=== PATIENT | female | born 1940 | race Caucasian/White ===

== ENCOUNTER 2023-09-05 18:52 | Observation (INO) | payer OTHER, SELFPAY ==
[2023-09-05] VITALS (8 sets, daily range): BP systolic 109–179; BP diastolic 76–97; PULSE 88–89; BMI 20.1; BMI 20.4
[2023-09-05 13:47] LABS: % Basophils 0.2 % (0-2); % Eosinophils 0.2 % (0-6); % Immature Granulocytes 0.4 % (0-0.5); % Lymphocytes 23.7 % (20.5-51.1); % Monocytes 9.3 % (1.7-9.3); % Neutrophils 66.2 % (42.2-75.2); Absolute Lymphocytes 1.9 10^3/uL (1.2-3.4); Absolute Monocytes 0.8 10^3/uL (0.1-0.6); Absolute Neutrophils 5.4 10^3/uL (1.4-6.5); Hematocrit 28.4 % (37.0-47.0); Hemoglobin 8.8 g/dL (12.0-16.0); Mean Corpuscular Hgb 24.2 pg (27.0-31.0); Mean Platelet Volume 9.2 fL (7.4-10.4); Nucleated Red Blood Cells % 0 %; Platelet Count 321 10^3/uL (130-400); Red Blood Cell Count 3.64 10^6/uL (4.20-5.40); Red Cell Dist. Width 15.9 % (11.5-14.5); White Blood Cell Count 8.2 10^3/uL (4.8-10.8)
[2023-09-05 13:57] LABS: ALT (SGPT) 13 U/L (0-35); AST (SGOT) 17 U/L (14-36); Albumin 3.9 g/dl (3.5-5.0); Alkaline Phosphatase 75 U/L (38-126); Blood Urea Nitrogen 20 mg/dl (7-17); Calcium 9.1 mg/dl (8.4-10.2); Carbon Dioxide 25 mmol/L (22-30); Chloride 102 mmol/L (98-107); Estimated Creatinine Clearance 57 ml/min; Glucose 94 mg/dl (70-99); Potassium 3.9 mmol/L (3.5-5.1); Sodium 134 mmol/L (135-145); Total Bilirubin 0.4 mg/dl (0.2-1.3); Total Protein 7.1 g/dl (6.3-8.2); eGFR > 60.00
[2023-09-05 14:08] LABS: Troponin I < 0.012 ng/ml
--- NOTE | 2023-09-05 16:00 | ED.GENMED ---
History of Present Illness
General
Chief Complaint: Fainting/Passed Out
Source: patient
Exam Limitations: none
Time Seen by Provider: 09/05/23 15:10
History of Present Illness
History of Present Illness:
Is an 82-year-old female presents after she states that overnight she fell out of bed 3 times. She states she just found herself on the ground. She does complain of some low back pain she states that sometimes when she gets like this it is due to
being anemic. She admits that she has been just in general weak. She has been a little bit lightheaded and dizzy as well. The patient denies chest pain or shortness of breath. Denies melena or hematochezia. States she has had an endoscopy and
colonoscopy. She also has a history of ulcerative colitis. She states that she had her hemoglobin checked recently about 2 weeks ago and it was higher than today's 8.8
Past History
Past History
ED Past Medical History: CHF, HTN, Hypercholesterolemia, Psychiatric (Anxiety/depression) and Other (Colitis, Macular degeneration, )
ED Past Surgical History: Orthopedic (Lumbar fusion, )
Social History
Tobacco: Non-smoker
Alcohol: Daily (Martini 1 )
Personal: ( in detention, patient lives alone)
Living: alone
Employment: Retired
Family History
Family History: Other ( Noncontributory)
Phy Exam
Physical Exam
Physical Exam:
CONSTITUTIONAL Patient alert and oriented to person, place and time. Well-appearing. Vital signs reviewed.
HEAD atraumatic, normocephalic.
EYES eyelids normal to inspection,
NECK normal range of motion, Trachea midline, no jugular venous distention.
RESPIRATORY CHEST No respiratory distress noted, Chest expansion equal, Bilateral breath sounds clear.
CARDIOVASCULAR regular rate and rhythm, Heart sounds normal.
ABDOMEN abdomen nontender, Bowel sounds normal. No distention.
BACK normal inspection, no obvious deformities, no midline tenderness
UPPER EXTREMITY range of motion normal, Motor strength normal, no cyanosis, no edema.
LOWER EXTREMITY range of motion normal, Motor strength normal, no cyanosis, no edema. Full normal range of motion of bilateral hips. No deformities
NEURO Speech normal, No focal motor deficits, [place] coma scale 15, Memory normal, Cranial Nerves intact to screening exam.
SKIN skin warm, dry, and normal in color.
PSYCHIATRIC patient oriented to person place and time, Normal affect.
Course
Orders/Labs/Results
Orders:
Orders
09/05/23 13:18
Electrocardiogram (*1) Urgent
Reason for Study: Chest Pain
EKG- Treatment ONCE
09/05/23 13:33
Complete Blood Count/With Diff Urgent
Comprehensive Metabolic Panel Urgent
Troponin I Urgent
09/05/23 15:37
Orthostatic VS- Treatment ONCE
09/05/23 15:43
Urinalysis Reflex To Culture Urgent
Date Specimen was Collected: 09/05/23
Time Specimen was Collected: 15:41
Urine Microscopic Reflex Cult Urgent
Urine Culture Urgent
EARL Source: U
Specimen Description:
Date Specimen was Collected: 09/05/23
Time Specimen was Collected: 15:41
09/05/23 16:00
Lumbar Spine, 2 or 3 View [CR Lumbar Spine 2 Or 3 Views] Urgent
Comment:
Reason For Exam: fall
09/05/23 16:28
Femur, Right 2 View [CR Femur - Right Min 2 Vw] Urgent
Comment:
Reason For Exam: fall
09/05/23 17:24
CefTRIAXone [Rocephin] 2,000 mg IV NOW STA
Abnormal Lab Results
09/05/23 09/05/23
13:33 15:43
RBC 3.64 L 10^6/uL
(4.20-5.40)
Hgb 8.8 L g/dL
(12.0-16.0)
Hct 28.4 L %
(37.0-47.0)
MCV 78.0 L fL
(81.0-99.0)
MCH 24.2 L pg
(27.0-31.0)
MCHC 31.0 L g/dL
(33.0-37.0)
RDW 15.9 H %
(11.5-14.5)
Absolute Monos (auto) 0.8 H 10^3/uL
(0.1-0.6)
Sodium 134 L mmol/L
(135-145)
BUN 20 H mg/dl
(7-17)
Urine Ketones Trace A
(Negative)
Ur Occult Blood Reflex 2+ A
(Negative)
Leukocyte Esterase Rfl 2+ A
(Negative)
Urine RBC 7-10 A /HPF
(0-2)
Urine WBC (Reflex) 80-90 A /HPF
(0-5)
Urine Bacteria (Reflex) Many A
(Negative)
Urine Albumin (Reflex) 1+ A
(Neg - Trace)
09/05/23 13:33
09/05/23 13:33
Vital Signs
Initial and Last Documented VS:
Initial Vital Signs
Temp Pulse Resp BP Pulse Ox
98.1 F 91 16 131/87 96
09/05/23 13:13 09/05/23 13:13 09/05/23 13:13 09/05/23 13:13 09/05/23 13:13
Last Documented Vital Signs
Temp Pulse Resp BP Pulse Ox
98.1 F 91 16 174/87 97
09/05/23 13:13 09/05/23 13:13 09/05/23 13:13 09/05/23 16:00 09/05/23 16:00
MDM/Problems Addressed
MDM/Problems Addressed:
fall, possible syncope, anemia, UTI
*Pulse Oximetry
Patient hypoxic: no
*EKG
Interpreted by ED Provider?: Yes
Interpretation: normal
Rate: normal
Rhythm: sinus
[place]: normal axis
Interval: normal interval
QRS Pattern: normal QRS
Ischemia: no ischemia
*Graphic Production Artist Interpretation
Rate: normal
Interpretation: normal
Rhythm: sinus
*Critical Care Note
Total Time (30-74mins, 75-104mins- exclusive of procedures): Not Applicable
Data Reviewed
Review of Other/Old Records Reveals: Labs (Prior labs reviewed showing hemoglobin recently of 9.7 by fax from PCP) and Records
Source: patient
Further Testing Considered But Not Given:
Consider CT head but no evidence of head injury
Patient Management
Discussion with other providers: Hospitalist
Escalation/DeEscalation of care consider admission/obs:
Patient very weak. Question related to UTI versus anemia. She is mildly more anemic than her recent check of 9.7. Very very trace heme positive stool on exam. She needed people to help her from the bathroom. Treat for UTI and admit for trending
hemoglobin
ED Attending Note
-
Portions of this chart may have been created with voice recognition software.� Occasional wrong word or��sound alike� substitutions may have occurred due to the inherent limitations of voice recognition software.
Discharge Plan
Departure
Patient Disposition: Admit
Date of Disposition: 09/05/23
Time of Disposition: 17:43
Admit to: Med/Surg
Presentation/result/management discussed w/ accepting MD/DO: Hospitalist
Discharge Problem:
Weakness, Anemia, Acute GI bleeding
Prescriptions:
No Action
sennosides [senna] 8.6 mg Tablet
17.2 mg PO HS
acetaminophen [Tylenol] 325 mg Tablet
650 mg PO Q8HPRN PRN (Reason: mild pain/fever )
citalopram 20 mg Tablet
20 mg PO DAILY
cyclobenzaprine 5 mg Tablet
5 mg PO BID
furosemide 20 mg Tablet
20 mg PO DAILY PRN (Reason: weight gain, swelling or shortness of breath) Qty: 0 0RF
magnesium hydroxide [Milk of Magnesia] 400 mg/5 mL Suspension
30 ml PO DAILY PRN (Reason: constipation )
Rx Instructions:
if no BM x 3 days, on day 4 of no BM
acetaminophen [Pain Relief ES (acetaminophen)] 500 mg Tablet
1,000 mg PO TID Qty: 60 0RF
lisinopril 2.5 mg Tablet
2.5 mg PO DAILY Qty: 30 0RF
tramadol 50 mg Tablet
25 mg PO Q6HPRN PRN (Reason: mod pain) Qty: 15 0RF
alprazolam 1 mg Tablet
1 mg PO QID Qty: 16 0RF
cephalexin 500 mg capsule
500 mg PO TID Qty: 6 0RF
Rx Instructions:
start 03/16/22
Referrals:
Nick Mareclo PA-C [Family Provider] -
Interventions
Interventions:
*Risk Screen - Suicide Last Done: 09/05/23 13:13
*Neglect/Abuse Screening Last Done: 09/05/23 13:13
ED- Fall Risk Assessment Last Done: 09/05/23 13:13
Discharge Date and Time
Print Language: LUX[place]
[2023-09-05 16:08] LABS: Urine Albumin 1+ (Neg - Trace); Urine Bilirubin Negative (Negative); Urine Character Clear (Clear); Urine Color Yellow; Urine Glucose Negative (Negative); Urine Ketone Trace (Negative); Urine Leukocyte 2+ (Negative); Urine Nitrite Negative (Negative); Urine Occult Blood 2+ (Negative); Urine Specific Gravity 1.015 (<1.030); Urine Urobilinogen Negative (Neg - 1+)
[2023-09-05 16:18] LABS: Urine White Cell 80-90 /HPF (0-5)
[2023-09-05 16:19] LABS: Urine Bacteria Many (Negative)
[2023-09-05] MEDS: XANAX 1 MG PO ×2 (18:08→21:32)
[2023-09-05] MEDS: ROCEPHIN 2000 MG IV (18:20)
--- NOTE | 2023-09-05 18:32 | HPS.HSE ---
Family Physician
-
Family Physician: Nick Marcelo
Chief Complaint
-
Weakness and Falls
History of Present Illness
Patient is an 82-year-old female past medical history of generalized anxiety disorder, ulcerative colitis and chronic anemia who presents with weakness and falls. Patient where she was doing very well over the last few weeks up until a few days ago
when she developed increasing weakness. She reports generalized fatigue. Over the last 24 hours she has had multiple falls resulting in increased back pain which prompted her to come to the emergency department. She reports associated
lightheadedness. While in the emergency department she was noted to have trace heme positive stools in the emergency department. Patient denies any black or bloody stools. She states she did have a recent colonoscopy a few months ago with her
primary GI physician at which time he 'seared some lesions.'
Medical History
Past Medical History
Past Medical History: Reports Other
Additional Past Medical History:
Congestive Heart Failure
Essential Hypertension
Hyperlipidemia
Orthostatic Hypotension
Iron Deficiency Anemia
Ulcerative Colitis
Anxiety/Depression
Past Surgical History: Reports Other
Additional Past Surgical History:
Lumbar Fusion
Social History
Tobacco: Non-smoker
Alcohol: None
Personal: ( in July 2023)
Living: Alone
Family History
Family History: Not pertinent
Allergies / Home Medications
Allergies reflects when Allergies were last updated in [employer].
Home Medications with original date entered in [employer]
Allergy/Medication List:
Allergies
Allergy/AdvReac Type Severity Reaction Status Date / Time
latex Allergy Rash Verified 09/05/23 13:12
prednisone Allergy psychosis Verified 09/05/23 13:12
Home Medications
alprazolam 1 mg tablet 1 mg PO QID Mental Health/Anxiety #16 tabs 03/15/23
acetaminophen 500 mg tablet (Pain Relief Extra Strength (acetaminophen)) 1,000 mg PO QIDPRN PRN mild pain 09/05/23
diclofenac sodium 1 % topical gel 1 ea topical BIDPRN PRN topical pain 09/05/23
fluoxetine 20 mg capsule 20 mg PO DAILY 09/05/23
nitrofurantoin monohydrate/macrocrystals 100 mg capsule 100 mg PO DAILY 09/05/23
Review of Systems
-
A 12 point ROS was completed and negative except as noted: Yes
Constitutional: Denies Fever or Chills
Respiratory: Denies Cough or Trouble Breathing
Cardiac: Denies Chest Pain or Palpitations
Abdomen/GI: Denies Abdominal Pain, Nausea or Vomiting
: Reports Frequency (Patient reports chronic for the last several years); Denies Dysuria
Physical Exam
Vital Signs
Vital Signs
Temp Pulse Resp BP Pulse Ox
98.1 F 91 16 174/87 97
09/05/23 13:13 09/05/23 13:13 09/05/23 13:13 09/05/23 16:00 09/05/23 16:00
Physical Exam
General: Comfortable and Conversant
HEENT: Anicteric and Moist mucous membranes
Respiratory: Clear and Non Labored Respirations
Cardiac: S1/S2 and Regular Rhythm
GI: Soft and Non Tender
Rectal: Other (Trace heme positive stool per ED provider)
Musculoskeletal: No Cyanosis and No Edema
Skin: Warm and Dry
Neuro: Awake, Alert, Oriented and Nonfocal/grossly intact
Psych: Calm
Laboratory Results
-
09/05/23 13:33
09/05/23 13:33
Laboratory Results
Total Bilirubin 0.4 mg/dl (0.2-1.3) 09/05/23 13:33
AST 17 U/L (14-36) 09/05/23 13:33
ALT 13 U/L (0-35) 09/05/23 13:33
Alkaline Phosphatase 75 U/L (38-126) 09/05/23 13:33
Troponin I < 0.012 ng/ml 09/05/23 13:33
Data Reviewed
-
Lab Data: Labs Reviewed by me
Impression/Plan
-
Anemia with trace heme positive stool
-Patient reports blood work approximately 2 weeks ago showed hemoglobin closer to 10
-Check iron studies
-Check repeat hemoglobin in AM
-At this time patient does not appear to be actively bleeding
-Continue to heme-test stool
-If Hgb trends down consider GI consult
-Attempt to obtain records from her primary GI with recent colonoscopy report
Weakness and Frequent Falls
-Check orthostatic VS
-Consult PT/OT
Abnormal Urinalysis, doubt active infection as patient denies new urology symptoms
-Continue nitrofurantoin as prior to admission
-Await urine culture
Ulcerative Colitis
-Patient maintained on Humira as outpatient
Congestive Heart Failure
-Patient no longer on diuretics
-Monitor Is&OS and Daily Weights
Anxiety/Depression
-Continue alprazolam and fluoxetine as prior to admission
DVT Proph: SCDs
Code Status: Full Code
[2023-09-05 19:04] LABS: Iron 32 ug/dl (37-170)
[2023-09-05 19:13] LABS: Percent Saturation 8 % (20-50); Total Iron Binding Capacity 390 ug/dl (265-497)
[2023-09-05 19:39] LABS: Ferritin 3.9 ng/ml (11.1-264.0)
[2023-09-05 19:54] LABS: Vitamin B12 267 pg/ml (239-931)
--- NOTE | 2023-09-05 20:13 | PTCARENOTE ---
Pt arrived from ED via stretcher and was a stand and pivot to bed. Pt is AAOx3, VSS, and complains of pain only when ambulating and turning. Pt is resting comfortably w/ call phoenix within reach.
--- NOTE | 2023-09-05 21:16 | W.PN.UPDATE ---
Update Note
Progress Note Update
Patient seen/examined and discussed with RODDY Prince, and I agree with her note.
Gen-AAOx3, NAD
HEENT-NC/AT, anicteric, clear MM
Neck-supple
CV-reg, no M
Lungs-clear
Abd-soft, NT, ND
Ext-no edema
Neuro-grossly nonfocal
Generalized weakness - likely multifactorial etiology. Doubt purely from anemia. Suspect her depression/anxiety is also playing a role. Patient mentioned she lost her 1 month ago.
Consult PT/OT.
She apparently fell out of bed last night, reportedly 3 times. Unclear if LOC. Admit to Tele, check orthostatics.
Microcytic anemia, acute on chronic - trace heme positive stool in setting of ulcerative colitis history suggestive of possible GI blood loss.
Trend Hgb.
Chronic pyuria - with chronic bladder symptoms, unlikely UTI. Hx urinary incontinence. Recommend outpatient Urology follow up. Hold antibiotics, await urine culture.
Ulcerative colitis - on weekly Humara every Sunday, did not get her dose today.
Chronic CHF - unknown type. Stable.
Depression/Anxiety
Full code
[2023-09-05 22:04] LABS: Folate > 20.0 ng/ml (2.76-20)
[2023-09-06 03:45] VITALS: BP 157/93
[2023-09-06 05:27] VITALS: BMI 20.4
[2023-09-06] MEDS: TYLENOL 1000 MG PO (06:29)
[2023-09-06 07:35] LABS: Hematocrit 29.7 % (37.0-47.0); Hemoglobin 8.9 g/dL (12.0-16.0); Mean Corpuscular Hgb 23.9 pg (27.0-31.0); Mean Corpuscular Volume 79.8 fL (81.0-99.0); Mean Platelet Volume 9.1 fL (7.4-10.4); Platelet Count 302 10^3/uL (130-400); Red Blood Cell Count 3.72 10^6/uL (4.20-5.40); Red Cell Dist. Width 15.9 % (11.5-14.5); White Blood Cell Count 6.5 10^3/uL (4.8-10.8)
[2023-09-06 07:45] VITALS: BP 145/90; BP 152/90; PULSE 78; PULSE 80
[2023-09-06 08:04] LABS: Blood Urea Nitrogen 18 mg/dl (7-17); Calcium 9.2 mg/dl (8.4-10.2); Carbon Dioxide 25 mmol/L (22-30); Chloride 102 mmol/L (98-107); Estimated Creatinine Clearance 57 ml/min; Glucose 94 mg/dl (70-99); Potassium 4.2 mmol/L (3.5-5.1); Sodium 135 mmol/L (135-145); eGFR > 60.00
[2023-09-06] MEDS: XANAX 1 MG PO ×2 (08:53→13:08)
[2023-09-06] MEDS: MACROBID 100 MG PO (08:53)
[2023-09-06] MEDS: PROZAC 20 MG PO (08:53)
[2023-09-06 09:00] VITALS: BP 150/83; PULSE 92; O2SAT 98
[2023-09-06 09:35] VITALS: BP 150/83; PULSE 92; O2SAT 98
--- NOTE | 2023-09-06 11:21 | CM ---
Addendum entered by Rolanda Nicole 09/06/23 14:01:
Patient seen with daughter in law, patient resides in [place], not [place], referral sent to [facility].
Addendum entered by Rolanda Nicole 09/06/23 11:55:
Patient agreeable to [facility] or [facility]. Confirmed with [facility], do not travel to [place]. Will send referral to [facility].
Original Note:
Patient seen bedside, initial assessment completed. Patient resides in a two story home with a first floor set up, has a stair glide, walker, cane, and wheelchair at home from , reports was on Hospice and passed a month ago. CM
offered support to patient. Patient reports she has a daughter in law who lives in [place] who is her POA. Patient reports she has support from her neighbors. 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 Patient
reports she has been to [facility] twice in the past. Patient PCP Dr. Nick Hoskins, pharmacy [facility]. CM discussed PT recommendation of SNF, patient not agreeable to rehab, would like to return home with services. Patient reports she
still drives and typically does not use a device to ambulate, is unsure why she is falling out of her bed. [facility] form provided, refused to sign, placed in chart. CM will continue to follow for all discharge planning needs.
Plan; PT rec SNF, patient wants to return home with services, not agreeable to SNF at this time.
[2023-09-06 11:25] VITALS: BP 124/82
--- NOTE | 2023-09-06 11:34 | W.PN.HOSP.TC ---
Addendum entered and electronically signed by Andrew Liang DO 09/06/23 14:19:
Iron deficiency anemia noted on blood work.
I spoke with patient's CORINA Jones on the phone and recommended exos-wbu-rsawtex ferrous sulfate 325 mg every other day.
Addendum entered and electronically signed by Andrew Liang DO 09/06/23 11:39:
Vitamin B12 level 267, start oral repletion.
Original Note:
Today's Communication/Plan
-
Discharge
Assessment / Plan
Assessment / Plan
Gen-AAOx3, NAD
HEENT-NC, AT, anicteric, clear oral mm
Neck-supple
CV-reg, no M, +S1/S2
Lungs-clear B/L
Abd-soft, NT, ND
Ext-no edema
Musculoskeletal-no cyanosis, clubbing
Skin-warm and dry
Neuro-grossly non-focal
Psych-calm, cooperative
Generalized weakness - likely multifactorial etiology. Doubt purely from anemia. Suspect her depression/anxiety is also playing a role. Patient mentioned she lost her 1 month ago. Unclear contribution of benzodiazepines to her fall. She is
not orthostatic.
PT recommending SNF but patient not interested. She wants to do home PT and home care. Discussed with case management.
Microcytic anemia, acute on chronic - trace heme positive stool in setting of ulcerative colitis history suggestive of possible GI blood loss.
Hemoglobin trend appears stable. Doubt active bleeding. Recommend outpatient follow-up with her geological specialist.
Chronic pyuria - with chronic bladder symptoms, unlikely UTI. Hx urinary incontinence. Recommend outpatient Urology follow up. Hold antibiotics, await urine culture.
Ulcerative colitis - on weekly Humara every Sunday, did not get her dose today.
Chronic CHF - unknown type. Stable.
Depression/Anxiety -on chronic alprazolam. Obviously this is not safe at her age given her risk for falls. Discussed with patient's daughter on the phone, recommend outpatient follow-up with her prescriber to consider alternative means of
controlling her anxiety.
Full code
Dispo -medically stable for discharge with home care. Case management aware. Updated daughter Karen on the phone.
32 minutes spent in discharge process.
Anticipated Discharge: Today
Subjective/Interval History
-
Date of Service: September 06, 2023
Patient seen and examined. No new complaints.
Objective Data
-
Labs:
Laboratory Results
09/06/23
07:05
WBC 6.5
Hgb 8.9 L
Hct 29.7 L
Plt Count 302
Sodium 135
Potassium 4.2
Chloride 102
Carbon Dioxide 25
BUN 18 H
Creatinine 0.6
Glucose 94
Calcium 9.2
Vital Signs:
Vital Signs
Temp Pulse Resp BP Pulse Ox
98.5 F 78 18 145/90 96
09/06/23 07:45 09/06/23 07:45 09/06/23 07:45 09/06/23 07:45 09/06/23 07:45
I&O
09/05/23 09/06/23 09/07/23
06:59 06:59 06:59
Intake Total 480 / 480
Balance 480 / 480
Review of Systems
-
History Source: Patient
All other systems: Reviewed and negative
--- NOTE | 2023-09-06 11:39 | W.DS.TRANS ---
DC Summary - [employer]
-
Discharge Instructions:
Sleep Apnea Risk Low
Discharge Diagnosis/Procedures Fall, anemia
Diet Regular
Activity With assistance
Driving Restrictions As prior to admission
Bathing Restrictions None
Blood Work CBC in 1 week with your primary care doctor
Other Services VN,PT
Instructions:
Stand-Alone Forms:
Changes to Home Medications: No
Discharge Medications:
DC Medications w/original date entered in [employer]
alprazolam 1 mg tablet 1 mg PO QID Mental Health/Anxiety #16 tabs 03/15/23
acetaminophen 500 mg tablet (Pain Relief Extra Strength (acetaminophen)) 1,000 mg PO QIDPRN PRN mild pain 09/05/23
diclofenac sodium 1 % topical gel 1 ea topical BIDPRN PRN topical pain 09/05/23
fluoxetine 20 mg capsule 20 mg PO DAILY Depression 09/05/23
nitrofurantoin monohydrate/macrocrystals 100 mg capsule 100 mg PO DAILY Infection 09/05/23
cyanocobalamin (vitamin B-12) 1,000 mcg tablet 1,000 mcg PO DAILY #60 tabs 09/06/23
Home Medication Changes
Pending Results: No
[2023-09-06] MEDS: VITAMIN B-12 1000 MCG PO (13:08)
== END 2023-09-06 13:20 | disposition home health service (06) ==
LOC: 4 EAST ACU 18:52
PROVIDERS: Emergency Medicine; Physician Assistant Medical; ADMITTING PHYSICIAN Hospitalist; EMERGENCY PHYSICIAN Emergency Medicine; FAMILY PHYSICIAN Physician Assistant Medical
DX: R53.1 Weakness (principal); D50.0 Iron deficiency anemia secondary to blood loss (chronic); W06.XXXA Fall from bed, initial encounter; Y93.89 Activity, other specified; Y92.003 Bedroom of unspecified non-institutional (private) residence as the place of occurrence of the external cause; R55 Syncope and collapse; K51.90 Ulcerative colitis, unspecified, without complications; R29.6 Repeated falls; M47.816 Spondylosis without myelopathy or radiculopathy, lumbar region; R82.81 Pyuria; R42 Dizziness and giddiness; F41.9 Anxiety disorder, unspecified; F32.A Depression, unspecified; E78.00 Pure hypercholesterolemia, unspecified; E78.5 Hyperlipidemia, unspecified; R07.9 Chest pain, unspecified; Z60.2 Problems related to living alone; Z63.4 Disappearance and death of family member; Z88.8 Allergy status to other drugs, medicaments and biological substances; Z91.040 Latex allergy status; Z79.620 Long term (current) use of immunosuppressive biologic
CPT/HCPCS: 72100; 73552; 80048; 80053; 81003; 81015; 82607; 82728; 82746; 83540; 83550; 84484; 85025; 85027; 87086; 93005; 96374; 97163; 97166; 99285; G0378

== ENCOUNTER 2023-09-08 10:29 | Emergency (ER) | payer OTHER, SELFPAY ==
[2023-09-08 10:42] VITALS: BP 121/75
--- NOTE | 2023-09-08 11:33 | EDRN ---
Patient requesting 'pain pill' from everyone that enters the room including registration. After this RN spoke with the patient, asked what she would like for her pain, she stated 'xanax' and that she has been on it for 40 years.
i readjusted the patient in bed and assisted in looking for her cell phone. Attempted to call it but went right to . Patient is cursing a lot about not being able to find her phone. Patient has her personal phone book to use and I provided the
patient with the landline and clear instructions on use.
--- NOTE | 2023-09-08 12:02 | ED.GENMED ---
History of Present Illness
General
Chief Complaint: Back Pain
Source: patient
Exam Limitations: none
Time Seen by Provider: 09/08/23 10:57
Nursing documentation reviewed up to this point in time: agreed with
History of Present Illness
History of Present Illness:
82 y/o F with h/o htn, hld, frequent uti, frequent falls, GI bleeding/anemia chronically
here after being discharged yesterday from for anemia/falls
she declined rehab at that time but lives alone and fell again last night when she got home and says 'i went flying through the air' and landed somehow on her knees and back and may have struck her head
no blood thinners
denies LOC
was able to get herself off the ground
no confusion, vomiting, cp, sob
she is very anxious and requesting her normal xanax 1 mg qid that she has been on for years for her 'pain and craziness'
pt is agreeable to rehab.
Past History
Past History
ED Past Medical History: CHF, HTN, Hypercholesterolemia, Psychiatric (Anxiety/depression) and Other (Colitis, Macular degeneration, )
ED Past Surgical History: Orthopedic (Lumbar fusion, )
Social History
Tobacco: Non-smoker
Alcohol: Daily (Martini 1 )
Personal: ( in penitentiary, patient lives alone)
Living: alone
Employment: Retired
Family History
Family History: Other ( Noncontributory)
Phy Exam
Physical Exam
Physical Exam:
GENERAL: Alert , in no apparent distress
HEAD: POSTERIOR SCALP BRUISING
NECK: no midline tenderness, active ROM intact, no paraspinal muscle tenderness;
EYE: pupils equal and reactive, EOMs intact.
ENT: o/p clr, mmm. no hemotympanum
CARDIAC: Regular rate and rhythm, no edema
LUNGS: Clear breath sounds bilaterally, no acute respiratory distress, no wheezes/rales/rhonchi
ABDOMEN: Soft, without focal tenderness, no r/g, no cvat
NEUROLOGICAL: Alert and oriented, no focal neuro deficits, CN intact, 5/5 strength, sensation intact; ambulates with walker; needed help up but then able to maneuver when she got oging
SKIN: Warm and dry, bruis left upper shoulder nontender
MUSCULOSKELETAL: no obvious bruising to B/L LE
back mild pain with movement; notnender midline
ambulates with walker
PSYCH: Normal and appropriate interaction.
Course
Orders/Labs/Results
Orders:
Orders
09/08/23 11:57
CT Head W/o Iv Contrast Urgent
Comment:
Reason For Exam: falss, hit head
Cardiac Monitoring- Treatment ONCE
Knee, Left 1 or 2 Views [CR Knee - Left 1 Or 2 Views] Urgent
Comment:
Reason For Exam: b/l knee pain fall
Knee, Right 1 or 2 Views [CR Knee - Right 1 Or 2 Views] Urgent
Comment:
Reason For Exam: bl knee pain fall
Lumbar Spine Complete, 4 View [CR Lumbar Spine Comp Min 4 Vw*] Urgent
Comment:
Reason For Exam: low back pain fall
Pelvis, 1 or 2 Views CR [CR Pelvis - 1 Or 2 Views ] Urgent
Comment:
Reason For Exam: fall
09/08/23 12:03
Acetaminophen [Tylenol] 650 mg PO NOW STA
Alprazolam [Xanax] 1 mg PO NOW STA
09/08/23 12:18
Case Management Consult ONCE
Case Management Consult: Discharge Planning
09/08/23 12:30
PT Consult [Pt Eval And Treat] Urgent
Activity Level: Ambulate
09/08/23 12:59
Type+Screen Urgent
Complete Blood Count/With Diff Urgent
Comprehensive Metabolic Panel Urgent
09/08/23 14:53
COVID-19 Antigen Urgent
Source: Nasal Swab
09/08/23 17:09
Oxycodone/Acetaminophen [Percocet 5/325] 1 tablet PO NOW STA
09/08/23 17:52
Alprazolam [Xanax] 1 mg .ROUTE .STK-MED ONE
09/08/23 18:02
Alprazolam [Xanax] 1 mg PO Q6HPRN ONE
Abnormal Lab Results
09/08/23
12:59
RBC 4.08 L 10^6/uL
(4.20-5.40)
Hgb 9.8 L g/dL
(12.0-16.0)
Hct 31.8 L %
(37.0-47.0)
MCV 77.9 L fL
(81.0-99.0)
MCH 24.0 L pg
(27.0-31.0)
MCHC 30.8 L g/dL
(33.0-37.0)
RDW 16.4 H %
(11.5-14.5)
BUN 26 H mg/dl
(7-17)
09/08/23 12:59
09/08/23 12:59
Vital Signs
Initial and Last Documented VS:
Initial Vital Signs
Temp Pulse Resp BP Pulse Ox
98.8 F 99 16 121/75 98
09/08/23 10:42 09/08/23 10:42 09/08/23 10:42 09/08/23 10:42 09/08/23 10:42
Last Documented Vital Signs
Temp Pulse Resp BP Pulse Ox
98.8 F 95 17 127/86 100
09/08/23 10:42 09/08/23 16:00 09/08/23 16:00 09/08/23 13:30 09/08/23 14:33
MDM/Problems Addressed
Differential Diagnosis Includes:
frequent falls, deconditioning, anemia, lumbar compression
MDM/Problems Addressed:
82 y/o F recently hopsitalized for fatigue, weakness, decondtioning, anemia
not transfused
says she declined rehab and went home and fell again and now is requeting rehab
her exam i s nonfocal, no weakness
she has luke tendrness in her lower back
xarys indep reviewed and neg for fx; has djd
hg 9.8, which is better than previous
seen by case management and by PT
placed in rehab facility
*Critical Care Note
Total Time (30-74mins, 75-104mins- exclusive of procedures): Not Applicable
ED Attending Note
-
Portions of this chart may have been created with voice recognition software.� Occasional wrong word or��sound alike� substitutions may have occurred due to the inherent limitations of voice recognition software.
Discharge Plan
Departure
Patient Disposition: Acute Rehab Facility
Date of Disposition: 09/08/23
Time of Disposition: 16:04
Patient with high blood pressure during this ER visit?: No
Condition: Fair
Covid-19: Not Applicable
Discharge Problem:
Ambulatory dysfunction, Anemia
Instructions: Low Back Pain (DC), Preventing Falls ED
Prescriptions:
No Action
alprazolam 1 mg Tablet
1 mg PO QID Qty: 16 0RF
Patient Comments:
09/05/2023: last filled 08/15/23, 120 tabs for 30 days from [facility]
fluoxetine 20 mg capsule
20 mg PO DAILY
nitrofurantoin monohyd/m-cryst 100 mg capsule
100 mg PO DAILY
diclofenac sodium 1 % gel
1 ea TOPICAL BIDPRN PRN (Reason: topical pain)
Patient Comments:
09/05/2023: Applies all over for sores
acetaminophen [Pain Relief ES (acetaminophen)] 500 mg tablet
1,000 mg PO QIDPRN PRN (Reason: mild pain)
cyanocobalamin (vitamin B-12) 1,000 mcg Tablet
1,000 mcg PO DAILY Qty: 60 0RF
Referrals:
Nick Marcelo PA-C [Family Provider] -
Activity Restrictions/Additional Instructions:
YOU WERE MEDICALLY CLEARED FOR REHAB
Interventions
Interventions:
*Risk Screen - Suicide Last Done: 09/08/23 12:04
*General Assessment Last Done: 09/08/23 12:04
*Neglect/Abuse Screening Last Done: 09/08/23 12:04
ED- Fall Risk Assessment Last Done: 09/08/23 18:30
*ED COVID-19 Vaccine History Last Done: 09/08/23 12:04
*Nursing Disposition Last Done: 09/08/23 18:30
ED-Musculoskeletal Assessment Last Done: 09/08/23 12:04
Discharge Date and Time
Discharge Date/Time: 09/08/23 18:30
Print Language: HEBREW
[2023-09-08] MEDS: TYLENOL 650 MG PO (12:35)
[2023-09-08] MEDS: XANAX 1 MG PO ×2 (12:35→18:03)
[2023-09-08 12:58] VITALS: BP 134/87
--- NOTE | 2023-09-08 13:02 | CM ---
Addendum entered by Beatris Red RN 09/08/23 15:58:
[facility]
REPORT
[phone]

Addendum entered by Beatris Red RN 09/08/23 15:55:
IBC Authorization
[id number]
NRD 09/11
[facility]view to go to
[phone]
Addendum entered by Beatris Red RN 09/08/23 15:03:
[facility] has accepted patient. CM left message for personal counselor IBC UR RN. Pending return call for authorization
Addendum entered by Beatris Red RN 09/08/23 14:16:
CM sent referrals to:
[facility]
Addendum entered by Beatris Red RN 09/08/23 14:02:
[facility] no beds available.
[facility] is unavailable for placements over the weeks. Patient mentioned that was a ziyad for july years.
Patient wants a referral to [facility] and [facility] both have offered beds.
Addendum entered by Beatris Red RN 09/08/23 13:12:
CM spoke with [facility]. NO beds available today.
Original Note:
CM spoke with patient. She is agreeable to rehab. CM sent referrals to:
[facility] updated this CM that no bed are available.
CM will await feedback on referrals.
[2023-09-08 13:03] LABS: % Basophils 0.2 % (0-2); % Eosinophils 0.7 % (0-6); % Immature Granulocytes 0.2 % (0-0.5); % Lymphocytes 22.8 % (20.5-51.1); % Neutrophils 69.1 % (42.2-75.2); Absolute Eosinophils 0.1 10^3/uL (0-0.7); Absolute Lymphocytes 1.8 10^3/uL (1.2-3.4); Absolute Monocytes 0.6 10^3/uL (0.1-0.6); Absolute Neutrophils 5.6 10^3/uL (1.4-6.5); Hematocrit 31.8 % (37.0-47.0); Hemoglobin 9.8 g/dL (12.0-16.0); Mean Corp Hgb Conc. 30.8 g/dL (33.0-37.0); Mean Corpuscular Volume 77.9 fL (81.0-99.0); Mean Platelet Volume 8.8 fL (7.4-10.4); Nucleated Red Blood Cells % 0 %; Platelet Count 350 10^3/uL (130-400); Red Blood Cell Count 4.08 10^6/uL (4.20-5.40); Red Cell Dist. Width 16.4 % (11.5-14.5)
[2023-09-08 13:16] LABS: ALT (SGPT) 18 U/L (0-35); AST (SGOT) 22 U/L (14-36); Albumin 3.9 g/dl (3.5-5.0); Alkaline Phosphatase 73 U/L (38-126); Blood Urea Nitrogen 26 mg/dl (7-17); Calcium 9.4 mg/dl (8.4-10.2); Carbon Dioxide 25 mmol/L (22-30); Chloride 104 mmol/L (98-107); Glucose 86 mg/dl (70-99); Potassium 3.9 mmol/L (3.5-5.1); Sodium 136 mmol/L (135-145); Total Bilirubin 0.5 mg/dl (0.2-1.3); Total Protein 7.2 g/dl (6.3-8.2); eGFR > 60.00
[2023-09-08 13:30] VITALS: BP 127/86
[2023-09-08 13:45] VITALS: BP 127/86; BP 134/87; PULSE 101; O2SAT 96
--- NOTE | 2023-09-08 14:38 | EDRN ---
Pt returned from CT Scan. Pt connected to animal daycare provider. Pt states 'I am starving to and need to eat' RODDY Leal said pt could eat. Pt given turkey sandwhich lunch box, asked to order from cafeteria and explained can not order until/if
pt is admitted. Call phoenix placed within reach of pt and cup of water given to pt.
[2023-09-08 15:55] LABS: COVID-19 Antigen Negative (Negative)
[2023-09-08] MEDS: PERCOCET 5/325 1 TABLET PO (17:59)
== END 2023-09-08 18:30 ==
LOC: EMR 10:29
PROVIDERS: Physician Assistant; EMERGENCY PHYSICIAN Emergency Medicine; FAMILY PHYSICIAN Physician Assistant Medical
DX: R26.89 Other abnormalities of gait and mobility (principal); D64.9 Anemia, unspecified; M54.9 Dorsalgia, unspecified; W19.XXXA Unspecified fall, initial encounter; I10 Essential (primary) hypertension; E78.5 Hyperlipidemia, unspecified
CPT/HCPCS: 99285; 70450; 72110; 72170; 73560; 80053; 85025; 86850; 86900; 86901; 87811

== ENCOUNTER 2023-10-25 09:08 | Inpatient (IN) | payer OTHER, SELFPAY ==
[2023-10-23 12:22] VITALS: BP 143/97
[2023-10-23 13:00] VITALS: BP 150/98
--- NOTE | 2023-10-23 13:56 | ED.GENMED ---
History of Present Illness
General
Chief Complaint: Anxiety
Source: patient and other (Nurse practitioner from [facility])
Exam Limitations: none
Time Seen by Provider: 10/23/23 13:15
Nursing documentation reviewed up to this point in time: agreed with
History of Present Illness
History of Present Illness:
82-year-old female history of CHF, HTN, HLD, anxiety/depression is here because she ran out of her Xanax. She states she has been taking Xanax for the past 40 years. She states she takes Xanax 1 mg 4 times a day, she states this was weaned from 6
mg 4 times a day about a month ago. She states her psychiatrist filled her Xanax prescription but when she went to the pharmacy they told her they could not fill it as it was not time yet they cannot fill it until which is 2 days from now.
She is here stating she needs something is when she stops taking her Xanax she starts to fall, she gets confused, her back and legs hurt.
She denies chest pain or trouble breathing. There are no new stressful factors. She states she lives alone in a big house and has fallen twice in the past 2 days. She denies any significant injury from the falls.
Past History
Past History
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
ED Past Surgical History: Orthopedic (Lumbar fusion, )
Social History
Tobacco: Non-smoker
Alcohol: Daily (Martini 1 )
Drug: Other (Xanax addiction)
Personal: ( in retirement, patient lives alone)
Living: alone
Employment: Retired
Family History
Family History: Other ( Noncontributory)
Review of Systems
Review of Systems
Allergies reviewed?: Yes
All Other Systems: ROS reviewed and negative except as documented in HPI and ROS
Respiratory: Denies trouble breathing
Cardiac: Denies chest pain
ABD/GI: Denies abdominal pain, nausea, vomiting or diarrhea
: Denies dysuria, difficulty voiding or urgency
Musculoskeletal: Reports other (pain in legs and lower back (chronic))
Skin: Reports no symptoms
Neurological: Reports no symptoms
Phy Exam
Physical Exam
Physical Exam:
GENERAL: No acute distress. A&Ox3.
CONSTITUTIONAL: Afebrile.
EYES: PERRL, conjunctivae normal
Neck: Supple
ENMT: moist mucus membranes, Pharynx nl
RESPIRATORY: Regular respirations, nonlabored, lungs clear.
CARDIOVASCULAR: Regular rate and rhythm, no murmurs, no rubs.
GI: Soft, nontender, normal BS
MUSCULOSKELETAL: Moves with ease. Well perfused.
SKIN: Warm, dry, pink
PSYCH: Anxious mood and affect. Jittery. Picking at sheet, Well kept
NEUROLOGIC: Awake, alert and oriented. Forgetful and confused at times during conversation, speech clear, no focal neurological deficits
Course
Orders/Labs/Results
Orders:
Orders
10/23/23 14:01
0.9% Sodium Chloride 500 ml [Nss] 500 ml IV BOLUS
10/23/23 14:02
Urinalysis Reflex To Culture Urgent
10/23/23 14:17
Complete Blood Count/With Diff Urgent
Comprehensive Metabolic Panel Urgent
10/23/23 14:19
Lorazepam [Ativan] 1 mg IV NOW STA
10/23/23 15:29
Physical Therapy Consult [Pt Eval And Treat] Routine
Activity Level: Ambulate
10/23/23 16:05
Admit/Transfer Patient As Directed
Co-Sign Provider:
Level of Care: Observation services
Assign to:: Medical/Surgical
Physician / Group: shane
Diagnosis: ambulatory dysfunction
PRN Pain Medication Management As Directed
May give lesser potent ordered pain med per pt: Yes
preference::
Protocol:: Medication orders for pain may be administered in a
manner that supports deferring to patient preference
when the pt is:
- Requesting an ordered lesser potent pain medication.
Least to most potent pain medications are defined
as: acetaminophen < NSAID < tramadol < opioids
(morphine, oxycodone, hydromorphone).
- Requesting a lesser dose of the same medication IF
ORDERED.
- Requesting a less intrusive route of administration
if both routes are prescribed by the provider (PO <
IV).
10/23/23 16:06
Code Status As Directed
Resuscitation Status: Full Code
10/23/23 17:00
0.9% Sodium Chloride 500 ml [Nss] 500 ml IV 75 mls/hr
10/23/23 17:01
Acetaminophen [Tylenol] 650 mg PO Q6HPRN PRN
Bisacodyl [Dulcolax] 10 mg RECTAL [id number] PRN
Docusate W/Senna [Senokot-S] 1 tablet PO BIDPRN PRN
Polyethylene Glycol Powder [Miralax] 17 grams PO DAILYPRN PRN
10/23/23 17:01
Case Management Consult ONCE
Case Management Consult: Discharge Planning
PSYCHIATRY CONSULT Routine
Consulting Provider: Priscila Steen
Was physician already notified: Yes
Activity As Directed
Activity Level: As Tolerated
Vital Signs As Directed
Frequency: Per unit guidelines
DX Deep Vein Thrombosis Video Routine
10/23/23 18:00
Enoxaparin Sodium [Lovenox] 40 mg SC QPM
10/23/23 22:00
BMP [Basic Metabolic Panel] Routine
Alprazolam [Xanax] 1 mg PO TID
10/24/23 06:00
Basic Metabolic Panel IN AM
Complete Blood Count/No Diff IN AM
Occupational Therapy Consult [Ot Eval And Treat] IN AM
10/24/23 08:00
Cyanocobalamin [Vitamin B-12] 1,000 mcg PO DAILY
Fluoxetine HCl [Prozac] 20 mg PO DAILY
Nitrofurantoin Monohydrate [Macrobid] 100 mg PO DAILY
Abnormal Lab Results
10/23/23
14:17
WBC 12.6 H 10^3/uL
(4.8-10.8)
MCH 26.5 L pg
(27.0-31.0)
MCHC 32.3 L g/dL
(33.0-37.0)
RDW 22.2 H %
(11.5-14.5)
Abs Immat Gran (auto) 0.1 H 10^3/uL
(0-0.05)
Absolute Neuts (auto) 10.4 H 10^3/uL
(1.4-6.5)
Absolute Monos (auto) 0.7 H 10^3/uL
(0.1-0.6)
Immature Gran % 0.6 H %
(0-0.5)
Neutrophils % 82.8 H %
(42.2-75.2)
Lymphocytes % 10.6 L %
(20.5-51.1)
Sodium 131 L mmol/L
(135-145)
Glucose 109 H mg/dl
(70-99)
10/23/23 14:17
10/23/23 14:17
Vital Signs
Initial and Last Documented VS:
Initial Vital Signs
Temp Pulse Resp BP Pulse Ox
97.9 F 89 24 143/97 94
10/23/23 12:22 10/23/23 12:22 10/23/23 12:22 10/23/23 12:22 10/23/23 12:22
Last Documented Vital Signs
Temp Pulse Resp BP Pulse Ox
98.6 F 105 18 183/125 96
10/23/23 17:24 10/23/23 17:24 10/23/23 17:24 10/23/23 17:24 10/23/23 17:24
MDM/Problems Addressed
Differential Diagnosis Includes:
Benzodiazepine dependence/abuse, ambulatory dysfunction
MDM/Problems Addressed:
82-year-old female history of CHF, HTN, HLD, anxiety/depression is here because she ran out of her Xanax. She states she has been taking Xanax for the past 40 years. She states she takes Xanax 1 mg 4 times a day, she states this was weaned from 6
mg 4 times a day about a month ago. She states her psychiatrist filled her Xanax prescription but when she went to the pharmacy they told her they could not fill it as it was not time yet they cannot fill it until which is 2 days from now.
She is here stating she needs something is when she stops taking her Xanax she starts to fall, she gets confused, her back and legs hurt.
She denies chest pain or trouble breathing. There are no new stressful factors. She states she lives alone in a big house and has fallen twice in the past 2 days. She denies any significant injury from the falls.
Ativan 1 mg IV given
Deysi nurse practitioner from [facility] hand called
passed on Hospice in July, Deysi followed with him at the time.
She sees patient once a month at her home lately she has been going a little more often
Recently she had nursing and PT visiting
She has in the past gone from 6 mg to 4 mg 4 times a day, it was lowered to 4 mg 1 month ago. Deysi says it was recently lowered to 3 mg.
Recently she has been taking more Xanax than she is supposed to have frequently runs out, she has anxiety and has been having falls
She lives alone
10 times manager social services has been in contact with her and her family called [facility]PS today [facility]
Has been abusing Xanax, runs out, gets more anxious, falls, more confused.
Oct 10 #56 pills
PCP refusing to refill.
Had license taken away due to driving up onto lawn after drinking
Deysi Sent an email to [facility] who will follow hospitalization
[facility] would be an option.
CBC: WBC No clinically significant abnormality, mild elevation WBC most likely stress reaction
CMP unremarkable
Gonsalo from [facility] in to speak with patient.
Pt declining rehab
Pt is not safe to go home, is tremulous, very confused, at risk for falls. At risk for Benzo withdrawal
Hospitalist notified of admission
*Critical Care Note
Total Time (30-74mins, 75-104mins- exclusive of procedures): Not Applicable
ED Attending Note
-
Portions of this chart may have been created with voice recognition software.� Occasional wrong word or��sound alike� substitutions may have occurred due to the inherent limitations of voice recognition software.
Discharge Plan
Departure
Patient Disposition: Admit
Date of Disposition: 10/23/23
Time of Disposition: 15:18
Admit to: Med/Surg
Presentation/result/management discussed w/ accepting MD/DO: Hospitalist
Condition: Serious
Discharge Problem:
Benzodiazepine dependence, Ambulatory dysfunction, Fall
Interventions
Interventions:
*Risk Screen - Suicide Last Done: 10/23/23 12:22
*General Assessment Last Done: 10/23/23 12:22
*Neglect/Abuse Screening Last Done: 10/23/23 12:22
*Nursing Disposition Last Done: 10/23/23 17:03
ED-Psychological Assessment Last Done: 10/23/23 12:55
Discharge Date and Time
Discharge Date/Time: 10/23/23 17:08
[2023-10-23 14:00] VITALS: BP 155/97
[2023-10-23] MEDS: NSS 500 IV ×2 (14:16→17:41)
[2023-10-23] MEDS: ATIVAN 1 MG IV (14:24)
[2023-10-23 14:36] LABS: % Basophils 0.2 % (0-2); % Eosinophils 0.1 % (0-6); % Immature Granulocytes 0.6 % (0-0.5); % Lymphocytes 10.6 % (20.5-51.1); % Monocytes 5.7 % (1.7-9.3); % Neutrophils 82.8 % (42.2-75.2); Absolute Immature Granulocytes 0.1 10^3/uL (0-0.05); Absolute Lymphocytes 1.3 10^3/uL (1.2-3.4); Absolute Monocytes 0.7 10^3/uL (0.1-0.6); Absolute Neutrophils 10.4 10^3/uL (1.4-6.5); Hematocrit 37.5 % (37.0-47.0); Hemoglobin 12.1 g/dL (12.0-16.0); Mean Corp Hgb Conc. 32.3 g/dL (33.0-37.0); Mean Corpuscular Hgb 26.5 pg (27.0-31.0); Mean Corpuscular Volume 82.2 fL (81.0-99.0); Mean Platelet Volume 9.3 fL (7.4-10.4); Nucleated Red Blood Cells % 0 %; Platelet Count 327 10^3/uL (130-400); Red Blood Cell Count 4.56 10^6/uL (4.20-5.40); Red Cell Dist. Width 22.2 % (11.5-14.5); White Blood Cell Count 12.6 10^3/uL (4.8-10.8)
[2023-10-23 14:55] LABS: ALT (SGPT) 20 U/L (0-35); AST (SGOT) 27 U/L (14-36); Albumin 4.4 g/dl (3.5-5.0); Alkaline Phosphatase 100 U/L (38-126); Blood Urea Nitrogen 14 mg/dl (7-17); Calcium 9.8 mg/dl (8.4-10.2); Carbon Dioxide 23 mmol/L (22-30); Chloride 98 mmol/L (98-107); Estimated Creatinine Clearance 56 ml/min; Glucose 109 mg/dl (70-99); Sodium 131 mmol/L (135-145); Total Protein 7.6 g/dl (6.3-8.2); eGFR > 60.00
--- NOTE | 2023-10-23 15:29 | HPS.HSE ---
Family Physician
-
Family Physician: Nick Marcelo
Chief Complaint
-
shaking
History of Present Illness
82-year-old female history of CHF, HTN, HLD, anxiety/depression is here because she ran out of her Xanax. She states she has been taking Xanax for the past 40 years. She states she takes Xanax 1 mg 4 times a day. she thinks, she was taking more
than what was prescribed. As per ER physician , she was supposed to take 3 mg/day. she ran out of Xanax since Sunday. she last took Xanax on Sunday night. She states her psychiatrist filled her Xanax prescription but when she went to the pharmacy
they told her they could not fill it as it was not time yet they cannot fill it until which is 2 days from now. She is here stating she needs something is when she stops taking her Xanax she starts to fall, she gets confused, her back and
legs hurt.She denies chest pain or trouble breathing. she is sad, because her recently passed, she was taking care of him of past 16 years. the Xanax helps her mentally. denied DURHAM, dizzy or syncope. denied abdominal pain, n,v,d. denied
dysuria or hematuria.
admitting for further management.
Medical History
Past Medical History
Past Medical History: Reports Other
Additional Past Medical History:
Scoliosis
Hypertension
Urinary incontinence
Chronic congestive heart failure
Bilateral pleural effusion
Anxiety/depression
Arthritis
Macular degeneration
Ulcerative colitis
Anemia
Past Surgical History: Reports Other
Additional Past Surgical History:
History of back surgeries
Social History
Tobacco: Non-smoker
Alcohol: Occasional
Drug: None
Personal: Single
Living: Alone
Family History
Family History: Not pertinent
Allergies / Home Medications
Allergies reflects when Allergies were last updated in [employer].
Home Medications with original date entered in [employer]
Allergy/Medication List:
Allergies
Allergy/AdvReac Type Severity Reaction Status Date / Time
latex Allergy Rash Verified 10/23/23 12:22
prednisone Allergy psychosis Verified 10/23/23 12:22
Home Medications
diclofenac sodium 1 % topical gel 1 ea topical HS sores 09/05/23
fluoxetine 20 mg capsule 20 mg PO DAILY Depression 09/05/23
nitrofurantoin monohydrate/macrocrystals 100 mg capsule 100 mg PO DAILY Infection 09/05/23
cyanocobalamin (vitamin B-12) 1,000 mcg tablet 1,000 mcg PO DAILY #60 tabs 09/06/23
acetaminophen 325 mg tablet (Tylenol) 650 mg PO Q6HPRN PRN mild pain 10/23/23
alprazolam 1 mg tablet 1 mg PO .BID-QID, SEE BELOW Mental Health/Anxiety 10/23/23
sennosides 8.6 mg tablet (senna) 17.2 mg PO HSPRN PRN constipation 10/23/23
Review of Systems
-
Constitutional: Reports No Symptoms
EENT: Reports No Symptoms
Respiratory: Reports No Symptoms
Cardiac: Reports No Symptoms
Abdomen/GI: Reports No Symptoms
: Reports No Symptoms
Musculoskeletal: Reports No Symptoms
Skin: Reports No Symptoms
Neurological: Reports Weakness and Other (Tremors)
Endocrine: Reports No Symptoms
Hematologic/Lymphatic: Reports No Symptoms
Psych: Reports No Symptoms
Physical Exam
Vital Signs
Vital Signs
Temp Pulse Resp BP Pulse Ox
97.9 F 103 27 155/97 96
10/23/23 12:22 10/23/23 14:45 10/23/23 14:45 10/23/23 14:00 10/23/23 14:45
Physical Exam
General: Well Developed, Well Nourished and No Apparent Distress
HEENT: NormoCephalic, Moist mucous membranes and Atraumatic
Respiratory: Clear
Cardiac: S1/S2 and Regular Rhythm; No Murmur or Rub
GI: Soft, Non Tender, Non Distended and Normal Bowel Sounds; No Organomegaly
Rectal: Deferred by Provider
Musculoskeletal: No Clubbing, No Cyanosis and No Edema
Skin: No Rash
Neuro: Nonfocal/grossly intact, Tremors and Other
Laboratory Results
-
10/23/23 14:17
10/23/23 14:17
Laboratory Results
Total Bilirubin 1.0 mg/dl (0.2-1.3) 10/23/23 14:17
AST 27 U/L (14-36) 10/23/23 14:17
ALT 20 U/L (0-35) 10/23/23 14:17
Alkaline Phosphatase 100 U/L (38-126) 10/23/23 14:17
Data Reviewed
-
Lab Data: Labs Reviewed by me
Impression/Plan
-
# Ambulatory dysfunction/tremors likely due to benzodiazepine dependence/withdrawal
-PT/OT consulted
-B CARE consulted
-Will continue Xanax 1 mg 3 times a day
-Psychiatry consulted
-Case management consulted
# Leukocytosis likely stress reaction
-WBC 12.6
-Patient is afebrile
-Continue to monitor
# Hyponatremia likely from poor oral intake
-Sodium 131
-will hydrate patient with normal saline 500cc, repeat BMP at 2200
#Ulcerative colitis
#Chronic CHF - unknown type. Stable.
#Depression/Anxiety
-on chronic alprazolam.
-Fluoxetine continued
# Chronic pyuria
-Patient is on nitrofurantoin
#Full code
--- NOTE | 2023-10-23 15:55 | W.PN.UPDATE ---
Update Note
Progress Note Update
This note serves as an addendum to the H&P by MAGDALENA Becker on October 23, 2023.
History of Presenting Illness
82-year-old female with past medical history of CHF, HTN, HLD, anxiety/depression presented after running out of her Xanax. Patient had been taking Xanax for the past 40 years at a dose of 1 mg 4 times a day. As per ER physician, she was recently
weaned down and supposed to be taking 3 mg/day of Xanax. She ran out of Xanax for the past 1.5 days. She states her psychiatrist filled her Xanax prescription but when she went to the pharmacy they told her they could not fill it as it was not
time yet they cannot fill it until 2 days from now. She is here stating she needs something and that when she stops taking her Xanax she starts to fall, she gets confused, her back and legs hurt. She is sad, because her recently passed, she
was taking care of him of past 16 years.
Vital Signs
AFVSS
Physical Exam
General: Not in acute distress. Tremors present.
HEENT: Normocephalic
Respiratory: Clear to Auscultation Bilaterally
Cardiac: S1/S2 and Regular Rhythm
GI: Soft, Non Tender, Non Distended and Normal Bowel Sounds
Musculoskeletal: No Cyanosis and No Edema
Skin: Warm. Dry.
Neuro: Alert. Awake. PERRL. Cranial Nerves grossly intact bilaterally. Nonfocal/grossly intact except for some mild chronic RLE weakness (per patient, RLE weakness is chronic)
Assessment/Plan
# Ambulatory dysfunction/tremors likely due to benzodiazepine dependence/withdrawal
-PT/OT consulted
-B CARES consulted
-Continue Xanax 1 mg 3 times a day -- await psychiatry input
-Psychiatry consulted, appreciate recommendations
-Case management consulted
# Leukocytosis likely stress reaction
-WBC 12.6
-Patient is afebrile
-Continue to monitor for any signs or symptoms of infection
# Hyponatremia suspected from poor oral intake
-Sodium 131
-will hydrate patient with normal saline 500cc, repeat BMP at 2200
#Ulcerative colitis
#Chronic CHF - unknown type. Stable.
#Depression/Anxiety
-Also, patient recently lost her
-on chronic alprazolam.
-Fluoxetine continued
#Chronic pyuria
#History of Urinary Incontinence
-Patient is on nitrofurantoin
#Low Vitamin B12
-Continue Vitamin B12
#Full code
[2023-10-23 17:24] VITALS: BP 183/125
[2023-10-23 17:26] VITALS: BMI 19.0
[2023-10-23] MEDS: XANAX 1 MG PO ×2 (17:41→21:30)
[2023-10-23] MEDS: LOVENOX 40 MG SC (17:41)
[2023-10-23 18:21] VITALS: BMI 19.0
--- NOTE | 2023-10-23 19:24 | PTCARENOTE ---
Pt received from ED. AAOX3. Pt forgetful and confused at times. Tremors noted in bilateral upper extremities. Pt appears to be very anxious. BP also elevated at 183/125. Dr Singletary aware. 1 mg PO Xnanax ordered and given. Anahy from ED
replaced. Pt resting in bed, call phoenix within reach. Bed alarm on. Report given to maintenance technician 2nd shift RN.
[2023-10-23 21:06] LABS: Urine Albumin Trace (Neg - Trace); Urine Bilirubin Negative (Negative); Urine Character Slightly Cloudy (Clear); Urine Color Yellow; Urine Glucose Negative (Negative); Urine Ketone 2+ (Negative); Urine Leukocyte 1+ (Negative); Urine Nitrite Negative (Negative); Urine Occult Blood 3+ (Negative); Urine Specific Gravity 1.015 (<1.030); Urine Urobilinogen Negative (Neg - 1+)
[2023-10-23 21:18] LABS: Urine Squamous Cell >30 /LPF (Few)
[2023-10-23 21:21] LABS: Urine Red Blood Cell 26-30 /HPF (0-2)
[2023-10-23] MEDS: TYLENOL 650 MG PO (21:30)
[2023-10-23 22:22] LABS: Blood Urea Nitrogen 13 mg/dl (7-17); Carbon Dioxide 25 mmol/L (22-30); Chloride 99 mmol/L (98-107); Estimated Creatinine Clearance 54 ml/min; Glucose 120 mg/dl (70-99); Potassium 3.4 mmol/L (3.5-5.1); Sodium 129 mmol/L (135-145); eGFR > 60.00
[2023-10-23 22:39] VITALS: BP 160/103
[2023-10-23] MEDS: KCL 20 MEQ PO (23:30)
--- NOTE | 2023-10-23 23:30 | PTCARENOTE ---
BMP results reported to akr NICHOLS, order received
[2023-10-24] VITALS (7 sets, daily range): BP systolic 128–160; BP diastolic 84–93; PULSE 96; O2SAT 96; BMI 19.4
[2023-10-24] MEDS: ULTRAM 25 MG PO (02:22)
[2023-10-24 06:09] LABS: Osmolality Urine 431 mOsm/kg (300-900)
[2023-10-24 06:16] LABS: Urine Sodium 138 mmol/L (30-90)
[2023-10-24 07:24] LABS: Hematocrit 35.9 % (37.0-47.0); Hemoglobin 11.5 g/dL (12.0-16.0); Mean Corpuscular Hgb 26.1 pg (27.0-31.0); Mean Corpuscular Volume 81.6 fL (81.0-99.0); Mean Platelet Volume 10.1 fL (7.4-10.4); Platelet Count 326 10^3/uL (130-400); Red Cell Dist. Width 22.4 % (11.5-14.5); White Blood Cell Count 9.4 10^3/uL (4.8-10.8)
[2023-10-24 08:14] LABS: Blood Urea Nitrogen 10 mg/dl (7-17); Calcium 9.3 mg/dl (8.4-10.2); Carbon Dioxide 24 mmol/L (22-30); Chloride 101 mmol/L (98-107); Estimated Creatinine Clearance 55 ml/min; Glucose 93 mg/dl (70-99); Potassium 3.8 mmol/L (3.5-5.1); Sodium 132 mmol/L (135-145); eGFR > 60.00
[2023-10-24] MEDS: TYLENOL 650 MG PO ×2 (08:17→20:58)
[2023-10-24] MEDS: VITAMIN B-12 1000 MCG PO (08:18)
[2023-10-24] MEDS: XANAX 1 MG PO ×3 (08:18→21:00)
[2023-10-24] MEDS: MACROBID 100 MG PO (08:18)
[2023-10-24] MEDS: PROZAC 20 MG PO (08:19)
--- NOTE | 2023-10-24 08:37 | VNURNOTE ---
Chart reviewed. Patient is current with [facility]. She lives alone and has had multiple falls. Concerns that patient needs more help in the home ? more appropriate/safer to be in a facility ? - CM notified for d/c planning.
--- NOTE | 2023-10-24 10:10 | W.PN.HOSP.TC ---
Today's Communication/Plan
-
Continue Xanax for now
Appreciate psychiatry evaluation and recommendations
Follow-up on x-rays and CT Head given falls prior to arrival
Assessment / Plan
Assessment / Plan
Physical Exam
General: Not in acute distress. Tremors present.
HEENT: Normocephalic
Respiratory: Clear to Auscultation Bilaterally
Cardiac: S1/S2 and Regular Rhythm
GI: Soft, Non Tender, Non Distended and Normal Bowel Sounds
Musculoskeletal: No Cyanosis and No Edema
Skin: Warm. Dry.
Neuro: Alert. Awake. PERRL. Cranial Nerves grossly intact bilaterally. Nonfocal/grossly intact except for some mild chronic RLE weakness (per patient, RLE weakness is chronic)
Psych: Anxious
Assessment/Plan
# Ambulatory dysfunction/tremors likely due to benzodiazepine dependence/withdrawal
# Reports of falls prior to arrival, patient reported (on 10/24/23) possible head trauma
-PT/OT consulted
-B CARES consulted
-Resumed Xanax 1 mg 3 times a day
-Psychiatry consulted, appreciate recommendations
-Case management consulted
-Pelvis and ribs x-rays, as well as CT Head ordered
# Leukocytosis likely stress reaction
-WBC 12.6 on admission, now resolved
-Patient is afebrile
-Continue to monitor for any signs or symptoms of infection
# Hyponatremia suspected from poor oral intake
-Sodium 131 on admission, remains stable in the low 130s
-Received IV fluids
#Ulcerative colitis
#Chronic CHF - unknown type. Stable.
#Depression/Anxiety
-Also, patient recently lost her recently
-on chronic alprazolam.
-Fluoxetine continued
#Chronic pyuria
#History of Urinary Incontinence
-Patient is on nitrofurantoin
#Low Vitamin B12
-Continue Vitamin B12
#Full code
Anticipated Discharge: > 48 hours
Subjective/Interval History
-
Date of Service: October 24, 2023
Patient was seen and examined. She appeared to be anxious and worried, reported some tailbone and right rib area pain from falls prior to hospital arrival.
Objective Data
-
Labs:
Laboratory Results
10/23/23 10/24/23
21:53 05:24
WBC 9.4
Hgb 11.5 L
Hct 35.9 L
Plt Count 326
Sodium 129 L 132 L
Potassium 3.4 L 3.8
Chloride 99 101
Carbon Dioxide 25 24
BUN 13 10
Creatinine 0.6 0.6
Glucose 120 H 93
Calcium 9.0 9.3
Vital Signs:
Vital Signs
Temp Pulse Resp BP Pulse Ox
98.1 F 96 16 160/93 95
10/24/23 07:10 10/24/23 07:10 10/24/23 07:10 10/24/23 07:10 10/24/23 07:10
I&O
10/23/23 10/24/23 10/25/23
06:59 06:59 06:59
Intake Total 500 / 500
Balance 500 / 500
--- NOTE | 2023-10-24 10:24 | CM ---
Patient seen in chair, CM recognized patient from previous admissions. Patient lives alone in multiple story home with first floor set up, has a walker, cane, wheelchair, and stair glide. Patient reports her family is not supportive. Patient is
current with [facility] and is a [facility] patient. Patient has been to [facility] and [facility] in past. PCP Nick Hoskins, pharmacy [facility]. Patient confirm prescription coverage through insurance. Patient agreeable to SNF, requesting
referrals to [facility] and [facility]. GREENE reviewed, verbally agreed, placed in chart. CM will continue to follow for all discharge planning needs.
Plan; SNF pending accepting facility, [facility] patient, will need auth.
--- NOTE | 2023-10-24 12:01 | CON.MD ---
Consultation - Medical
-
patient seen chart reviewed discussed with nursing. the patient is an 82 year old woman who comes to having run out of her xanax prematurely. the patient reports she had been taking xanax for about forty years for anxiety as high as six mg day.
recently she had cut back to four but in the aftermath of her third 's about two months ago she admits she used too frequently and ran out two days early. she was aware that it could not be stopped suddenly so got herself to ED. she
WANTS to cut back. she is aware that it contributes to her falling. she also takes prozac 20 mg daily . both prozac and xanax are prescribed by dr ashraf (?sp) whose office is on the main line. she does not see herself as particularly depressed
at this point but rather discouraged by her increasing infirmity and sad at the of her . she says xanax is the only medication in her opinion that has truly helped her. sleep fair. appetite not great. energy level fair. she feels
memory is okay and if anything there may be mci. she did pretty well in this interview w me today despite the amnesic impact of xanax although i did not do formal cognitive screening. she is not having suicidal thoughts. there is nothing to suggest
psychosis. nursing reports patient is sufficiently cooperative and not interfering w her own care.
past psych hx see above
medical hx macular degeneration ulcerative colitis scoliosis stress and urgeny incontinence hx hx chronic chf hx pleural effusions there is hx visual gorman according to the record attributed to prednisone hld chronic pyuria low b12
(treated) sodium 132 but on the upswing wbc now nl.
substance abuse 'one ariannei' daily
fh non contributory
social hx resides on her own was in a nh. she helped care for him he was sick 16 years. she was m three times two of brain diseases one glioblastoma and the other of a chronic degenerative disease three kids she is not very close
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 while the marriage lasted for some years it was not a happy marriage. 'we went our separate ways.
mse alert ox3 pleasant if not a bit irritated at times. speech and thought process generally goal oriented no psychosis affect ok mood is irritable denies si aver intell insight judgement fair
dx unspecified anxiety likely mild cognitive impairment could be secondary to xanax usage
recommendations would taper xanx by about o.5 mg q week. could go slower too on the order of decrease every ten days. continue prozac. . i suspect she will need snf as she appears fragile and c/o gait disturbance. this too could be due in part to
xanax. snf would serve the purpose too of allowing the xanax to be tapered further and during that time the family could assess whether she can remain on her own in her appartment or whether a disposition should be sought for her either in a
facility or home with help. psych will sign off.
[2023-10-24] MEDS: LOVENOX 40 MG SC (16:21)
[2023-10-24] MEDS: SENOKOT-S 1 TABLET PO (20:58)
[2023-10-24] MEDS: ATIVAN 1 MG IV (23:01)
--- NOTE | 2023-10-24 23:19 | PTCARENOTE ---
Patient combative, cursing at staff, not following commands. Notified [facility] [employer], order received
[2023-10-25] VITALS (7 sets, daily range): BP systolic 88–148; BP diastolic 58–91
[2023-10-25] MEDS: TYLENOL 650 MG PO ×3 (08:45→21:56)
[2023-10-25] MEDS: VITAMIN B-12 1000 MCG PO (08:47)
[2023-10-25] MEDS: MACROBID 100 MG PO (08:47)
[2023-10-25] MEDS: PROZAC 20 MG PO (08:47)
[2023-10-25] MEDS: XANAX 1 MG PO ×3 (08:47→21:03)
--- NOTE | 2023-10-25 09:33 | CM ---
Addendum entered by Rolanda Nicole 10/25/23 15:21:
Per Laura at [facility], can accept patient tomorrow. CM spoke with patients daughter/POA, agreeable to [facility] tomorrow. Will update tomorrow with transportation time, patient will need ambulance transport.
Addendum entered by Rolanda Nicole 10/25/23 12:05:
No current beds at [facility], awaiting to hear from [facility] for SNF. Left voicemail for Karen ARRIAGA, to discuss other SNF referrals, will provide assisted living facilities if family interested in transition to personal care after rehab. Patient
agreeable to referral to [facility].
Plan; SNF with transition to personal care after rehab, awaiting accepting facility, will need insurance auth.
Original Note:
CM spoke with patients daughter in law and Karen ARRIAGA, discussed referrals sent to [facility] and [facility] for SNF. 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 CM
will email Karen applications for [facility] and [facility] ([email or web address]). Karen reports patient continues to take too many Xanax and each month they experience the same issues and feel at this time patient will benefit from some sort of
personal care. Karen reports she will email CM power of stroboroma operator paperwork. Karen reports she lives two hours away in [place], son lives in [place], and other daughter lives in [place]. Karen reports the closest granddaughter lives about 45 minutes away.
Karen reports she did call [facility] directly and as of now they have no current beds. CM will continue to follow for all discharge planning needs.
Plan; SNF with transition to LTC/personal care, once facility found.
[2023-10-25 10:12] LABS: Hemoglobin 10.5 g/dL (12.0-16.0); Mean Corp Hgb Conc. 31.8 g/dL (33.0-37.0); Mean Corpuscular Hgb 26.6 pg (27.0-31.0); Mean Corpuscular Volume 83.8 fL (81.0-99.0); Mean Platelet Volume 9.8 fL (7.4-10.4); Platelet Count 287 10^3/uL (130-400); Red Blood Cell Count 3.94 10^6/uL (4.20-5.40); Red Cell Dist. Width 22.4 % (11.5-14.5)
[2023-10-25 10:30] LABS: Blood Urea Nitrogen 20 mg/dl (7-17); Calcium 9.3 mg/dl (8.4-10.2); Carbon Dioxide 24 mmol/L (22-30); Chloride 102 mmol/L (98-107); Estimated Creatinine Clearance 47 ml/min; Glucose 138 mg/dl (70-99); Potassium 3.7 mmol/L (3.5-5.1); Sodium 133 mmol/L (135-145); eGFR > 60.00
--- NOTE | 2023-10-25 10:47 | W.PN.HOSP.TC ---
Addendum entered and electronically signed by Osman Singletary MD 10/25/23 14:00:
Case management awaiting SNF bed.
Original Note:
Today's Communication/Plan
-
Discharge today
Assessment / Plan
Assessment / Plan
Physical Exam
General: Not in acute distress.
HEENT: Normocephalic
Respiratory: Clear to Auscultation Bilaterally
Cardiac: S1/S2 and Regular Rhythm
GI: Soft, Non Tender, Non Distended and Normal Bowel Sounds
Musculoskeletal: No Cyanosis and No Edema
Skin: Warm. Dry.
Neuro: Alert. Awake. PERRL. Cranial Nerves grossly intact bilaterally. Nonfocal/grossly intact except for some mild chronic RLE weakness (per patient, RLE weakness is chronic)
Psych: Anxious
Assessment/Plan
# Ambulatory dysfunction/tremors likely due to benzodiazepine dependence/withdrawal
# Reports of falls prior to arrival, patient reported (on 10/24/23) possible head trauma
-PT/OT consulted
-B CARES consulted
-Resumed Xanax 1 mg 3 times a day --> plan is for Xanax to be tapered down by 0.5 mg every 7 to 10 days
-Psychiatry consulted, appreciate recommendations
-Case management consulted
-Pelvis and ribs x-rays, as well as CT Head ordered
# Leukocytosis likely stress reaction
-WBC 12.6 on admission, now resolved
-Patient is afebrile
-Continue to monitor for any signs or symptoms of infection
# Hyponatremia suspected from poor oral intake
-Sodium 131 on admission, remains stable in the low 130s
-Received IV fluids
#Ulcerative colitis
#Chronic CHF - unknown type. Stable.
#Depression/Anxiety
-Also, patient recently lost her recently
-on chronic alprazolam.
-Fluoxetine continued
#Chronic pyuria
#History of Urinary Incontinence
-Patient is on nitrofurantoin
#Low Vitamin B12
-Continue Vitamin B12
#Full code
More than 30 minutes spent in discharge including
Final examination of the patient
Summarizing hospital stay
Instructions for continuing care to all relevant caregivers
Preparation of discharge records, prescriptions, and referral forms
Total time spent (in minutes): 39
Anticipated Discharge: Today
Subjective/Interval History
-
Date of Service: October 25, 2023
Patient was seen and examined. She denied any new symptoms or complaints.
Objective Data
-
Labs:
Laboratory Results
10/25/23
09:23
WBC 8.0
Hgb 10.5 L
Hct 33.0 L
Plt Count 287
Sodium 133 L
Potassium 3.7
Chloride 102
Carbon Dioxide 24
BUN 20 H
Creatinine 0.7
Glucose 138 H
Calcium 9.3
Vital Signs:
Vital Signs
Temp Pulse Resp BP Pulse Ox
98.7 F 104 17 127/84 96
10/25/23 07:40 10/25/23 07:40 10/25/23 07:40 10/25/23 07:40 10/25/23 07:40
I&O
10/24/23 10/25/23 10/26/23
06:59 06:59 06:59
Intake Total 500 / 500
Balance 500 / 500
[2023-10-25] MEDS: MIRALAX 17 GRAMS PO (15:43)
[2023-10-25] MEDS: LOVENOX 40 MG SC (15:43)
[2023-10-25] MEDS: SENOKOT-S 1 TABLET PO ×2 (15:43→21:03)
[2023-10-26 03:07] VITALS: BP 148/79
[2023-10-26] MEDS: TYLENOL 650 MG PO (04:46)
[2023-10-26 06:00] VITALS: BMI 19.3
[2023-10-26 07:40] VITALS: BP 126/79
[2023-10-26] MEDS: MACROBID 100 MG PO (07:45)
[2023-10-26] MEDS: XANAX 1 MG PO ×2 (07:45→15:00)
[2023-10-26] MEDS: PROZAC 20 MG PO (07:45)
[2023-10-26] MEDS: VITAMIN B-12 1000 MCG PO (07:45)
--- NOTE | 2023-10-26 08:50 | PN.CDI ---
CDI
- -
CDI:
Physician Documentation Request
Admit Date: 10/25/23 09:08
Dear Doctor Hayder,
Patient admitted for ambulatory dysfunction.
Please review the following and provide your response in the progress notes.
Clinical Indicators:
Height: 5' 2'
Weight: 105 lbs
BMI: 19.3
If possible, please provide an associated diagnosis related to the abnormal BMI, such as:
Underweight
Cachectic
BMI is not significant
Other
BMI < or = to 19.9
Underweight
Weight Loss
Cachectic
Anorexia
Use of terms such as suspected, likely, concern for, or probable (associated with a specific diagnosis that is being evaluated, monitored, or treated as if it exists) are acceptable and can be coded in the inpatient setting, when documented at the
time of discharge.
Thank you,
Renata Luevano RN, BSN
CDI Specialist
Available via [place] text
Please use your independent medical judgment in providing your response.
[2023-10-26 09:50] VITALS: BP 108/71; PULSE 92
--- NOTE | 2023-10-26 10:30 | CM ---
Per Kaitlin, auth approved 5 days skilled level 1 (10/25-10/29) auth #[id number], ambulance auth #[id number]. Patient scheduled for 3:00 p.m. ambulance transport, Laura at [facility] aware. CM spoke with patients POA, discussed transportation time. IMM
reviewed with POA, Karen, over phone, verbally agreed, placed in chart. Advance Directive paperwork placed in patients chart. POA inquiring about patients medications, will relay questions to nurse. CM will continue to follow for all discharge
planning needs.
Plan; auth approved to [facility], 3:00 p.m. transport time.
[facility]:
Report: [phone]
[2023-10-26 11:09] VITALS: BP 134/77
--- NOTE | 2023-10-26 11:57 | W.PN.HOSP.TC ---
Today's Communication/Plan
-
Discharge today
Assessment / Plan
Assessment / Plan
Physical Exam
General: Not in acute distress.
HEENT: Normocephalic
Respiratory: Clear to Auscultation Bilaterally
Cardiac: S1/S2 and Regular Rhythm
GI: Soft, Non Tender, Non Distended and Normal Bowel Sounds
Musculoskeletal: No Cyanosis and No Edema
Skin: Warm. Dry.
Neuro: Alert. Awake. PERRL. Cranial Nerves grossly intact bilaterally. Nonfocal/grossly intact except for some mild chronic RLE weakness (per patient, RLE weakness is chronic)
Psych: Anxious
Assessment/Plan
# Ambulatory dysfunction/tremors likely due to benzodiazepine dependence/withdrawal
# Reports of falls prior to arrival, patient reported (on 10/24/23) possible head trauma
-PT/OT consulted
-B CARES consulted
-Resumed Xanax 1 mg 3 times a day --> plan is for Xanax to be tapered down by 0.5 mg every 7 to 10 days
-Psychiatry consulted, appreciate recommendations
-Case management consulted
-Pelvis and ribs x-rays, as well as CT Head ordered and results noted
# Leukocytosis likely stress reaction
-WBC 12.6 on admission, now resolved
-Patient is afebrile
-Continue to monitor for any signs or symptoms of infection
# Hyponatremia suspected from poor oral intake
-Sodium 131 on admission, remains stable in the low 130s
-Received IV fluids
#Ulcerative colitis
#Chronic CHF - unknown type. Stable.
#Depression/Anxiety
-Also, patient recently lost her recently
-on chronic alprazolam.
-Fluoxetine continued
#Chronic pyuria
#History of Urinary Incontinence
-Patient is on nitrofurantoin
#Low Vitamin B12
-Continue Vitamin B12
#Underweight
#Full code
More than 30 minutes spent in discharge including
Final examination of the patient
Summarizing hospital stay
Instructions for continuing care to all relevant caregivers
Preparation of discharge records, prescriptions, and referral forms
Total time spent (in minutes): 35
Anticipated Discharge: Today
Subjective/Interval History
-
Date of Service: October 26, 2023
Patient was seen and examined. She reported no new symptoms or complaints.
Objective Data
-
Vital Signs:
Vital Signs
Temp Pulse Resp BP Pulse Ox
97.9 F 86 17 134/77 92
10/26/23 11:09 10/26/23 11:09 10/26/23 11:09 10/26/23 11:09 10/26/23 11:09
I&O
10/25/23 10/26/23 10/27/23
06:59 06:59 06:59
Intake Total 300 / 300
Balance 300 / 300
--- NOTE | 2023-10-26 12:15 | W.DS.TRANS ---
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
-
Discharge Instructions:
Discharge Diagnosis/Procedures #Ambulatory dysfunction/tremors likely due to
benzodiazepine dependence/withdrawal
#Reports of falls prior to arrival, patient
reported (on 10/24/23) possible head trauma
#Leukocytosis likely stress reaction
#Hyponatremia
#Ulcerative colitis
#Chronic CHF
#Depression/Anxiety
#Chronic pyuria
#History of Urinary Incontinence
#Low Vitamin B12
#Underweight
Diet As tolerated,Low Fat,Low Cholesterol,Low Sodium,
Restrict fluids to 48 oz
Activity As tolerated
Driving Restrictions No driving
Blood Work Recheck CBC and BMP within 3 to 4 days
Other Services PT,OT
Specialty Instructions Weigh Daily
Instructions:
Stand-Alone Forms:
Changes to Home Medications: Yes
Discharge Medications:
DC Medications w/original date entered in [employer]
diclofenac sodium 1 % topical gel 1 ea topical HS sore muscles 09/05/23
fluoxetine 20 mg capsule 20 mg PO DAILY Depression 09/05/23
nitrofurantoin monohydrate/macrocrystals 100 mg capsule 100 mg PO DAILY Infection 09/05/23
acetaminophen 325 mg tablet (Tylenol) 650 mg PO Q6HPRN PRN mild pain 10/23/23
cyanocobalamin (vitamin B-12) 1,000 mcg tablet 1,000 mcg PO DAILY Supplement 10/23/23
sennosides 8.6 mg tablet (senna) 17.2 mg PO HSPRN PRN constipation 10/23/23
alprazolam 1 mg tablet 1 mg PO TID #30 tabs 10/26/23
bisacodyl 10 mg rectal suppository 10 mg AZ [id number] PRN constipation #12 ea 10/26/23
polyethylene glycol 3350 17 gram oral powder packet (HealthyLax) 17 g PO DAILYPRN PRN constipation #14 ea 10/26/23
Home Medication Changes
Alprazolam dose increased but needs to be tapered down by 0.5 mg every 7 to 10 days.
Bisacodyl and HealthyLax are both new medications.
Pending Results: No
Total time spent discharging patient (in min): 35
[2023-10-26 14:21] VITALS: BP 128/75
== END 2023-10-26 16:19 | DRG 897 ==
LOC: 4 WEST ACU 09:08
PROVIDERS: Registered Nurse; ADMITTING PHYSICIAN Hospitalist; EMERGENCY PHYSICIAN Emergency Medicine; FAMILY PHYSICIAN Physician Assistant Medical; OTHER PHYSICIAN Psychiatry & Neurology Psychiatry
DX: F13.239 Sedative, hypnotic or anxiolytic dependence with withdrawal, unspecified (principal); E87.1 Hypo-osmolality and hyponatremia; K51.90 Ulcerative colitis, unspecified, without complications; Z68.1 Body mass index [BMI] 19.9 or less, adult; I11.0 Hypertensive heart disease with heart failure; I50.9 Heart failure, unspecified; F32.A Depression, unspecified; R63.6 Underweight; E78.00 Pure hypercholesterolemia, unspecified; F41.9 Anxiety disorder, unspecified; R82.81 Pyuria; R32 Unspecified urinary incontinence; R29.6 Repeated falls; R25.1 Tremor, unspecified; Z79.899 Other long term (current) drug therapy
CPT/HCPCS: 70450; 71111; 72190; 80048; 80053; 81003; 81015; 83935; 84300; 85025; 85027; 87086; 96361; 96374; 97116; 97129; 97162; 97167; 97530; 97535; 99285

== ENCOUNTER → 2023-10-29 12:11 | Outpatient (REF) | payer OTHER, SELFPAY ==
[2023-10-29 12:22] LABS: % Basophils 0.5 % (0-2); % Eosinophils 1.5 % (0-6); % Immature Granulocytes 0.4 % (0-0.5); % Lymphocytes 35.1 % (20.5-51.1); % Monocytes 7.4 % (1.7-9.3); % Neutrophils 55.1 % (42.2-75.2); Absolute Eosinophils 0.1 10^3/uL (0-0.7); Absolute Lymphocytes 2.6 10^3/uL (1.2-3.4); Absolute Monocytes 0.6 10^3/uL (0.1-0.6); Absolute Neutrophils 4.1 10^3/uL (1.4-6.5); Hematocrit 32.6 % (37.0-47.0); Hemoglobin 10.1 g/dL (12.0-16.0); Mean Corpuscular Hgb 27.4 pg (27.0-31.0); Mean Corpuscular Volume 88.3 fL (81.0-99.0); Mean Platelet Volume 10.7 fL (7.4-10.4); Nucleated Red Blood Cells % 0 %; Platelet Count 326 10^3/uL (130-400); Red Blood Cell Count 3.69 10^6/uL (4.20-5.40); Red Cell Dist. Width 21.5 % (11.5-14.5); White Blood Cell Count 7.5 10^3/uL (4.8-10.8)
[2023-10-29 12:29] LABS: ALT (SGPT) 19 U/L (0-35); AST (SGOT) 20 U/L (14-36); Albumin 3.5 g/dl (3.5-5.0); Alkaline Phosphatase 96 U/L (38-126); Blood Urea Nitrogen 16 mg/dl (7-17); Calcium 9.1 mg/dl (8.4-10.2); Carbon Dioxide 27 mmol/L (22-30); Chloride 101 mmol/L (98-107); Glucose 91 mg/dl (70-99); Potassium 4.1 mmol/L (3.5-5.1); Sodium 134 mmol/L (135-145); Total Bilirubin 0.3 mg/dl (0.2-1.3); Total Protein 6.6 g/dl (6.3-8.2); eGFR > 60.00
== END ==
LOC: OLABP 12:11
PROVIDERS: ATTENDING PHYSICIAN Family Medicine
DX: I50.9 Heart failure, unspecified (principal); I10 Essential (primary) hypertension; E87.1 Hypo-osmolality and hyponatremia; D50.9 Iron deficiency anemia, unspecified; D51.9 Vitamin B12 deficiency anemia, unspecified
CPT/HCPCS: 80053; 85025

== ENCOUNTER 2024-06-01 18:23 | Inpatient (IN) | payer OTHER, SELFPAY ==
[2024-06-01] VITALS (12 sets, daily range): BP systolic 117–160; BP diastolic 66–102; BMI 21.0
--- NOTE | 2024-06-01 13:07 | ED.GENMED ---
History of Present Illness
<Livier Norman PA-C - Last Filed: 06/01/24 21:05>
General
Chief Complaint: Back Pain
Source: patient
Exam Limitations: none
Time Seen by Provider: 06/01/24 13:03
Nursing documentation reviewed up to this point in time: agreed with
History of Present Illness
History of Present Illness:
83-year-old female with a past medical history of CHF, hypertension, hyperlipidemia, hiatal hernia, presents emergency department today with concerns of severe back pain radiating to her abdomen. Patient reports that the back pain has been going on
for multiple months now but states that this morning, she found that the pain radiated into her abdomen and into her ribs and she could not walk due to the severity of the pain. She lives alone. She called EMS and they did give her Toradol en
route which did help her symptoms. She states that she currently does not have pain if she remains still but when she moves, the pain becomes severe. She denies any nausea or vomiting or any fevers or chills. She follows with Dr. Jesus and had an
MRI of her lumbar spine recently which revealed fractures in her back. She currently feels that her abdomen is sore but it is not as severe as it was before.
Past History
<Livier Norman PA-C - Last Filed: 06/01/24 21:05>
Past History
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
ED Past Surgical History: Orthopedic (Lumbar fusion, )
Social History
Tobacco: Non-smoker
Alcohol: Daily (Martini 1 )
Drug: Other (Xanax addiction)
Personal: ( in long term, patient lives alone)
Living: alone
Employment: Retired
Family History
Family History: Other ( Noncontributory)
Review of Systems
<FINN Wright Last Filed: 06/01/24 21:05>
Review of Systems
All Other Systems: ROS reviewed and negative except as documented in HPI and ROS
Phy Exam
<Livier Norman PA-C - Last Filed: 06/01/24 21:05>
Physical Exam
Physical Exam:
General: Patient is well appearing and in no acute distress; non-toxic
Skin: Warm and dry, no rashes or lesions
Head: Normocephalic, atraumatic
Eyes: Sclera non-icteric. EOMs intact.
Cardiac: Regular rate and rhythm, no murmurs
Pulm: Normal respiratory effort , no wheezes, rales, rhonchi
Abdomen: Mild right-sided abdominal tenderness to palpation
Musculoskeletal: Midline spinal tenderness noted in thoracic and lumbar spine.
Neuro: CN II-XII intact, no focal neurologic deficits.
Psychiatric: Appropriate mood and affect.
Course
<Livier Norman PA-C - Last Filed: 06/01/24 21:05>
Orders/Labs/Results
Orders:
Orders
06/01/24 13:33
CT Abd/pelvis W Iv Cont Urgent
Comment:
Reason For Exam: right sided abdominal pain
06/01/24 13:59
Complete Blood Count/With Diff Urgent
Comprehensive Metabolic Panel Urgent
Lipase Urgent
06/01/24 16:59
Urinalysis Reflex To Culture Urgent
Date Specimen was Collected: 06/01/24
Time Specimen was Collected: 16:58
Urine Microscopic Reflex Cult Urgent
Urine Culture Urgent
EAR[facility] Source: U
Specimen Description:
Date Specimen was Collected: 06/01/24
Time Specimen was Collected: 16:58
06/01/24 17:01
Morphine Sulfate 2 mg IV NOW STA
06/01/24 18:01
Admit/Transfer Patient As Directed
Co-Sign Provider:
Level of Care: Inpatient admission
Assign to:: Medical/Surgical
Physician / Group: Yovani Zapata
Diagnosis: Intractable back pain
Reason for Hospitalization: Initiation on analgesic regimen for intractable back pain, evaluation by IR
Expected length of stay greater than two midnights?: Yes
ELOS- Estimated Length of Stay in days: 3
I certify the patient meets the requirements for IP care: Yes
PRN Pain Medication Management As Directed
May give lesser potent ordered pain med per pt: Yes
preference::
Protocol:: Medication orders for pain may be administered in a
manner that supports deferring to patient preference
when the pt is:
- Requesting an ordered lesser potent pain medication.
Least to most potent pain medications are defined
as: acetaminophen < NSAID < tramadol < opioids
(morphine, oxycodone, hydromorphone).
- Requesting a lesser dose of the same medication IF
ORDERED.
- Requesting a less intrusive route of administration
if both routes are prescribed by the provider (PO <
IV).
06/01/24 18:05
Code Status As Directed
Resuscitation Status: Full Code
06/01/24 18:07
Ot Eval And Treat Routine
Pt Eval And Treat Routine
Activity Level: Out of Bed-Early Mobility
06/01/24 18:19
IRAD CONSULT Routine
Consulting Provider: Kris Sherman
Was physician already notified: Yes
Reason for Consult/Procedure: Consideration of XOCHITL v. kyphoplasty
Acknowledgement that appropriate orders are entered: Yes
06/01/24 19:23
Acetaminophen [Tylenol] 650 mg PO Q6HPRN PRN
Bisacodyl [Dulcolax] 10 mg RECTAL [id number] PRN
Bisacodyl [Dulcolax] 10 mg RECTAL [id number] PRN
Docusate W/Senna [Senokot-S] 1 tablet PO BIDPRN PRN
Morphine Sulfate 1 mg IV Q4HPRN PRN
Morphine Sulfate 2 mg IV Q4HPRN PRN
Ondansetron Injectable [Zofran] 4 mg IV Q6HPRN PRN
Polyethylene Glycol Powder [Miralax] 17 grams PO DAILYPRN PRN
Polyethylene Glycol Powder [Miralax] 17 grams PO DAILYPRN PRN
Sennosides [Senokot] 17.2 mg PO HSPRN PRN
06/01/24 19:23
Activity As Directed
Activity Level: Out of Bed-Early Mobility
Vital Signs As Directed
Frequency: Per unit guidelines
Weight As Directed
Frequency: Daily
DX Deep Vein Thrombosis Video Routine
06/01/24 22:00
Alprazolam [Xanax] 1 mg PO TID
Diclofenac 1% Topical Gel See Protocol TOPICAL HS
Apply 2 or 4 grams as per protocol to the following joints:: Other joint(s)
Other joint/location to apply to:: per patient
Grams to be applied to other indicated joint/location:: 2
Sennosides [Senna Syrup] 8.8 mg PO HS
06/02/24 Breakfast
Regular
At Your Request: Limited Participation
Does patient need a safe tray?: No
Basic Metabolic Panel IN AM
Complete Blood Count/With Diff IN AM
Magnesium IN AM
06/02/24 08:00
Cyanocobalamin [Vitamin B-12] 1,000 mcg PO DAILY
Fluoxetine HCl [Prozac] 20 mg PO DAILY
06/02/24 18:00
Enoxaparin Sodium [Lovenox] 40 mg SC QPM
Abnormal Lab Results
06/01/24 06/01/24
13:59 16:59
WBC 13.2 H 10^3/uL
(4.8-10.8)
RBC 4.19 L 10^6/uL
(4.20-5.40)
MCH 31.3 H pg
(27.0-31.0)
Abs Immat Gran (auto) 0.3 H 10^3/uL
(0-0.05)
Absolute Neuts (auto) 9.8 H 10^3/uL
(1.4-6.5)
Absolute Monos (auto) 1.2 H 10^3/uL
(0.1-0.6)
Immature Gran % 2.2 H %
(0-0.5)
Lymphocytes % 14.5 L %
(20.5-51.1)
Sodium 133 L mmol/L
(135-145)
BUN 22 H mg/dl
(7-17)
Albumin 3.4 L g/dl
(3.5-5.0)
Urine Ketones 2+ A
(Negative)
Ur Occult Blood Reflex 4+ A
(Negative)
Leukocyte Esterase Rfl 2+ A
(Negative)
Urine RBC 21-25 A /HPF
(0-2)
Urine WBC (Reflex) 11-15 A /HPF
(0-5)
Urine Bacteria (Reflex) Few A
(Negative)
Urine Albumin (Reflex) 2+ A
(Neg - Trace)
06/01/24 13:59
06/01/24 13:59
Vital Signs
Initial and Last Documented VS:
Initial Vital Signs
Pulse Resp BP
100 26 157/99
06/01/24 12:27 06/01/24 12:27 06/01/24 12:27
Last Documented Vital Signs
Temp Pulse Resp BP Pulse Ox
97.3 F 92 20 154/92 98
06/01/24 19:36 06/01/24 19:36 06/01/24 19:36 06/01/24 19:36 06/01/24 19:36
<Abner Almodovar, - Last Filed: 06/01/24 14:09>
Orders/Labs/Results
Orders:
Orders
06/01/24 13:33
CT Abd/pelvis W Iv Cont Urgent
Comment:
Reason For Exam: right sided abdominal pain
06/01/24 13:59
Complete Blood Count/With Diff Urgent
Comprehensive Metabolic Panel Urgent
Lipase Urgent
06/01/24 16:59
Urinalysis Reflex To Culture Urgent
Date Specimen was Collected: 06/01/24
Time Specimen was Collected: 16:58
Urine Microscopic Reflex Cult Urgent
Urine Culture Urgent
EAR[facility] Source: U
Specimen Description:
Date Specimen was Collected: 06/01/24
Time Specimen was Collected: 16:58
06/01/24 17:01
Morphine Sulfate 2 mg IV NOW STA
06/01/24 18:01
Admit/Transfer Patient As Directed
Co-Sign Provider:
Level of Care: Inpatient admission
Assign to:: Medical/Surgical
Physician / Group: Yovani Zapata
Diagnosis: Intractable back pain
Reason for Hospitalization: Initiation on analgesic regimen for intractable back pain, evaluation by IR
Expected length of stay greater than two midnights?: Yes
ELOS- Estimated Length of Stay in days: 3
I certify the patient meets the requirements for IP care: Yes
PRN Pain Medication Management As Directed
May give lesser potent ordered pain med per pt: Yes
preference::
Protocol:: Medication orders for pain may be administered in a
manner that supports deferring to patient preference
when the pt is:
- Requesting an ordered lesser potent pain medication.
Least to most potent pain medications are defined
as: acetaminophen < NSAID < tramadol < opioids
(morphine, oxycodone, hydromorphone).
- Requesting a lesser dose of the same medication IF
ORDERED.
- Requesting a less intrusive route of administration
if both routes are prescribed by the provider (PO <
IV).
06/01/24 18:05
Code Status As Directed
Resuscitation Status: Full Code
06/01/24 18:07
Ot Eval And Treat Routine
Pt Eval And Treat Routine
Activity Level: Out of Bed-Early Mobility
06/01/24 18:19
IRAD CONSULT Routine
Consulting Provider: Kris Sherman
Was physician already notified: Yes
Reason for Consult/Procedure: Consideration of XOCHITL v. kyphoplasty
Acknowledgement that appropriate orders are entered: Yes
06/01/24 19:23
Acetaminophen [Tylenol] 650 mg PO Q6HPRN PRN
Bisacodyl [Dulcolax] 10 mg RECTAL [id number] PRN
Bisacodyl [Dulcolax] 10 mg RECTAL [id number] PRN
Docusate W/Senna [Senokot-S] 1 tablet PO BIDPRN PRN
Morphine Sulfate 1 mg IV Q4HPRN PRN
Morphine Sulfate 2 mg IV Q4HPRN PRN
Ondansetron Injectable [Zofran] 4 mg IV Q6HPRN PRN
Polyethylene Glycol Powder [Miralax] 17 grams PO DAILYPRN PRN
Polyethylene Glycol Powder [Miralax] 17 grams PO DAILYPRN PRN
Sennosides [Senokot] 17.2 mg PO HSPRN PRN
06/01/24 19:23
Activity As Directed
Activity Level: Out of Bed-Early Mobility
Vital Signs As Directed
Frequency: Per unit guidelines
Weight As Directed
Frequency: Daily
DX Deep Vein Thrombosis Video Routine
06/01/24 22:00
Alprazolam [Xanax] 1 mg PO TID
Diclofenac 1% Topical Gel See Protocol TOPICAL HS
Apply 2 or 4 grams as per protocol to the following joints:: Other joint(s)
Other joint/location to apply to:: per patient
Grams to be applied to other indicated joint/location:: 2
Sennosides [Senna Syrup] 8.8 mg PO HS
06/02/24 Breakfast
Regular
At Your Request: Limited Participation
Does patient need a safe tray?: No
Basic Metabolic Panel IN AM
Complete Blood Count/With Diff IN AM
Magnesium IN AM
06/02/24 08:00
Cyanocobalamin [Vitamin B-12] 1,000 mcg PO DAILY
Fluoxetine HCl [Prozac] 20 mg PO DAILY
06/02/24 18:00
Enoxaparin Sodium [Lovenox] 40 mg SC QPM
Abnormal Lab Results
06/01/24 06/01/24
13:59 16:59
WBC 13.2 H 10^3/uL
(4.8-10.8)
RBC 4.19 L 10^6/uL
(4.20-5.40)
MCH 31.3 H pg
(27.0-31.0)
Abs Immat Gran (auto) 0.3 H 10^3/uL
(0-0.05)
Absolute Neuts (auto) 9.8 H 10^3/uL
(1.4-6.5)
Absolute Monos (auto) 1.2 H 10^3/uL
(0.1-0.6)
Immature Gran % 2.2 H %
(0-0.5)
Lymphocytes % 14.5 L %
(20.5-51.1)
Sodium 133 L mmol/L
(135-145)
BUN 22 H mg/dl
(7-17)
Albumin 3.4 L g/dl
(3.5-5.0)
Urine Ketones 2+ A
(Negative)
Ur Occult Blood Reflex 4+ A
(Negative)
Leukocyte Esterase Rfl 2+ A
(Negative)
Urine RBC 21-25 A /HPF
(0-2)
Urine WBC (Reflex) 11-15 A /HPF
(0-5)
Urine Bacteria (Reflex) Few A
(Negative)
Urine Albumin (Reflex) 2+ A
(Neg - Trace)
06/01/24 13:59
06/01/24 13:59
Vital Signs
Initial and Last Documented VS:
Initial Vital Signs
Pulse Resp BP
100 26 157/99
06/01/24 12:27 06/01/24 12:27 06/01/24 12:27
Last Documented Vital Signs
Temp Pulse Resp BP Pulse Ox
97.3 F 92 20 154/92 98
06/01/24 19:36 06/01/24 19:36 06/01/24 19:36 06/01/24 19:36 06/01/24 19:36
<Cordell Fraga MD - Last Filed: 06/01/24 17:49>
Orders/Labs/Results
Orders:
Orders
06/01/24 13:33
CT Abd/pelvis W Iv Cont Urgent
Comment:
Reason For Exam: right sided abdominal pain
06/01/24 13:59
Complete Blood Count/With Diff Urgent
Comprehensive Metabolic Panel Urgent
Lipase Urgent
06/01/24 16:59
Urinalysis Reflex To Culture Urgent
Date Specimen was Collected: 06/01/24
Time Specimen was Collected: 16:58
Urine Microscopic Reflex Cult Urgent
Urine Culture Urgent
EAR[facility] Source: U
Specimen Description:
Date Specimen was Collected: 06/01/24
Time Specimen was Collected: 16:58
06/01/24 17:01
Morphine Sulfate 2 mg IV NOW STA
06/01/24 18:01
Admit/Transfer Patient As Directed
Co-Sign Provider:
Level of Care: Inpatient admission
Assign to:: Medical/Surgical
Physician / Group: Yovani Zapata
Diagnosis: Intractable back pain
Reason for Hospitalization: Initiation on analgesic regimen for intractable back pain, evaluation by IR
Expected length of stay greater than two midnights?: Yes
ELOS- Estimated Length of Stay in days: 3
I certify the patient meets the requirements for IP care: Yes
PRN Pain Medication Management As Directed
May give lesser potent ordered pain med per pt: Yes
preference::
Protocol:: Medication orders for pain may be administered in a
manner that supports deferring to patient preference
when the pt is:
- Requesting an ordered lesser potent pain medication.
Least to most potent pain medications are defined
as: acetaminophen < NSAID < tramadol < opioids
(morphine, oxycodone, hydromorphone).
- Requesting a lesser dose of the same medication IF
ORDERED.
- Requesting a less intrusive route of administration
if both routes are prescribed by the provider (PO <
IV).
06/01/24 18:05
Code Status As Directed
Resuscitation Status: Full Code
06/01/24 18:07
Ot Eval And Treat Routine
Pt Eval And Treat Routine
Activity Level: Out of Bed-Early Mobility
06/01/24 18:19
IRAD CONSULT Routine
Consulting Provider: Kris Sherman
Was physician already notified: Yes
Reason for Consult/Procedure: Consideration of XOCHITL v. kyphoplasty
Acknowledgement that appropriate orders are entered: Yes
06/01/24 19:23
Acetaminophen [Tylenol] 650 mg PO Q6HPRN PRN
Bisacodyl [Dulcolax] 10 mg RECTAL [id number] PRN
Bisacodyl [Dulcolax] 10 mg RECTAL [id number] PRN
Docusate W/Senna [Senokot-S] 1 tablet PO BIDPRN PRN
Morphine Sulfate 1 mg IV Q4HPRN PRN
Morphine Sulfate 2 mg IV Q4HPRN PRN
Ondansetron Injectable [Zofran] 4 mg IV Q6HPRN PRN
Polyethylene Glycol Powder [Miralax] 17 grams PO DAILYPRN PRN
Polyethylene Glycol Powder [Miralax] 17 grams PO DAILYPRN PRN
Sennosides [Senokot] 17.2 mg PO HSPRN PRN
06/01/24 19:23
Activity As Directed
Activity Level: Out of Bed-Early Mobility
Vital Signs As Directed
Frequency: Per unit guidelines
Weight As Directed
Frequency: Daily
DX Deep Vein Thrombosis Video Routine
06/01/24 22:00
Alprazolam [Xanax] 1 mg PO TID
Diclofenac 1% Topical Gel See Protocol TOPICAL HS
Apply 2 or 4 grams as per protocol to the following joints:: Other joint(s)
Other joint/location to apply to:: per patient
Grams to be applied to other indicated joint/location:: 2
Sennosides [Senna Syrup] 8.8 mg PO HS
06/02/24 Breakfast
Regular
At Your Request: Limited Participation
Does patient need a safe tray?: No
Basic Metabolic Panel IN AM
Complete Blood Count/With Diff IN AM
Magnesium IN AM
06/02/24 08:00
Cyanocobalamin [Vitamin B-12] 1,000 mcg PO DAILY
Fluoxetine HCl [Prozac] 20 mg PO DAILY
06/02/24 18:00
Enoxaparin Sodium [Lovenox] 40 mg SC QPM
Abnormal Lab Results
06/01/24 06/01/24
13:59 16:59
WBC 13.2 H 10^3/uL
(4.8-10.8)
RBC 4.19 L 10^6/uL
(4.20-5.40)
MCH 31.3 H pg
(27.0-31.0)
Abs Immat Gran (auto) 0.3 H 10^3/uL
(0-0.05)
Absolute Neuts (auto) 9.8 H 10^3/uL
(1.4-6.5)
Absolute Monos (auto) 1.2 H 10^3/uL
(0.1-0.6)
Immature Gran % 2.2 H %
(0-0.5)
Lymphocytes % 14.5 L %
(20.5-51.1)
Sodium 133 L mmol/L
(135-145)
BUN 22 H mg/dl
(7-17)
Albumin 3.4 L g/dl
(3.5-5.0)
Urine Ketones 2+ A
(Negative)
Ur Occult Blood Reflex 4+ A
(Negative)
Leukocyte Esterase Rfl 2+ A
(Negative)
Urine RBC 21-25 A /HPF
(0-2)
Urine WBC (Reflex) 11-15 A /HPF
(0-5)
Urine Bacteria (Reflex) Few A
(Negative)
Urine Albumin (Reflex) 2+ A
(Neg - Trace)
06/01/24 13:59
06/01/24 13:59
Vital Signs
Initial and Last Documented VS:
Initial Vital Signs
Pulse Resp BP
100 26 157/99
06/01/24 12:27 06/01/24 12:27 06/01/24 12:27
Last Documented Vital Signs
Temp Pulse Resp BP Pulse Ox
97.3 F 92 20 154/92 98
06/01/24 19:36 06/01/24 19:36 06/01/24 19:36 06/01/24 19:36 06/01/24 19:36
<Livier Norman PA-C - Last Filed: 06/01/24 21:05>
MDM/Problems Addressed
Differential Diagnosis Includes:
ddx include known compression fractures, diverticulitis, appendicitis, acute cystitis
MDM/Problems Addressed:
83-year-old female presents emergency department today with history of chronic back pain but notes an acute worsening this morning along with belly pain. CT scan of the abdomen negative for acute intra-abdominal pathology. Suspect this pain
related to compression fractures, belly pain may be referred. Patient feels unsafe to go home and states that she was unable to ambulate this morning due to severe pain. She lives alone. Will admit for further management of pain and discharge
appropriate rehab facility.
<Livier Norman PA-C - Last Filed: 06/01/24 21:05>
*Pulse Oximetry
Patient hypoxic: no
*Critical Care Note
Total Time (30-74mins, 75-104mins- exclusive of procedures): Not Applicable
Data Reviewed
Review of Other/Old Records Reveals: Records
<Cordell Fraga MD - Last Filed: 06/01/24 17:49>
Update Note
Update Note:
Patient with ongoing back pain. Recent worsening compression fracture. Not complaining of pain wrapping around both sides. No fever. No numbness tingling or weakness. Symptoms are moderate in nature.
On exam patient is nontoxic in no distress. Warm and dry. Perfusing well. Minimal epigastric tenderness. No rebound or guarding no mass or hernia. Neurologic exam is nonfocal.
Labs show a leukocytosis. UTI likely contaminated. Patient is uncomfortable going home with her discomfort. Etiology somewhat uncertain. Could be referred from her back could be an nonspecific abdominal issue. Warrants further inpatient
management.
ED Attending Note
<Livier Norman PA-C - Last Filed: 06/01/24 21:05>
-
Portions of this chart may have been created with voice recognition software.� Occasional wrong word or��sound alike� substitutions may have occurred due to the inherent limitations of voice recognition software.
<Abner Almodovar DO - Last Filed: 06/01/24 14:09>
ED Attending Note
Patient seen and examined by attending physician: Yes
I performed the substantive portion of visit, reviewed & personally made and approve the management plan that is documented in note by myself or DEMETRI.: Yes
ED Attending Note:
I evaluated the patient at bedside. The patient has a relatively recent diagnosis of lumbar spine fracture and has known thoracic spine fracture successfully treated with an epidural in the past. She states that Dr. Jesus wanted to do an epidural
but insurance would not cover it as it was too recent to the last 1. Today, she had rather significant abdominal pain that may or may not be related to the lumbar spine fracture. Will obtain CT imaging for further evaluation. She was given
Toradol prior to arrival.
Discharge Plan
Departure
Patient Disposition: Admit
Date of Disposition: 06/01/24
Time of Disposition: 17:47
Admit to: Med/Surg
Presentation/result/management discussed w/ accepting MD/DO: Hospitalist
Patient with high blood pressure during this ER visit?: Yes
Condition: Fair
Discharge Problem:
Vertebral compression fracture, Ambulatory dysfunction
Interventions
Interventions:
*Risk Screen - Suicide Last Done: 06/01/24 12:28
*General Assessment Last Done: 06/01/24 12:28
*Neglect/Abuse Screening Last Done: 06/01/24 12:28
*ED- Fall Risk Assessment Last Done: 06/01/24 12:28
*ED COVID-19 Vaccine History Last Done: 06/01/24 12:28
*Nursing Disposition Last Done: 06/01/24 19:13
ED-Musculoskeletal Assessment Last Done: 06/01/24 12:37
Discharge Date and Time
Discharge Date/Time: 06/01/24 19:24
[2024-06-01 14:12] LABS: % Basophils 0.5 % (0-2); % Eosinophils 0.1 % (0-6); % Immature Granulocytes 2.2 % (0-0.5); % Lymphocytes 14.5 % (20.5-51.1); % Monocytes 9.1 % (1.7-9.3); % Neutrophils 73.6 % (42.2-75.2); Absolute Basophils 0.1 10^3/uL (0-0.2); Absolute Immature Granulocytes 0.3 10^3/uL (0-0.05); Absolute Lymphocytes 1.9 10^3/uL (1.2-3.4); Absolute Monocytes 1.2 10^3/uL (0.1-0.6); Absolute Neutrophils 9.8 10^3/uL (1.4-6.5); Hematocrit 39.3 % (37.0-47.0); Hemoglobin 13.1 g/dL (12.0-16.0); Mean Corp Hgb Conc. 33.3 g/dL (33.0-37.0); Mean Corpuscular Hgb 31.3 pg (27.0-31.0); Mean Corpuscular Volume 93.8 fL (81.0-99.0); Mean Platelet Volume 9.1 fL (7.4-10.4); Nucleated Red Blood Cells % 0 %; Platelet Count 259 10^3/uL (130-400); Red Blood Cell Count 4.19 10^6/uL (4.20-5.40); Red Cell Dist. Width 14.4 % (11.5-14.5); White Blood Cell Count 13.2 10^3/uL (4.8-10.8)
[2024-06-01 14:47] LABS: ALT (SGPT) 19 U/L (0-35); AST (SGOT) 19 U/L (14-36); Albumin 3.4 g/dl (3.5-5.0); Alkaline Phosphatase 110 U/L (38-126); Blood Urea Nitrogen 22 mg/dl (7-17); Calcium 9.5 mg/dl (8.4-10.2); Carbon Dioxide 24 mmol/L (22-30); Chloride 104 mmol/L (98-107); Estimated Creatinine Clearance 56 ml/min; Glucose 95 mg/dl (70-99); Lipase 65 U/L (23-300); Potassium 3.7 mmol/L (3.5-5.1); Sodium 133 mmol/L (135-145); Total Bilirubin 0.7 mg/dl (0.2-1.3); Total Protein 6.3 g/dl (6.3-8.2); eGFR > 60.00
[2024-06-01] MEDS: MORPHINE SULFATE 2 MG IV ×2 (17:05→21:33)
[2024-06-01 17:12] LABS: Urine Albumin 2+ (Neg - Trace); Urine Bilirubin Negative (Negative); Urine Character Clear (Clear); Urine Color Yellow; Urine Glucose Negative (Negative); Urine Ketone 2+ (Negative); Urine Leukocyte 2+ (Negative); Urine Nitrite Negative (Negative); Urine Occult Blood 4+ (Negative); Urine Specific Gravity 1.015 (<1.030); Urine Urobilinogen Negative (Neg - 1+)
[2024-06-01 17:23] LABS: Urine Squamous Cell 16-20 /LPF (Few)
[2024-06-01 17:24] LABS: Urine Bacteria Few (Negative); Urine Red Blood Cell 21-25 /HPF (0-2)
--- NOTE | 2024-06-01 17:57 | HPS.HSE ---
Addendum entered and electronically signed by Sancho Polo MD 06/02/24 14:54:
Intractable back pain likely secondary to vertebral compression fracture versus muscle spasm subsequently developing amatory dysfunction
Continue analgesic
Start cyclobenzaprine
Unable to initiate Valium and has already on Xanax
Heating pad
Consult neurosurgery
Consult IR for potential epidural
PT/OT
Chronic heart failure, compensated
Currently not on GDMT/loop diuretic
Outpatient cardiology follow-up
Leukocytosis, resolved,
Afebrile hemodynamically low clinical suspicion for infection
If becomes febrile check blood cultures consider antibiotics at that time
Anxiety
Continue anxiolytic
Hypertension
Continue antihypertensives
Original Note:
Family Physician
-
Family Physician: Ailin Perez
Chief Complaint
-
Back pain
History of Present Illness
83-year-old female with CHF, HTN, HLD, GERD/hiatal hernia, chronic benzodiazepine use, SANDIE, orthostasis, vertebral compression fracture that is presenting to the ED with a complaint of severe back pain radiating into the abdomen. Pain has been
ongoing for months but began radiating to the abdomen and into the ribs as of this morning, was unable to walk because of the severity of the pain. Patient lives alone so she called EMS. Gave her a dose of Toradol en route which did help with her
symptoms. Pain worse with movement, manageable at rest. Denies any fevers or chills, urinary incontinence, gastrointestinal symptoms. Recently had an MRI as an outpatient with Dr. Jesus that showed fractures. AFVSS through ED course. Labs with
WBC 13.2, sodium 133, albumin 3.4 but otherwise unremarkable. UA with 4+ blood, 11-15 WBC per hpf, positive leukocyte esterase with few bacteria. CT A/P with IV contrast showed nonspecific mild wall thickening of the sigmoid colon, mild urinary
bladder wall thickening, and thoracolumbar fractures of T10, L1, L3, L5 vertebral bodies. Was given 2 mg IV morphine sulfate in the ED
Medical History
Past Medical History
Past Medical History: Reports CHF, GERD, HTN and Hypercholesterolemia
Past Surgical History: Reports Other
Additional Past Surgical History:
Epidural steroid injections
Social History
Tobacco: Non-smoker
Alcohol: None
Drug: None
Family History
Family History: Not pertinent
Allergies / Home Medications
Allergies reflects when Allergies were last updated in [facility].
Home Medications with original date entered in [facility]
Allergy/Medication List:
Allergies
Allergy/AdvReac Type Severity Reaction Status Date / Time
latex Allergy Rash Verified 06/01/24 12:36
prednisone Allergy psychosis Verified 06/01/24 12:36
Home Medications
diclofenac sodium 1 % topical gel 1 ea topical HS sore muscles 09/05/23
fluoxetine 20 mg capsule 20 mg PO DAILY Depression 09/05/23
nitrofurantoin monohydrate/macrocrystals 100 mg capsule 100 mg PO DAILY Infection 09/05/23
acetaminophen 325 mg tablet (Tylenol) 650 mg PO Q6HPRN PRN mild pain 10/23/23
cyanocobalamin (vitamin B-12) 1,000 mcg tablet 1,000 mcg PO DAILY Supplement 10/23/23
sennosides 8.6 mg tablet (senna) 17.2 mg PO HSPRN PRN constipation 10/23/23
alprazolam 1 mg tablet 1 mg PO TID #30 tabs 10/26/23
bisacodyl 10 mg rectal suppository 10 mg ME [id number] PRN constipation #12 ea 10/26/23
polyethylene glycol 3350 17 gram oral powder packet (HealthyLax) 17 g PO DAILYPRN PRN constipation #14 ea 10/26/23
Review of Systems
-
A 12 point ROS was completed and negative except as noted: Yes
Constitutional: Reports No Symptoms
EENT: Reports No Symptoms
Respiratory: Reports No Symptoms
Cardiac: Reports No Symptoms
Abdomen/GI: Reports No Symptoms
: Reports No Symptoms
Musculoskeletal: Reports See HPI
Skin: Reports No Symptoms
Neurological: Reports See HPI
Endocrine: Reports No Symptoms
Hematologic/Lymphatic: Reports No Symptoms
Psych: Reports No Symptoms
Physical Exam
Vital Signs
Vital Signs
Temp Pulse Resp BP Pulse Ox
97.8 F 100 21 150/100 96
06/01/24 12:28 06/01/24 16:00 06/01/24 16:00 06/01/24 16:00 06/01/24 12:28
Physical Exam
General: Well Developed, Well Nourished and Pain
HEENT: NormoCephalic, Anicteric, Moist mucous membranes, Atraumatic and PERRLA
Respiratory: Clear and Non Labored Respirations
Cardiac: S1/S2 and Regular Rhythm
GI: Soft, Non Tender, Non Distended and Normal Bowel Sounds
Musculoskeletal: No Clubbing, No Cyanosis and No Edema; No Normal Gait & Station
Skin: Warm and Dry; No Rash
Neuro: AO x 3 and Nonfocal/grossly intact
Laboratory Results
-
06/01/24 13:59
06/01/24 13:59
Laboratory Results
Total Bilirubin 0.7 mg/dl (0.2-1.3) 06/01/24 13:59
AST 19 U/L (14-36) 06/01/24 13:59
ALT 19 U/L (0-35) 06/01/24 13:59
Alkaline Phosphatase 110 U/L (38-126) 06/01/24 13:59
Lipase 65 U/L (23-300) 06/01/24 13:59
Data Reviewed
-
CT Scan: Report Reviewed by me, Discussed with Physician (IR) and Discussed with Patient
Lab Data: Labs Reviewed by me and Discussed with Patient
Impression/Plan
-
#Intractable lower back pain
#Vertebral compression fractures (T10, L1, L3, L5)
#Ambulatory dysfunction
-Worsening back pain from vertebral compression fractures, no other acute etiology seen on CT
-Follows outpatient with Dr. Yeung, recently had MRI that showed fracture; previously with XOCHITL
-Pain has been present for months and worsening, had significant acute worsening this morning
-No signs of cauda equina or conus medullaris; no focal neurological deficit
-Will continue IV morphine at 2 mg as needed for severe pain, 1 mg for moderate, Tylenol for mild
-Consult interventional radiology for consideration of kyphoplasty v. XOCHITL
-PT/OT consult, case management for placement
-Bowel regimen
#Leukocytosis
-Unclear cause, possibly related to vertebral fractures
-CT did show mild wall thickening of the bladder and colon
-No obvious signs of infection, denies fevers or other infectious symptoms
-Will continue to monitor CBC and temperature curve off of antibiotic
-Consider antibiotics if developing gastrointestinal or urinary symptoms
#Chronic CHF
-Noted per history, outpatient medications without GDMT or loop diuretic
-Appears euvolemic at this time, not requiring O2
-Monitor clinically
-Daily weights
#HTN
-Unclear if this is active diagnosis, not currently on any meds
-No known history of hypertensive systemic disease
-Blood pressure mildly elevated in the ED secondary to pain
-Continue to monitor
#HLD
-No known ASCVD history
-Not currently on statin
#GERD/hiatal hernia
-No known history of erosive disease or Palencia's esophagus
-Outpatient medications do not include PPI or antihistamine
-Monitor clinic
#Anxiety
#Chronic benzodiazepine
-Home medications include fluoxetine and alprazolam
-Takes 0.25 mg alprazolam in AM, 0.5 mg at noon, 1.5 mg HS
-Will continue with home medication regimen
#Orthostasis
-This per documentation, not currently on midodrine or fludrocortisone
-PT consulted, monitor for orthostatic symptoms
#SANDIE
-Noted per history, hemoglobin normal here
-Not currently on any iron supplementation
DVT prophylaxis: Lovenox
Diet: Regular
CODE STATUS: Full code
Disposition: Admit to [facility]
I will be admitting this patient to [facility]. She is at high risk for ongoing morbidity due to severe acute on chronic lower back pain. She will require intensive monitoring of her neurologic status and readjustment of her analgesic regimen. I
have discussed this case with the interventional radiologist and ED attending.
[2024-06-01] MEDS: DICLOFENAC 1% TOPICAL GEL 4 GRAM TOPICAL (21:35)
[2024-06-01] MEDS: XANAX 1.5 MG PO (22:52)
--- NOTE | 2024-06-01 23:17 | PTCARENOTE ---
Receive pt from ER. Pt alert oriented X3, reports severe back pain (9-10/10 with movement). Pt assist X2 w/RW to bed. Pt oriented to the room, call phoenix within reach. VSS (T=97.3, HR=92, RR=20, CB=986/92, SpO2=98% on RA). Morphine 2mg given for
pain. Pain worsened after pt went to the bathroom, Tylenol given for pain and Xanax given as scheduled. Will continue to monitor the pt.
[2024-06-01] MEDS: TYLENOL 650 MG PO (23:19)
[2024-06-02] VITALS (7 sets, daily range): BP systolic 97–152; BP diastolic 61–91; PULSE 106; O2SAT 95; BMI 20.1
[2024-06-02] MEDS: MORPHINE SULFATE 2 MG IV (06:07)
[2024-06-02 06:34] LABS: % Basophils 0.3 % (0-2); % Eosinophils 0.3 % (0-6); % Immature Granulocytes 2.7 % (0-0.5); % Monocytes 11.3 % (1.7-9.3); % Neutrophils 59.4 % (42.2-75.2); Absolute Immature Granulocytes 0.2 10^3/uL (0-0.05); Absolute Lymphocytes 2.3 10^3/uL (1.2-3.4); Absolute Neutrophils 5.3 10^3/uL (1.4-6.5); Hematocrit 39.9 % (37.0-47.0); Hemoglobin 13.1 g/dL (12.0-16.0); Mean Corp Hgb Conc. 32.8 g/dL (33.0-37.0); Mean Corpuscular Hgb 30.6 pg (27.0-31.0); Mean Corpuscular Volume 93.2 fL (81.0-99.0); Mean Platelet Volume 9.7 fL (7.4-10.4); Nucleated Red Blood Cells % 0 %; Platelet Count 244 10^3/uL (130-400); Red Blood Cell Count 4.28 10^6/uL (4.20-5.40); Red Cell Dist. Width 14.6 % (11.5-14.5); White Blood Cell Count 8.9 10^3/uL (4.8-10.8)
[2024-06-02 07:17] LABS: Blood Urea Nitrogen 16 mg/dl (7-17); Calcium 9.2 mg/dl (8.4-10.2); Carbon Dioxide 20 mmol/L (22-30); Chloride 105 mmol/L (98-107); Estimated Creatinine Clearance 56 ml/min; Glucose 97 mg/dl (70-99); Magnesium 1.9 mg/dl (1.6-2.3); Potassium 4.2 mmol/L (3.5-5.1); Sodium 132 mmol/L (135-145); eGFR > 60.00
[2024-06-02] MEDS: DESENEX/MITRAZOL/ZEASORB 1 APPLIC TOPICAL ×2 (08:16→20:39)
[2024-06-02] MEDS: PROZAC 20 MG PO (08:16)
[2024-06-02] MEDS: VITAMIN B-12 1000 MCG PO (08:17)
[2024-06-02] MEDS: XANAX 0.25 MG PO (08:17)
[2024-06-02] MEDS: TYLENOL 650 MG PO (08:27)
[2024-06-02 09:17] LABS: INR 0.92; PT 12.7 Sec (11.4-14.6)
[2024-06-02] MEDS: ROXICODONE 10 MG PO (10:42)
--- NOTE | 2024-06-02 11:43 | CM ---
Patient seen bedside.
IA completed.
Patient lives alone in a 2 story home, with 1st floor set up.
Has a cat.
Does have a stair glide, but dos not go upstairs.
Patient has 3 RW, raised toilet seat and stair glide.
Patient droves.
patient independent prior to admission.
Nurse from insurance comes out 1x per month.
Patient had VN in the past.
Patient has been to [facility] and [facility] in the past.
PT recommending skilled rehab, patient thinks she can go home with VN.
Referral to [facility].
PCP: Frank Mitchell
Pharmacy: [facility]
Plan: Home with VN, friend will transport.
--- NOTE | 2024-06-02 11:54 | W.PN.HOSP.TC ---
Today's Communication/Plan
-
Pain management
IR and neurosurgery consult
Assessment / Plan
Assessment / Plan
83-year-old female with past medical history of ulcerative colitis, urge incontinence, hypertension, hyperlipidemia, GERD/hiatal hernia, chronic benzodiazepine use, iron deficiency anemia, orthostasis, vertebral compression fracture presented to the
ED with complaints of severe back pain radiating into the abdomen. Patient stated pain has been ongoing for months, however now she is unable to walk because of the severity of the pain. Denies any bowel or urinary incontinence, numbness,
tingling, weakness, just severe pain. On admission WBC 13.2, sodium 133, albumin 3.4 but otherwise unremarkable. UA with 4+ blood, 11-15 WBCs, positive leukocyte esterase with few bacteria. CT A/P with contrast revealed mild wall thickening of the
sigmoid colon, mild urinary bladder wall thickening, thoraco lumbar fractures of T10, L1, L3, L5 vertebral bodies. Pain is so severe that patient is unable to ambulate. Patient lives alone.
#Vertebral compression fractures T10, L1, L3, L5
#Ambulatory dysfunction due to pain
-No signs of cauda equina or conus medullaris
-1mg Morphine for breakthrough pain, 10 oxy for severe, 5 for moderate, tylenol for mild
-Heating pads
-Cyclobenzaprine
-Unable to start steroid taper due to allergy
-IR consulted to eval for kyphoplasty vs XOCHITL
-Pt stated last XOCHITL about 2-3 weeks ago and was told she wouldn't able to get another one until July 02 due to insurance purposes
-Neurosurgery appreciated
#Leukocytosis
-Resolved
#HTN
-Not currently on any meds
-Currently stable
-Monitor
#CHF
-Hx noted in chart but not on any meds
-Explicitly denies hx of CHF
-Pt stated she has frequent episodes of SOB and was evaluated by cards and pulm and did not find cause
-States her SOB is due to her large hiatal hernia deceasing her lung field space
#HLD
-Not currently on statin
-No known history of CAD
#GERD/Hiatal hernia
-Outpatient meds don't include a PPI
-monitor
#Anxiety/chronic benzo use
-Home medications include fluoxetine and alprazolam
-Takes 0.25 mg alprazolam in AM, 0.5 mg at noon, 1.5 mg HS
-Will continue with home medication regimen
#Orthostasis
-This per documentation, not currently on midodrine or fludrocortisone
-PT consulted, monitor for orthostatic symptoms
#SANDIE
-Noted per history, hemoglobin normal here
-Not currently on any iron supplementation
#Hx ulcerative colitis
-Explains the CT bowel findings
-Not in current exacerbation
-Monitor
#Urge incontinence
-Explains CT bladder findings
-Stated she was on gemtesa in OP but does not help her
DVT lovenox
Full code
Anticipated Discharge: 24 - 48 hours
Subjective/Interval History
-
Date of Service: June 02, 2024
Objective Data
-
Labs:
Laboratory Results
06/02/24 06/02/24
05:53 08:44
WBC 8.9
Hgb 13.1
Hct 39.9
Plt Count 244
PT 12.7
INR 0.92
Sodium 132 L
Potassium 4.2
Chloride 105
Carbon Dioxide 20 L
BUN 16
Creatinine 0.5 L
Glucose 97
Calcium 9.2
Vital Signs:
Vital Signs
Temp Pulse Resp BP Pulse Ox
98.4 F 85 20 143/86 94
06/02/24 07:46 06/02/24 07:46 06/02/24 07:46 06/02/24 07:46 03/24/25 07:46
I&O
06/01/24 06/02/24 06/03/24
06:59 06:59 06:59
Intake Total 240 / 240
Balance 240 / 240
Review of Systems
-
History Source: Patient
Constitutional: Reports No Symptoms
EENT: Reports No Symptoms Reported
Respiratory: Reports No Symptoms
Cardiac: Reports No Symptoms
Abdomen/GI: Reports No Symptoms
Genitourinary: Reports No Symptoms
Musculoskeletal: Reports Other (Severe back pain worse with movement )
Neuro: Reports No Symptoms
Physical Exam
-
General: Well Developed
HEENT: Normocephalic
Respiratory: Clear to Auscultation
Cardiac: Regular Rhythm and S1/S2
GI: Soft, Nontender, Nondistended and Normal Bowel Sounds
Musculoskeletal: No Edema
Skin: Warm and Dry
Neuro: AO x 3 and No Motor Deficits; Negative Slurred Speech or Facial Droop
Psych: Calm
[2024-06-02] MEDS: XANAX 0.5 MG PO (13:42)
--- NOTE | 2024-06-02 13:49 | CON.NS ---
Consultation
-
Date/Time Consultation Performed: 06/02/2024; 13:50
Performing Provider: Jarrell
Chief Complaint
History of Present Illness
This is a neurosurgical consultation an 83-year-old female who presented yesterday with severe back pain, radiating to the abdomen. She has active medical issues including congestive heart failure, hypertension, chronic benzodiazepine use. It is
noted that the pain is been going on for several months, but began radiating to the abdomen and into the ribs yesterday morning, causing inability to ambulate. She lives alone. She had recently an MRI as an outpatient that demonstrated vertebral
fractures. She was also found to have a positive urinalysis. She was admitted for pain control. CT of the chest/abdomen/pelvis demonstrated multiple compression fractures including T10, L1, L3, L5. Neurosurgery consulted for further evaluation.
No reported bowel or bladder changes.
Attempted to see patient. Informed by RN, that she is off the floor, and interventional radiology.
Review of Systems
-
10 point review of systems including constitutional, ENT, cardiovascular, respiratory, GI, , hematologic, endocrine logic, musculoskeletal, neurologic was performed, and was negative except for as stated in HPI.
Medication and Allergies
Home Medications
Home Medications
�Medication �Instructions �Recorded
nitrofurantoin 100 mg PO DAILY Infection 09/05/23
monohydrate/macrocrystals 100 mg
capsule
cyanocobalamin (vitamin B-12) 1,000 mcg PO DAILY Supplement 10/23/23
1,000 mcg tablet
acetaminophen 650 mg 1,300 mg PO Q8HPRN PRN mild pain 06/01/24
tablet,extended release
alprazolam 0.5 mg tablet See Rx Instructions .Route .COMPLEX 06/01/24
ascorbic acid (vitamin C) 500 mg 500 mg PO DAILY 06/01/24
tablet (Vitamin C)
ferrous sulfate 325 mg (65 mg 325 mg PO DAILY 06/01/24
iron) tablet
fluoxetine 10 mg capsule 30 mg PO DAILY 06/01/24
polyvinyl alcohol 1.4 % eye drops 1 drp ophthalmic (eye) DAILYPRN 06/01/24
(Artificial Tears (polyvinyl PRN dry eyes
alcohol))
sennosides 8.6 mg-docusate sodium 1 tab-cap PO DAILYPRN PRN 06/01/24
50 mg tablet (Senna Plus) constipation
tramadol 37.5 mg-acetaminophen 325 1 tab PO BIDPRN PRN moderate pain 06/01/24
mg tablet
vibegron 75 mg tablet (Gemtesa) 75 mg PO DAILY 06/01/24
vitamins A,C,B-lodl-kgqcdd 2,148 2 tab PO BID 06/01/24
mcg-113 mg-45 mg-17.4 mg tablet
(PreserVision AREDS)
Allergies
Allergies
Allergy/AdvReac Type Severity Reaction Status Date / Time
latex Allergy Rash Verified 06/01/24 12:36
prednisone Allergy psychosis Verified 06/01/24 12:36
Physical Exam
-
Exam:
Unable to examine patient, as she is off the floor for interventional radiology.
CT of the abdomen/pelvis performed on 06/01/2024 was reviewed. Images were personally viewed and interpreted by me. There is evidence of scoliosis noted. There is evidence of multiple compression deformities including L5, L3, L1, and T10. There
is approximately 50 to 75% height loss at T10, without any overt evidence of retropulsion. At L1, there appears to be approximately 50% height loss noted without any retropulsion. At L3, there is 50% height loss without retropulsion., At L5,
there is approximately 25% height loss. Spinal canal appears to be patent on the CT.
Problems
-
Problem Status Onset Code
Ambulatory dysfunction R26.2
Vertebral compression fracture M48.50XA
Assessment / Plan
-
This is an 83-year-old female that presents with back pain, and abdominal pain. Imaging demonstrates multiple compression fractures. I am unable to visualize the most recent MRI to determine if compression deformities are acute, subacute, or
chronic.
Unable to see patient, as she is off the floor for? Interventional radiology?, Per RN.
Recommend pain control.
Will attempt to reexamine tomorrow.
--- NOTE | 2024-06-02 15:52 | PTCARENOTE ---
received from [facility]- assisted to bed, bandaid dry and intact to lower back. vitals noted. call phoenix in reach. plan of care on going.
--- NOTE | 2024-06-02 16:08 | VNURNOTE ---
Home health liaison met with patient to discuss [facility] services, visit scheduling/frequency, homebound status and pet policy. Patient understands home visits will be 1-2 times a week to assess and teach medical management. Patient aware a visiting
nurse will contact her for start of care within 1-2 days after discharge from . [facility] Referral completed in care port.
[2024-06-02] MEDS: LOVENOX 40 MG SC (17:54)
[2024-06-02] MEDS: ROXICODONE 5 MG PO (18:02)
[2024-06-02] MEDS: DICLOFENAC 1% TOPICAL GEL 100 GRAM TOPICAL (20:38)
[2024-06-02] MEDS: SENOKOT-S 1 TABLET PO (20:38)
[2024-06-02] MEDS: FLEXERIL 10 MG PO (20:38)
[2024-06-02] MEDS: XANAX 1.5 MG PO (21:31)
[2024-06-03 05:52] VITALS: BMI 20.2
[2024-06-03] MEDS: ROXICODONE 5 MG PO (06:09)
[2024-06-03 06:49] LABS: Hematocrit 36.3 % (37.0-47.0); Hemoglobin 12.1 g/dL (12.0-16.0); Mean Corp Hgb Conc. 33.3 g/dL (33.0-37.0); Mean Corpuscular Hgb 31.3 pg (27.0-31.0); Mean Platelet Volume 10.1 fL (7.4-10.4); Platelet Count 241 10^3/uL (130-400); Red Blood Cell Count 3.86 10^6/uL (4.20-5.40); Red Cell Dist. Width 14.7 % (11.5-14.5); White Blood Cell Count 10.6 10^3/uL (4.8-10.8)
[2024-06-03 07:11] LABS: ALT (SGPT) 15 U/L (0-35); AST (SGOT) 16 U/L (14-36); Albumin 3.1 g/dl (3.5-5.0); Alkaline Phosphatase 84 U/L (38-126); Blood Urea Nitrogen 17 mg/dl (7-17); Calcium 9.3 mg/dl (8.4-10.2); Carbon Dioxide 24 mmol/L (22-30); Chloride 107 mmol/L (98-107); Estimated Creatinine Clearance 56 ml/min; Glucose 136 mg/dl (70-99); Potassium 4.4 mmol/L (3.5-5.1); Sodium 137 mmol/L (135-145); Total Bilirubin 0.7 mg/dl (0.2-1.3); Total Protein 6.1 g/dl (6.3-8.2); eGFR > 60.00
[2024-06-03 07:32] VITALS: BP 119/78
[2024-06-03] MEDS: VITAMIN B-12 1000 MCG PO (07:58)
[2024-06-03] MEDS: PROZAC 20 MG PO (07:58)
[2024-06-03] MEDS: XANAX 0.25 MG PO (07:58)
[2024-06-03] MEDS: DESENEX/MITRAZOL/ZEASORB 1 APPLIC TOPICAL ×2 (08:01→20:55)
--- NOTE | 2024-06-03 08:43 | W.PN.HOSP.TC ---
Today's Communication/Plan
-
Neurosurgery appreciated
Pain management
PT/OT
Assessment / Plan
Assessment / Plan
83-year-old female with past medical history of ulcerative colitis, urge incontinence, hypertension, hyperlipidemia, GERD/hiatal hernia, chronic benzodiazepine use, iron deficiency anemia, orthostasis, vertebral compression fracture presented to the
ED with complaints of severe back pain radiating into the abdomen. Patient stated pain has been ongoing for months, however now she is unable to walk because of the severity of the pain. Denies any bowel or urinary incontinence, numbness,
tingling, weakness, just severe pain. On admission WBC 13.2, sodium 133, albumin 3.4 but otherwise unremarkable. UA with 4+ blood, 11-15 WBCs, positive leukocyte esterase with few bacteria. CT A/P with contrast revealed mild wall thickening of the
sigmoid colon, mild urinary bladder wall thickening, thoraco lumbar fractures of T10, L1, L3, L5 vertebral bodies. Pain is so severe that patient is unable to ambulate. Patient lives alone.
#Vertebral compression fractures T10, L1, L3, L5
#Ambulatory dysfunction due to pain
-No signs of cauda equina or conus medullaris
-1mg Morphine for breakthrough pain, 10 oxy for severe, 5 for moderate, tylenol for mild
-Heating pads
-Cyclobenzaprine
-Unable to start steroid taper due to allergy
-IR performed XOCHITL 06/02 - pain still severe, but better than previous. Told her next step is kyphoplasty if pain continues
-Neurosurgery attempted to see pt, but down in IR. Their expertise still appreciated
# Constipation
-Likely secondary to oxy
-Start scheduled miralax
#Leukocytosis
-Resolved
#HTN
-Not currently on any meds
-Currently stable
-Monitor
#CHF
-Hx noted in chart but not on any meds
-Explicitly denies hx of CHF
-Pt stated she has frequent episodes of SOB and was evaluated by cards and pulm and did not find cause
-States her SOB is due to her large hiatal hernia deceasing her lung field space
#HLD
-Not currently on statin
-No known history of CAD
#GERD/Hiatal hernia
-Outpatient meds don't include a PPI
-monitor
#Anxiety/chronic benzo use
-Home medications include fluoxetine and alprazolam
-Takes 0.25 mg alprazolam in AM, 0.5 mg at noon, 1.5 mg HS
-Will continue with home medication regimen
#Orthostasis
-This per documentation, not currently on midodrine or fludrocortisone
-PT consulted, monitor for orthostatic symptoms
#SANDIE
-Noted per history, hemoglobin normal here
-Not currently on any iron supplementation
#Hx ulcerative colitis
-Explains the CT bowel findings
-Not in current exacerbation
-Monitor
#Urge incontinence
-Explains CT bladder findings
-Stated she was on gemtesa in OP but does not help her
DVT lovenox
Full code
Anticipated Discharge: Within 24 hours
Subjective/Interval History
-
Date of Service: June 03, 2024
Still in sig pain, but better than yesterday.
Objective Data
-
Labs:
Laboratory Results
06/03/24
05:37
WBC 10.6
Hgb 12.1
Hct 36.3 L
Plt Count 241
Sodium 137
Potassium 4.4
Chloride 107
Carbon Dioxide 24
BUN 17
Creatinine 0.5 L
Glucose 136 H
Calcium 9.3
Total Bilirubin 0.7
AST 16
ALT 15
Alkaline Phosphatase 84
Vital Signs:
Vital Signs
Temp Pulse Resp BP Pulse Ox
98.4 F 83 18 119/78 94
06/03/24 07:32 03/25/25 07:32 06/03/24 07:32 06/03/24 07:32 06/03/24 07:32
I&O
06/02/24 06/03/24 06/04/24
06:59 06:59 06:59
Intake Total 240 / 240 1080 / 1080
Balance 240 / 240 1080 / 1080
Review of Systems
-
History Source: Patient
Constitutional: Reports No Symptoms
Respiratory: Reports No Symptoms
Cardiac: Reports No Symptoms
Abdomen/GI: Reports No Symptoms
Genitourinary: Reports Incontinence
Musculoskeletal: Reports Other (Lower back pain worse with movement )
Neuro: Reports No Symptoms
Physical Exam
-
General: No Apparent Distress
HEENT: Normocephalic
Respiratory: Clear to Auscultation
Cardiac: Regular Rhythm and S1/S2
GI: Soft, Nontender, Nondistended and Normal Bowel Sounds
Musculoskeletal: No Edema
Skin: Warm and Dry
Neuro: AO x 3 and No Motor Deficits; Negative Slurred Speech or Facial Droop
Psych: Calm
[2024-06-03] MEDS: MIRALAX 17 GRAMS PO (09:32)
[2024-06-03] MEDS: ROXICODONE 10 MG PO ×2 (10:54→21:05)
[2024-06-03] MEDS: SENOKOT-S 1 TABLET PO ×2 (10:55→21:11)
[2024-06-03] MEDS: XANAX 0.5 MG PO (12:54)
--- NOTE | 2024-06-03 12:59 | PN.NS ---
Documented by User: Cathy Price PA-C 06/04/24 11:29
Subjective
-
Patient seen and examined. She has chronic back pain but specifically reports new mid back pain over the past several weeks. She denies any new numbness/tingling. She had an XOCHITL yesterday. She has not noted any improvement in symptoms at this time.
The pain is worse with movements. She denies any trauma that she can recall.
Physical Exam
-
Exam:
Patient awake, alert and oriented xs 3
CN 2-12 grossly intact
speech: clear/fluent
motor: 5/5; able to stand up out of chair without difficulty,
pain with palpation around the L1 area
non labored breathing
sensation intact to crude touch
MRI from OSH loaded inot the system and personally interpreted by myself and attending.
Acute L1 fractures noted. NO significant central canal stenosis,
Problems
-
Problem Status Onset Code
Ambulatory dysfunction R26.2
Vertebral compression fracture M48.50XA
Assessment / Plan
-
This is an 83-year-old female that presents with back pain, and abdominal pain. Imaging demonstrates multiple compression fractures with MRI demonstrating acute L1 fracture.
--Imaging reviewed with the patient. Recommend LSO when upright and out of bed.
--PT/OT as tolerated
--if pain persists, recommend consult to IR for kyphoplasty
--follow up with our office in 10-12 weeks.
--patient disucssed with Dr. Vieyra.
Today's Communication
-
discussed plan with patient and RN

Documented by User: Faina Vieyra MD 06/04/24 11:58
Problems
-
Problem Status Onset Code
Ambulatory dysfunction R26.2
Vertebral compression fracture M48.50XA
Assessment / Plan
-
This is an 83-year-old female that presents with back pain, and abdominal pain. Imaging demonstrates multiple compression fractures with MRI demonstrating acute L1 fracture.
--Imaging reviewed with the patient. Recommend LSO when upright and out of bed.
--PT/OT as tolerated
--if pain persists, recommend consult to IR for kyphoplasty
--follow up with our office in 10-12 weeks.
--patient discussed with Dr. Vieyra.
ATTENDING ATTESTATION:
MRI reviewed which demonstrates acute L1 fx. Can trial conservative treatment with bracing, PT, pain control. IF unable to tolerated, reconsult IR for kyphoplasty.
--- NOTE | 2024-06-03 14:24 | PN.CDI ---
CDI
- -
CDI:
Physician Documentation Request
Admit Date: 06/01/24 18:23
Dear Doctor Rashida,
Patient is admitted with Vertebral compression fractures T10, L1, L3, L5
06/01 CT abdomen /pelvis shows 'The osseous structures are diffusely demineralized. Multiple compression fractures of the thoracolumbar spine, severe at T10, moderate at L1, moderate at L3, and mild to moderate at L5'
Please provide further specificity regarding the diagnosis of fracture:
Etiology
Traumatic
Pathologic due to osteoporosis
Pathologic due to other disease (please specify)
Due to a combination of trauma and a pathological process
but the trauma alone would not likely have been sufficient
to cause the fracture
Use of terms such as suspected, likely, concern for, or probable (associated with a specific diagnosis that is being evaluated, monitored, or treated as if it exists) are acceptable and can be coded in the inpatient setting, when documented at the
time of discharge.
Thank you,
Radha Tyler RN, BSN
CDI Specialist
tiger text
Please use your independent medical judgment in providing your response.
[2024-06-03 15:39] VITALS: BP 108/73
--- NOTE | 2024-06-03 16:03 | CM ---
PT OT indicate SNF.
Pt declined SNF .
[facility] for [place]
Offered college and career counselor list .PT declined list she said she is already setting up college and career counselor to assist her at home.
She said a friend [place] drive her home [place]
IMM reviewed with pt signed on chart.
PLAN Home with [facility] Pt setting up care givers
[2024-06-03 16:34] VITALS: BP 138/88; PULSE 99; O2SAT 93
[2024-06-03] MEDS: LOVENOX 40 MG SC (16:43)
[2024-06-03] MEDS: DICLOFENAC 1% TOPICAL GEL 100 GRAM TOPICAL (20:55)
[2024-06-03] MEDS: XANAX 1.5 MG PO (21:09)
[2024-06-03] MEDS: FLEXERIL 10 MG PO (21:10)
[2024-06-03 23:26] VITALS: BP 120/81
[2024-06-04 07:10] VITALS: BP 110/78
[2024-06-04 07:22] LABS: Hematocrit 34.7 % (37.0-47.0); Hemoglobin 11.5 g/dL (12.0-16.0); Mean Corp Hgb Conc. 33.1 g/dL (33.0-37.0); Mean Corpuscular Hgb 31.1 pg (27.0-31.0); Mean Corpuscular Volume 93.8 fL (81.0-99.0); Mean Platelet Volume 9.4 fL (7.4-10.4); Platelet Count 220 10^3/uL (130-400); Red Cell Dist. Width 14.6 % (11.5-14.5); White Blood Cell Count 10.4 10^3/uL (4.8-10.8)
[2024-06-04 07:58] LABS: Blood Urea Nitrogen 24 mg/dl (7-17); Calcium 9.2 mg/dl (8.4-10.2); Carbon Dioxide 24 mmol/L (22-30); Chloride 107 mmol/L (98-107); Estimated Creatinine Clearance 55 ml/min; Glucose 114 mg/dl (70-99); Potassium 4.3 mmol/L (3.5-5.1); Sodium 137 mmol/L (135-145); eGFR > 60.00
--- NOTE | 2024-06-04 08:26 | W.PN.HOSP.TC ---
Addendum entered and electronically signed by Sancho Polo MD 06/05/24 15:26:
dc home
lso rbace
oxy
s/p ely
outpt nsgy follow up
More than 30 minutes spent in discharge including
Final examination of the patient
Summarizing hospital stay
Instructions for continuing care to all relevant caregivers
Preparation of discharge records, prescriptions, and referral forms
Total time spent (in minutes): 33mins
Original Note:
Today's Communication/Plan
-
Cont. pain management
LSO
Discharge with pain medications
Assessment / Plan
Assessment / Plan
83-year-old female with past medical history of ulcerative colitis, urge incontinence, hypertension, hyperlipidemia, GERD/hiatal hernia, chronic benzodiazepine use, iron deficiency anemia, orthostasis, vertebral compression fracture presented to the
ED with complaints of severe back pain radiating into the abdomen. Patient stated pain has been ongoing for months, however now she is unable to walk because of the severity of the pain. Denies any bowel or urinary incontinence, numbness,
tingling, weakness, just severe pain. On admission WBC 13.2, sodium 133, albumin 3.4 but otherwise unremarkable. UA with 4+ blood, 11-15 WBCs, positive leukocyte esterase with few bacteria. CT A/P with contrast revealed mild wall thickening of the
sigmoid colon, mild urinary bladder wall thickening, thoraco lumbar fractures of T10, L1, L3, L5 vertebral bodies. Pain is so severe that patient is unable to ambulate. Patient lives alone.
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
#Ambulatory dysfunction due to pain
-No signs of cauda equina or conus medullaris
-1mg Morphine for breakthrough pain, 10 oxy for severe, 5 for moderate, Tylenol for mild
-Heating pads
-Cyclobenzaprine
-Unable to start steroid taper due to allergy
-IR performed ELY 06/02 - pain still severe, but better than previous. Told her next step is kyphoplasty if pain continues
-LSO per neurosurgery
-Discharge home as pt is adamant and refusing SNF although we highly encouraged it and discussed the potential risks of not going to SNF
#Cough
-denied any sore throat, headache, body aches, runny nose, afebrile
-repeat Covid, flu (-)
-monitor for other symptoms
# Constipation
-Likely secondary to oxy
-Start scheduled miralax
#Leukocytosis
-Resolved
#HTN
-Not currently on any meds
-Currently stable
-Monitor
#CHF
-Hx noted in chart but not on any meds
-Explicitly denies hx of CHF
-Pt stated she has frequent episodes of SOB and was evaluated by cards and pulm and did not find cause
-States her SOB is due to her large hiatal hernia deceasing her lung field space
#HLD
-Not currently on statin
-No known history of CAD
#GERD/Hiatal hernia
-Outpatient meds don't include a PPI
-monitor
#Anxiety/chronic benzo use
-Home medications include fluoxetine and alprazolam
-Takes 0.25 mg alprazolam in AM, 0.5 mg at noon, 1.5 mg HS
-Will continue with home medication regimen
#Orthostasis
-This per documentation, not currently on midodrine or fludrocortisone
-PT consulted, monitor for orthostatic symptoms
#SANDIE
-Noted per history, hemoglobin normal here
-Not currently on any iron supplementation
#Hx ulcerative colitis
-Explains the CT bowel findings
-Not in current exacerbation
-Monitor
#Urge incontinence
-Explains CT bladder findings
-Stated she was on gemtesa in OP but does not help her
DVT lovenox
Full code
Anticipated Discharge: Within 24 hours
Subjective/Interval History
-
Date of Service: June 04, 2024
Objective Data
-
Labs:
Laboratory Results
06/04/24
07:13
WBC 10.4
Hgb 11.5 L
Hct 34.7 L
Plt Count 220
Sodium 137
Potassium 4.3
Chloride 107
Carbon Dioxide 24
BUN 24 H
Creatinine 0.6
Glucose 114 H
Calcium 9.2
Vital Signs:
Vital Signs
Temp Pulse Resp BP Pulse Ox
98.7 F 93 20 120/81 92
06/03/24 23:26 06/03/24 23:26 06/03/24 23:26 06/03/24 23:26 06/03/24 23:26
I&O
06/03/24 06/04/24 06/05/24
06:59 06:59 06:59
Intake Total 1080 / 1080 480 / 480
Balance 1080 / 1080 480 / 480
Review of Systems
-
History Source: Patient
Constitutional: Reports No Symptoms
EENT: Reports No Symptoms Reported
Respiratory: Reports Cough
Cardiac: Reports No Symptoms
Abdomen/GI: Reports No Symptoms
Genitourinary: Reports No Symptoms
Musculoskeletal: Reports Other (Lower back pain)
Neuro: Reports No Symptoms
Physical Exam
-
General: No Apparent Distress
HEENT: Normocephalic
Respiratory: Clear to Auscultation
Cardiac: Regular Rhythm and S1/S2
GI: Soft, Nontender, Nondistended and Normal Bowel Sounds
Skin: Warm and Dry
Neuro: AO x 3
Psych: Calm
[2024-06-04] MEDS: PROZAC 20 MG PO (08:43)
[2024-06-04] MEDS: SENOKOT-S 1 TABLET PO (08:44)
[2024-06-04] MEDS: VITAMIN B-12 1000 MCG PO (08:44)
[2024-06-04] MEDS: MIRALAX PO (08:49)
[2024-06-04] MEDS: XANAX 0.25 MG PO (08:50)
[2024-06-04] MEDS: DESENEX/MITRAZOL/ZEASORB 1 APPLIC TOPICAL (08:51)
[2024-06-04 09:22] LABS: COVID-19 Antigen Negative (Negative)
[2024-06-04] MEDS: XANAX 0.5 MG PO (11:46)
[2024-06-04] MEDS: ROXICODONE 5 MG PO (11:46)
[2024-06-04 13:39] VITALS: BP 146/93
--- NOTE | 2024-06-04 14:01 | W.PN.UPDATE ---
Update Note
Progress Note Update
Vertebral compression fractures
-Thoracic to lumbar region
-Likely/suspected pathologic in setting of osteoporosis as it is evidence of demineralization
-LSO brace per neurosurgery
-S/p epidural with IR
-DC home as refused SNF
-Analgesics with oxycodone x 3 days
-Outpatient neurosurgery follow-up in 10-12 weeks
-If pain persistent will need to follow-up- with IR from PCP office for kyphoplasty evaluation
-She was able to ambulate with a walker in the hallways quickly and steadily with assistance
More than 30 minutes spent in discharge including
Final examination of the patient
Summarizing hospital stay
Instructions for continuing care to all relevant caregivers
Preparation of discharge records, prescriptions, and referral forms
Total time spent (in minutes): 33min
[2024-06-04 14:36] VITALS: BP 146/93
--- NOTE | 2024-06-04 17:14 | CM ---
entered order for discharge.
PT OT indicate SNF.
Pt declined SNF.
VN set up for pt at [place].
Offered vision care associate list .PT declined list she said she is already setting up vision care associate to assist her at home.
She said a friend Em will drive her home at [place].
[facility] Pt setting up care givers
--- NOTE | 2024-06-04 18:57 | W.DCSUMMARY ---
Documented by User: uLpe Field MD, Resident 06/04/24 19:05
Discharge Summary
Discharge Data
Date of Admission: 06/01/24
Date of Discharge: 06/04/24
-
Pending Results: No
Hospital Course
Primary diagnosis:
Vertebral compression fractures
Ambulatory dysfunction
Leukocytosis
Secondary diagnosis:
HTN
HLD
GERD
Anxiety
SANDIE
Ulcerative colitis
Urge incontinence
Hospital course:
83-year-old female presented to [facility] with severe lower back pain that radiated into the abdomen. She was previously diagnosed with vertebral fractures on outpatient MRI. Repeat CT and inpatient revealed vertebral compression
fractures of T10, L1, L3, L5. CT did not reveal any other acute causes for patient's abdominal pain. She was also noted to have a slight leukocytosis, however no obvious source so monitor WBC and temperature during stay. She was started on pain
medication and admitted to the hospital. Over the course of the next few days, physical therapy worked with her. Interventional radiology performed and epidural steroid injection on 06/02. Neurosurgery evaluated her and recommended an LSO.
Leukocytosis resolved.
Today, patient is stable for discharge. PT/OT recommended SNF, however patient was adamant to go home with home PT. Patient discharged home upon her adamant request.
Imaging:
06/04/24
IMPRESSION:
Mild wall thickening of the sigmoid colon, nonspecific and could be secondary to bowel collapse versus a mild colitis.
Mild urinary bladder wall thickening. Recommend correlation with a urinalysis.
Multiple thoracolumbar compression fractures involving the T10, L1, L3, and L5 vertebral bodies, which are age indeterminate but new compared to previous examinations.
Discharge Plan
-
Patient Disposition: Home with Home Care
Discharge Diagnosis/Procedures: Vertebral compression fractures, Ambulatory dysfunction
Condition: Fair
Diet: As tolerated
Activity: As tolerated
Driving Restrictions: As prior to admission
Bathing Restrictions: None
Other Services: VN and PT
Referrals:
Ailin Perez PA-C [Family Provider] - in less than 1 week
Faina Vieyra MD [Active] - (Follow up in 10-12 weeks regarding L1 fracture. )
Prescriptions:
New
oxycodone 5 mg tablet
5 mg PO Q8H PRN (Reason: Pain) 3 Days Qty: 20 0RF
cyclobenzaprine 10 mg Tablet
10 mg PO HS 30 Days Qty: 30 0RF
Continued
cyanocobalamin (vitamin B-12) 1,000 mcg tablet
1,000 mcg PO DAILY
tramadol-acetaminophen 37.5-325 mg Tablet
1 tab PO BIDPRN PRN (Reason: moderate pain)
polyvinyl alcohol [Artificial Tears (polyvin alc)] 1.4 % Drops
1 drp OPHTHALMIC (EYE) DAILYPRN PRN (Reason: dry eyes)
sennosides-docusate sodium [Senna Plus] 8.6-50 mg Tablet
1 tab-cap PO DAILYPRN PRN (Reason: constipation)
acetaminophen 650 mg Tablet Extended Release
1,300 mg PO Q8HPRN PRN (Reason: mild pain )
Patient Comments:
patient says she took 6 before coming to the er today
alprazolam 0.5 mg Tablet
See Rx Instructions .ROUTE .COMPLEX
Rx Instructions:
patient takes 0.25mg in the morning, 0.5mg at noon, and 1.5mg at bedtime
ascorbic acid (vitamin C) [Vitamin C] 500 mg Tablet
500 mg PO DAILY
ferrous sulfate 325 mg (65 mg iron) Tablet
325 mg PO DAILY
fluoxetine 10 mg Capsule
30 mg PO DAILY
Patient Comments:
patient has most recently filled 20g caps that are written for 1 20mg cap daily, but she says that she is still taking 30mg every day. at her most recent dr visit, the notes say only 'Prozac', with no dose or instructions.
PreserVision AREDS 2,148 mcg-113 mg-45 mg-17.4mg Tablet
2 tab PO BID
Gemtesa 75 mg Tablet
75 mg PO DAILY
Discontinued
nitrofurantoin monohyd/m-cryst 100 mg capsule
100 mg PO DAILY
Discharge Orders:
Discharge Patient (As Directed); Ordered 06/04/24
Ordered By: Lupe Field
Discharge Date and Time
Discharge Date/Time: 06/04/24 16:33
Print Language: KOREAN

Documented by User: Sancho Polo MD 06/05/24 15:25
Discharge Summary
Discharge Data
Date of Admission: 06/01/24
Date of Discharge: 06/05/24
Discharge Plan
-
Patient Disposition: Home with Home Care
Discharge Diagnosis/Procedures: Vertebral compression fractures, Ambulatory dysfunction
Condition: Fair
Diet: As tolerated
Activity: As tolerated
Driving Restrictions: As prior to admission
Bathing Restrictions: None
Other Services: VN and PT
Referrals:
Ailin Perez PA-C [Family Provider] - in less than 1 week
Faina Vieyra MD [Active] - (Follow up in 10-12 weeks regarding L1 fracture. )
Prescriptions:
New
oxycodone 5 mg tablet
5 mg PO Q8H PRN (Reason: Pain) 3 Days Qty: 20 0RF
cyclobenzaprine 10 mg Tablet
10 mg PO HS 30 Days Qty: 30 0RF
Continued
cyanocobalamin (vitamin B-12) 1,000 mcg tablet
1,000 mcg PO DAILY
tramadol-acetaminophen 37.5-325 mg Tablet
1 tab PO BIDPRN PRN (Reason: moderate pain)
polyvinyl alcohol [Artificial Tears (polyvin alc)] 1.4 % Drops
1 drp OPHTHALMIC (EYE) DAILYPRN PRN (Reason: dry eyes)
sennosides-docusate sodium [Senna Plus] 8.6-50 mg Tablet
1 tab-cap PO DAILYPRN PRN (Reason: constipation)
acetaminophen 650 mg Tablet Extended Release
1,300 mg PO Q8HPRN PRN (Reason: mild pain )
Patient Comments:
patient says she took 6 before coming to the er today
alprazolam 0.5 mg Tablet
See Rx Instructions .ROUTE .COMPLEX
Rx Instructions:
patient takes 0.25mg in the morning, 0.5mg at noon, and 1.5mg at bedtime
ascorbic acid (vitamin C) [Vitamin C] 500 mg Tablet
500 mg PO DAILY
ferrous sulfate 325 mg (65 mg iron) Tablet
325 mg PO DAILY
fluoxetine 10 mg Capsule
30 mg PO DAILY
Patient Comments:
patient has most recently filled 20g caps that are written for 1 20mg cap daily, but she says that she is still taking 30mg every day. at her most recent dr visit, the notes say only 'Prozac', with no dose or instructions.
PreserVision AREDS 2,148 mcg-113 mg-45 mg-17.4mg Tablet
2 tab PO BID
Gemtesa 75 mg Tablet
75 mg PO DAILY
Discontinued
nitrofurantoin monohyd/m-cryst 100 mg capsule
100 mg PO DAILY
Discharge Orders:
Discharge Patient (As Directed); Ordered 06/04/24
Ordered By: Lupe Field
Discharge Date and Time
Discharge Date/Time: 06/04/24 16:33
Print Language: KOREAN
== END 2024-06-04 16:33 | disposition home health service (06) | DRG 543 ==
LOC: 4 EAST ACU 18:23
PROVIDERS: Physician Assistant; Radiology Vascular & Interventional Radiology; ADMITTING PHYSICIAN Internal Medicine; ATTENDING PHYSICIAN Hospitalist; EMERGENCY PHYSICIAN Emergency Medicine; FAMILY PHYSICIAN Physician Assistant; OTHER PHYSICIAN Neurological Surgery
DX: M48.55XA Collapsed vertebra, not elsewhere classified, thoracolumbar region, initial encounter for fracture (principal); K51.90 Ulcerative colitis, unspecified, without complications; K59.00 Constipation, unspecified; I11.0 Hypertensive heart disease with heart failure; I50.9 Heart failure, unspecified; E78.00 Pure hypercholesterolemia, unspecified; K21.9 Gastro-esophageal reflux disease without esophagitis; K44.9 Diaphragmatic hernia without obstruction or gangrene; F41.9 Anxiety disorder, unspecified; F32.A Depression, unspecified; N39.41 Urge incontinence; Z11.52 Encounter for screening for COVID-19; H35.30 Unspecified macular degeneration; Z79.899 Other long term (current) drug therapy; Z88.8 Allergy status to other drugs, medicaments and biological substances
CPT/HCPCS: 62323; 74177; 80048; 80053; 81003; 81015; 83690; 83735; 85025; 85027; 85610; 87086; 87502; 87811; 96374; 97162; 97167; 97530; 97535; 99284; Q9967

== ENCOUNTER 2024-06-23 15:21 | Inpatient (IN) | payer OTHER, SELFPAY ==
[2024-06-17] VITALS (9 sets, daily range): BP systolic 122–163; BP diastolic 82–115
[2024-06-17 13:27] LABS: % Basophils 0.5 % (0-2); % Eosinophils 0.6 % (0-6); % Immature Granulocytes 2.1 % (0-0.5); % Lymphocytes 26.6 % (20.5-51.1); % Monocytes 8.9 % (1.7-9.3); % Neutrophils 61.3 % (42.2-75.2); Absolute Basophils 0.1 10^3/uL (0-0.2); Absolute Eosinophils 0.1 10^3/uL (0-0.7); Absolute Immature Granulocytes 0.2 10^3/uL (0-0.05); Absolute Lymphocytes 2.9 10^3/uL (1.2-3.4); Absolute Neutrophils 6.7 10^3/uL (1.4-6.5); Hematocrit 43.8 % (37.0-47.0); Hemoglobin 14.3 g/dL (12.0-16.0); Mean Corp Hgb Conc. 32.6 g/dL (33.0-37.0); Mean Corpuscular Hgb 31.5 pg (27.0-31.0); Mean Corpuscular Volume 96.5 fL (81.0-99.0); Mean Platelet Volume 8.8 fL (7.4-10.4); Nucleated Red Blood Cells % 0 %; Platelet Count 378 10^3/uL (130-400); Red Blood Cell Count 4.54 10^6/uL (4.20-5.40); White Blood Cell Count 10.8 10^3/uL (4.8-10.8)
[2024-06-17 13:43] LABS: ALT (SGPT) 26 U/L (0-35); AST (SGOT) 22 U/L (14-36); Albumin 3.7 g/dl (3.5-5.0); Alkaline Phosphatase 139 U/L (38-126); Blood Urea Nitrogen 20 mg/dl (7-17); Calcium 9.9 mg/dl (8.4-10.2); Carbon Dioxide 30 mmol/L (22-30); Chloride 102 mmol/L (98-107); Glucose 107 mg/dl (70-99); Lipase 42 U/L (23-300); Potassium 4.2 mmol/L (3.5-5.1); Sodium 137 mmol/L (135-145); Total Bilirubin 0.6 mg/dl (0.2-1.3); Total Protein 7.1 g/dl (6.3-8.2); eGFR > 60.00
--- NOTE | 2024-06-17 14:13 | ED.GENMED ---
History of Present Illness
General
Chief Complaint: Abdominal Pain
Source: patient and records
Exam Limitations: none
Time Seen by Provider: 06/17/24 13:57
History of Present Illness
History of Present Illness:
83yoF with a history of hypertension, hyperlipidemia, ulcerative colitis, anemia, and vertebral compression fractures presenting via EMS for evaluation of back pain. Patient was hospitalized from 06/01/2024 to 06/04/2024 for intractable back pain.
Imaging revealed multiple compression fractures of T10, L1, L3, and L5. Patient was seen by neurosurgery who recommended LSO brace and IR performed a steroid injection. Patient was recommended to go to rehab which she refused. Patient is here
with worsening low back pain and lower abdominal pain. These symptoms were also present on her last admission but symptoms seem to be worse. Pain is worse with movement and is worse on the right side. She was seen by her visiting nurse today who
was concerned for a possible kidney infection and referred her to the ED for evaluation. Patient has chronic urinary incontinence but denies any dysuria. No fevers. She is not wearing her LSO brace on arrival. Urine culture from 06/01/24 grew out
mixed monet.
Past History
Past History
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
ED Past Surgical History: Orthopedic (Lumbar fusion, )
Social History
Tobacco: Non-smoker
Alcohol: Daily (Martini 1 )
Drug: Other (Xanax addiction)
Personal: ( in retirement, patient lives alone)
Living: alone
Employment: Retired
Family History
Family History: Other ( Noncontributory)
Phy Exam
General Physical Exam
General Presentation: well appearing
General Skin: warm and dry
General Habitus: elderly
General Mental: alert
ENT Exam
ENT Exam: normocephalic
Pulmonary Exam
Pulmonary Exam: no respiratory distress
Gastrointestinal Exam
Gastrointestinal Exam: soft, non distended, no cva tenderness and other (Mild tenderness in lower abdomen. Abdomen soft. No rebound or guarding. No CVA tenderness. )
Neurological Exam
Neurological Exam: alert
[place] Coma Scale
Eye Opening: Spontaneous
Verbal Response: Oriented
Motor Response: Obeys Commands
GCS Total Score: 15
Musculoskeletal Exam
Musculoskeletal Exam: other (+Tenderness in R lower lumbar region. No skin changes.)
Skin Exam
Skin Exam: normal color and warm/dry
Psychiatric Exam
Psychiatric Exam: anxious
Course
Orders/Labs/Results
Orders:
Orders
06/17/24 13:19
CBC/With Diff [Complete Blood Count/With Diff] Urgent
CMP [Comprehensive Metabolic Panel] Urgent
Lipase Urgent
06/17/24 14:11
Straight cath- Treatment ONCE
06/17/24 14:12
CT Abd/pelvis W Iv Cont Urgent
Comment:
Reason For Exam: R lower back pain, lower abd pain
06/17/24 14:13
HYDROmorphone [Dilaudid] 0.5 mg IV NOW STA
06/17/24 14:16
Acetaminophen [Tylenol] 1,000 mg PO NOW STA
06/17/24 14:17
Lidocaine [Lidocaine 4% Patch] 1 patch TOPICAL ONCE ONE
Apply Lidocaine patch(s) to:: low back
06/17/24 14:35
Urinalysis Reflex To Culture Urgent
Date Specimen was Collected: 06/17/24
Time Specimen was Collected: 14:34
Urine Microscopic Reflex Cult Urgent
Urine Culture Urgent
EARL Source: U
Specimen Description:
Obtained by: Random
Date Specimen was Collected: 06/17/24
Time Specimen was Collected: 14:34
06/17/24 17:27
CefTRIAXone [Rocephin] 1,000 mg IV NOW STA
06/17/24 17:51
Admit/Transfer Patient As Directed
Co-Sign Provider:
Level of Care: Observation services
Assign to:: Medical/Surgical
Physician / Group: caterina
Diagnosis: compression fracture
PRN Pain Medication Management As Directed
May give lesser potent ordered pain med per pt: Yes
preference::
Protocol:: Medication orders for pain may be administered in a
manner that supports deferring to patient preference
when the pt is:
- Requesting an ordered lesser potent pain medication.
Least to most potent pain medications are defined
as: acetaminophen < NSAID < tramadol < opioids
(morphine, oxycodone, hydromorphone).
- Requesting a lesser dose of the same medication IF
ORDERED.
- Requesting a less intrusive route of administration
if both routes are prescribed by the provider (PO <
IV).
06/17/24 17:52
Code Status As Directed
Resuscitation Status: Do not resuscitate
Reached after discussion with pt or family/Healthcare POA: Yes
DNR Bracelet Application ONCE
06/17/24 18:51
HYDROmorphone [Dilaudid] 0.5 mg IV Q4HPRN PRN
06/17/24 20:55
Acetaminophen [Tylenol] 650 mg PO Q4HPRN PRN
Heparin 5,000 units SC Q12
06/17/24 20:55
Activity As Directed
Activity Level: As Tolerated
Vital Signs As Directed
Frequency: Per unit guidelines
DX Deep Vein Thrombosis Video Routine
06/18/24 06:00
Complete Blood Count/With Diff IN AM
Comprehensive Metabolic Panel IN AM
06/18/24 08:00
Lidocaine [Lidocaine 4% Patch] 1 patch TOPICAL DAILY
Apply Lidocaine patch(s) to:: back t11
Abnormal Lab Results
06/17/24 06/17/24
13:19 14:35
MCH 31.5 H pg
(27.0-31.0)
MCHC 32.6 L g/dL
(33.0-37.0)
RDW 15.0 H %
(11.5-14.5)
Abs Immat Gran (auto) 0.2 H 10^3/uL
(0-0.05)
Absolute Neuts (auto) 6.7 H 10^3/uL
(1.4-6.5)
Absolute Monos (auto) 1.0 H 10^3/uL
(0.1-0.6)
Immature Gran % 2.1 H %
(0-0.5)
BUN 20 H mg/dl
(7-17)
Glucose 107 H mg/dl
(70-99)
Alkaline Phosphatase 139 H U/L
(38-126)
Urine Ketones 1+ A
(Negative)
Ur Occult Blood Reflex 1+ A
(Negative)
Leukocyte Esterase Rfl 1+ A
(Negative)
Urine RBC 3-6 A /HPF
(0-2)
Urine WBC (Reflex) 11-15 A /HPF
(0-5)
Urine Bacteria (Reflex) Many A
(Negative)
Urine Albumin (Reflex) 1+ A
(Neg - Trace)
06/17/24 13:19
06/17/24 13:19
Vital Signs
Initial and Last Documented VS:
Initial Vital Signs
Temp Pulse Resp BP Pulse Ox
97.8 F 117 18 163/115 94
06/17/24 13:09 06/17/24 13:09 06/17/24 13:09 06/17/24 13:09 06/17/24 13:09
Last Documented Vital Signs
Temp Pulse Resp BP Pulse Ox
97.7 F 97 20 141/98 97
06/17/24 21:05 06/17/24 21:05 06/17/24 21:05 06/17/24 21:05 06/17/24 21:05
MDM/Problems Addressed
Differential Diagnosis Includes:
83yoF here with low back and abd pain. Admitted here last month for the same and was diagnosed with multiple vertebral compression fx. Refused rehab but now agreeable. Sent in by visiting nurse for concern for pyelonephritis. No reported fever or
urinary symptoms. HR 117. Temperature normal. There is no CVA tenderness on exam. Differential diagnosis includes but is not limited to: Vertebral fractures, pyelonephritis, constipation
Initial ED plan: Basic labs obtained in triage. White count within normal limits and renal function stable. Will check UA and CT abdomen. IV Dilaudid, Tylenol, and lidocaine patch for pain. Will consult case management for rehab placement.
*Critical Care Note
Total Time (30-74mins, 75-104mins- exclusive of procedures): Not Applicable
Update Note
Update Note:
UA with 11-15 WBCs and many bacteria. No overt infection but will cover with IV Rocephin pending urine culture results. CT shows interval development of moderate compression deformity of T11. Case management left for the day and unable to secure
placement. Will admit for further management.
ED Attending Note
-
Portions of this chart may have been created with voice recognition software.� Occasional wrong word or��sound alike� substitutions may have occurred due to the inherent limitations of voice recognition software.
Discharge Plan
Departure
Patient Disposition: Admit
Date of Disposition: 06/17/24
Time of Disposition: 17:27
Presentation/result/management discussed w/ accepting MD/DO: Hospitalist
Discharge Problem:
Vertebral compression fracture, Ambulatory dysfunction
Interventions
Interventions:
*Risk Screen - Suicide Last Done: 06/17/24 15:15
*General Assessment Last Done: 06/17/24 21:08
*Neglect/Abuse Screening Last Done: 06/17/24 15:15
*ED- Fall Risk Assessment Last Done: 06/17/24 21:08
*ED COVID-19 Vaccine History Last Done: 06/17/24 15:15
*Nursing Disposition Last Done: 06/17/24 21:09
UP-Fcgbsn-Dcshczfwyz Assessment Last Done: 06/17/24 14:11
ED-Musculoskeletal Assessment Last Done: 06/17/24 14:11
Discharge Date and Time
Discharge Date/Time: 06/17/24 21:09
[2024-06-17 14:43] LABS: Urine Albumin 1+ (Neg - Trace); Urine Bilirubin Negative (Negative); Urine Character Clear (Clear); Urine Color Yellow; Urine Glucose Negative (Negative); Urine Ketone 1+ (Negative); Urine Leukocyte 1+ (Negative); Urine Nitrite Negative (Negative); Urine Occult Blood 1+ (Negative); Urine Specific Gravity 1.015 (<1.030); Urine Urobilinogen Negative (Neg - 1+)
[2024-06-17 14:53] LABS: Urine Amorphous Seen; Urine Bacteria Many (Negative)
[2024-06-17] MEDS: TYLENOL 1000 MG PO (14:59)
[2024-06-17] MEDS: LIDOCAINE 4% PATCH 1 PATCH TOPICAL (14:59)
[2024-06-17] MEDS: DILAUDID 0.5 MG IV ×2 (15:00→19:12)
--- NOTE | 2024-06-17 16:23 | CM ---
Addendum entered by Maribeth Ramirez 06/17/24 16:46:
CM called Rehab office and requested that PT/OT assess patient in the AM [facility]
Plan: Discharge to SNF; pending bed availability and Auth approval
Original Note:
Per Visiting Nurse @ 1300, patient was coming to the ED via ambulance for back pain; Pain 10/10 despite pain medication.
Patient was at 05/31 to 06/04 for same symptoms; however, pain has gotten worse since coming home; has hx of UTI, C/o urgency, frequency, incontinence, difficult imitating stream; Has abdominal distension. Last normal BM 2 days ago. Had loose bm
last night. Afebrile. CT showed mild thickening of bladder at . Urine cx was contaminated at .
Unsafe to come home and was referred to SNF but refused. Patient is now agreeable to SNF at time of discharge
[2024-06-17] MEDS: ROCEPHIN 1000 MG IV (17:38)
--- NOTE | 2024-06-17 17:55 | HPS.HSE ---
Family Physician
-
Family Physician: Ailin Perez
Chief Complaint
-
back pain
History of Present Illness
83-year-old female past medical history of vertebral compression fractures, amatory dysfunction, CHF, hypertension, hyperlipidemia, GERD, hiatal hernia, anxiety, orthostatic hypotension, iron deficiency anemia, presenting with back pain. She was
hospitalized from 06/01 to 06/04 for intractable back pain. She had multiple compression fractures of T10, L1, L3, L5. She was seen by neurosurgery recommended LSO brace and IR performed a steroid injection. Patient was recommended to go to rehab
which she refused. She is here with worsening lower back pain radiating to the abdomen in the right upper quadrant. She had the symptoms previously but they are worse now. Pain is worse with movement and worse on the right side. She was seen by
visiting nurse today who was concern for kidney infection and sent her to the emergency room. She has chronic urinary incontinence but denies any dysuria or fever.
She denies any falls recently.
She drinks alcohol occasionally. No longer smokes.
Medical History
Past Medical History
Past Medical History: Reports Other (vertebral compression fractures, amatory dysfunction, CHF, hypertension, hyperlipidemia, GERD, hiatal hernia, anxiety, orthostatic hypotension, iron deficiency anemia)
Past Surgical History: Reports Other (Orthopedic (Lumbar fusion, ))
Social History
Tobacco: Former Smoker
Alcohol: Occasional
Drug: None
Family History
Family History: Not pertinent
Allergies / Home Medications
Allergies reflects when Allergies were last updated in [employer].
Home Medications with original date entered in [employer]
Allergy/Medication List:
Allergies
Allergy/AdvReac Type Severity Reaction Status Date / Time
latex Allergy Rash Verified 06/17/24 13:12
prednisone Allergy psychosis Verified 06/17/24 13:12
Home Medications
cyanocobalamin (vitamin B-12) 1,000 mcg tablet 1,000 mcg PO DAILY Supplement 10/23/23
acetaminophen 650 mg tablet,extended release 1,300 mg PO Q8HPRN PRN mild pain 06/01/24
alprazolam 0.5 mg tablet See Rx Instructions .Route .COMPLEX 06/01/24
ascorbic acid (vitamin C) 500 mg tablet (Vitamin C) 500 mg PO DAILY 06/01/24
ferrous sulfate 325 mg (65 mg iron) tablet 325 mg PO DAILY 06/01/24
fluoxetine 10 mg capsule 30 mg PO DAILY 06/01/24
polyvinyl alcohol 1.4 % eye drops (Artificial Tears (polyvinyl alcohol)) 1 drp ophthalmic (eye) DAILYPRN PRN dry eyes 06/01/24
sennosides 8.6 mg-docusate sodium 50 mg tablet (Senna Plus) 1 tab-cap PO DAILYPRN PRN constipation 06/01/24
tramadol 37.5 mg-acetaminophen 325 mg tablet 1 tab PO BIDPRN PRN moderate pain 06/01/24
vibegron 75 mg tablet (Gemtesa) 75 mg PO DAILY 06/01/24
vitamins A,C,G-eyuy-vsakxe 2,148 mcg-113 mg-45 mg-17.4 mg tablet (PreserVision AREDS) 2 tab PO BID 06/01/24
cyclobenzaprine 10 mg tablet 10 mg PO HS 30 days #30 tabs 06/04/24
oxycodone 5 mg tablet 5 mg PO Q8H PRN Pain 3 days #20 tabs 06/04/24
Review of Systems
-
History Source: Patient
A 12 point ROS was completed and negative except as noted: Yes
Constitutional: Reports No Symptoms
EENT: Reports No Symptoms
Respiratory: Reports No Symptoms
Cardiac: Reports No Symptoms
Abdomen/GI: Reports No Symptoms
: Reports No Symptoms
Musculoskeletal: Reports See HPI
Skin: Reports No Symptoms
Neurological: Reports No Symptoms
Endocrine: Reports No Symptoms
Hematologic/Lymphatic: Reports No Symptoms
Psych: Reports No Symptoms
Physical Exam
Vital Signs
Vital Signs
Temp Pulse Resp BP Pulse Ox
97.8 F 94 19 156/91 94
06/17/24 13:09 06/17/24 15:15 06/17/24 15:15 06/17/24 15:00 06/17/24 13:09
Physical Exam
General: Well Developed, Well Nourished and No Apparent Distress
HEENT: NormoCephalic, Moist mucous membranes and Atraumatic
Respiratory: Clear
Cardiac: S1/S2 and Regular Rhythm; No Murmur or Rub
GI: Soft, Non Tender, Non Distended and Normal Bowel Sounds; No Organomegaly
Rectal: Deferred by Provider
Musculoskeletal: No Clubbing, No Cyanosis and No Edema
Skin: No Rash
Neuro: Nonfocal/grossly intact
Laboratory Results
-
06/17/24 13:19
06/17/24 13:19
Laboratory Results
Total Bilirubin 0.6 mg/dl (0.2-1.3) 06/17/24 13:19
AST 22 U/L (14-36) 06/17/24 13:19
ALT 26 U/L (0-35) 06/17/24 13:19
Alkaline Phosphatase 139 U/L (38-126) H 06/17/24 13:19
Lipase 42 U/L (23-300) 06/17/24 13:19
Data Reviewed
-
Lab Data: Labs Reviewed by me
Old Records: Reviewed
Impression/Plan
-
IMPRESSION:
PLAN:
# New T11 compression deformity without fall
# Prior T10, L1, L3, L5 compression fractures
- Tylenol, Dilaudid for pain transition to oxycodone
-Lidocaine patch
- Case management for rehab, refused last time
- Continue cyclobenzaprine
- Continue back brace recommended by neurosurgery last time
# Asymptomatic pyuria
-Urinalysis and symptoms not suggestive of UTI
- Ceftriaxone given, discontinue further
Chronic urinary incontinence
- Continue Gemtesa
Ambulatory dysfunction
Chronic HFpEF
Essential hypertension
Hyperlipidemia
GERD/hiatal hernia
Anxiety
-Continue alprazolam
- Continue fluoxetine
Orthostatic hypotension
Iron deficiency anemia
- Continue ferrous sulfate
DNR/DNI
DVT prophylaxis�heparin
Regular diet
--- NOTE | 2024-06-17 18:44 | PHANOTE ---
06/17/24:Patient states she picked up Methenamine 1gm from the pharmacy but has not been taking it.
--- NOTE | 2024-06-17 19:25 | W.PN.UPDATE ---
Update Note
Progress Note Update
Patient had a choking episode after eating food. Back blows were performed and she spit up the food. She still feels like food is stuck. Kimberley nati did not help. IV glucagon ordered. Keep NPO. Speech and swallow.
[2024-06-17] MEDS: GlucaGen 1 MG IV (19:28)
[2024-06-17] MEDS: HEPARIN 5000 UNITS SC (22:07)
[2024-06-17] MEDS: XANAX 1.5 MG PO (22:07)
[2024-06-18] MEDS: DILAUDID 0.5 MG IV (03:59)
[2024-06-18 06:29] LABS: % Basophils 0.6 % (0-2); % Eosinophils 0.6 % (0-6); % Immature Granulocytes 1.9 % (0-0.5); % Lymphocytes 20.1 % (20.5-51.1); % Monocytes 8.6 % (1.7-9.3); % Neutrophils 68.2 % (42.2-75.2); Absolute Basophils 0.1 10^3/uL (0-0.2); Absolute Eosinophils 0.1 10^3/uL (0-0.7); Absolute Immature Granulocytes 0.2 10^3/uL (0-0.05); Absolute Lymphocytes 2.2 10^3/uL (1.2-3.4); Absolute Monocytes 0.9 10^3/uL (0.1-0.6); Absolute Neutrophils 7.4 10^3/uL (1.4-6.5); Hematocrit 40.4 % (37.0-47.0); Hemoglobin 13.2 g/dL (12.0-16.0); Mean Corp Hgb Conc. 32.7 g/dL (33.0-37.0); Mean Corpuscular Hgb 31.1 pg (27.0-31.0); Mean Corpuscular Volume 95.3 fL (81.0-99.0); Mean Platelet Volume 9.2 fL (7.4-10.4); Nucleated Red Blood Cells % 0 %; Platelet Count 379 10^3/uL (130-400); Red Blood Cell Count 4.24 10^6/uL (4.20-5.40); Red Cell Dist. Width 14.9 % (11.5-14.5); White Blood Cell Count 10.9 10^3/uL (4.8-10.8)
[2024-06-18 06:56] LABS: ALT (SGPT) 26 U/L (0-35); AST (SGOT) 24 U/L (14-36); Albumin 3.8 g/dl (3.5-5.0); Alkaline Phosphatase 125 U/L (38-126); Blood Urea Nitrogen 23 mg/dl (7-17); Calcium 9.7 mg/dl (8.4-10.2); Carbon Dioxide 25 mmol/L (22-30); Chloride 103 mmol/L (98-107); Estimated Creatinine Clearance 56 ml/min; Glucose 87 mg/dl (70-99); Potassium 4.5 mmol/L (3.5-5.1); Sodium 139 mmol/L (135-145); Total Bilirubin 0.7 mg/dl (0.2-1.3); eGFR > 60.00
[2024-06-18 07:10] VITALS: BP 122/82
[2024-06-18] MEDS: VITAMIN B-12 1000 MCG PO (07:44)
[2024-06-18] MEDS: FEOSOL 325 MG PO (07:44)
[2024-06-18] MEDS: VITAMIN C 500 MG PO (07:44)
[2024-06-18] MEDS: FLEXERIL 5 MG PO (07:44)
[2024-06-18] MEDS: HEPARIN 5000 UNITS SC (07:44)
[2024-06-18] MEDS: XANAX 0.25 MG PO (07:44)
[2024-06-18] MEDS: LIDOCAINE 4% PATCH 1 PATCH TOPICAL (07:44)
[2024-06-18] MEDS: PROZAC 20 MG PO (07:44)
[2024-06-18] MEDS: OCUVITE SOFTGEL 1 CAP PO (07:44)
[2024-06-18] MEDS: PROZAC 10 MG PO (07:44)
[2024-06-18] MEDS: MIACALCIN/FORTICAL NASAL SPRAY 1 SPRAY NASAL (07:45)
--- NOTE | 2024-06-18 09:00 | VNURNOTE ---
Chart reviewed.� Patient is current with [facility] nursing.� Will continue to follow hospital course and DC plans.
--- NOTE | 2024-06-18 09:02 | W.PN.HOSP.TC ---
Today's Communication/Plan
-
see bold
Assessment / Plan
Assessment / Plan
83-year-old female past medical history of vertebral compression fractures, amatory dysfunction, CHF, hypertension, hyperlipidemia, GERD, hiatal hernia, anxiety, orthostatic hypotension, iron deficiency anemia, presenting with back pain. She was
hospitalized from 06/01 to 06/04 for intractable back pain. She had multiple compression fractures of T10, L1, L3, L5. She was seen by neurosurgery recommended LSO brace and IR performed a steroid injection. Patient was recommended to go to rehab
which she refused. She is here with worsening lower back pain radiating to the abdomen in the right upper quadrant. She had the symptoms previously but they are worse now.
A/P:
# New T11 compression deformity without fall
# Prior T10, L1, L3, L5 compression fractures
Treat with lidocaine patch, Tylenol 1 g 3 times daily, oxycodone 5 mg for moderate pain, 10 mg for severe pain, IV Dilaudid for breakthrough pain
PT/OT, laxatives
Continue back brace, Flexeril
Outpatient follow-up with neurosurgery for kyphoplasty
#Choking episode in 06/17
Due to eating too fast with drinking little fluids
Cleared by SPL for regular diet with thin liquids
Counseled patient to eat slowly, chew her food, drink liquids during her meals
# Asymptomatic pyuria
-Urinalysis and symptoms not suggestive of UTI
- Ceftriaxone given, discontinue further
Chronic urinary incontinence
- Continue Gemtesa
Ambulatory dysfunction
Chronic HFpEF
Essential hypertension
Hyperlipidemia
GERD/hiatal hernia
Anxiety
-Continue alprazolam
- Continue fluoxetine
Orthostatic hypotension
Iron deficiency anemia
- Continue ferrous sulfate
DVT prophylaxis�SQ lovenox
DNR
Total time spent to see the patient on the floor, examine the patient, review data and lab results, discuss treatment plan with patient, nursing staff around 50 minutes.
Physical Exam
General: No acute distress
HEENT: Normocephalic, Atraumatic, EOMI, MMM
Respiratory: Clear to Auscultation bilaterally
Cardiac: Normal S1/S2, Regular Rate and Rhythm
GI: Soft, Nontender, Nondistended, Normal Bowel Sounds
Extremities: No Clubbing, Cyanosis, or Edema
Neuro: Nonfocal/Grossly Intact
Psych: Calm, Cooperative
Anticipated Discharge: 24 - 48 hours
Subjective/Interval History
-
Date of Service: June 18, 2024
Reports severe R sided back pain radiating/wrapping around to abdomen. +Constipation. No fever, no vomiting.
Objective Data
-
Labs:
Laboratory Results
06/18/24
06:00
WBC 10.9 H
Hgb 13.2
Hct 40.4
Plt Count 379
Sodium 139
Potassium 4.5
Chloride 103
Carbon Dioxide 25
BUN 23 H
Creatinine 0.6
Glucose 87
Calcium 9.7
Total Bilirubin 0.7
AST 24
ALT 26
Alkaline Phosphatase 125
Vital Signs:
Vital Signs
Temp Pulse Resp BP Pulse Ox
98.1 F 100 16 122/82 98
06/18/24 07:10 06/18/24 07:10 06/18/24 07:10 06/18/24 07:10 06/18/24 08:00
[2024-06-18 10:07] VITALS: BP 121/88; PULSE 113; O2SAT 93
--- NOTE | 2024-06-18 10:20 | PTOTSP ---
Addendum entered and electronically signed by Amberly Salazar MS, ST, CCC, B[employer] OPERATOR 06/18/24 10:43:
Additional recommendations:
Slow rate of intake; chew food thoroughly.
Avoid overly dry dense solids or take in small bites.
Original Note:
Speech Therapy Swallowing Assessment
Oral pharyngeal swallow looks good with no signs of aspiration or pharyngeal stasis. Issues appear all esophageal. Reports sensation of sternal retention that is ongoing since we last saw in Jan 2023; This is complicated by rapid ingestion and
limiting liquids during meals.
Recommend
1. Regular solids and thin liquids.
2. Alternate sips of liquid after every 2-3 bites of food.
3. Upright with meals and remain upright for at least 30 minutes after meals.
4. Reflux precautions.
No further skilled ST indicated at this time.
[2024-06-18] MEDS: MIRALAX 17 GRAMS PO (10:27)
[2024-06-18] MEDS: TYLENOL 1000 MG PO ×3 (10:27→21:19)
[2024-06-18] MEDS: ROXICODONE 10 MG PO ×3 (10:33→22:18)
[2024-06-18] MEDS: XANAX 0.5 MG PO (12:27)
[2024-06-18 15:10] VITALS: BP 107/69
--- NOTE | 2024-06-18 16:32 | CM ---
Spoke with pt in room Reviewed Pt OT evals with pt .
She did agree with SNF at [facility] .
Pt requested [facility].
Placed in care port
Will need auth ..
PLAN [facility] obtained auth for snf
[2024-06-18] MEDS: SENOKOT-S 2 TABLET PO (21:19)
[2024-06-18] MEDS: XANAX 1.5 MG PO (21:19)
[2024-06-18 23:17] VITALS: BP 104/71
[2024-06-19 07:05] VITALS: BP 135/93
[2024-06-19] MEDS: MIACALCIN/FORTICAL NASAL SPRAY 1 SPRAY NASAL (08:17)
[2024-06-19] MEDS: ROXICODONE 10 MG PO (08:18)
[2024-06-19] MEDS: OCUVITE SOFTGEL 1 CAP PO (08:18)
[2024-06-19] MEDS: XANAX 0.25 MG PO (08:18)
[2024-06-19] MEDS: FLEXERIL 5 MG PO (08:19)
[2024-06-19] MEDS: TYLENOL 1000 MG PO ×3 (08:19→21:04)
[2024-06-19] MEDS: FEOSOL 325 MG PO (08:20)
[2024-06-19] MEDS: PROZAC 10 MG PO (08:20)
[2024-06-19] MEDS: PROZAC 20 MG PO (08:20)
[2024-06-19] MEDS: VITAMIN B-12 1000 MCG PO (08:20)
[2024-06-19] MEDS: VITAMIN C 500 MG PO (08:20)
[2024-06-19] MEDS: MIRALAX 17 GRAMS PO ×2 (08:21→21:04)
[2024-06-19] MEDS: LIDOCAINE 4% PATCH 1 PATCH TOPICAL (08:21)
[2024-06-19] MEDS: FLUSH (NSS) 1 FLUSH IV (08:22)
--- NOTE | 2024-06-19 09:48 | W.PN.HOSP.TC ---
Today's Communication/Plan
-
see bold
Assessment / Plan
Assessment / Plan
83-year-old female past medical history of vertebral compression fractures, amatory dysfunction, CHF, hypertension, hyperlipidemia, GERD, hiatal hernia, anxiety, orthostatic hypotension, iron deficiency anemia, presenting with back pain. She was
hospitalized from 06/01 to 06/04 for intractable back pain. She had multiple compression fractures of T10, L1, L3, L5. She was seen by neurosurgery recommended LSO brace and IR performed a steroid injection. Patient was recommended to go to rehab
which she refused. She is here with worsening lower back pain radiating to the abdomen in the right upper quadrant. She had the symptoms previously but they are worse now.
A/P:
#New T11 compression deformity without fall
#Prior T10, L1, L3, L5 compression fractures
Treat with lidocaine patch, Tylenol 1 g 3 times daily, change oxycodone to Dilaudid 2 mg p.o. for moderate pain, 4 mg for severe pain, IV Dilaudid for breakthrough pain
PT/OT rec SNF, CM on board
Continue back brace, Flexeril
Outpatient follow-up with neurosurgery for kyphoplasty
#Constipation
Increase laxatives
#Choking episode in 06/17
Due to eating too fast with drinking little fluids
Cleared by SPL for regular diet with thin liquids
Counseled patient to eat slowly, chew her food, drink liquids during her meals
# Asymptomatic pyuria
-Urinalysis and symptoms not suggestive of UTI
-Ceftriaxone given, discontinue further
-Urine Cx neg
Chronic urinary incontinence
-Continue Gemtesa
Ambulatory dysfunction
Chronic HFpEF
Essential hypertension
Hyperlipidemia
GERD/hiatal hernia
Anxiety
-Continue alprazolam
- Continue fluoxetine
Orthostatic hypotension
Iron deficiency anemia
- Continue ferrous sulfate
DVT prophylaxis�SQ lovenox
DNR
Total time spent to see the patient on the floor, examine the patient, review data and lab results, discuss treatment plan with patient, nursing staff around 40 minutes.
Physical Exam
General: No acute distress
HEENT: Normocephalic, Atraumatic, EOMI, MMM
Respiratory: Clear to Auscultation bilaterally
Cardiac: Normal S1/S2, Regular Rate and Rhythm
GI: Soft, Nontender, Nondistended, Normal Bowel Sounds
Extremities: No Clubbing, Cyanosis, or Edema
Neuro: Nonfocal/Grossly Intact
Psych: Calm, Cooperative
Anticipated Discharge: Within 24 hours
Subjective/Interval History
-
Date of Service: June 19, 2024
Reports back pain still 12/19, even w/ oxycodone 10 mg. No BM. No CP/SOB, no fever, no vomiting.
Objective Data
-
Vital Signs:
Vital Signs
Temp Pulse Resp BP Pulse Ox
97.7 F 86 18 135/93 93
06/19/24 07:05 06/19/24 07:05 06/19/24 07:05 06/19/24 07:05 06/19/24 07:05
I&O
06/18/24 06/19/24 06/20/24
06:59 06:59 06:59
Intake Total 420 / 420
Output Total 450 / 450
Balance -30 / -30
[2024-06-19] MEDS: SENOKOT-S 2 TABLET PO ×2 (12:52→21:04)
[2024-06-19] MEDS: XANAX 0.5 MG PO (12:52)
[2024-06-19] MEDS: DILAUDID 2 MG PO ×3 (12:54→22:30)
[2024-06-19 15:10] VITALS: BP 122/83
[2024-06-19] MEDS: XANAX 1.5 MG PO (21:04)
[2024-06-19 23:12] VITALS: BP 117/84
[2024-06-20] MEDS: DILAUDID 2 MG PO (06:39)
[2024-06-20] MEDS: MIRALAX 17 GRAMS PO ×2 (07:51→21:07)
[2024-06-20] MEDS: OCUVITE SOFTGEL 1 CAP PO (07:55)
[2024-06-20] MEDS: TYLENOL 1000 MG PO ×3 (07:55→21:08)
[2024-06-20] MEDS: PROZAC 20 MG PO (07:55)
[2024-06-20] MEDS: LIDOCAINE 4% PATCH 1 PATCH TOPICAL (07:55)
[2024-06-20] MEDS: FLEXERIL 5 MG PO (07:55)
[2024-06-20] MEDS: FEOSOL 325 MG PO (07:56)
[2024-06-20] MEDS: VITAMIN C 500 MG PO (07:56)
[2024-06-20] MEDS: VITAMIN B-12 1000 MCG PO (07:56)
[2024-06-20] MEDS: XANAX 0.25 MG PO (07:56)
[2024-06-20] MEDS: PROZAC 10 MG PO (07:56)
[2024-06-20] MEDS: SENOKOT-S 2 TABLET PO ×2 (07:56→21:08)
[2024-06-20 08:15] VITALS: BP 143/92
--- NOTE | 2024-06-20 08:39 | W.PN.HOSP.TC ---
Today's Communication/Plan
-
Dulcolax suppository
Assessment / Plan
Assessment / Plan
83-year-old female past medical history of vertebral compression fractures, amatory dysfunction, CHF, hypertension, hyperlipidemia, GERD, hiatal hernia, anxiety, orthostatic hypotension, iron deficiency anemia, presenting with back pain. She was
hospitalized from 06/01 to 06/04 for intractable back pain. She had multiple compression fractures of T10, L1, L3, L5. She was seen by neurosurgery recommended LSO brace and IR performed a steroid injection. Patient was recommended to go to rehab
which she refused. She is here with worsening lower back pain radiating to the abdomen in the right upper quadrant. She had the symptoms previously but they are worse now.
A/P:
#New T11 compression deformity without fall
#Prior T10, L1, L3, L5 compression fractures
Treat with lidocaine patch, Tylenol 1 g 3 times daily, changed oxycodone to Dilaudid 2 mg p.o. for moderate pain, 4 mg for severe pain, IV Dilaudid for breakthrough pain
PT/OT rec SNF, CM on board
Continue back brace, Flexeril
Outpatient follow-up with neurosurgery for kyphoplasty
#Constipation
Increased laxatives
Dulcolax supp today
#Choking episode in 06/17
Due to eating too fast with drinking little fluids
Cleared by SPL for regular diet with thin liquids
Counseled patient to eat slowly, chew her food, drink liquids during her meals
# Asymptomatic pyuria
-Urinalysis and symptoms not suggestive of UTI
-Ceftriaxone given, discontinue further
-Urine Cx neg
Chronic urinary incontinence
-Continue Gemtesa
Ambulatory dysfunction
Chronic HFpEF
Essential hypertension
Hyperlipidemia
GERD/hiatal hernia
Anxiety
-Continue alprazolam
- Continue fluoxetine
Orthostatic hypotension
Iron deficiency anemia
- Continue ferrous sulfate
DVT prophylaxis�SQ lovenox
DNR
Total time spent to see the patient on the floor, examine the patient, review data and lab results, discuss treatment plan with patient, nursing staff around 41 minutes.
Physical Exam
General: No acute distress
HEENT: Normocephalic, Atraumatic, EOMI, MMM
Respiratory: Clear to Auscultation bilaterally
Cardiac: Normal S1/S2, Regular Rate and Rhythm
GI: Soft, Nontender, Nondistended, Normal Bowel Sounds
Extremities: No Clubbing, Cyanosis, or Edema
Neuro: Nonfocal/Grossly Intact
Psych: Calm, Cooperative
Anticipated Discharge: Within 24 hours
Subjective/Interval History
-
Date of Service: June 20, 2024
C/o of severe back pain. No BM. No CP/SOB/pal. No fever, no vomiting.
Objective Data
-
Vital Signs:
Vital Signs
Temp Pulse Resp BP Pulse Ox
97.8 F 103 18 143/92 95
06/20/24 08:15 06/20/24 08:15 06/20/24 08:15 06/20/24 08:15 06/20/24 08:15
I&O
06/19/24 06/20/24 06/21/24
06:59 06:59 06:59
Intake Total 420 / 420
Output Total 450 / 450
Balance -30 / -30
[2024-06-20] MEDS: MIACALCIN/FORTICAL NASAL SPRAY 1 SPRAY NASAL (09:04)
[2024-06-20] MEDS: DULCOLAX 10 MG RECTAL (11:20)
[2024-06-20] MEDS: DILAUDID 4 MG PO ×3 (11:20→21:08)
[2024-06-20] MEDS: XANAX 0.5 MG PO (13:01)
[2024-06-20 15:43] VITALS: BP 136/79
[2024-06-20] MEDS: XANAX 1.5 MG PO (21:07)
[2024-06-20 23:20] VITALS: BP 121/79
[2024-06-21 07:30] VITALS: BP 146/99
[2024-06-21] MEDS: PROZAC 10 MG PO (08:16)
[2024-06-21] MEDS: SENOKOT-S PO ×2 (08:16→08:36)
[2024-06-21] MEDS: MIRALAX PO ×2 (08:16→08:36)
[2024-06-21] MEDS: XANAX 0.25 MG PO (08:16)
[2024-06-21] MEDS: VITAMIN B-12 1000 MCG PO (08:17)
[2024-06-21] MEDS: PROZAC 20 MG PO (08:17)
[2024-06-21] MEDS: OCUVITE SOFTGEL 1 CAP PO (08:17)
[2024-06-21] MEDS: TYLENOL 1000 MG PO ×3 (08:17→20:05)
[2024-06-21] MEDS: FLEXERIL 5 MG PO (08:17)
[2024-06-21] MEDS: VITAMIN C 500 MG PO (08:17)
[2024-06-21] MEDS: LIDOCAINE 4% PATCH 1 PATCH TOPICAL (08:18)
[2024-06-21] MEDS: MIACALCIN/FORTICAL NASAL SPRAY 1 SPRAY NASAL (08:19)
[2024-06-21] MEDS: FEOSOL 325 MG PO (08:31)
[2024-06-21] MEDS: DILAUDID 4 MG PO ×2 (08:34→17:45)
--- NOTE | 2024-06-21 08:37 | W.PN.HOSP.TC ---
Today's Communication/Plan
-
see bold
Assessment / Plan
Assessment / Plan
83-year-old female past medical history of vertebral compression fractures, amatory dysfunction, CHF, hypertension, hyperlipidemia, GERD, hiatal hernia, anxiety, orthostatic hypotension, iron deficiency anemia, presenting with back pain. She was
hospitalized from 06/01 to 06/04 for intractable back pain. She had multiple compression fractures of T10, L1, L3, L5. She was seen by neurosurgery recommended LSO brace and IR performed a steroid injection. Patient was recommended to go to rehab
which she refused. She is here with worsening lower back pain radiating to the abdomen in the right upper quadrant. She had the symptoms previously but they are worse now.
A/P:
#New T11 compression deformity without fall
#Prior T10, L1, L3, L5 compression fractures
Continue lidocaine patch, Tylenol 1 g 3 times daily, changed oxycodone to Dilaudid 2 mg p.o. for moderate pain, 4 mg for severe pain, IV Dilaudid for breakthrough pain
Continue Flexeril, patient states her back brace is at home and she does not have anyone available to help bring it to the hospital
She has an outpatient appointment with orthopedic surgery for kyphoplasty later this month
PT/OT rec SNF, CM on board
#Constipation
She had 2 bowel movements on 06/20
Continue laxatives
#Choking episode in 06/17
Due to eating too fast with drinking little fluids
Cleared by [facility] for regular diet with thin liquids
Counseled patient to eat slowly, chew her food, drink liquids during her meals
# Asymptomatic pyuria
-Urinalysis and symptoms not suggestive of UTI
-Ceftriaxone given, discontinue further
-Urine Cx neg
Chronic urinary incontinence
-Continue Gemtesa
Ambulatory dysfunction
Chronic HFpEF
Essential hypertension
Hyperlipidemia
GERD/hiatal hernia
Anxiety
-Continue alprazolam
- Continue fluoxetine
Orthostatic hypotension
Iron deficiency anemia
- Continue ferrous sulfate
DVT prophylaxis�SQ lovenox
DNR
Total time spent to see the patient on the floor, examine the patient, review data and lab results, discuss treatment plan with patient, nursing staff around 38 minutes.
Physical Exam
General: No acute distress
HEENT: Normocephalic, Atraumatic, EOMI, MMM
Respiratory: Clear to Auscultation bilaterally
Cardiac: Normal S1/S2, Regular Rate and Rhythm
GI: Soft, Nontender, Nondistended, Normal Bowel Sounds
Extremities: No Clubbing, Cyanosis, or Edema
Neuro: Nonfocal/Grossly Intact
Psych: Calm, Cooperative
Anticipated Discharge: 24 - 48 hours
Subjective/Interval History
-
Date of Service: June 21, 2024
Patient continues to complain of severe back pain. She had 2 bowel movements yesterday. Denies chest pain, denies shortness of breath. No fever, no vomiting.
Objective Data
-
Vital Signs:
Vital Signs
Temp Pulse Resp BP Pulse Ox
97.6 F 94 18 146/99 94
06/21/24 07:30 06/21/24 07:30 06/21/24 07:30 06/21/24 07:30 06/20/24 23:20
I&O
06/20/24 06/21/24 06/22/24
06:59 06:59 06:59
Intake Total 840 / 840
Balance 840 / 840
[2024-06-21] MEDS: XANAX 0.5 MG PO (12:13)
[2024-06-21 15:23] VITALS: BP 123/84
[2024-06-21] MEDS: MIRALAX 17 GRAMS PO (20:06)
[2024-06-21] MEDS: SENOKOT-S 2 TABLET PO (20:06)
[2024-06-21] MEDS: DILAUDID 2 MG PO (20:11)
[2024-06-21] MEDS: XANAX 1.5 MG PO (20:11)
[2024-06-21 23:29] VITALS: BP 121/87
[2024-06-22] MEDS: DILAUDID 4 MG PO ×3 (04:20→17:47)
[2024-06-22] MEDS: SENOKOT-S 2 TABLET PO ×2 (07:40→20:41)
[2024-06-22] MEDS: VITAMIN B-12 1000 MCG PO (07:41)
[2024-06-22] MEDS: PROZAC 10 MG PO (07:41)
[2024-06-22] MEDS: PROZAC 20 MG PO (07:41)
[2024-06-22] MEDS: MIRALAX 17 GRAMS PO ×2 (07:41→20:41)
[2024-06-22] MEDS: VITAMIN C 500 MG PO (07:41)
[2024-06-22] MEDS: LIDOCAINE 4% PATCH 1 PATCH TOPICAL (07:41)
[2024-06-22] MEDS: FEOSOL 325 MG PO (07:41)
[2024-06-22] MEDS: TYLENOL 1000 MG PO ×3 (07:41→20:42)
[2024-06-22] MEDS: FLEXERIL 5 MG PO (07:42)
[2024-06-22] MEDS: OCUVITE SOFTGEL 1 CAP PO (07:42)
[2024-06-22] MEDS: XANAX 0.25 MG PO (07:42)
[2024-06-22] MEDS: MIACALCIN/FORTICAL NASAL SPRAY 1 SPRAY NASAL (07:42)
[2024-06-22 07:55] VITALS: BP 143/103
--- NOTE | 2024-06-22 07:56 | W.PN.HOSP.TC ---
Today's Communication/Plan
-
see bold
Assessment / Plan
Assessment / Plan
83-year-old female past medical history of vertebral compression fractures, amatory dysfunction, CHF, hypertension, hyperlipidemia, GERD, hiatal hernia, anxiety, orthostatic hypotension, iron deficiency anemia, presenting with back pain. She was
hospitalized from 06/01 to 06/04 for intractable back pain. She had multiple compression fractures of T10, L1, L3, L5. She was seen by neurosurgery recommended LSO brace and IR performed a steroid injection. Patient was recommended to go to rehab
which she refused. She is here with worsening lower back pain radiating to the abdomen in the right upper quadrant. She had the symptoms previously but they are worse now.
A/P:
#New T11 compression deformity without fall
#Prior T10, L1, L3, L5 compression fractures
Continue lidocaine patch, Tylenol 1 g 3 times daily, changed oxycodone to Dilaudid 2 mg p.o. for moderate pain, 4 mg for severe pain, IV Dilaudid for breakthrough pain
Due to continued pain, start ibuprofen 800 mg 3 times daily with Protonix 40 mg daily for anti-inflammatory effects
Would avoid prednisone due to psychosis
Continue Flexeril, patient states her back brace is at home and she does not have anyone available to help bring it to the hospital
She has an outpatient appointment with orthopedic surgery for kyphoplasty later this month
PT/OT rec SNF, CM on board
#Constipation
She had 2 bowel movements on 06/20
Continue laxatives
#Choking episode in 06/17
Due to eating too fast with drinking little fluids
Cleared by [facility] for regular diet with thin liquids
Counseled patient to eat slowly, chew her food, drink liquids during her meals
# Asymptomatic pyuria
-Urinalysis and symptoms not suggestive of UTI
-Ceftriaxone given, discontinue further
-Urine Cx neg
Chronic urinary incontinence
-Continue Gemtesa
Ambulatory dysfunction
Chronic HFpEF
Essential hypertension
Hyperlipidemia
GERD/hiatal hernia
Anxiety
-Continue alprazolam
- Continue fluoxetine
Orthostatic hypotension
Iron deficiency anemia
- Continue ferrous sulfate
DVT prophylaxis�SQ lovenox
DNR
Total time spent to see the patient on the floor, examine the patient, review data and lab results, discuss treatment plan with patient, nursing staff around 39 minutes.
Physical Exam
General: No acute distress
HEENT: Normocephalic, Atraumatic, EOMI, MMM
Respiratory: Clear to Auscultation bilaterally
Cardiac: Normal S1/S2, Regular Rate and Rhythm
GI: Soft, Nontender, Nondistended, Normal Bowel Sounds
Extremities: No Clubbing, Cyanosis, or Edema
Neuro: Nonfocal/Grossly Intact
Psych: Calm, Cooperative
Anticipated Discharge: 24 - 48 hours
Subjective/Interval History
-
Date of Service: June 22, 2024
Patient continues to complain of severe back pain, unchanged from admission. She also reports constipation. No fever, no vomiting.
Objective Data
-
Vital Signs:
Vital Signs
Temp Pulse Resp BP Pulse Ox
98.0 F 90 18 121/87 93
06/21/24 23:29 06/21/24 23:29 06/21/24 23:29 06/21/24 23:29 06/21/24 23:29
I&O
06/21/24 06/22/24 06/23/24
06:59 06:59 06:59
Intake Total 840 / 840 720 / 720
Balance 840 / 840 720 / 720
[2024-06-22] MEDS: MOTRIN 800 MG PO ×3 (08:28→20:42)
[2024-06-22] MEDS: PROTONIX 40 MG PO (08:35)
[2024-06-22] MEDS: XANAX 0.5 MG PO (11:35)
[2024-06-22 15:55] VITALS: BP 125/80
--- NOTE | 2024-06-22 16:36 | CM ---
She did agree with SNF at [facility] .
Pt requested [facility].
Pt will need OT eval in am .
Check where rehab bed available Sunday .
Will need auth ..
PLAN [facility] SN[facility] obtained auth for snf
[2024-06-22] MEDS: XANAX 1.5 MG PO (20:42)
[2024-06-22 23:35] VITALS: BP 113/73
[2024-06-23] MEDS: DILAUDID 2 MG PO (04:22)
[2024-06-23 06:00] VITALS: BMI 20.1
[2024-06-23 07:28] LABS: ALT (SGPT) 64 U/L (0-35); AST (SGOT) 34 U/L (14-36); Albumin 3.6 g/dl (3.5-5.0); Alkaline Phosphatase 143 U/L (38-126); Blood Urea Nitrogen 31 mg/dl (7-17); Calcium 9.4 mg/dl (8.4-10.2); Carbon Dioxide 26 mmol/L (22-30); Chloride 106 mmol/L (98-107); Direct Bilirubin 0.3 mg/dl (0.0-0.4); Estimated Creatinine Clearance 37 ml/min; Glucose 98 mg/dl (70-99); Potassium 4.1 mmol/L (3.5-5.1); Sodium 139 mmol/L (135-145); Total Bilirubin 0.7 mg/dl (0.2-1.3); Total Protein 6.6 g/dl (6.3-8.2); eGFR > 60.00
[2024-06-23 07:30] VITALS: BP 155/101
[2024-06-23] MEDS: LIDOCAINE 4% PATCH 1 PATCH TOPICAL (08:17)
[2024-06-23] MEDS: SENOKOT-S 2 TABLET PO ×2 (08:18→21:38)
[2024-06-23] MEDS: VITAMIN B-12 1000 MCG PO (08:18)
[2024-06-23] MEDS: OCUVITE SOFTGEL 1 CAP PO (08:18)
[2024-06-23] MEDS: MOTRIN 800 MG PO ×3 (08:18→21:39)
[2024-06-23] MEDS: VITAMIN C 500 MG PO (08:18)
[2024-06-23] MEDS: XANAX 0.25 MG PO (08:18)
[2024-06-23] MEDS: PROTONIX 40 MG PO (08:18)
[2024-06-23] MEDS: MIRALAX 17 GRAMS PO ×2 (08:18→21:40)
[2024-06-23] MEDS: MIACALCIN/FORTICAL NASAL SPRAY 1 SPRAY NASAL (08:19)
[2024-06-23] MEDS: FEOSOL 325 MG PO (08:19)
[2024-06-23] MEDS: PROZAC 10 MG PO (08:19)
[2024-06-23] MEDS: TYLENOL 1000 MG PO ×3 (08:19→21:38)
[2024-06-23] MEDS: PROZAC 20 MG PO (08:19)
[2024-06-23] MEDS: FLEXERIL 5 MG PO (08:20)
[2024-06-23 08:45] LABS: % Basophils 0.4 % (0-2); % Eosinophils 0.9 % (0-6); % Immature Granulocytes 1.2 % (0-0.5); % Lymphocytes 18.6 % (20.5-51.1); % Monocytes 8.3 % (1.7-9.3); % Neutrophils 70.6 % (42.2-75.2); Absolute Eosinophils 0.1 10^3/uL (0-0.7); Absolute Immature Granulocytes 0.1 10^3/uL (0-0.05); Absolute Monocytes 0.9 10^3/uL (0.1-0.6); Absolute Neutrophils 7.4 10^3/uL (1.4-6.5); Hematocrit 41.4 % (37.0-47.0); Hemoglobin 13.3 g/dL (12.0-16.0); Mean Corp Hgb Conc. 32.1 g/dL (33.0-37.0); Mean Corpuscular Hgb 31.1 pg (27.0-31.0); Mean Platelet Volume 9.1 fL (7.4-10.4); Nucleated Red Blood Cells % 0 %; Platelet Count 295 10^3/uL (130-400); Red Blood Cell Count 4.27 10^6/uL (4.20-5.40); White Blood Cell Count 10.5 10^3/uL (4.8-10.8)
[2024-06-23 09:30] VITALS: BP 150/82
[2024-06-23 09:41] VITALS: BP 150/111; PULSE 95; O2SAT 96
[2024-06-23] MEDS: XANAX 0.5 MG PO (12:09)
--- NOTE | 2024-06-23 12:14 | CM ---
Addendum entered by Kath Pineda RN 06/23/24 16:09:
Pt needing further testing .Not a discharge today.
Original Note:
Spoke with Laura from [facility] bed . Laura said check day of dc for bed.
PT OT indicated SNF .
Will need [employer] auth .
Pt continues with increased pain.
MRI scheduled for today.
PLAN To [facility] after auth
--- NOTE | 2024-06-23 12:53 | W.PN.HOSP.TC ---
Today's Communication/Plan
-
MRI
Assessment / Plan
Assessment / Plan
83yo F with PMHx of lumbar spine Sx, Hx of vertebral compression Fx, chronic ambulatory dysfunction, HLD, GERD, SANDIE came with worsening of lower back pain associated with pain radiating towards abdomen. She was managed for the same in May 2024
when was seen by NeuroSx and recommended for LSO brace on ambulation and had steroid injection. Now pain getting worse with new urinary incontinence and constipation as well as LUE numbness
A/P:
#Acute T11 compresssion Fx, most likely 2/2 osteoporosis
#Old T10, L1, L3, L5 compression Fx
#Acute on chronic ambulatory deficiency
MRI spine
pain mgmt
with new urinary symptoms and LUE numbness - MRI cervical/thoracic/lumbar
PT/OT
Outpatient eval for Bisphosphonates therapy by PCP
Keep Apt for outpatient kyphoplasty (already scheduled)
#constipation
resolving
#Asymptomatic bacteriuria
Ucx neg
no leukocytosis or fevers
#elevated Alk.phos
#Elevated ALT
RUQ US with abd pain
follow LFT
check hepatitis panel
#Anxiety d/o
#SANDIE
#Chronic HFpEF
#Essential HTN
#HLD
#Overactive bladder
cont home meds
DVT ppx lovenox
DNR/DNI
I have spent at least 38min reviewing chart, test results and providing direct patient care
Anticipated Discharge: 24 - 48 hours
Subjective/Interval History
-
Date of Service: June 23, 2024
Objective Data
-
Labs:
Laboratory Results
06/23/24 06/23/24
06:55 07:27
WBC 10.5
Hgb 13.3
Hct 41.4
Plt Count 295 D
Sodium 139
Potassium 4.1
Chloride 106
Carbon Dioxide 26
BUN 31 H
Creatinine 0.9
Glucose 98
Calcium 9.4
Total Bilirubin 0.7
AST 34
ALT 64 H
Alkaline Phosphatase 143 H
Vital Signs:
Vital Signs
Temp Pulse Resp BP Pulse Ox
97.4 F 92 20 155/101 98
06/23/24 07:30 06/23/24 07:30 06/23/24 07:30 06/23/24 07:30 06/23/24 07:30
I&O
06/22/24 06/23/24 06/24/24
06:59 06:59 06:59
Intake Total 720 / 720 1080 / 1080
Balance 720 / 720 1080 / 1080
Review of Systems
-
History Source: Patient
All other systems: Reviewed and negative
Musculoskeletal: Reports Other (severe back pain)
Physical Exam
-
General: No Apparent Distress
Respiratory: Clear to Auscultation
GI: Soft, Nontender and Nondistended
Musculoskeletal: No Clubbing, No Cyanosis and No Edema
Neuro: Awake, Alert, Oriented, AO x 3 and Other (LUE numbness)
Psych: Calm
[2024-06-23 15:24] VITALS: BP 123/87
[2024-06-23] MEDS: DILAUDID 4 MG PO ×2 (16:31→21:39)
[2024-06-23] MEDS: LOVENOX 40 MG SC (17:48)
[2024-06-23 19:18] LABS: Hepatitis B Surface Antigen Negative (Negative)
[2024-06-23 19:34] LABS: Hepatitis B Core Ab, Total Negative (Negative); Hepatitis B Surface Antibody Negative; Hepatitis C Antibody Negative (Negative)
[2024-06-23] MEDS: XANAX 1.5 MG PO (21:39)
[2024-06-23 23:10] VITALS: BP 134/92
[2024-06-24] MEDS: DILAUDID 4 MG PO ×2 (05:44→15:14)
[2024-06-24 06:00] VITALS: BMI 19.9
[2024-06-24 07:25] VITALS: BP 120/83
[2024-06-24 08:06] LABS: % Basophils 0.7 % (0-2); % Immature Granulocytes 2.4 % (0-0.5); % Lymphocytes 27.4 % (20.5-51.1); % Monocytes 8.4 % (1.7-9.3); % Neutrophils 60.1 % (42.2-75.2); Absolute Basophils 0.1 10^3/uL (0-0.2); Absolute Eosinophils 0.1 10^3/uL (0-0.7); Absolute Immature Granulocytes 0.2 10^3/uL (0-0.05); Absolute Lymphocytes 2.1 10^3/uL (1.2-3.4); Absolute Monocytes 0.6 10^3/uL (0.1-0.6); Absolute Neutrophils 4.6 10^3/uL (1.4-6.5); Hemoglobin 13.3 g/dL (12.0-16.0); Mean Corp Hgb Conc. 32.4 g/dL (33.0-37.0); Mean Corpuscular Hgb 31.2 pg (27.0-31.0); Mean Corpuscular Volume 96.2 fL (81.0-99.0); Mean Platelet Volume 9.7 fL (7.4-10.4); Nucleated Red Blood Cells % 0 %; Platelet Count 293 10^3/uL (130-400); Red Blood Cell Count 4.26 10^6/uL (4.20-5.40); Red Cell Dist. Width 14.9 % (11.5-14.5); White Blood Cell Count 7.6 10^3/uL (4.8-10.8)
[2024-06-24 08:58] LABS: ALT (SGPT) 58 U/L (0-35); AST (SGOT) 32 U/L (14-36); Albumin 3.7 g/dl (3.5-5.0); Alkaline Phosphatase 138 U/L (38-126); Blood Urea Nitrogen 37 mg/dl (7-17); Calcium 9.3 mg/dl (8.4-10.2); Carbon Dioxide 20 mmol/L (22-30); Chloride 109 mmol/L (98-107); Estimated Creatinine Clearance 33 ml/min; Glucose 104 mg/dl (70-99); Potassium 4.3 mmol/L (3.5-5.1); Sodium 140 mmol/L (135-145); Total Bilirubin 0.6 mg/dl (0.2-1.3); Total Protein 6.6 g/dl (6.3-8.2)
[2024-06-24] MEDS: LIDOCAINE 4% PATCH 1 PATCH TOPICAL (09:15)
[2024-06-24] MEDS: OCUVITE SOFTGEL 1 CAP PO (09:16)
[2024-06-24] MEDS: VITAMIN C 500 MG PO (09:16)
[2024-06-24] MEDS: PROTONIX 40 MG PO (09:16)
[2024-06-24] MEDS: SENOKOT-S 2 TABLET PO ×2 (09:17→21:02)
[2024-06-24] MEDS: TYLENOL 1000 MG PO ×3 (09:17→21:01)
[2024-06-24] MEDS: MOTRIN 800 MG PO ×3 (09:17→21:02)
[2024-06-24] MEDS: MIRALAX 17 GRAMS PO ×2 (09:17→21:02)
[2024-06-24] MEDS: PROZAC 10 MG PO (09:17)
[2024-06-24] MEDS: VITAMIN B-12 1000 MCG PO (09:17)
[2024-06-24] MEDS: FLEXERIL 5 MG PO (09:18)
[2024-06-24] MEDS: FEOSOL 325 MG PO (09:18)
[2024-06-24] MEDS: PROZAC 20 MG PO (09:19)
[2024-06-24] MEDS: MIACALCIN/FORTICAL NASAL SPRAY 1 SPRAY NASAL (09:19)
[2024-06-24] MEDS: XANAX 0.25 MG PO (09:19)
--- NOTE | 2024-06-24 11:16 | W.PN.HOSP.TC ---
Today's Communication/Plan
-
MRI back
Assessment / Plan
Assessment / Plan
83yo F with PMHx of lumbar spine Sx, Hx of vertebral compression Fx, chronic ambulatory dysfunction, HLD, GERD, SANDIE came with worsening of lower back pain associated with pain radiating towards abdomen. She was managed for the same in May 2024
when was seen by NeuroSx and recommended for LSO brace on ambulation and had steroid injection. Now pain getting worse with new urinary incontinence and constipation as well as LUE numbness
A/P:
#Acute T11 compression Fx, most likely 2/2 osteoporosis
#Old T10, L1, L3, L5 compression Fx
#Acute on chronic ambulatory deficiency
MRI spine
pain mgmt
with new urinary symptoms and LUE numbness - MRI cervical/thoracic/lumbar
PT/OT: previously recommended rehab, but declined. now agreeable
Outpatient eval for Bisphosphonates therapy by PCP
Keep Apt for outpatient kyphoplasty (already scheduled)
#constipation
resolving
#Asymptomatic bacteriuria
Ucx neg
no leukocytosis or fevers
#elevated Alk.phos
#Elevated ALT
RUQ US with abd pain
follow LFT
hepatitis panel neg
#Anxiety d/o
#SANDIE
#Chronic HFpEF
#Essential HTN
#HLD
#Overactive bladder
cont home meds
DVT ppx lovenox
DNR/DNI
I have spent at least 38min reviewing chart, test results and providing direct patient care
Anticipated Discharge: Within 24 hours
Subjective/Interval History
-
Date of Service: June 24, 2024
Objective Data
-
Labs:
Laboratory Results
06/24/24
06:57
WBC 7.6
Hgb 13.3
Hct 41.0
Plt Count 293
Sodium 140
Potassium 4.3
Chloride 109 H
Carbon Dioxide 20 L
BUN 37 H
Creatinine 1.0
Glucose 104 H
Calcium 9.3
Total Bilirubin 0.6
AST 32
ALT 58 H
Alkaline Phosphatase 138 H
Vital Signs:
Vital Signs
Temp Pulse Resp BP Pulse Ox
97.4 F 93 18 120/83 94
06/24/24 07:25 06/24/24 07:25 06/24/24 07:25 06/24/24 07:25 06/24/24 07:25
I&O
06/23/24 06/24/24 06/25/24
06:59 06:59 06:59
Intake Total 1080 / 1080 720 / 720
Balance 1080 / 1080 720 / 720
Review of Systems
-
History Source: Patient
All other systems: Reviewed and negative
Physical Exam
-
General: No Apparent Distress
HEENT: Normocephalic
Cardiac: Regular Rhythm
GI: Soft, Nontender and Nondistended
Musculoskeletal: No Clubbing, No Cyanosis and No Edema
Neuro: Awake, Alert, Oriented and AO x 3
Psych: Calm
[2024-06-24] MEDS: XANAX 0.5 MG PO (13:14)
[2024-06-24 15:18] VITALS: BP 118/65
[2024-06-24] MEDS: LOVENOX 40 MG SC (17:38)
[2024-06-24] MEDS: XANAX 1.5 MG PO (21:02)
[2024-06-24 23:34] VITALS: BP 120/78
[2024-06-25] MEDS: DILAUDID 4 MG PO (03:39)
[2024-06-25 06:00] VITALS: BMI 19.6
[2024-06-25 07:47] LABS: ALT (SGPT) 68 U/L (0-35); AST (SGOT) 38 U/L (14-36); Albumin 3.9 g/dl (3.5-5.0); Alkaline Phosphatase 142 U/L (38-126); Direct Bilirubin 0.3 mg/dl (0.0-0.4); Total Bilirubin 0.6 mg/dl (0.2-1.3); Total Protein 6.9 g/dl (6.3-8.2)
[2024-06-25 08:18] VITALS: BP 149/82
[2024-06-25] MEDS: OCUVITE SOFTGEL 1 CAP PO (09:05)
[2024-06-25] MEDS: LIDOCAINE 4% PATCH 1 PATCH TOPICAL (09:05)
[2024-06-25] MEDS: MIRALAX 17 GRAMS PO ×2 (09:05→21:36)
[2024-06-25] MEDS: MOTRIN 800 MG PO ×3 (09:05→21:37)
[2024-06-25] MEDS: VITAMIN C 500 MG PO (09:06)
[2024-06-25] MEDS: PROTONIX 40 MG PO (09:06)
[2024-06-25] MEDS: VITAMIN B-12 1000 MCG PO (09:06)
[2024-06-25] MEDS: PROZAC 20 MG PO (09:06)
[2024-06-25] MEDS: SENOKOT-S 2 TABLET PO ×2 (09:06→21:36)
[2024-06-25] MEDS: PROZAC 10 MG PO (09:06)
[2024-06-25] MEDS: DETROL LA 4 MG PO (09:06)
[2024-06-25] MEDS: FEOSOL 325 MG PO (09:07)
[2024-06-25] MEDS: XANAX 0.25 MG PO (09:07)
[2024-06-25] MEDS: TYLENOL 1000 MG PO ×3 (09:07→21:36)
[2024-06-25] MEDS: FLEXERIL 5 MG PO (09:07)
--- NOTE | 2024-06-25 11:27 | W.PN.HOSP.TC ---
Today's Communication/Plan
-
pending neuroSx eval
Assessment / Plan
Assessment / Plan
83yo F with PMHx of lumbar spine Sx, Hx of vertebral compression Fx, chronic ambulatory dysfunction, HLD, GERD, SANDIE came with worsening of lower back pain associated with pain radiating towards abdomen. She was managed for the same in May 2024
when was seen by NeuroSx and recommended for LSO brace on ambulation and had steroid injection.
A/P:
#Acute T11 compression Fx, most likely 2/2 osteoporosis
#Old T10, L1, L3, L5 compression Fx
#Acute on chronic ambulatory deficiency
#Transient LUE numbness
MRI cervical spine: Multilevel discogenic, facet, and uncinate degenerative changes. Variable central canal and foraminal stenosis. Mild cord compression. No intrinsic cervical cord signal alteration.
MRI lumbar spine: T11: New/Acute compression fracture with mild to moderate diminished stature. Mild retropulsion. Moderate to advanced central canal stenosis, and suggested mild cord compression.
NeuroSx consult
pain mgmt
PT/OT: previously recommended rehab, but declined. now agreeable
Outpatient eval for Bisphosphonates therapy by PCP
#constipation
resolved
#Asymptomatic bacteriuria
Ucx neg
no leukocytosis or fevers
#elevated Alk.phos
#Elevated ALT
RUQ US: No evidence of cholelithiasis, gallbladder wall thickening or intrahepatic biliary tract dilatation. Negative sonographic Ortiz's sign. Common bile duct top normal in caliber.
follow LFT -improving
hepatitis panel neg
#Anxiety d/o
#SANDIE
#Chronic HFpEF
#Essential HTN
#HLD
#Overactive bladder
cont home meds
DVT ppx lovenox
DNR/DNI
I have spent at least 38min reviewing chart, test results and providing direct patient care
Anticipated Discharge: Within 24 hours
Subjective/Interval History
-
Date of Service: June 25, 2024
Objective Data
-
Labs:
Laboratory Results
06/25/24
05:39
Total Bilirubin 0.6
AST 38 H
ALT 68 H
Alkaline Phosphatase 142 H
Vital Signs:
Vital Signs
Temp Pulse Resp BP Pulse Ox
97.7 F 95 18 149/82 94
06/25/24 08:18 06/25/24 08:18 06/25/24 08:18 06/25/24 08:18 06/25/24 09:10
I&O
06/24/24 06/25/24 06/26/24
06:59 06:59 06:59
Intake Total 720 / 720 480 / 480
Balance 720 / 720 480 / 480
Review of Systems
-
History Source: Patient
All other systems: Reviewed and negative
Musculoskeletal: Reports Other (backpain)
Physical Exam
-
General: No Apparent Distress
HEENT: Normocephalic
Cardiac: Regular Rhythm
GI: Soft, Nontender and Nondistended
Musculoskeletal: No Clubbing, No Cyanosis and No Edema
Neuro: Awake, Alert, Oriented, AO x 3 and No Sensory Deficits
Psych: Calm
[2024-06-25] MEDS: XANAX 0.5 MG PO (12:16)
--- NOTE | 2024-06-25 12:50 | W.PN.GENERIC ---
Assessment / Plan
-
A/P:
This is a pleasant 83-year-old female with symptomatic T11 and L1 compression fractures. The symptoms are interfering with her activities of daily living. We discussed treatment options including conservative management with brace and pain
medication, XOCHITL injection and vertebral augmentation. She has no comorbidities that would interfere with planned treatment. I believe she should be a good candidate for vertebral augmentation.
I discussed the technique of vertebral body augmentation including the logistics, risks and benefits, success and failure rates as well as alternatives. Risks include but are not limited to: incomplete treatment, need for surgery, infection, abscess
formation, spinal cord injury and paralysis.� We discussed the probability of outcomes and the length of convalescence post procedure.� The procedure will be performed with anesthesia support.
Plan to perform procedure this Sunday06/27/24
Keep pt NPO after midnight
I spent over one hour in counseling and coordination of care with the patient, reviewing previous medical records, laboratory studies and all relevant imaging, including history taking, physical exam and documentation as well as discussing the
procedure and expected outcome with the patient.
Physician Progress Note
Subjective
Interventional Radiology Consult
Dx: Intractable Back Pain T11a and L2 compression fractures
Requesting: Pelon Noble
This is an 83-year-old female with past medical history of multilevel compression fractures, CHF, hypertension, hyperlipidemia, GERD, hiatal hernia, anxiety, orthostatic hypotension and iron deficiency anemia. She was hospitalized from 06/01 to 06/04
for intractable back pain. She had an XOCHITL done during that admission. At the time, she was seen by neurosurgery who recommended LSO brace which she has been wearing without relief. She was admitted with intractable lower back pain radiating to
the abdomen in the right upper quadrant. She denies recent trauma. The pain is exacerbated by movement and worse on the right side. She denies paresthesias or weakness. She has no bowel or bladder incontinence.
Medical History
Past Medical History
Mulitple level vertebral compression fractures, ambulatory dysfunction, CHF, hypertension, hyperlipidemia, GERD, hiatal hernia, anxiety, orthostatic hypotension, iron deficiency anemia
Past Surgical History:
Lumbar fusion
Social History
Tobacco: Former Smoker
Alcohol: Occasional
Living: Lives alone
Allergies
Allergy/AdvReac Type Severity Reaction Status Date / Time
latex Allergy Rash Verified 06/17/24 13:12
prednisone Allergy psychosis Verified 06/17/24 13:12
Home Medications
The patient's current medications were documented and reviewed at the time of this consult
cyanocobalamin (vitamin B-12) 1,000 mcg tablet 1,000 mcg PO DAILY Supplement 10/23/23, acetaminophen 650 mg tablet,extended release 1,300 mg PO Q8HPRN PRN mild pain 06/01/24, alprazolam 0.5 mg tablet See Rx Instructions .Route .COMPLEX 06/01/24
ascorbic acid (vitamin C) 500 mg tablet (Vitamin C) 500 mg PO DAILY 06/01/24 ferrous sulfate 325 mg (65 mg iron) tablet 325 mg PO DAILY 06/01/24 fluoxetine 10 mg capsule 30 mg PO DAILY 06/01/24 polyvinyl alcohol 1.4 % eye drops (Artificial Tears
(polyvinyl alcohol)) 1 drp ophthalmic (eye) DAILYPRN PRN dry eyes 06/01/24 sennosides 8.6 mg-docusate sodium 50 mg tablet (Senna Plus) 1 tab-cap PO DAILYPRN PRN constipation 06/01/24 tramadol 37.5 mg-acetaminophen 325 mg tablet 1 tab PO BIDPRN PRN
moderate pain 06/01/24 vibegron 75 mg tablet (Gemtesa) 75 mg PO DAILY 06/01/24 vitamins A,C,P-nipf-pruwwa 2,148 mcg-113 mg-45 mg-17.4 mg tablet (PreserVision AREDS) 2 tab PO BID 06/01/24 cyclobenzaprine 10 mg tablet 10 mg PO HS 30 days #30 tabs
06/04/24 oxycodone 5 mg tablet 5 mg PO Q8H PRN Pain 3 days #20 tabs 06/04/24
Objective
Vital Signs
Temp Pulse Resp BP Pulse Ox
97.7 F 95 18 149/82 94
06/25/24 08:18 06/25/24 08:18 06/25/24 08:18 06/25/24 08:18 06/25/24 09:10
Lab Results
06/24/24 06:57
06/24/24 06:57
Physical Exam:
This is a WNWD 83 yo female in NAD lying in bed. Color is good. Skin is warm and dry. Nek is supple. Heart is regular. Lungs are CTA. Abdomen is soft and nontender with bowel sounds. She has tenderness to her lower thoracic spine and upper
lumbar spine. No lower extremity edema. Strength 5/5. Sensation maintained. Negative SLR
MRI Lumbar Spine: Subacute L1 compression fracture and new/acute T11 compression fracture. I personally reviewed and interpreted these images
--- NOTE | 2024-06-25 14:11 | CON.NS ---
Documented by User: Cathy Price PA-C 06/25/24 14:22
Chief Complaint
-
back pain
History of Present Illness
This is an 83 y/o F with current medical issues including congestive heart failure, hypertension, chronic benzodiazepine use who presented to the ED for evaluation of worsening back pain. She was previously seen by our team approximately a month
ago for compression fracture of L1. We recommended an LSO and if no improvement in pain, for her to undergo kyphoplasty. She was discharged and returned on 06/17. MRI lumbar spine spine demonstrates L1 and new T11 compression fracture. Neurosurgery
was consulted. for evaluation.
Patient seen and examined. She states the pain is similar as a month ago but it is more severe. She was not wearing the LSO as it was uncomfortable. She denies any pain down her legs, denies any new numbness/tingling/bowel/bladder issues. She is
currently in an abdominal binder and states that brace if more tolerable and helps with the pain. IR has been consulted and they are planning a vertebroplasty on Sunday.
Review of Systems
-
10 point review of systems including constitutional, ENT, cardiovascular, respiratory, GI, , hematologic, endocrine logic, musculoskeletal, neurologic was performed, and was negative except for as stated in HPI.
Medication and Allergies
Home Medications
Home Medications
�Medication �Instructions �Recorded
cyanocobalamin (vitamin B-12) 1,000 mcg PO DAILY Supplement 10/23/23
1,000 mcg tablet
ascorbic acid (vitamin C) 500 mg 500 mg PO DAILY Supplement 06/01/24
tablet (Vitamin C)
ferrous sulfate 325 mg (65 mg 325 mg PO DAILY Supplement 06/01/24
iron) tablet
fluoxetine 10 mg capsule 10 mg PO DAILY Mental 06/01/24
Health/Anxiety
sennosides 8.6 mg-docusate sodium 2 tab-cap PO HS Constipation 06/01/24
50 mg tablet (Senna Plus)
vibegron 75 mg tablet (Gemtesa) 75 mg PO DAILY OAB 06/01/24
vitamins A,C,B-iwbb-jprdto 2,148 1 tab PO DAILY Supplement 06/01/24
mcg-113 mg-45 mg-17.4 mg tablet
(PreserVision AREDS)
alprazolam 0.5 mg tablet 0.25 mg PO DAILY Mental 06/17/24
Health/Anxiety
alprazolam 0.5 mg tablet 0.5 mg PO NOON Mental 06/17/24
Health/Anxiety
alprazolam 0.5 mg tablet 1.5 mg PO HS Mental Health/Anxiety 06/17/24
calcitonin (salmon) 200 1 spray intranasal DAILY RENAL 06/17/24
unit/actuation nasal spray
cyclobenzaprine 5 mg tablet 5 mg PO DAILY Muscle Spasms 06/17/24
fluoxetine 20 mg capsule 20 mg PO DAILY Mental 06/17/24
Health/Anxiety
oxycodone 5 mg tablet 5 mg PO TIDPRN PRN severe pain 06/17/24
Allergies
Allergies
Allergy/AdvReac Type Severity Reaction Status Date / Time
latex Allergy Rash Verified 06/17/24 13:12
prednisone Allergy psychosis Verified 06/17/24 13:12
Physical Exam
-
Exam:
Patient awake, alert and oriented xs 3
CN 2-12 grossly intact
speech: clear/fluent
motor: 5/5; able to stand up out of chair without difficulty,
pain with palpation around the L1 area
non labored breathing
sensation intact to crude touch
MRI lumbar spine personally interpreted by myself and attending.
Exams: MR Lumbar Without Contrast
CPT: [id number]
PROCEDURE: MR Lumbar Without Contrast
CLINICAL INDICATION: lower back pain now with dysuria
TECHNIQUE: Multiplanar multisequence 1.5 MRI examination of the lumbar spine.
COMPARISON: 05/26/2024.
Correlation: CT 06/17/2014.
FINDINGS:
Advanced scoliosis. No spondylolisthesis.
Limited views of lower thoracic spine. Chronic severe compression deformity of T10. No retropulsed fracture fragments, though there appears to be hypertrophied posterior elements, contributing to central canal stenosis and suggested mild to moderate
compression of the posterior margin of the lower thoracic cord.
Acute compression fracture of T11, with mild to moderate diminished stature. This appears new compared to prior examination. Mild retropulsion of the posterior margin of the T11 vertebral body, contributing to moderate to advanced central canal
stenosis, and suggested mild cord compression when combined with facet and ligamentum flavum hypertrophy.
Subacute compression fracture of L1, which was also present previously. Moderate diminished stature, with slight progression compared to prior examination.
Chronic moderate compression fracture of L3.
Stable minor subacute fracture involving the superior plate of L5, also seen previously.
Before, disc desiccation at all levels. Most pronounced along the concave margin of the scoliosis.
T12-L1: No focal protrusion. Annular bulge. Facet and ligamentum flavum hypertrophy. Stable mild central canal narrowing. Moderate bilateral foraminal stenosis.
L1-2: Stable annular bulge. Stable facet and ligamentum flavum hypertrophy. Stable mild central canal narrowing. Stable moderate to advanced right and mild to moderate left foraminal stenosis.
L2-3: Stable annular bulge. Stable facet and ligamentum flavum hypertrophy. Mild to moderate central canal stenosis, unchanged. Stable moderate bilateral foraminal stenosis.
L3-4: Stable annular bulge. Prominent facet and ligamentum flavum hypertrophy. Similar to prior examination. Moderate central canal stenosis. Mild to moderate foraminal stenosis, right greater than left, unchanged.
L4-5: Moderate central canal stenosis secondary to annular bulge as well as facet and ligamentum flavum hypertrophy, similar to prior examination. Mild to moderate foraminal narrowing, unchanged.
L5-S1: No significant central canal stenosis. Previous right hemilaminectomy. Mild facet and ligamentum flavum thickening. Mild endplate osteophyte formation. Mild left foraminal stenosis. Right neural foramen is patent.
Incidental findings include tiny right renal cyst.
IMPRESSION:
T10: Chronic severe compression deformity. Hypertrophy of the posterior elements contributing to central canal stenosis and compression of the posterior margin of the lower thoracic cord.
T11: New/Acute compression fracture with mild to moderate diminished stature. Mild retropulsion. Moderate to advanced central canal stenosis, and suggested mild cord compression.
Subacute compression fracture of L1 is again demonstrated; moderate diminished stature is progressed slightly. Relatively stable subacute compression fracture involving the superior endplate margin of L5.
Otherwise, relatively stable multilevel degenerative changes. Please refer to above discussion for specific and additional details at individual levels.
Problems
-
Problem Status Onset Code
Ambulatory dysfunction R26.2
Vertebral compression fracture M48.50XA
Assessment / Plan
-
This is an 83 y/o F with new T11 and subacute/stable L1 compression fractures
--Imaging reviewed. No acute neurosurgical intervention indicated at that time.
--Continue with abdominal binder. Patient states she cannot tolerate the LSO.
-- Patient for vertebroplasty on Sunday.
--pain control per primary team
--neurosurgery to sign off
--patient discussed with and imaging reviewed by Dr. Vieyra.

Documented by User: Faina Vieyra MD 06/25/24 14:46
Problems
-
Problem Status Onset Code
Ambulatory dysfunction R26.2
Vertebral compression fracture M48.50XA
Assessment / Plan
-
This is an 83 y/o F with new T11 and subacute/stable L1 compression fractures
--Imaging reviewed. No acute neurosurgical intervention indicated at that time.
--Continue with abdominal binder. Patient states she cannot tolerate the LSO.
-- Patient for vertebroplasty on Sunday.
--pain control per primary team
--neurosurgery to sign off
--patient discussed with and imaging reviewed by Dr. Vieyra.
ATTENDING ATTESTATION:
Imaging reviewed. Recommend bracing, PT and pain control.
If pain refractory, suggest IR consult for kyphoplasty for T11, L1 fractures.
--- NOTE | 2024-06-25 15:00 | CM ---
Spoke with Laura from [facility] bed . Laura said check day of dc for bed.
Updated PT OT indicated SNF .
Will need [employer] auth .
Agreeable to [facility] rehab.
Pt will need vertebroplasty prior to discharge.
PLAN To [facility] after auth
[2024-06-25 15:36] VITALS: BP 141/77
[2024-06-25] MEDS: LOVENOX 40 MG SC (17:08)
[2024-06-25] MEDS: XANAX 1.5 MG PO (21:37)
[2024-06-25] MEDS: ROXICODONE 10 MG PO (22:54)
[2024-06-25 23:21] VITALS: BP 139/91
[2024-06-26 05:46] VITALS: BMI 19.6
[2024-06-26 07:30] VITALS: BP 126/92
[2024-06-26 07:30] LABS: ALT (SGPT) 86 U/L (0-35); AST (SGOT) 45 U/L (14-36); Albumin 3.5 g/dl (3.5-5.0); Alkaline Phosphatase 142 U/L (38-126); Direct Bilirubin 0.2 mg/dl (0.0-0.4); Total Bilirubin 0.6 mg/dl (0.2-1.3); Total Protein 6.6 g/dl (6.3-8.2)
[2024-06-26] MEDS: LIDOCAINE 4% PATCH 1 PATCH TOPICAL (08:44)
[2024-06-26] MEDS: MIRALAX 17 GRAMS PO ×2 (08:44→21:07)
[2024-06-26] MEDS: FLEXERIL 5 MG PO (08:45)
[2024-06-26] MEDS: VITAMIN B-12 1000 MCG PO (08:46)
[2024-06-26] MEDS: PROZAC 10 MG PO (08:46)
[2024-06-26] MEDS: OCUVITE SOFTGEL 1 CAP PO (08:46)
[2024-06-26] MEDS: SENOKOT-S 2 TABLET PO ×2 (08:46→21:07)
[2024-06-26] MEDS: PROTONIX 40 MG PO (08:46)
[2024-06-26] MEDS: PROZAC 20 MG PO (08:46)
[2024-06-26] MEDS: FEOSOL 325 MG PO (08:46)
[2024-06-26] MEDS: XANAX 0.25 MG PO (08:46)
[2024-06-26] MEDS: VITAMIN C 500 MG PO (08:46)
--- NOTE | 2024-06-26 12:05 | W.PN.HOSP.TC ---
Today's Communication/Plan
-
for vertebroplasty in AM
Assessment / Plan
Assessment / Plan
83yo F with PMHx of lumbar spine Sx, Hx of vertebral compression Fx, chronic ambulatory dysfunction, HLD, GERD, SANDIE came with worsening of lower back pain associated with pain radiating towards abdomen. She was managed for the same in May 2024
when was seen by NeuroSx and recommended for LSO brace on ambulation and had steroid injection.
A/P:
#Acute T11 compression Fx, most likely 2/2 osteoporosis
#Old T10, L1, L3, L5 compression Fx
#Acute on chronic ambulatory deficiency
#Transient LUE numbness
MRI cervical spine: Multilevel discogenic, facet, and uncinate degenerative changes. Variable central canal and foraminal stenosis. Mild cord compression. No intrinsic cervical cord signal alteration.
MRI lumbar spine: T11: New/Acute compression fracture with mild to moderate diminished stature. Mild retropulsion. Moderate to advanced central canal stenosis, and suggested mild cord compression.
NeuroSx consult: patient declined LSO, attempt abdominal binder
[facility] for vertebroplast of T11, L1 on 06/27/24
pain mgmt
PT/OT: previously recommended rehab, but declined. now agreeable
Outpatient eval for Bisphosphonates therapy by PCP
#constipation
resolved
#Asymptomatic bacteriuria
Ucx neg
no leukocytosis or fevers
#elevated Alk.phos
#Elevated ALT
Hold NSAIDs, acetaminophen
RUQ US: No evidence of cholelithiasis, gallbladder wall thickening or intrahepatic biliary tract dilatation. Negative sonographic Ortiz's sign. Common bile duct top normal in caliber.
follow LFT
hepatitis panel neg
#Anxiety d/o
#SANDIE
#Chronic HFpEF
#Essential HTN
#HLD
#Overactive bladder
cont home meds
DVT ppx lovenox
DNR/DNI
I have spent at least 38min reviewing chart, test results and providing direct patient care
Anticipated Discharge: 24 - 48 hours
Subjective/Interval History
-
Date of Service: June 26, 2024
Objective Data
-
Labs:
Laboratory Results
06/26/24
06:42
Total Bilirubin 0.6
AST 45 H
ALT 86 H
Alkaline Phosphatase 142 H
Vital Signs:
Vital Signs
Temp Pulse Resp BP Pulse Ox
97.4 F 97 18 126/92 100
06/26/24 07:30 06/26/24 07:30 06/26/24 07:30 06/26/24 07:30 06/26/24 08:50
I&O
06/25/24 06/26/24 06/27/24
06:59 06:59 06:59
Intake Total 480 / 480 480 / 480
Balance 480 / 480 480 / 480
Review of Systems
-
History Source: Patient
All other systems: Reviewed and negative
Physical Exam
-
General: Comfortable
Respiratory: Clear to Auscultation
Neuro: Awake, Alert, Oriented and AO x 3
Psych: Calm
[2024-06-26] MEDS: ROXICODONE 10 MG PO ×2 (12:21→21:08)
[2024-06-26] MEDS: XANAX 0.5 MG PO (13:35)
[2024-06-26 15:05] VITALS: BP 130/93
--- NOTE | 2024-06-26 16:26 | CM ---
Spoke with Laura from [facility] bed . Laura said check day of dc for bed.
Will need [employer] auth .
Agreeable to [facility] rehab.
Pt will need vertebroplasty prior to discharge.
PLAN To [facility] after auth
[2024-06-26] MEDS: LOVENOX 40 MG SC (17:38)
[2024-06-26] MEDS: XANAX 1.5 MG PO (21:07)
[2024-06-26 23:18] VITALS: BP 106/73
[2024-06-27] VITALS (20 sets, daily range): BP systolic 95–144; BP diastolic 65–100; BMI 19.2
[2024-06-27 06:42] LABS: INR 0.91; PT 12.8 Sec (11.4-14.6)
[2024-06-27 06:43] LABS: APTT 30.5 Sec (23.4-35.0)
[2024-06-27 06:48] LABS: ALT (SGPT) 82 U/L (0-35); AST (SGOT) 37 U/L (14-36); Alkaline Phosphatase 131 U/L (38-126); Blood Urea Nitrogen 43 mg/dl (7-17); Calcium 10.1 mg/dl (8.4-10.2); Carbon Dioxide 23 mmol/L (22-30); Chloride 109 mmol/L (98-107); Direct Bilirubin 0.2 mg/dl (0.0-0.4); Estimated Creatinine Clearance 40 ml/min; Glucose 104 mg/dl (70-99); Potassium 4.1 mmol/L (3.5-5.1); Sodium 142 mmol/L (135-145); Total Bilirubin 0.7 mg/dl (0.2-1.3); Total Protein 7.1 g/dl (6.3-8.2); eGFR > 60.00
[2024-06-27 07:57] LABS: Hematocrit 42.4 % (37.0-47.0); Hemoglobin 13.5 g/dL (12.0-16.0); Mean Corp Hgb Conc. 31.8 g/dL (33.0-37.0); Mean Corpuscular Volume 97.2 fL (81.0-99.0); Platelet Count 290 10^3/uL (130-400); Red Blood Cell Count 4.36 10^6/uL (4.20-5.40); Red Cell Dist. Width 14.8 % (11.5-14.5); White Blood Cell Count 8.8 10^3/uL (4.8-10.8)
[2024-06-27] MEDS: FLEXERIL 5 MG PO (08:28)
[2024-06-27] MEDS: PROZAC 10 MG PO (08:28)
[2024-06-27] MEDS: MIRALAX 17 GRAMS PO ×2 (08:28→21:01)
[2024-06-27] MEDS: LIDOCAINE 4% PATCH 1 PATCH TOPICAL (08:28)
[2024-06-27] MEDS: OCUVITE SOFTGEL 1 CAP PO (08:29)
[2024-06-27] MEDS: SENOKOT-S 2 TABLET PO ×2 (08:29→21:01)
[2024-06-27] MEDS: PROZAC 20 MG PO (08:29)
[2024-06-27] MEDS: VITAMIN C 500 MG PO (08:30)
[2024-06-27] MEDS: VITAMIN B-12 1000 MCG PO (08:30)
[2024-06-27] MEDS: FEOSOL 325 MG PO (08:30)
[2024-06-27] MEDS: PROTONIX 40 MG PO (08:30)
[2024-06-27] MEDS: XANAX 0.25 MG PO (08:30)
[2024-06-27] MEDS: XANAX PO (12:14)
[2024-06-27] MEDS: ANCEF 10 IV (12:51)
--- NOTE | 2024-06-27 13:44 | W.PN.HOSP.TC ---
Today's Communication/Plan
-
vertebroplasty today
Assessment / Plan
Assessment / Plan
83yo F with PMHx of lumbar spine Sx, Hx of vertebral compression Fx, chronic ambulatory dysfunction, HLD, GERD, SANDIE came with worsening of lower back pain associated with pain radiating towards abdomen. She was managed for the same in May 2024
when was seen by NeuroSx and recommended for LSO brace on ambulation and had steroid injection.
A/P:
#Acute T11 compression Fx, most likely 2/2 osteoporosis
#Old T10, L1, L3, L5 compression Fx
#Acute on chronic ambulatory deficiency
#Transient LUE numbness
MRI cervical spine: Multilevel discogenic, facet, and uncinate degenerative changes. Variable central canal and foraminal stenosis. Mild cord compression. No intrinsic cervical cord signal alteration.
MRI lumbar spine: T11: New/Acute compression fracture with mild to moderate diminished stature. Mild retropulsion. Moderate to advanced central canal stenosis, and suggested mild cord compression.
NeuroSx consult: patient declined LSO, attempt abdominal binder
IRAD for vertebroplast of T11, L1 on 06/27/24
pain mgmt
PT/OT: previously recommended rehab, but declined. now agreeable
Outpatient eval for Bisphosphonates therapy by PCP
#constipation
resolved
#Asymptomatic bacteriuria
Ucx neg
no leukocytosis or fevers
#elevated Alk.phos
#Elevated ALT
resolving
Hold NSAIDs, acetaminophen
RUQ US: No evidence of cholelithiasis, gallbladder wall thickening or intrahepatic biliary tract dilatation. Negative sonographic Ortiz's sign. Common bile duct top normal in caliber.
follow LFT
hepatitis panel neg
#Anxiety d/o
#SANDIE
#Chronic HFpEF
#Essential HTN
#HLD
#Overactive bladder
cont home meds
DVT ppx lovenox
DNR/DNI
I have spent at least 38min reviewing chart, test results and providing direct patient care
Anticipated Discharge: Within 24 hours
Subjective/Interval History
-
Date of Service: June 27, 2024
Objective Data
-
Labs:
Laboratory Results
06/27/24
06:03
WBC 8.8
Hgb 13.5
Hct 42.4
Plt Count 290
PT 12.8
INR 0.91
APTT 30.5
Sodium 142
Potassium 4.1
Chloride 109 H
Carbon Dioxide 23
BUN 43 H
Creatinine 0.8
Glucose 104 H
Calcium 10.1
Total Bilirubin 0.7
AST 37 H
ALT 82 H
Alkaline Phosphatase 131 H
Vital Signs:
Vital Signs
Temp Pulse Resp BP Pulse Ox
97.4 F 106 14 144/93 95
06/27/24 12:35 06/27/24 13:01 06/27/24 13:01 06/27/24 13:01 06/27/24 13:01
I&O
06/26/24 06/27/24 06/28/24
06:59 06:59 06:59
Intake Total 480 / 480 840 / 840
Output Total 75 / 75
Balance 480 / 480 765 / 765
Review of Systems
-
History Source: Patient
All other systems: Reviewed and negative
Musculoskeletal: Reports Other (lower back pain)
--- NOTE | 2024-06-27 16:06 | W.PN.UPDATE ---
Update Note
Progress Note Update
Procedure: T11 and L1 vertebroplasty
- technically difficult procedure owing to advanced osteopenia/osteoporosis and scoliosis/kyphosis
- could not clearly see pedicles - required cone beam CT to advance needles
- technically good result at T11 with good spread of cement. suboptimal cement injection at L1, possibly related to sclerotic nature of pt's fracture.
- pt tolerate well. bedrest for 1 hr.
--- NOTE | 2024-06-27 16:17 | CM ---
As per Laura from [facility] no bed s available this weekend
Laura said check day of dc for bed.
Will need [employer] auth .
Agreeable to [facility] rehab.
Pt had vertebroplasty today.
Continue PT OT evals
PLAN To [facility] after auth
[2024-06-27] MEDS: ROXICODONE 10 MG PO (17:35)
[2024-06-27] MEDS: LOVENOX 40 MG SC (17:36)
[2024-06-27] MEDS: XANAX 1.5 MG PO (21:01)
[2024-06-28] MEDS: ROXICODONE 10 MG PO ×4 (02:04→20:06)
[2024-06-28 03:31] VITALS: BP 118/68
[2024-06-28 05:50] VITALS: BMI 19.5
[2024-06-28 06:08] LABS: ALT (SGPT) 56 U/L (0-35); AST (SGOT) 30 U/L (14-36); Albumin 3.5 g/dl (3.5-5.0); Alkaline Phosphatase 144 U/L (38-126); Direct Bilirubin 0.2 mg/dl (0.0-0.4); Total Bilirubin 0.8 mg/dl (0.2-1.3); Total Protein 6.5 g/dl (6.3-8.2)
[2024-06-28 07:10] VITALS: BP 110/75
[2024-06-28] MEDS: LIDOCAINE 4% PATCH 1 PATCH TOPICAL (09:39)
[2024-06-28] MEDS: MIRALAX 17 GRAMS PO ×2 (09:39→20:06)
[2024-06-28] MEDS: FLEXERIL 5 MG PO (09:40)
[2024-06-28] MEDS: FEOSOL 325 MG PO (09:40)
[2024-06-28] MEDS: OCUVITE SOFTGEL 1 CAP PO (09:40)
[2024-06-28] MEDS: XANAX 0.25 MG PO (09:40)
[2024-06-28] MEDS: VITAMIN B-12 1000 MCG PO (09:40)
[2024-06-28] MEDS: PROZAC 20 MG PO (09:40)
[2024-06-28] MEDS: PROTONIX 40 MG PO (09:40)
[2024-06-28] MEDS: SENOKOT-S 2 TABLET PO ×2 (09:40→20:06)
[2024-06-28] MEDS: PROZAC 10 MG PO (09:40)
[2024-06-28] MEDS: VITAMIN C 500 MG PO (09:41)
--- NOTE | 2024-06-28 10:50 | W.PN.HOSP.TC ---
Today's Communication/Plan
-
DC to rehab
Assessment / Plan
Assessment / Plan
83yo F with PMHx of lumbar spine Sx, Hx of vertebral compression Fx, chronic ambulatory dysfunction, HLD, GERD, SANDIE came with worsening of lower back pain associated with pain radiating towards abdomen. She was managed for the same in May 2024
when was seen by NeuroSx and recommended for LSO brace on ambulation and had steroid injection. IRAD did vertebroplasty of T11, L1 on 06/27/24 and patient medically appropriate for d/c to rehab.
A/P:
#Acute T11 compression Fx, most likely 2/2 osteoporosis
#Old T10, L1, L3, L5 compression Fx
#Acute on chronic ambulatory deficiency
#Transient LUE numbness
MRI cervical spine: Multilevel discogenic, facet, and uncinate degenerative changes. Variable central canal and foraminal stenosis. Mild cord compression. No intrinsic cervical cord signal alteration.
MRI lumbar spine: T11: New/Acute compression fracture with mild to moderate diminished stature. Mild retropulsion. Moderate to advanced central canal stenosis, and suggested mild cord compression.
NeuroSx consult: patient declined LSO, attempt abdominal binder
IRAD s/p vertebroplasty of T11, L1 on 06/27/24
pain mgmt
PT/OT: previously recommended rehab, but declined. now agreeable
Outpatient eval for Bisphosphonates therapy by PCP
#constipation
resolved
#Asymptomatic bacteriuria
Ucx neg
no leukocytosis or fevers
#elevated Alk.phos
#Elevated ALT
resolving
Hold NSAIDs, acetaminophen
RUQ US: No evidence of cholelithiasis, gallbladder wall thickening or intrahepatic biliary tract dilatation. Negative sonographic Ortiz's sign. Common bile duct top normal in caliber.
follow LFT
hepatitis panel neg
#Anxiety d/o
#SANDIE
#Chronic HFpEF
#Essential HTN
#HLD
#Overactive bladder
cont home meds
DVT ppx lovenox
DNR/DNI
I have spent at least 38min reviewing chart, test results and providing direct patient care
Anticipated Discharge: Within 24 hours
Subjective/Interval History
-
Date of Service: June 28, 2024
Objective Data
-
Labs:
Laboratory Results
06/28/24
04:27
Total Bilirubin 0.8
AST 30
ALT 56 H
Alkaline Phosphatase 144 H
Vital Signs:
Vital Signs
Temp Pulse Resp BP Pulse Ox
97.8 F 103 18 110/75 93
06/28/24 07:10 06/28/24 07:10 06/28/24 07:10 06/28/24 07:10 06/28/24 07:10
I&O
06/27/24 06/28/24 06/29/24
06:59 06:59 06:59
Intake Total 840 / 840
Output Total 75 / 75
Balance 765 / 765
Review of Systems
-
History Source: Patient
All other systems: Reviewed and negative
Musculoskeletal: Reports Other (backpain)
Physical Exam
-
General: No Apparent Distress
HEENT: Normocephalic
Neuro: Awake, Alert, Oriented and AO x 3
Psych: Calm
--- NOTE | 2024-06-28 10:58 | W.DCSUMMARY ---
Discharge Summary
Discharge Data
Date of Admission: 06/23/24
Date of Discharge: 06/28/24
-
Pending Results: No
Hospital Course
83yo F with PMHx of lumbar spine Sx, Hx of vertebral compression Fx, chronic ambulatory dysfunction, HLD, GERD, SANDIE came with worsening of lower back pain associated with pain radiating towards abdomen. She was managed for the same in May 2024
when was seen by NeuroSx and recommended for LSO brace on ambulation and had steroid injection. IRAD did vertebroplasty of T11, L1 on 06/27/24 and patient medically appropriate for d/c to rehab.
I have spent at least 38min reviewing chart, test results and providing direct patient care
Patient was managed for:
#Acute T11 compression Fx, most likely 2/2 osteoporosis
#Old T10, L1, L3, L5 compression Fx
#Acute on chronic ambulatory deficiency
#Transient LUE numbness
#constipation
#Asymptomatic bacteriuria
#elevated Alk.phos
#Elevated ALT
#Anxiety d/o
#SANDIE
#Chronic HFpEF
#Essential HTN
#HLD
#Overactive bladder
Discharge Plan
-
Patient Disposition: Shelter/SNF
Discharge Diagnosis/Procedures: vertebral compression fracture
Diet: Low Cholesterol
Activity: As tolerated
Additional Activity: LSO, abdominal binder
Driving Restrictions: As prior to admission
Other Services: PT
Referrals:
Ailin Perez PA-C [Family Provider] - in one to two weeks (Eval for osteoporosis treatment)
Prescriptions:
New
pantoprazole 40 mg Tablet,Delayed Release (Dr/Ec)
40 mg PO DAILY Qty: 30 0RF
Continued
cyanocobalamin (vitamin B-12) 1,000 mcg tablet
1,000 mcg PO DAILY
sennosides-docusate sodium [Senna Plus] 8.6-50 mg Tablet
2 tab-cap PO HS
ascorbic acid (vitamin C) [Vitamin C] 500 mg Tablet
500 mg PO DAILY
ferrous sulfate 325 mg (65 mg iron) Tablet
325 mg PO DAILY
fluoxetine 10 mg Capsule
10 mg PO DAILY
Patient Comments:
06/17/24:take with 20mg for total of 30mg
PreserVision AREDS 2,148 mcg-113 mg-45 mg-17.4mg Tablet
1 tab PO DAILY
Gemtesa 75 mg Tablet
75 mg PO DAILY
fluoxetine 20 mg Capsule
20 mg PO DAILY
Patient Comments:
06/17/24: take with 10mg cap for total of 30mg
cyclobenzaprine 5 mg Tablet
5 mg PO DAILY
alprazolam 0.5 mg Tablet
0.25 mg PO DAILY Qty: 3 0RF
alprazolam 0.5 mg Tablet
1.5 mg PO HS Qty: 3 0RF
alprazolam 0.5 mg Tablet
0.5 mg PO NOON Qty: 3 0RF
Changed
oxycodone 5 mg tablet
5 mg PO TIDPRN PRN (Reason: severe pain) Qty: 6 0RF
Discontinued
calcitonin (salmon) 200 unit/actuation Elizabeth,Non-Aerosol
1 spray intranasal DAILY
Discharge Orders:
Discharge Patient (As Directed); Ordered 06/28/24
Ordered By: Pelon Noble
Discharge Date and Time
Print Language: CAPE VERDEAN
[2024-06-28 11:10] VITALS: BP 135/80
[2024-06-28] MEDS: XANAX 0.5 MG PO (11:26)
--- NOTE | 2024-06-28 11:50 | W.PN.UPDATE ---
Update Note
Progress Note Update
- Post T11 and L1 vertebroplasty yesterday. Unfortunately patient not feeling much better compared to preprocedure. Also now complaining of neck pain. Procedure was technically challenging secondary to osteoporosis and distorted anatomy and took
longer than normal. I suspect laying prone for prolonged time accounts for neck pain. Technically good result at T11. L1 suboptimally treated, which may account for persistent pain. Also suspect there is some discomfort related to nature of
procedure itself. Would continue with conservative measures, oob as tolerated. Could potentially retreat L1 via the other pedicle if need be, but not a current consideration. Will continue to follow.
--- NOTE | 2024-06-28 12:01 | CM ---
CM following re: discharge planning.
Reviewed pt's chart, met with pt.
According to MD pt is medically stable to be discharged today. Pt stated she just spoke to the Dr and was told she will stay here for another day. Pt stated she does not feel well to leave the hospital.
Pt stated she will go to [facility]. A referral to [facility]. Per [facility] talent director they will not have a bed available till Sunday.
D/C plan: [facility] on Sunday06/30/24.
CM will follow to assist pt with discharge to [facility] when bed is available.
[2024-06-28 15:00] VITALS: BP 104/70
[2024-06-28 15:05] VITALS: BP 104/70
[2024-06-28] MEDS: LOVENOX 40 MG SC (17:34)
[2024-06-28] MEDS: XANAX 1.5 MG PO (21:02)
[2024-06-28 23:21] VITALS: BP 113/74
[2024-06-29 05:09] VITALS: BMI 19.5
[2024-06-29] MEDS: ROXICODONE 10 MG PO ×2 (06:36→18:17)
[2024-06-29 07:25] VITALS: BP 138/99
[2024-06-29] MEDS: FEOSOL 325 MG PO (09:03)
[2024-06-29] MEDS: MIRALAX 17 GRAMS PO ×2 (09:03→19:54)
[2024-06-29] MEDS: OCUVITE SOFTGEL 1 CAP PO (09:04)
[2024-06-29] MEDS: VITAMIN C 500 MG PO (09:04)
[2024-06-29] MEDS: PROZAC 10 MG PO (09:04)
[2024-06-29] MEDS: PROZAC 20 MG PO (09:04)
[2024-06-29] MEDS: FLEXERIL 5 MG PO (09:04)
[2024-06-29] MEDS: XANAX 0.25 MG PO (09:04)
[2024-06-29] MEDS: SENOKOT-S 2 TABLET PO ×2 (09:04→19:54)
[2024-06-29] MEDS: LIDOCAINE 4% PATCH 1 PATCH TOPICAL (09:04)
[2024-06-29] MEDS: PROTONIX 40 MG PO (09:04)
[2024-06-29] MEDS: VITAMIN B-12 1000 MCG PO (09:04)
--- NOTE | 2024-06-29 12:13 | W.PN.HOSP.TC ---
Today's Communication/Plan
-
CM - bed available on Mon
Assessment / Plan
Assessment / Plan
83yo F with PMHx of lumbar spine Sx, Hx of vertebral compression Fx, chronic ambulatory dysfunction, HLD, GERD, SANDIE came with worsening of lower back pain associated with pain radiating towards abdomen. She was managed for the same in May 2024
when was seen by NeuroSx and recommended for LSO brace on ambulation and had steroid injection. IRAD did vertebroplasty of T11, L1 on 06/27/24 and patient medically appropriate for d/c to rehab. patient unfortunately not complaint with LSO brace or
abdominal binder
A/P:
#Acute T11 compression Fx, most likely 2/2 osteoporosis
#Old T10, L1, L3, L5 compression Fx
#Acute on chronic ambulatory deficiency
#Transient LUE numbness
MRI cervical spine: Multilevel discogenic, facet, and uncinate degenerative changes. Variable central canal and foraminal stenosis. Mild cord compression. No intrinsic cervical cord signal alteration.
MRI lumbar spine: T11: New/Acute compression fracture with mild to moderate diminished stature. Mild retropulsion. Moderate to advanced central canal stenosis, and suggested mild cord compression.
NeuroSx consult: patient declined LSO, attempt abdominal binder
IRAD s/p vertebroplasty of T11, L1 on 06/27/24
pain mgmt
PT/OT: previously recommended rehab, but declined. now agreeable
Outpatient eval for Bisphosphonates therapy by PCP
patient unfortunately not complaint with LSO brace or abdominal binder - emphasized importance of back support on ambulation, patient verbalized understanding of the instructions
#constipation
resolved
#Asymptomatic bacteriuria
Ucx neg
no leukocytosis or fevers
#elevated Alk.phos
#Elevated ALT
resolving
Hold NSAIDs, acetaminophen
RUQ US: No evidence of cholelithiasis, gallbladder wall thickening or intrahepatic biliary tract dilatation. Negative sonographic Ortiz's sign. Common bile duct top normal in caliber.
follow LFT
hepatitis panel neg
#Anxiety d/o
#SANDIE
#Chronic HFpEF
#Essential HTN
#HLD
#Overactive bladder
cont home meds
DVT ppx lovenox
DNR/DNI
I have spent at least 38min reviewing chart, test results and providing direct patient care
Anticipated Discharge: Within 24 hours
Subjective/Interval History
-
Date of Service: June 29, 2024
Objective Data
-
Vital Signs:
Vital Signs
Temp Pulse Resp BP Pulse Ox
97.3 F 97 18 138/99 94
06/29/24 07:25 06/29/24 07:25 06/29/24 07:25 06/29/24 07:25 06/29/24 09:50
I&O
06/28/24 06/29/24 06/30/24
06:59 06:59 06:59
Intake Total 480 / 480
Balance 480 / 480
Review of Systems
-
History Source: Patient
All other systems: Reviewed and negative
Physical Exam
-
General: Comfortable
Neuro: Awake, Alert, Oriented and AO x 3
Psych: Calm
[2024-06-29] MEDS: XANAX 0.5 MG PO (12:38)
[2024-06-29 15:35] VITALS: BP 141/78
[2024-06-29] MEDS: LOVENOX 40 MG SC (17:32)
[2024-06-29] MEDS: XANAX 1.5 MG PO (21:40)
[2024-06-29 23:20] VITALS: BP 112/78
[2024-06-30] MEDS: ROXICODONE 10 MG PO ×3 (02:38→16:31)
[2024-06-30 05:02] VITALS: BMI 19.6
[2024-06-30 07:25] VITALS: BP 139/95
[2024-06-30] MEDS: FEOSOL 325 MG PO (08:55)
[2024-06-30] MEDS: FLEXERIL 5 MG PO (08:55)
[2024-06-30] MEDS: MIRALAX 17 GRAMS PO (08:56)
[2024-06-30] MEDS: LIDOCAINE 4% PATCH 1 PATCH TOPICAL (08:56)
[2024-06-30] MEDS: OCUVITE SOFTGEL 1 CAP PO (08:56)
[2024-06-30] MEDS: SENOKOT-S 2 TABLET PO (08:57)
[2024-06-30] MEDS: PROTONIX 40 MG PO (08:57)
[2024-06-30] MEDS: XANAX 0.25 MG PO (08:57)
[2024-06-30] MEDS: PROZAC 20 MG PO (08:57)
[2024-06-30] MEDS: PROZAC 10 MG PO (08:57)
[2024-06-30] MEDS: VITAMIN C 500 MG PO (08:57)
[2024-06-30] MEDS: VITAMIN B-12 1000 MCG PO (08:57)
[2024-06-30 11:13] VITALS: BP 123/82
[2024-06-30] MEDS: TYLENOL 1000 MG PO (11:20)
[2024-06-30 12:13] LABS: ALT (SGPT) 33 U/L (0-35); AST (SGOT) 18 U/L (14-36); Albumin 3.5 g/dl (3.5-5.0); Alkaline Phosphatase 109 U/L (38-126); Blood Urea Nitrogen 18 mg/dl (7-17); Calcium 9.6 mg/dl (8.4-10.2); Carbon Dioxide 27 mmol/L (22-30); Chloride 104 mmol/L (98-107); Direct Bilirubin 0.2 mg/dl (0.0-0.4); Estimated Creatinine Clearance 55 ml/min; Glucose 124 mg/dl (70-99); Potassium 3.7 mmol/L (3.5-5.1); Sodium 139 mmol/L (135-145); Total Bilirubin 0.6 mg/dl (0.2-1.3); Total Protein 6.5 g/dl (6.3-8.2); eGFR > 60.00
[2024-06-30] MEDS: XANAX 0.5 MG PO (13:09)
--- NOTE | 2024-06-30 14:26 | CM ---
entered order for discharge
Laura from [facility] bed available .
PT Ot completed
Mel Rivera [facility] rep obtained auth From 06/30/24 to 07/04/24 for 5 skilled days. auth number [id number].
Patient, MD and Laura at [facility]
Acute care ambulance auth [id number] .As per Mel Rivera pt has a $250 .00 copay . Pt notified of copay . Pt said she is a member of [facility] . Spoke with [facility] they said they only do emergency calls no picket labor union from
hospital.
Pt notified she agrees with dc via ambulance.
[facility]
report [phone]
fax [phone]
PLAN To [facility]
--- NOTE | 2024-06-30 15:08 | W.PN.HOSP.TC ---
Today's Communication/Plan
-
Discharge
Assessment / Plan
Assessment / Plan
83-year-old admitted with worse back pain and pain radiating towards abdomen patient was seen in May 2024 by neurosurgery and recommended LSO brace and had a steroid injection. Patient not compliant with LSO brace or abdominal binder
CVS: S1-S2 normal
Chest: CTA B/L
Abdomen: Soft, NT / Bowel sounds present
Extremities: No edema
[employer]: Non focal exam
# Acute T11 compression fracture secondary to osteoporosis
Old T10, L3, L5 compression fracture
Status post T11 and L1 vertebroplasty on 06/27/2024. Patient not feeling much better. Procedure was technically challenging secondary to osteoporosis and distorted anatomy but good result at T11 and L1 suboptimal treatment.
Transient left upper extremity numbness
MRI S-[id number] discogenic facet and uncinate DJD variable central canal and foraminal stenosis. Mild cord compression
MRI L-spine-T11 new to acute compression fracture with mild to moderate diminished stature. Mild retropulsion. Moderate to advanced central canal stenosis and suggested mild cord compression.
Neurosurgery evaluated- APpreciate
Pain control
Outpatient bisphosphonate treatment
# Slightly elevated ALT-ultrasound no evidence of cholelithiasis gallbladder wall thickening or intrahepatic biliary dilatation. Negative sonographic Ortiz sign. CBD duct normal in caliber
Hepatitis panel negative
LFT normalized
Added Tylenol.
# Anxiety-as needed alprazolam, fluoxetine
# Chronic HFpEF-not on JERROD or goal-directed therapy as outpatient for unclear reasons. Possibly secondary to orthostatic hypotension
# History of orthostatic hypotension
# Iron deficiency anemia-continue p.o. iron
# Constipation-resolved
# Asymptomatic bacteriuria
# GERD-continue PPI
# History of ulcerative colitis , was on Humira. NOw stopped.
# Ambulatory dysfunction
# Overactive bladder with chronic incontinence on Gemtesa
# DVT prophylaxis-Lovenox
# DNR
D/W rn
d/w Case management.
Anticipated Discharge: Today
Subjective/Interval History
-
Date of Service: June 30, 2024
Objective Data
-
Labs:
Laboratory Results
06/30/24
11:19
Sodium 139
Potassium 3.7
Chloride 104
Carbon Dioxide 27
BUN 18 H
Creatinine 0.5 L
Glucose 124 H
Calcium 9.6
Total Bilirubin 0.6
AST 18
ALT 33
Alkaline Phosphatase 109
Vital Signs:
Vital Signs
Temp Pulse Resp BP Pulse Ox
97.7 F 100 18 123/82 96
06/30/24 11:13 06/30/24 11:13 06/30/24 11:13 06/30/24 11:13 06/30/24 11:13
I&O
06/29/24 06/30/24 07/01/24
06:59 06:59 06:59
Intake Total 480 / 480 960 / 960
Balance 480 / 480 960 / 960
--- NOTE | 2024-06-30 15:11 | W.DS.TRANS ---
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
-
Discharge Instructions:
Sleep Apnea Risk Low
Discharge Diagnosis/Procedures T11 vertebral compression fracture
Status post vertebroplasty T11 and L1 on
2024
Old T10, L3, L5 compression fractures
Constipation
Anxiety
Anemia
Chronic HFpEF
Hypertension
Overactive bladder
Diet Low Cholesterol
Activity As tolerated
Additional Activity LSO, abdominal binder
Driving Restrictions No driving
Blood Work CBC, CMP 3-4 days
Other Services PT,OT
Instructions:
Stand-Alone Forms:
Changes to Home Medications: Yes
Discharge Medications:
DC Medications w/original date entered in [facility]
cyanocobalamin (vitamin B-12) 1,000 mcg tablet 1,000 mcg PO DAILY Supplement 10/23/23
ascorbic acid (vitamin C) 500 mg tablet (Vitamin C) 500 mg PO DAILY Supplement 06/01/24
ferrous sulfate 325 mg (65 mg iron) tablet 325 mg PO DAILY Supplement 06/01/24
fluoxetine 10 mg capsule 10 mg PO DAILY Mental Health/Anxiety 06/01/24
sennosides 8.6 mg-docusate sodium 50 mg tablet (Senna Plus) 2 tab-cap PO HS Constipation 06/01/24
vibegron 75 mg tablet (Gemtesa) 75 mg PO DAILY OAB 06/01/24
vitamins A,C,Z-umdv-wmxudq 2,148 mcg-113 mg-45 mg-17.4 mg tablet (PreserVision AREDS) 1 tab PO DAILY Supplement 06/01/24
cyclobenzaprine 5 mg tablet 5 mg PO DAILY Muscle Spasms 06/17/24
fluoxetine 20 mg capsule 20 mg PO DAILY Mental Health/Anxiety 06/17/24
alprazolam 0.5 mg tablet 0.25 mg (1/2 x 0.5 mg) PO DAILY Mental Health/Anxiety #3 tabs 06/28/24
alprazolam 0.5 mg tablet 0.5 mg PO NOON Mental Health/Anxiety #3 tabs 06/28/24
alprazolam 0.5 mg tablet 1.5 mg (3 x 0.5 mg) PO HS Mental Health/Anxiety #3 tabs 06/28/24
oxycodone 5 mg tablet 5 mg PO TIDPRN PRN severe pain #6 tabs 06/28/24
pantoprazole 40 mg tablet,delayed release 40 mg PO DAILY #30 tabs 06/28/24
acetaminophen 500 mg tablet (Tylenol Extra Strength) 1,000 mg (2 x 500 mg) PO Q8H Pain #30 tabs 06/30/24
Home Medication Changes
new
oxycodone 5 mg tablet 5 mg PO TIDPRN PRN severe pain #6 tabs 06/28/24
pantoprazole 40 mg tablet,delayed release 40 mg PO DAILY #30 tabs 06/28/24
acetaminophen 500 mg tablet (Tylenol Extra Strength) 1,000 mg (2 x 500 mg) PO Q8H Pain #30 tabs 06/30/24
Pending Results: No
[2024-06-30 15:39] VITALS: BP 127/90
--- NOTE | 2024-06-30 17:35 | W.DS.TRANS ---
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
-
Discharge Instructions:
Sleep Apnea Risk Low
Discharge Diagnosis/Procedures T11 vertebral compression fracture
Status post vertebroplasty T11 and L1 on
2024
Old T10, L3, L5 compression fractures
Constipation
Anxiety
Anemia
Chronic HFpEF
Hypertension
Overactive bladder
Diet Low Cholesterol
Activity As tolerated
Additional Activity LSO, abdominal binder
Driving Restrictions No driving
Blood Work CBC, CMP 3-4 days
Other Services PT,OT
Instructions:
Stand-Alone Forms:
Changes to Home Medications: Yes
Discharge Medications:
DC Medications w/original date entered in [employer]
cyanocobalamin (vitamin B-12) 1,000 mcg tablet 1,000 mcg PO DAILY Supplement 10/23/23
ascorbic acid (vitamin C) 500 mg tablet (Vitamin C) 500 mg PO DAILY Supplement 06/01/24
ferrous sulfate 325 mg (65 mg iron) tablet 325 mg PO DAILY Supplement 06/01/24
fluoxetine 10 mg capsule 10 mg PO DAILY Mental Health/Anxiety 06/01/24
sennosides 8.6 mg-docusate sodium 50 mg tablet (Senna Plus) 2 tab-cap PO HS Constipation 06/01/24
vibegron 75 mg tablet (Gemtesa) 75 mg PO DAILY OAB 06/01/24
vitamins A,C,N-ouex-tucqqw 2,148 mcg-113 mg-45 mg-17.4 mg tablet (PreserVision AREDS) 1 tab PO DAILY Supplement 06/01/24
cyclobenzaprine 5 mg tablet 5 mg PO DAILY Muscle Spasms 06/17/24
fluoxetine 20 mg capsule 20 mg PO DAILY Mental Health/Anxiety 06/17/24
alprazolam 0.5 mg tablet 0.25 mg (1/2 x 0.5 mg) PO DAILY Mental Health/Anxiety #3 tabs 06/28/24
alprazolam 0.5 mg tablet 0.5 mg PO NOON Mental Health/Anxiety #3 tabs 06/28/24
alprazolam 0.5 mg tablet 1.5 mg (3 x 0.5 mg) PO HS Mental Health/Anxiety #3 tabs 06/28/24
pantoprazole 40 mg tablet,delayed release 40 mg PO DAILY #30 tabs 06/28/24
acetaminophen 500 mg tablet (Tylenol Extra Strength) 1,000 mg (2 x 500 mg) PO Q8H Pain #30 tabs 06/30/24
oxycodone 10 mg tablet 10 mg PO Q6H PRN moderate pain #10 tabs 06/30/24
Home Medication Changes
Oxy increased
Pending Results: No
--- NOTE | 2024-06-30 19:36 | PTCARENOTE ---
IV discontinued. Report called to [facility]. Pt transported off the floor via ambulance stretcher with all belongings.
== END 2024-06-30 17:59 | DRG 516 ==
LOC: 4 EAST ACU 15:21
PROVIDERS: Emergency Medicine; Family Medicine; Internal Medicine; Physician Assistant; Radiology Diagnostic Radiology; ADMITTING PHYSICIAN Hospitalist; ATTENDING PHYSICIAN Hospitalist; EMERGENCY PHYSICIAN Student in an Organized Health Care Education/Training Program; FAMILY PHYSICIAN Physician Assistant; OTHER PHYSICIAN Neurological Surgery
PROC: 0QU03JZ Supplement Lumbar Vertebra with Synthetic Substitute, Percutaneous Approach (ICD-10-PCS; 2024-06-27)
PROC: 0PU43JZ Supplement Thoracic Vertebra with Synthetic Substitute, Percutaneous Approach (ICD-10-PCS; 2024-06-27)
DX: M80.08XA Age-related osteoporosis with current pathological fracture, vertebra(e), initial encounter for fracture (principal); I50.32 Chronic diastolic (congestive) heart failure; K21.9 Gastro-esophageal reflux disease without esophagitis; I11.0 Hypertensive heart disease with heart failure; Z66 Do not resuscitate; K59.00 Constipation, unspecified; N32.81 Overactive bladder; N39.498 Other specified urinary incontinence; I95.1 Orthostatic hypotension; R82.71 Bacteriuria; R74.01 Elevation of levels of liver transaminase levels; M40.205 Unspecified kyphosis, thoracolumbar region; F41.9 Anxiety disorder, unspecified; D50.9 Iron deficiency anemia, unspecified; E78.00 Pure hypercholesterolemia, unspecified; Z87.891 Personal history of nicotine dependence; Z79.899 Other long term (current) drug therapy; Z88.8 Allergy status to other drugs, medicaments and biological substances
CPT/HCPCS: 22510; 22512; 72141; 72148; 74177; 76380; 76700; 80053; 80076; 81003; 81015; 82248; 83690; 85025; 85027; 85610; 85730; 86704; 86706; 86803; 87086; 87340; 92523; 96374; 96375; 97116; 97163; 97167; 97530; 97535; 99285; J1610; Q9967

== ENCOUNTER → 2024-07-03 12:30 | Outpatient (REF) | payer OTHER, SELFPAY ==
[2024-07-03 13:33] LABS: % Eosinophils 1.3 % (0-6); % Immature Granulocytes 4.1 % (0-0.5); % Lymphocytes 28.2 % (20.5-51.1); % Monocytes 8.3 % (1.7-9.3); % Neutrophils 57.1 % (42.2-75.2); Absolute Basophils 0.1 10^3/uL (0-0.2); Absolute Eosinophils 0.1 10^3/uL (0-0.7); Absolute Immature Granulocytes 0.3 10^3/uL (0-0.05); Absolute Lymphocytes 2.3 10^3/uL (1.2-3.4); Absolute Monocytes 0.7 10^3/uL (0.1-0.6); Absolute Neutrophils 4.7 10^3/uL (1.4-6.5); Hemoglobin 11.6 g/dL (12.0-16.0); Mean Corp Hgb Conc. 33.1 g/dL (33.0-37.0); Mean Corpuscular Hgb 31.8 pg (27.0-31.0); Mean Corpuscular Volume 95.9 fL (81.0-99.0); Mean Platelet Volume 10.8 fL (7.4-10.4); Nucleated Red Blood Cells % 0 %; Platelet Count 268 10^3/uL (130-400); Red Blood Cell Count 3.65 10^6/uL (4.20-5.40); Red Cell Dist. Width 14.4 % (11.5-14.5); White Blood Cell Count 8.3 10^3/uL (4.8-10.8)
[2024-07-03 13:46] LABS: ALT (SGPT) 25 U/L (0-35); AST (SGOT) 16 U/L (14-36); Alkaline Phosphatase 92 U/L (38-126); Blood Urea Nitrogen 16 mg/dl (7-17); Calcium 9.2 mg/dl (8.4-10.2); Carbon Dioxide 28 mmol/L (22-30); Chloride 107 mmol/L (98-107); Glucose 95 mg/dl (70-99); Sodium 140 mmol/L (135-145); Total Bilirubin 0.4 mg/dl (0.2-1.3); Total Protein 5.8 g/dl (6.3-8.2); eGFR > 60.00
== END ==
LOC: OLABP 12:30
PROVIDERS: ATTENDING PHYSICIAN Family Medicine
DX: Z47.1 Aftercare following joint replacement surgery (principal); F41.9 Anxiety disorder, unspecified; I50.30 Unspecified diastolic (congestive) heart failure; D50.9 Iron deficiency anemia, unspecified; I10 Essential (primary) hypertension; E78.5 Hyperlipidemia, unspecified; H35.30 Unspecified macular degeneration; I95.1 Orthostatic hypotension; N32.81 Overactive bladder; K21.9 Gastro-esophageal reflux disease without esophagitis; R26.2 Difficulty in walking, not elsewhere classified
CPT/HCPCS: 36415; 80053; 85025

== ENCOUNTER 2024-07-13 09:20 | Emergency (ER) | payer OTHER, SELFPAY ==
[2024-07-13] VITALS (9 sets, daily range): BP systolic 136–165; BP diastolic 85–106; PULSE 102–111; O2SAT 89–94; BMI 19.0
--- NOTE | 2024-07-13 09:49 | ED.GENMED ---
History of Present Illness
General
Chief Complaint: Fall
Source: patient
Exam Limitations: none
Time Seen by Provider: 07/13/24 09:36
History of Present Illness
History of Present Illness:
83-year-old female presents via EMS from home after a fall she sustained overnight. She was discharged from [facility] yesterday. She states her insurance ran out. She lives by herself at home. She states she was trying to maneuver around at
home and her legs just would not work. She slid down to the floor and was on the floor for several hours before a visitor came and found her. Visitor came and helped her up into the bed and she slept. She complains of acute on chronic back pain
since this episode. She has had epidural steroid injections. She has known compression fractures. She was trying to use her walker without relief.
Past History
Past History
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
ED Past Surgical History: Orthopedic (Lumbar fusion, )
Social History
Tobacco: Non-smoker
Alcohol: Daily (Martini 1 )
Drug: Other (Xanax addiction)
Personal: ( in [facility], patient lives alone)
Living: alone
Employment: Retired
Family History
Family History: Other ( Noncontributory)
Phy Exam
Physical Exam
Physical Exam:
General: Well-appearing female no acute respiratory distress
HEENT: Normocephalic atraumatic
Heart: Regular rate and rhythm
Lungs: Clear no wheeze
Abdomen is soft nontender nondistended
Musculoskeletal exam: Diffuse tenderness about the lumbar spine. Good range of motion upper and lower extremities without deformities.
Extremities: No cyanosis or edema
Course
Orders/Labs/Results
Orders:
Orders
07/13/24 09:47
Acetaminophen [Tylenol] 1,000 mg PO NOW STA
CR Lumbar Spine 2 Or 3 Views Urgent
Comment:
Reason For Exam: back pain
07/13/24 09:53
Case Management Consult ONCE
Case Management Consult: Discharge Planning
Physical Therapy Consult [Pt Eval And Treat] Urgent
Activity Level: Ambulate
07/13/24 09:57
CPK [Creatine Phosphokinase] Urgent
Complete Blood Count/With Diff Urgent
Comprehensive Metabolic Panel Urgent
07/13/24 10:15
Occupational Therapy Consult [Ot Eval And Treat] Urgent
07/13/24 11:28
HYDROmorphone [Dilaudid] 0.5 mg IV NOW STA
Abnormal Lab Results
07/13/24
09:57
MCHC 32.3 L g/dL
(33.0-37.0)
Abs Immat Gran (auto) 0.1 H 10^3/uL
(0-0.05)
Absolute Neuts (auto) 7.0 H 10^3/uL
(1.4-6.5)
Absolute Monos (auto) 0.8 H 10^3/uL
(0.1-0.6)
Immature Gran % 1.0 H %
(0-0.5)
Lymphocytes % 17.2 L %
(20.5-51.1)
Creatinine 0.5 L mg/dL
(0.6-1.0)
Creatine Kinase 24 L U/L
(30-135)
Albumin 3.4 L g/dl
(3.5-5.0)
07/13/24 09:57
07/13/24 09:57
Vital Signs
Initial and Last Documented VS:
Initial Vital Signs
Temp Pulse Resp BP Pulse Ox
97.9 F 96 18 155/101 96
07/13/24 09:22 07/13/24 09:22 07/13/24 09:22 07/13/24 09:22 07/13/24 09:22
Last Documented Vital Signs
Temp Pulse Resp BP Pulse Ox
97.9 F 96 18 136/92 93
07/13/24 09:22 07/13/24 09:22 07/13/24 09:22 07/13/24 12:05 07/13/24 12:15
MDM/Problems Addressed
Differential Diagnosis Includes:
Patient with generalized weakness and fall. No injury sustained from the fall but she does have increased lower back pain. X-rays pending. Will check labs and CPK. Patient was just discharged from [facility] yesterday. Functionally, the
patient is having a hardship at home on her own. Will consult physical therapy
*Critical Care Note
Total Time (30-74mins, 75-104mins- exclusive of procedures): Not Applicable
Update Note
Update Note:
Labs reviewed x-ray demonstrates chronic compression fractures. Discussed with physical therapy occupational therapy and case management. Patient cannot function independently at home. She was just discharged from [facility]. firmware manager
states that [facility] has accepted the patient back. We will delay discharge to the facility
ED Attending Note
-
Portions of this chart may have been created with voice recognition software.� Occasional wrong word or��sound alike� substitutions may have occurred due to the inherent limitations of voice recognition software.
Discharge Plan
Departure
Patient Disposition: Acute Rehab Facility
Date of Disposition: 07/13/24
Time of Disposition: 13:31
Patient with high blood pressure during this ER visit?: No
Discharge Problem:
Fall
Prescriptions:
No Action
cyanocobalamin (vitamin B-12) 1,000 mcg tablet
1,000 mcg PO DAILY
sennosides-docusate sodium [Senna Plus] 8.6-50 mg Tablet
2 tab-cap PO HS
ascorbic acid (vitamin C) [Vitamin C] 500 mg Tablet
500 mg PO DAILY
ferrous sulfate 325 mg (65 mg iron) Tablet
325 mg PO DAILY
fluoxetine 10 mg Capsule
10 mg PO DAILY
Patient Comments:
06/17/24:take with 20mg for total of 30mg
PreserVision AREDS 2,148 mcg-113 mg-45 mg-17.4mg Tablet
1 tab PO DAILY
Gemtesa 75 mg Tablet
75 mg PO DAILY
fluoxetine 20 mg Capsule
20 mg PO DAILY
Patient Comments:
06/17/24: take with 10mg cap for total of 30mg
cyclobenzaprine 5 mg Tablet
5 mg PO DAILY
pantoprazole 40 mg Tablet,Delayed Release (Dr/Ec)
40 mg PO DAILY Qty: 30 0RF
alprazolam 0.5 mg Tablet
0.25 mg PO DAILY Qty: 3 0RF
alprazolam 0.5 mg Tablet
1.5 mg PO HS Qty: 3 0RF
alprazolam 0.5 mg Tablet
0.5 mg PO NOON Qty: 3 0RF
acetaminophen [Tylenol Extra Strength] 500 mg tablet
1,000 mg PO Q8H Qty: 30 0RF
oxycodone 10 mg tablet
10 mg PO Q6H PRN (Reason: moderate pain) Qty: 10 0RF
Referrals:
UNKNOWN - PT DOES,NOT KNOW [Family Provider] -
Activity Restrictions/Additional Instructions:
Continue current medication regimen. Return if needed
Interventions
Interventions:
*Risk Screen - Suicide Last Done: 07/13/24 09:20
*General Assessment Last Done: 07/13/24 09:20
*Neglect/Abuse Screening Last Done: 07/13/24 09:20
*ED- Fall Risk Assessment Last Done: 07/13/24 09:20
*ED COVID-19 Vaccine History Last Done: 07/13/24 09:20
ED-Musculoskeletal Assessment Last Done: 07/13/24 09:20
ED- Neurological Assessment Last Done: 07/13/24 09:20
ED-Skin Assessment Last Done: 07/13/24 09:20
Discharge Date and Time
Print Language: FAROESE
[2024-07-13] MEDS: TYLENOL 1000 MG PO (10:09)
[2024-07-13 10:12] LABS: % Basophils 0.6 % (0-2); % Eosinophils 0.9 % (0-6); % Lymphocytes 17.2 % (20.5-51.1); % Monocytes 7.8 % (1.7-9.3); % Neutrophils 72.5 % (42.2-75.2); Absolute Basophils 0.1 10^3/uL (0-0.2); Absolute Eosinophils 0.1 10^3/uL (0-0.7); Absolute Immature Granulocytes 0.1 10^3/uL (0-0.05); Absolute Lymphocytes 1.7 10^3/uL (1.2-3.4); Absolute Monocytes 0.8 10^3/uL (0.1-0.6); Hematocrit 42.1 % (37.0-47.0); Hemoglobin 13.6 g/dL (12.0-16.0); Mean Corp Hgb Conc. 32.3 g/dL (33.0-37.0); Mean Corpuscular Hgb 30.9 pg (27.0-31.0); Mean Corpuscular Volume 95.7 fL (81.0-99.0); Mean Platelet Volume 9.5 fL (7.4-10.4); Nucleated Red Blood Cells % 0 %; Platelet Count 305 10^3/uL (130-400); Red Cell Dist. Width 14.1 % (11.5-14.5); White Blood Cell Count 9.7 10^3/uL (4.8-10.8)
[2024-07-13 10:26] LABS: ALT (SGPT) 13 U/L (0-35); AST (SGOT) 19 U/L (14-36); Albumin 3.4 g/dl (3.5-5.0); Alkaline Phosphatase 113 U/L (38-126); Blood Urea Nitrogen 16 mg/dl (7-17); Calcium 9.7 mg/dl (8.4-10.2); Carbon Dioxide 29 mmol/L (22-30); Chloride 103 mmol/L (98-107); Creatine Phosphokinase 24 U/L (30-135); Estimated Creatinine Clearance 58 ml/min; Glucose 95 mg/dl (70-99); Sodium 139 mmol/L (135-145); Total Bilirubin 0.7 mg/dl (0.2-1.3); Total Protein 6.6 g/dl (6.3-8.2); eGFR > 60.00
--- NOTE | 2024-07-13 10:45 | CM ---
Addendum entered by [facility] 07/13/24 14:09:
Auth obtained from [facility] for SNF/BLS
Update to pt and son bedside
SNF- [id number] 5 days 07/13-07/17 LCD/NRD (p) [phone]
BLS Acute Care- [id number]
DC paperwork faxed to SNF and update provided to nursing trice/Jeffery and JSAE/Carmelita Arias
Discharge Disposition- [facility] via [facility] 1430 pickup
Phone- [phone]
Addendum entered by [facility] 07/13/24 12:35:
Pt accepted back to [facility]/J[facility]
Message left with [facility] to complete auth- awaiting call back
[facility] [id number]
Loree Gottlieb [phone]
Original Note:
ED CM consulted for dispo planning
Met with pt and son/Almas bedside
Pt released from [facility] day prior where she there for STR
Was set up with [facility]
Fell at home upon return and needed assist off of floor
Pt typically resides alone in a 2SH
She has a 1st floor setup and stairglide to 2nd floor
Pt is typically indep with her ADLs drives+
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
Pt hopeful to return back to [facility]
Multiple discussions with [facility]- initially denied re-admit today due to weekend
Requested reconsideration and outreach to their on-call admin
Awaiting response
[facility] has not beds today, awaiting [facility] and [facility] response
SNF recs but therapy and pt will require [employer] auth
Discharge Disposition- SNF pending auth
[2024-07-13] MEDS: DILAUDID 0.5 MG IV (12:00)
== END 2024-07-13 14:30 ==
LOC: EMR 09:20
PROVIDERS: Physician Assistant; EMERGENCY PHYSICIAN Emergency Medicine
DX: R53.1 Weakness (principal); M54.50 Low back pain, unspecified; W19.XXXA Unspecified fall, initial encounter; M48.50XA Collapsed vertebra, not elsewhere classified, site unspecified, initial encounter for fracture; F41.9 Anxiety disorder, unspecified; F32.A Depression, unspecified; I11.0 Hypertensive heart disease with heart failure; I50.9 Heart failure, unspecified; E78.00 Pure hypercholesterolemia, unspecified; K52.9 Noninfective gastroenteritis and colitis, unspecified; H35.30 Unspecified macular degeneration; G89.29 Other chronic pain; Z60.2 Problems related to living alone; Z59.71 Insufficient health insurance coverage; F13.20 Sedative, hypnotic or anxiolytic dependence, uncomplicated; Z98.1 Arthrodesis status; Z88.8 Allergy status to other drugs, medicaments and biological substances; Z91.040 Latex allergy status
CPT/HCPCS: 99284; 96374; 72100; 80053; 82550; 85025

== ENCOUNTER → 2024-07-23 11:22 | Outpatient (REF) | payer OTHER, SELFPAY ==
[2024-07-23 12:57] LABS: % Basophils 0.5 % (0-2); % Eosinophils 1.7 % (0-6); % Immature Granulocytes 0.9 % (0-0.5); % Lymphocytes 27.8 % (20.5-51.1); % Monocytes 9.3 % (1.7-9.3); % Neutrophils 59.8 % (42.2-75.2); Absolute Eosinophils 0.1 10^3/uL (0-0.7); Absolute Immature Granulocytes 0.1 10^3/uL (0-0.05); Absolute Lymphocytes 2.2 10^3/uL (1.2-3.4); Absolute Monocytes 0.8 10^3/uL (0.1-0.6); Absolute Neutrophils 4.8 10^3/uL (1.4-6.5); Hematocrit 39.4 % (37.0-47.0); Mean Corp Hgb Conc. 30.5 g/dL (33.0-37.0); Mean Corpuscular Hgb 30.5 pg (27.0-31.0); Mean Corpuscular Volume 100.3 fL (81.0-99.0); Mean Platelet Volume 10.4 fL (7.4-10.4); Nucleated Red Blood Cells % 0 %; Platelet Count 286 10^3/uL (130-400); Red Blood Cell Count 3.93 10^6/uL (4.20-5.40); Red Cell Dist. Width 14.1 % (11.5-14.5); White Blood Cell Count 8.1 10^3/uL (4.8-10.8)
[2024-07-23 13:12] LABS: ALT (SGPT) 14 U/L (0-35); AST (SGOT) 18 U/L (14-36); Albumin 3.3 g/dl (3.5-5.0); Alkaline Phosphatase 118 U/L (38-126); Blood Urea Nitrogen 20 mg/dl (7-17); Calcium 8.8 mg/dl (8.4-10.2); Carbon Dioxide 28 mmol/L (22-30); Chloride 109 mmol/L (98-107); Glucose 88 mg/dl (70-99); Potassium 4.1 mmol/L (3.5-5.1); Sodium 138 mmol/L (135-145); Total Bilirubin 0.4 mg/dl (0.2-1.3); Total Protein 6.1 g/dl (6.3-8.2); eGFR > 60.00
== END ==
LOC: OLABP 11:22
PROVIDERS: ATTENDING PHYSICIAN Family Medicine
DX: Z47.1 Aftercare following joint replacement surgery (principal); F41.9 Anxiety disorder, unspecified; S22.089A Unspecified fracture of T11-T12 vertebra, initial encounter for closed fracture; D50.9 Iron deficiency anemia, unspecified; I50.30 Unspecified diastolic (congestive) heart failure; I95.1 Orthostatic hypotension; N32.81 Overactive bladder; K21.9 Gastro-esophageal reflux disease without esophagitis; R26.2 Difficulty in walking, not elsewhere classified
CPT/HCPCS: 36415; 80053; 85025

== ENCOUNTER 2024-08-14 04:44 | Emergency (ER) | payer OTHER, SELFPAY ==
[2024-08-14] VITALS (16 sets, daily range): BP systolic 111–172; BP diastolic 56–109; PULSE 102–110; BMI 18.8
[2024-08-14 06:42] LABS: % Basophils 0.4 % (0-2); % Eosinophils 0.5 % (0-6); % Immature Granulocytes 1.3 % (0-0.5); % Lymphocytes 15.9 % (20.5-51.1); % Monocytes 11.2 % (1.7-9.3); % Neutrophils 70.7 % (42.2-75.2); Absolute Basophils 0.1 10^3/uL (0-0.2); Absolute Eosinophils 0.1 10^3/uL (0-0.7); Absolute Immature Granulocytes 0.2 10^3/uL (0-0.05); Absolute Lymphocytes 1.8 10^3/uL (1.2-3.4); Absolute Monocytes 1.3 10^3/uL (0.1-0.6); Absolute Neutrophils 7.9 10^3/uL (1.4-6.5); Hematocrit 44.3 % (37.0-47.0); Hemoglobin 14.1 g/dL (12.0-16.0); Mean Corp Hgb Conc. 31.8 g/dL (33.0-37.0); Mean Corpuscular Hgb 30.3 pg (27.0-31.0); Mean Corpuscular Volume 95.3 fL (81.0-99.0); Nucleated Red Blood Cells % 0 %; Platelet Count 310 10^3/uL (130-400); Red Blood Cell Count 4.65 10^6/uL (4.20-5.40); Red Cell Dist. Width 13.2 % (11.5-14.5); White Blood Cell Count 11.2 10^3/uL (4.8-10.8)
--- NOTE | 2024-08-14 07:17 | ED.MUSCINJ ---
HPI-Injury
<[facility] - Last Filed: 08/14/24 14:38>
General
Chief Complaint: Fall
Source: patient
Exam Limitations: none
Time Seen by Provider: 08/14/24 06:35
History of Present Illness-Injury
Initial Injury comments:
This is an 83 y/o F who is a poor historian and unable to recall medical history, who presents via EMS with an unwitnessed fall late last night. She reports folding towels in the bathroom when she went 'flying into the shower door'. She reports a
sudden onset of dizziness and falling. She reports falling many times in the past year and has generalized body aches as a result. She reports a head strike, denies LOC. Patient endorses an 8/10 dull headache localized to the occipital region as a
result of fall. She also fell on her right hip and has now has localized pain. Endorses limited ROM due to pain. She has a life alert and reports pressing the button. She has been experiencing visual hallucinations of her who has passed. She
denies auditory hallucinations, LH, blurred vision, chest pain, palpitations, shortness of breath, nausea, vomiting, incontinence or syncope.
She lives alone and has no interest in an assisted living facility.
Past History
<Beto Sommers [facility] - Last Filed: 08/14/24 14:38>
Past History
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
ED Past Surgical History: Orthopedic (Lumbar fusion, )
Social History
Tobacco: Non-smoker
Alcohol: Daily (Martini 1 )
Drug: Other (Xanax addiction)
Personal: ( in shelter, patient lives alone)
Living: alone
Employment: Retired
Family History
Family History: Other ( Noncontributory)
Review of Systems
<Beto Sommers [facility] - Last Filed: 08/14/24 14:38>
Review of Systems
EENT: Reports no symptoms
Respiratory: Reports no symptoms
Cardiac: Reports no symptoms
ABD/GI: Reports no symptoms
: Reports no symptoms
Musculoskeletal: Reports joint pain, muscle stiffness, neck pain and back pain
Skin: Reports no symptoms
Neurological: Reports headache
Endocrine: Reports no symptoms
Hematologic/Lymphatic: Reports bruising
Psychiatric: Reports hallucinations
Phy Exam
<Beto Sommers [facility] - Last Filed: 08/14/24 14:38>
General Physical Exam
General Presentation: no apparent distress
General age: appears stated age
General Skin: dry
General Habitus: elderly and frail
General Mental: alert
General Hydration: dry mucous membranes and poor skin turgor
ENT Exam
ENT Exam: EOMI and normocephalic
Eye Exam
Eye Exam: PERRL and EOMI
Cardiovascular Exam
Cardiovascular Exam: tachycardia
Heart Sounds: normal
Pulmonary Exam
Pulmonary Exam: lungs clear and no respiratory distress
Gastrointestinal Exam
Gastrointestinal Exam: non tender
Neurological Exam
Neurological Exam: alert, oriented x3, CN II-XII intact, no sensory deficits and speech normal
Motor
Bilateral upper extremities: 4
Bilateral lower extremities: 4
Musculoskeletal Exam
Musculoskeletal Exam: neck pain
Injury Course
<Beto Sommers [facility] - Last Filed: 08/14/24 14:38>
Orders/Labs/Results
Orders:
Orders
08/14/24 04:54
Electrocardiogram (*1) Urgent
Reason for Study: Fatigue / Weakness
CT Cervical Spine W/o Iv Contr Urgent
Comment:
Reason For Exam: fall with head strike
CT Head W/o Iv Contrast Urgent
Comment:
Reason For Exam: fall with head strike
08/14/24 04:55
EKG- Treatment ONCE
08/14/24 05:12
Complete Blood Count/With Diff Urgent
Comprehensive Metabolic Panel Urgent
Creatine Phosphokinase Urgent
08/14/24 07:16
Hip, Right 2-3 Views [CR Hip - RT w/wo Pel 2-3 Vw*] Urgent
Comment:
Reason For Exam: pain after a fall
Include a pelvis x-ray?: Yes
08/14/24 07:37
0.9% Sodium Chloride 500 ml [Nss] 500 ml IV BOLUS
08/14/24 09:14
Case Management Consult ONCE
Case Management Consult: Discharge Planning
08/14/24 09:15
Physical Therapy Consult [Pt Eval And Treat] Urgent
Activity Level: As Tolerated
08/14/24 10:10
Alprazolam [Xanax] 0.25 mg PO NOW STA
08/14/24 11:59
Acetaminophen [Tylenol] 650 mg .ROUTE .STK-MED ONE
08/14/24 12:07
Acetaminophen [Tylenol] 650 mg PO NOW STA
08/14/24 12:59
Occupational Therapy Consult [Ot Eval And Treat] Stat
08/14/24 Dinner
Regular
At Your Request: Limited, Injection Molding Machine Tender Required
Does patient need a safe tray?: No
Abnormal Lab Results
08/14/24
05:12
WBC 11.2 H 10^3/uL
(4.8-10.8)
MCHC 31.8 L g/dL
(33.0-37.0)
MPV 11.0 H fL
(7.4-10.4)
Abs Immat Gran (auto) 0.2 H 10^3/uL
(0-0.05)
Absolute Neuts (auto) 7.9 H 10^3/uL
(1.4-6.5)
Absolute Monos (auto) 1.3 H 10^3/uL
(0.1-0.6)
Immature Gran % 1.3 H %
(0-0.5)
Lymphocytes % 15.9 L %
(20.5-51.1)
Monocytes % 11.2 H %
(1.7-9.3)
BUN 20 H mg/dl
(7-17)
Creatinine 0.5 L mg/dL
(0.6-1.0)
Glucose 114 H mg/dl
(70-99)
08/14/24 05:12
08/14/24 05:12
Kieranlt;Kasi Oneal, DO - Last Filed: 08/18/24 22:49>
Orders/Labs/Results
Orders:
Orders
08/14/24 04:54
Electrocardiogram (*1) Urgent
Reason for Study: Fatigue / Weakness
CT Cervical Spine W/o Iv Contr Urgent
Comment:
Reason For Exam: fall with head strike
CT Head W/o Iv Contrast Urgent
Comment:
Reason For Exam: fall with head strike
08/14/24 04:55
EKG- Treatment ONCE
08/14/24 05:12
Complete Blood Count/With Diff Urgent
Comprehensive Metabolic Panel Urgent
Creatine Phosphokinase Urgent
08/14/24 07:16
Hip, Right 2-3 Views [CR Hip - RT w/wo Pel 2-3 Vw*] Urgent
Comment:
Reason For Exam: pain after a fall
Include a pelvis x-ray?: Yes
08/14/24 07:37
0.9% Sodium Chloride 500 ml [Nss] 500 ml IV BOLUS
08/14/24 09:14
Case Management Consult ONCE
Case Management Consult: Discharge Planning
08/14/24 09:15
Physical Therapy Consult [Pt Eval And Treat] Urgent
Activity Level: As Tolerated
08/14/24 10:10
Alprazolam [Xanax] 0.25 mg PO NOW STA
08/14/24 11:59
Acetaminophen [Tylenol] 650 mg .ROUTE .STK-MED ONE
08/14/24 12:07
Acetaminophen [Tylenol] 650 mg PO NOW STA
08/14/24 12:59
Occupational Therapy Consult [Ot Eval And Treat] Stat
08/14/24 Dinner
Regular
At Your Request: Limited, Injection Molding Machine Tender Required
Does patient need a safe tray?: No
Abnormal Lab Results
08/14/24
05:12
WBC 11.2 H 10^3/uL
(4.8-10.8)
MCHC 31.8 L g/dL
(33.0-37.0)
MPV 11.0 H fL
(7.4-10.4)
Abs Immat Gran (auto) 0.2 H 10^3/uL
(0-0.05)
Absolute Neuts (auto) 7.9 H 10^3/uL
(1.4-6.5)
Absolute Monos (auto) 1.3 H 10^3/uL
(0.1-0.6)
Immature Gran % 1.3 H %
(0-0.5)
Lymphocytes % 15.9 L %
(20.5-51.1)
Monocytes % 11.2 H %
(1.7-9.3)
BUN 20 H mg/dl
(7-17)
Creatinine 0.5 L mg/dL
(0.6-1.0)
Glucose 114 H mg/dl
(70-99)
08/14/24 05:12
08/14/24 05:12
<SHE Rivas - Last Filed: 08/14/24 14:38>
MDM/Problems Addressed
MDM/Problems Addressed:
This is an 83 y/o F who is a poor historian and unable to recall medical history, who presents via EMS with an unwitnessed fall late last night. She was c/o localized pain in the occipital region of head, neck and R hip. VS stable. PE notable for
many bruises as a result from frequent falling, pain and decreased ROM of cervical spine. CT head and cervical spine revealed no acute intracranial abnormality or acute fracture or subluxation of cervical spine. R hip Xray demonstrating no acute
fracture. Based off of history and exam, it is not safe for this patient to live alone at home. Recommend rehab/residential facility.
<SHE Rivas - Last Filed: 08/14/24 14:38>
*Critical Care Note
Total Time (30-74mins, 75-104mins- exclusive of procedures): Not Applicable
ED Attending Note
<SHE Rivas - Last Filed: 08/14/24 14:38>
-
Portions of this chart may have been created with voice recognition software.� Occasional wrong word or��sound alike� substitutions may have occurred due to the inherent limitations of voice recognition software.
<Kasi Oneal DO - Last Filed: 08/18/24 22:49>
ED Attending Note
Patient seen and examined by attending physician: Yes
I performed the substantive portion of visit, reviewed & personally made and approve the management plan that is documented in note by myself or DEMETRI.: Yes
ED Attending Note:
Patient presents to the emergency room for evaluation after suffering a fall at home. Patient states that she has been having several falls recently. She lives alone but has been refusing moving to an assisted living. Patient has some chronic
pain and the medication she uses sometimes gives her hallucinations. Currently she is complaining of some pain in the occipital area of her head and some neck pain. Also complaining of right hip pain. No fever or chills. Patient states that she
gets meals mostly through 'Meals on Wheels'.
General: Awake, Alert, Oriented X3. Appears chronically ill
Vitals: Mildly tachycardic
Head: Atraumatic
Eyes: Pupils equal, EOMI
Throat: Airway intact, no exudates, dry mucosa
Neck: Trachea midline, no tenderness palpation over the midline cervical spine
Lungs: Clear and equal b/l
Heart: Regular rate, no murmurs
Abd: Soft, Nontender, No pulsatile mass
Neuro: No focal weakness
Skin: Warm, dry, no rash
Extremities: pulses equal b/l, no edema. Pain with range of motion of the right hip
Patient presents with a fall. Workup here reveals no acute injury. However was noted she has had multiple falls over the past several days. She has difficulty ambulating without assistance. She is clearly not safe to be in her home alone at
least not at this time. Case management and physical therapy evaluations performed. Occupational Therapy evaluation performed. Patient will be placed in a residential facility for rehab. Patient's son aware.
Discharge Plan
Departure
Patient Disposition: Long Term/SNF
Date of Disposition: 08/18/24
Time of Disposition: 22:48
Patient with high blood pressure during this ER visit?: No
Condition: Good
Covid-19: Not Applicable
Discharge Problem:
Weakness
Prescriptions:
No Action
cyanocobalamin (vitamin B-12) 1,000 mcg tablet
1,000 mcg PO DAILY
sennosides-docusate sodium [Senna Plus] 8.6-50 mg Tablet
2 tab-cap PO HS
ascorbic acid (vitamin C) [Vitamin C] 500 mg Tablet
500 mg PO DAILY
ferrous sulfate 325 mg (65 mg iron) Tablet
325 mg PO DAILY
fluoxetine 10 mg Capsule
10 mg PO DAILY
Patient Comments:
06/17/24:take with 20mg for total of 30mg
PreserVision AREDS 2,148 mcg-113 mg-45 mg-17.4mg Tablet
1 tab PO DAILY
Gemtesa 75 mg Tablet
75 mg PO DAILY
fluoxetine 20 mg Capsule
20 mg PO DAILY
Patient Comments:
06/17/24: take with 10mg cap for total of 30mg
cyclobenzaprine 5 mg Tablet
5 mg PO DAILY
pantoprazole 40 mg Tablet,Delayed Release (Dr/Ec)
40 mg PO DAILY Qty: 30 0RF
alprazolam 0.5 mg Tablet
0.25 mg PO DAILY Qty: 3 0RF
alprazolam 0.5 mg Tablet
1.5 mg PO HS Qty: 3 0RF
alprazolam 0.5 mg Tablet
0.5 mg PO NOON Qty: 3 0RF
acetaminophen [Tylenol Extra Strength] 500 mg tablet
1,000 mg PO Q8H Qty: 30 0RF
oxycodone 10 mg tablet
10 mg PO Q6H PRN (Reason: moderate pain) Qty: 10 0RF
Referrals:
UNKNOWN - PT DOES,NOT KNOW [Family Provider]
Interventions
Interventions:
*Risk Screen - Suicide Last Done: 08/14/24 04:50
*General Assessment Last Done: 08/14/24 04:50
*Neglect/Abuse Screening Last Done: 08/14/24 04:50
*ED- Fall Risk Assessment Last Done: 08/14/24 05:01
*ED COVID-19 Vaccine History Last Done: 08/14/24 05:01
*Nursing Disposition Last Done: 08/14/24 17:49
ED-Musculoskeletal Assessment Last Done: 08/14/24 08:30
ED- Neurological Assessment Last Done: 08/14/24 08:30
ED-Skin Assessment Last Done: 08/14/24 08:30
Discharge Date and Time
Discharge Date/Time: 08/14/24 17:51
Print Language: SAMMARINESE
[2024-08-14 07:39] LABS: ALT (SGPT) 21 U/L (0-35); AST (SGOT) 24 U/L (14-36); Albumin 3.8 g/dl (3.5-5.0); Alkaline Phosphatase 101 U/L (38-126); Blood Urea Nitrogen 20 mg/dl (7-17); Calcium 9.3 mg/dl (8.4-10.2); Carbon Dioxide 28 mmol/L (22-30); Chloride 106 mmol/L (98-107); Creatine Phosphokinase 55 U/L (30-135); Estimated Creatinine Clearance 52 ml/min; Glucose 114 mg/dl (70-99); Potassium 4.2 mmol/L (3.5-5.1); Sodium 141 mmol/L (135-145); Total Bilirubin 0.8 mg/dl (0.2-1.3); Total Protein 7.3 g/dl (6.3-8.2); eGFR > 60.00
--- NOTE | 2024-08-14 08:45 | EDRN ---
Patient denied c/o dizziness. Unable to stand to get blood pressure due to right leg pain.
[2024-08-14] MEDS: NSS 500 IV (08:46)
[2024-08-14] MEDS: XANAX 0.25 MG PO (11:27)
--- NOTE | 2024-08-14 11:35 | CM ---
Addendum entered by Bhavna Ascencio 08/14/24 15:47:
Patient and son notified of ambulance picker tender helper time.
Addendum entered by Bhavna Ascencio 08/14/24 15:14:
SNF Authorization approved for 5 days; starting today; next review 08/18/24; concurrent review # [phone]; Authorization # [id number]
Ambulance Authorization # [id number]
SNF notified of approval; can accept anytime today
Plan: Discharge to [facility] today; Ambulance scheduled @ 1730
Report # [phone]

Addendum entered by Maribeth Ramirez 08/14/24 13:30:
Plan: Discharge to [facility] pending Auth Approval
Report # [phone]

Addendum entered by Maribeth Ramirez 08/14/24 13:24:
[facility] NPI# [id number]
Provider, Dr. Kasi Calvin, NPI# [id number]
Report # [phone]
Fax # : [phone].
Addendum entered by Bhavna Ascencio 08/14/24 12:19:
Notified [facility], no beds available
Addendum entered by Bhavna Ascencio 08/14/24 12:12:
Met with patient, discussed discharge plan to SNF. In addition to [facility] and [facility], pt also requests SNF referral to [facility].
[facility]
Addendum entered by Maribeth Ramirez 08/14/24 11:52:
[facility] in [place] is an Assisted Living Facility not a SNF
Original Note:
Initial assessment completed with son, Kris Hawk, via phone # [phone]
Son reported that patient's Power of Electrical Lineman is her Daughter in Law, Karen; POA is out of town; will be home tomorrow
Pharmacy: [facility] @ [address] [place] [address]
Son reported that patient lives alone in a multilevel home; has a first floor set up; bath has tub w/shower
PLOF: son reported that patient needs assistance with personal care and ADLs; ambulates with a rolling walker; patient currently receives PT in the home; and has a VISUAL JOURNALIST several days a week from 1000 - 1600; she is along the rest of the day; has a
cleaning lady
Recent SNF stay at [facility]
Son is agreeable with DC plan to SNF; preferences are [facility], [facility], and [facility] in [place]
Transport: ambulance
Plan: Discharge to SNF pending bed availability and Authorization approval
[2024-08-14] MEDS: TYLENOL 650 MG PO (12:08)
== END 2024-08-14 17:51 ==
LOC: EMR 04:44
PROVIDERS: Emergency Medicine; EMERGENCY PHYSICIAN Emergency Medicine
DX: R53.1 Weakness (principal); S09.90XA Unspecified injury of head, initial encounter; R29.6 Repeated falls; M25.551 Pain in right hip; W19.XXXA Unspecified fall, initial encounter; G89.29 Other chronic pain
CPT/HCPCS: 99285; 70450; 72125; 73502; 80053; 82550; 85025; 93005

== ENCOUNTER 2024-09-30 06:31 | Inpatient (IN) | payer OTHER, SELFPAY ==
[2024-09-29] VITALS (11 sets, daily range): BP systolic 110–169; BP diastolic 76–104; PULSE 96; BMI 18.3; BMI 17.6
[2024-09-29 11:34] LABS: Hematocrit 39.4 % (37.0-47.0); Hemoglobin 12.6 g/dL (12.0-16.0); Mean Corp Hgb Conc. 32.0 g/dL (33.0-37.0); Mean Corpuscular Volume 91.8 fL (81.0-99.0); Nucleated Red Blood Cells % 0 %; Platelet Count 351 10^3/uL (130-400); Red Cell Dist. Width 13.6 % (11.5-14.5)
--- NOTE | 2024-09-29 11:35 | ED.MUSCINJ ---
HPI-Injury
<Donavan Stephens PA-C - Last Filed: 09/29/24 11:39>
General
Chief Complaint: Musculo-Skeletal Complaint
Source: patient
Exam Limitations: none
Time Seen by Provider: 09/29/24 11:13
History of Present Illness-Injury
Initial Injury comments:
83-year-old female with history of chronic pain presents via EMS from home with complaints of increased lower back pain and right leg pain. She states she cannot bear weight on her right leg without having excruciating pain. No new injury. She
has known compression fractures in her back. No bowel or bladder dysfunction. Caregiver states that patient gets significantly better when she takes her Xanax. She recently ran out of them as she take more than prescribed when she runs out she
has more difficulty ambulating. No fevers. No recent illness. No other complaints at this time.
Past History
<Donavan Stephens PA-C - Last Filed: 09/29/24 11:39>
Past History
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
ED Past Surgical History: Orthopedic (Lumbar fusion, )
Social History
Tobacco: Non-smoker
Alcohol: Daily (Martini 1 )
Drug: Other (Xanax addiction)
Personal: ( in prison, patient lives alone)
Living: alone
Employment: Retired
Family History
Family History: Other ( Noncontributory)
Phy Exam
<Donavan Stephens PA-C - Last Filed: 09/29/24 11:39>
Physical Exam
Physical Exam:
General: Well-appearing female no acute respiratory distress
HEENT: Normocephalic atraumatic
Heart: Regular rate and rhythm
Lungs: Clear no wheeze
Musculoskeletal exam: Diffuse tenderness about the lumbar spine. No deformities noted to the lower extremities. She is able to flex her hip and knee on the right side as well as dorsiflex and plantarflex the right ankle. There is diffuse
tenderness
Neurologic exam: Alert and oriented no facial asymmetry good sensation to the right leg
Injury Course
<Donavan Stephens PA-C - Last Filed: 09/29/24 11:39>
Orders/Labs/Results
Orders:
Orders
09/29/24 11:22
Complete Blood Count/With Diff Urgent
Comprehensive Metabolic Panel Urgent
09/29/24 11:31
diazePAM [Valium Injection] 2 mg IV NOW STA
CR Femur - Right Min 2 Vw Urgent
Comment:
Reason For Exam: pain
CR Leg Tibia/fibula Right 2 Vw Urgent
Comment:
Reason For Exam: pain
CR Lumbar Spine 2 Or 3 Views Urgent
Comment:
Reason For Exam: pain
09/29/24 11:34
Occupational Therapy Consult [Ot Eval And Treat] Urgent
Physical Therapy Consult [Pt Eval And Treat] Urgent
Activity Level: Ambulate
09/29/24 14:32
Alprazolam [Xanax] 0.5 mg PO NOW STA
Abnormal Lab Results
09/29/24
11:22
MCHC 32.0 L g/dL
(33.0-37.0)
Absolute Neuts (auto) 6.9 H 10^3/uL
(1.4-6.5)
Absolute Monos (auto) 0.9 H 10^3/uL
(0.1-0.6)
BUN 19 H mg/dl
(7-17)
Creatinine 0.4 L mg/dL
(0.6-1.0)
Glucose 138 H mg/dl
(70-99)
Alkaline Phosphatase 138 H U/L
(38-126)
09/29/24 11:22
09/29/24 11:22
<Randall Ruiz PA-C - Last Filed: 09/29/24 16:05>
Orders/Labs/Results
Orders:
Orders
09/29/24 11:22
Complete Blood Count/With Diff Urgent
Comprehensive Metabolic Panel Urgent
09/29/24 11:31
diazePAM [Valium Injection] 2 mg IV NOW STA
CR Femur - Right Min 2 Vw Urgent
Comment:
Reason For Exam: pain
CR Leg Tibia/fibula Right 2 Vw Urgent
Comment:
Reason For Exam: pain
CR Lumbar Spine 2 Or 3 Views Urgent
Comment:
Reason For Exam: pain
09/29/24 11:34
Occupational Therapy Consult [Ot Eval And Treat] Urgent
Physical Therapy Consult [Pt Eval And Treat] Urgent
Activity Level: Ambulate
09/29/24 14:32
Alprazolam [Xanax] 0.5 mg PO NOW STA
Abnormal Lab Results
09/29/24
11:22
MCHC 32.0 L g/dL
(33.0-37.0)
Absolute Neuts (auto) 6.9 H 10^3/uL
(1.4-6.5)
Absolute Monos (auto) 0.9 H 10^3/uL
(0.1-0.6)
BUN 19 H mg/dl
(7-17)
Creatinine 0.4 L mg/dL
(0.6-1.0)
Glucose 138 H mg/dl
(70-99)
Alkaline Phosphatase 138 H U/L
(38-126)
09/29/24 11:22
09/29/24 11:22
<Donavan Stephens PA-C - Last Filed: 09/29/24 11:39>
MDM/Problems Addressed
Differential Diagnosis Includes:
Acute on chronic pain of the lower back and right leg. Now unable to ambulate secondary to the pain. Reportedly no new injury but will x-ray the back and leg.
<Donavan Stephens PA-C - Last Filed: 09/29/24 11:39>
*Pulse Oximetry
SaO2: 97
Oxygen Mode of Delivery: Room air
<Randall Ruiz PA-C - Last Filed: 09/29/24 16:05>
*Pulse Oximetry
Patient hypoxic: no
*Critical Care Note
Total Time (30-74mins, 75-104mins- exclusive of procedures): Not Applicable
<Randall Ruiz PA-C - Last Filed: 09/29/24 16:05>
Update Note
Update Note:
Discussed with case management, no bed availability today, will admit to the medicine service for further observation and management while awaiting placement
ED Attending Note
<Donavan Stephens PA-C - Last Filed: 09/29/24 11:39>
-
Portions of this chart may have been created with voice recognition software.� Occasional wrong word or��sound alike� substitutions may have occurred due to the inherent limitations of voice recognition software.
Discharge Plan
Departure
Patient Disposition: Admit
Date of Disposition: 09/29/24
Time of Disposition: 15:54
Admit to: Med/Surg
Presentation/result/management discussed w/ accepting MD/DO: Hospitalist
Discharge Problem:
Ambulatory dysfunction
Prescriptions:
No Action
cyanocobalamin (vitamin B-12) 1,000 mcg tablet
1,000 mcg PO DAILY
sennosides-docusate sodium [Senna Plus] 8.6-50 mg Tablet
2 tab-cap PO HS
ascorbic acid (vitamin C) [Vitamin C] 500 mg Tablet
500 mg PO DAILY
ferrous sulfate 325 mg (65 mg iron) Tablet
325 mg PO DAILY
fluoxetine 10 mg Capsule
10 mg PO DAILY
Patient Comments:
06/17/24:take with 20mg for total of 30mg
PreserVision AREDS 2,148 mcg-113 mg-45 mg-17.4mg Tablet
1 tab PO DAILY
Gemtesa 75 mg Tablet
75 mg PO DAILY
fluoxetine 20 mg Capsule
20 mg PO DAILY
Patient Comments:
06/17/24: take with 10mg cap for total of 30mg
cyclobenzaprine 5 mg Tablet
5 mg PO DAILY
pantoprazole 40 mg Tablet,Delayed Release (Dr/Ec)
40 mg PO DAILY Qty: 30 0RF
alprazolam 0.5 mg Tablet
0.25 mg PO DAILY Qty: 3 0RF
alprazolam 0.5 mg Tablet
1.5 mg PO HS Qty: 3 0RF
alprazolam 0.5 mg Tablet
0.5 mg PO NOON Qty: 3 0RF
acetaminophen [Tylenol Extra Strength] 500 mg tablet
1,000 mg PO Q8H Qty: 30 0RF
oxycodone 10 mg tablet
10 mg PO Q6H PRN (Reason: moderate pain) Qty: 10 0RF
Referrals:
UNKNOWN - PT DOES,NOT KNOW [Family Provider]
Interventions
Interventions:
*Risk Screen - Suicide Last Done: 09/29/24 11:11
*General Assessment Last Done: 09/29/24 11:11
*Neglect/Abuse Screening Last Done: 09/29/24 11:11
*ED- Fall Risk Assessment Last Done: 09/29/24 11:11
*ED COVID-19 Vaccine History Last Done: 09/29/24 11:11
ED-Musculoskeletal Assessment Last Done: 09/29/24 11:16
Discharge Date and Time
Print Language: GREEK
[2024-09-29] MEDS: VALIUM INJECTION 2 MG IV (11:38)
[2024-09-29 11:51] LABS: ALT (SGPT) < 10 U/L (0-35); AST (SGOT) 17 U/L (14-36); Albumin 3.5 g/dl (3.5-5.0); Alkaline Phosphatase 138 U/L (38-126); Blood Urea Nitrogen 19 mg/dl (7-17); Calcium 9.2 mg/dl (8.4-10.2); Carbon Dioxide 27 mmol/L (22-30); Chloride 106 mmol/L (98-107); Estimated Creatinine Clearance 51 ml/min; Glucose 138 mg/dl (70-99); Potassium 4.1 mmol/L (3.5-5.1); Sodium 137 mmol/L (135-145); Total Protein 6.9 g/dl (6.3-8.2); eGFR > 60.00
--- NOTE | 2024-09-29 12:32 | CM ---
Addendum entered by Vanessa Aguero 09/29/24 15:48:
SNF recs by therapy
Bedside meeting with pt and SAGAR/Karen [phone] via phone
They are requesting SNF be arranged
Pt has utilized 38/100 days and has $214/day copay per [facility]
Referrals sent and pt in agreement with SNF copays
Pt denied by [facility]
No beds at [facility] or [facility]
No response from [facility] will require financial damián due to copays
[facility]IL in agreement with financial damián ([email or web address])
[facility] admissions- damián emailed to SAGAR
Update to ED PA/[facility]- no accepting SNF bed at this time
Original Note:
ED CM met with pt beside
Pt resides alone in a 2 , she has a 1st floor setup
Stairglide to 2nd floor but she no longer is utilizing the 2nd floor
Pt notes ambulation with a WW and supervision short distances, has been home-bound for the past few months
Pt has WW 2x, WC 2x, and RTS
She has private duty MILIEU THERAPIST 02/10 through [employer]
MILIEU THERAPIST provides assistance with all personal care tasks
She has hx with [facility], [facility] and [facility]
She is current with [facility]
PCP- [facility], physician name unknown
PT/OT pending
If SNF recs, pt in agreement with referrals to [facility], [facility], [facility], [facility], [facility] and [facility] would be top preferences
Pt would require [employer] auth
SAGAR/Karen is POA and resides on [place]
Local son/Kris involved [phone] and update to admissions to add to chart
Discharge Disposition- home with AN[facility] and 02/10 private duty vs SNF/[employer] auth
[2024-09-29] MEDS: XANAX 0.5 MG PO (14:54)
--- NOTE | 2024-09-29 15:56 | HPS.HSE ---
Family Physician
<MAGDALENA Becker - Last Filed: 09/29/24 16:56>
-
Family Physician: NOT KNOW UNKNOWN - PT DOES
Chief Complaint
<MAGDALENA Becker - Last Filed: 09/29/24 16:56>
-
LOWER BACK AND RIGHT LE PAIN
History of Present Illness
83-year-old female with history of chronic pain, compression fractures, hypertension, scoliosis, CHF presented to us with worsening lower back pain radiating to right lower extremities. Patient not able to walk due to the pain . Denied any new
incontinence of bowel or bladder. Patient denied any headache, dizziness or syncope. Patient denied any fever, chills, chest pain, short of breath. Patient denied any abdominal pain, nausea, vomiting or diarrhea. Patient denied dysuria or
hematuria.
No acute fractures noted in the imaging. Admitted for further management
<Curt Centeno MD - Last Filed: 09/29/24 16:39>
History of Present Illness
83-year-old female with history of chronic pain, compression fractures, hypertension, scoliosis, CHF presented to us with worsening lower back pain radiating to right lower extremities. Patient not able to walk due to the pain . Denied any new
incontinence of bowel or bladder. Patient denied any headache, dizziness or syncope. Patient denied any fever, chills, chest pain, short of breath. Patient denied any abdominal pain, nausea, vomiting or diarrhea. Patient denied dysuria or
hematuria.
No acute fractures noted in the imaging. Admitted for further management
Medical History
<MAGDALENA Becker - Last Filed: 09/29/24 16:56>
Past Medical History
Past Medical History: Reports Other
Additional Past Medical History:
Scoliosis
Hypertension
Stress incontinence
CHF
bilateral pleural effusion
Anxiety/depression
Macular degeneration
Hypertension
Past Surgical History: Reports Other
Additional Past Surgical History:
Back surgery
Social History
Tobacco: Non-smoker
Alcohol: None
Drug: None
Family History
Family History: Not pertinent
Allergies / Home Medications
Allergies reflects when Allergies were last updated in [employer].
Home Medications with original date entered in [employer]
Allergy/Medication List:
Allergies
Allergy/AdvReac Type Severity Reaction Status Date / Time
latex Allergy Rash Verified 09/29/24 11:19
prednisone Allergy psychosis Verified 09/29/24 11:19
Home Medications
cyanocobalamin (vitamin B-12) 1,000 mcg tablet 1,000 mcg PO DAILY Supplement 10/23/23
ascorbic acid (vitamin C) 500 mg tablet (Vitamin C) 500 mg PO DAILY Supplement 06/01/24
ferrous sulfate 325 mg (65 mg iron) tablet 325 mg PO DAILY Supplement 06/01/24
fluoxetine 10 mg capsule 10 mg PO DAILY Mental Health/Anxiety 06/01/24
sennosides 8.6 mg-docusate sodium 50 mg tablet (Senna Plus) 2 tab-cap PO HS Constipation 06/01/24
vitamins A,C,T-uycp-lpyduc 2,148 mcg-113 mg-45 mg-17.4 mg tablet (PreserVision AREDS) 1 tab PO DAILY Supplement 06/01/24
cyclobenzaprine 5 mg tablet 5 mg PO DAILY Muscle Spasms 06/17/24
fluoxetine 20 mg capsule 20 mg PO DAILY Mental Health/Anxiety 06/17/24
pantoprazole 40 mg tablet,delayed release 40 mg PO DAILY #30 tabs 06/28/24
acetaminophen 500 mg tablet (Tylenol Extra Strength) 1,000 mg PO Q8HPRN PRN mild pain 09/29/24
alprazolam 0.5 mg tablet 0.5 mg PO NOON Mental Health/Anxiety 09/29/24
alprazolam 0.5 mg tablet 1.25 mg PO HS Mental Health/Anxiety 09/29/24
gabapentin 100 mg capsule 100 mg PO HS 09/29/24
lidocaine 4 % topical patch 1 patch topical DAILY apply to lower back 09/29/24
nitrofurantoin monohydrate/macrocrystals 100 mg capsule 100 mg PO DAILY 09/29/24
oxycodone 5 mg capsule 5 mg PO Q6HPRN PRN severe pain 09/29/24
polyethylene glycol 3350 17 gram oral powder packet (Miralax) 17 g PO BIDPRN PRN constipation 09/29/24
Review of Systems
<MAGDALENA Becker - Last Filed: 09/29/24 16:56>
-
Constitutional: Reports No Symptoms
EENT: Reports No Symptoms
Respiratory: Reports No Symptoms
Cardiac: Reports No Symptoms
Abdomen/GI: Reports No Symptoms
: Reports No Symptoms
Musculoskeletal: Reports Other (Back pain radiating lower extremities)
Skin: Reports No Symptoms
Neurological: Reports No Symptoms
Endocrine: Reports No Symptoms
Hematologic/Lymphatic: Reports No Symptoms
Psych: Reports No Symptoms
Physical Exam
<MAGDALENA Becker - Last Filed: 09/29/24 16:56>
Vital Signs
Vital Signs
Temp Pulse Resp BP Pulse Ox
98.2 F 97 18 126/81 93
09/29/24 11:11 09/29/24 15:00 09/29/24 15:00 09/29/24 14:00 09/29/24 14:00
Physical Exam
General: Well Developed, Well Nourished and No Apparent Distress
HEENT: NormoCephalic, Moist mucous membranes and Atraumatic
Respiratory: Clear
Cardiac: S1/S2 and Regular Rhythm; No Murmur or Rub
GI: Soft, Non Tender, Non Distended and Normal Bowel Sounds; No Organomegaly
Rectal: Deferred by Provider
Musculoskeletal: No Clubbing, No Cyanosis and No Edema
Skin: No Rash
Neuro: AO x 3 and Nonfocal/grossly intact
Psych: Calm
Laboratory Results
<MAGDALENA Becker - Last Filed: 09/29/24 16:56>
-
09/29/24 11:22
09/29/24 11:22
Laboratory Results
Total Bilirubin 0.6 mg/dl (0.2-1.3) 09/29/24 11:22
AST 17 U/L (14-36) 09/29/24 11:22
ALT < 10 U/L (0-35) 09/29/24 11:22
Alkaline Phosphatase 138 U/L (38-126) H 09/29/24 11:22
Data Reviewed
<MAGDALENA Becker - Last Filed: 09/29/24 16:56>
-
Diagnostic Radiology: Report Reviewed by me
Lab Data: Labs Reviewed by me
Impression/Plan
<MAGDALENA Becker - Last Filed: 09/29/24 16:56>
-
# Ambulatory dysfunction
- PT OT consulted
- Case management consulted for dispo
- Tib-fib x-ray with no evidence of acute fracture or dislocation
- Lumbar spine x-ray with stable appearance of lumbar and lower thoracic spine with no evidence for new compression fracture
- Femur x-ray with no evidence for acute fracture of the right femur
- Oxycodone from home continued
- Flexeril, gabapentin,
# History for T11 compression fracture secondary to osteoporosis
# History for vertebroplasty
# Chronic HFpEF
- Not in acute exacerbation
- Strict ANGELIC, daily
# History of orthostatic hypotension
# Iron deficiency anemia-continue p.o. iron
# Constipation-resolved
# GERD-continue PPI
# History of ulcerative colitis , was on Humira. NOw stopped.
# Overactive bladder with chronic incontinence
# Anxiety
- Xanax, fluoxetine continued
# DVT prophylaxis-Lovenox
# DNR
--- NOTE | 2024-09-29 16:41 | W.PN.UPDATE ---
Update Note
Progress Note Update
This note serves as an addendum to the H&P by epic [facility] DEMETRI
Mitzy NICOLA
HPI
83F HX chr HFpEF, chronic pain syndrome , HX Old T10, L3, L5 compression Fx, HTN , HX CHFseen at ER:
- worsening lower back pain radiating to right lower extremities and cannot wt bear
- not able to walk due to the pain .
- denied any new incontinence of bowel or bladder.
- denied any headache, dizziness or syncope.
- denied any fever, chills, chest pain, short of breath.
- denied any abdominal pain, nausea, vomiting or diarrhea.
- denied dysuria or hematuria.
No acute fractures noted in the imaging.
Relevant VS
Unremarkable VS
PE
Gen: NAD , anxious
HEENT: anicteric
Neck: supple
Lungs: CTA
Cor: RRR
Abdomen: Benign
SHOULDER BONER: AAO3
MS: weakness of distal Rt ankle muscle strength
Psych: nl mood and affect
Relevant data
Abnormal Labs
09/29/24
11:22
MCHC 32.0 L
Absolute Neuts (auto) 6.9 H
Absolute Monos (auto) 0.9 H
BUN 19 H
Creatinine 0.4 L
Glucose 138 H
Alkaline Phosphatase 138 H
ASSESSMENT & PLAN
Rt Beatris distal muscle weakness with radicular symptom
Ambulatory dysfunction
T11 compression fracture secondary to osteoporosis
HX vertebroplasty
Chr narcotic dependent pain syndrome
- NEG Femur film for Fx
- NEG Tib-fib XR for acute fracture or dislocation
- stable Lx spine and lower Tx spine-no evidence for new compression Fx
- MRI of Lx spine in AM
- c/w PROFESSIONAL SERVICES SPECIALIST Oxycodone
- PT OT consulted
- CRM consulted
Anxiety
- on PRN alprazolam,- PROFESSIONAL SERVICES SPECIALIST fluoxetine
Chronic HFpEF HX
- Not in acute exacerbation
- Strict ANGELIC, daily
HX orthostatic hypotension
Iron deficiency anemia
- PO Fe
HX ulcerative colitis - no longer on Humira
Overactive bladder with chronic incontinence on Gemtesa
DVT Px: LMWH
DNR
OBS MS
[2024-09-29] MEDS: LOVENOX 40 MG SC (21:01)
[2024-09-29] MEDS: ROXICODONE 5 MG PO (21:01)
--- NOTE | 2024-09-29 22:00 | PTCARENOTE ---
Received pt from the ED via stretcher; AAOx3, c/o 10/10 RLE pain originating in her back, wrapping around to her groin and radiating down her leg. PRN pain medication is pt's home regimen, medicated appropriately, see MAR. Pt states this medication
does not typically work for her, even at home, reports her Xanax is most useful but admits she has just learned since entering the hospital that she has not been taking her Xanax appropriately and, in turn, has run out of her prescription early.
Medsurg, heavy assist x1 with RW into the bathroom. Remainder of assessment as documented. Pt updated on POC and pain management plan for the evening, as well as, plans for lumbar MRI at some point tomorrow. Oriented to room/unit, lunch box provided
at pt request, resting comfortably in bed at this time, call phoenix within reach.
[2024-09-29] MEDS: NEURONTIN 100 MG PO (22:29)
[2024-09-29] MEDS: SENOKOT-S 2 TABLET PO (22:30)
[2024-09-29] MEDS: XANAX 1.25 MG PO (22:31)
[2024-09-29] MEDS: TYLENOL 650 MG PO (22:34)
--- NOTE | 2024-09-30 02:38 | DOWNTIME ---
There was a [employer] Downtime on 09/30/2024 from 0100 to 09/30/2024 at 0220. Downtime documentation of patient's care, including medication administrations, has been reconciled in the electronic record per guidelines. Refer to the
patient's paper chart under the miscellaneous tab to see printed paper medication records and downtime forms.
[2024-09-30 06:00] VITALS: BMI 17.8
[2024-09-30 07:42] VITALS: BP 105/67
--- NOTE | 2024-09-30 08:15 | VNURNOTE ---
Chart reviewed. Patient is current with [facility]. Will continue to follow hospital course and DC plans.
--- NOTE | 2024-09-30 08:16 | VNURNOTE ---
Chart reviewed. Patient is current with [facility]. Appears that DC plan is SNF. [facility] remains available.
--- NOTE | 2024-09-30 09:16 | W.PN.HOSP.TC ---
Today's Communication/Plan
-
.
Assessment / Plan
Assessment / Plan
Physical Exam
General: Well Developed, Well Nourished and No Apparent Distress
HEENT: NormoCephalic, Moist mucous membranes and Atraumatic
Respiratory: Clear
Cardiac: S1/S2 and Regular Rhythm; No Murmur or Rub
GI: Soft, Non Tender, Non Distended and Normal Bowel Sounds; No Organomegaly
Rectal: Deferred by Provider
Musculoskeletal: No Clubbing, No Cyanosis and No Edema
Skin: No Rash
Neuro: AO x 3 and Nonfocal/grossly intact
Psych: Calm
# Ambulatory dysfunction
- PT OT consulted
- Case management consulted for dispo
- Tib-fib x-ray with no evidence of acute fracture or dislocation
- Lumbar spine x-ray with stable appearance of lumbar and lower thoracic spine with no evidence for new compression fracture
- Femur x-ray with no evidence for acute fracture of the right femur
- Oxycodone from home continued
- Flexeril, gabapentin,
Change to Tylenol 1 gm TID
f/w MRI
# History for T11 compression fracture secondary to osteoporosis
Pathologic fractures due to osteoporosis
- History for vertebroplasty
# Chronic HFpEF
- Not in acute exacerbation
- Strict ANGELIC, daily weight
# History of orthostatic hypotension
# Iron deficiency anemia-continue p.o. iron
# Constipation-resolved
# GERD-continue PPI
# History of ulcerative colitis , was on Humira. NOW stopped.
# Overactive bladder with chronic incontinence
# Anxiety
- Xanax, fluoxetine continued
# DVT prophylaxis-Lovenox
# Underweight and c/w severe protein calorie malnutrition.
# DNR
Total time spent to see the patient, examine the patient, review lab results and data, discuss treatment plan with patient, nursing staff around 55 minutes
Anticipated Discharge: > 48 hours
Subjective/Interval History
-
Date of Service: September 30, 2024
Objective Data
-
Vital Signs:
Vital Signs
Temp Pulse Resp BP Pulse Ox
97.5 F 89 20 105/67 92
09/30/24 07:42 09/30/24 07:42 09/30/24 07:42 09/30/24 07:42 09/30/24 07:42
I&O
09/29/24 09/30/24 10/01/24
06:59 06:59 06:59
Intake Total 240 / 240
Balance 240 / 240
[2024-09-30] MEDS: MACROBID 100 MG PO (10:09)
[2024-09-30] MEDS: PROZAC 20 MG PO (10:09)
[2024-09-30] MEDS: PROZAC 10 MG PO (10:09)
[2024-09-30] MEDS: PROTONIX 40 MG PO (10:09)
[2024-09-30] MEDS: OCUVITE SOFTGEL 1 CAP PO (10:09)
[2024-09-30] MEDS: FLEXERIL 5 MG PO (10:09)
[2024-09-30] MEDS: FEOSOL 325 MG PO (10:09)
[2024-09-30] MEDS: LIDOCAINE 4% PATCH 1 PATCH TOPICAL (10:10)
[2024-09-30] MEDS: TYLENOL 1000 MG PO ×3 (10:10→21:46)
[2024-09-30] MEDS: ROXICODONE 5 MG PO ×2 (10:13→17:02)
[2024-09-30] MEDS: MIRALAX 17 GRAMS PO ×2 (10:13→21:53)
[2024-09-30 10:39] VITALS: BMI 17.8
--- NOTE | 2024-09-30 10:45 | PTCARENOTE ---
Patient removed her Pessary Ring in preparation for MRI. Patient aware she'll have to follow-up with her outpatient urologist to have it re-inserted.
[2024-09-30] MEDS: XANAX 0.5 MG PO (12:33)
--- NOTE | 2024-09-30 14:47 | CM ---
indicated patient may be ready for discharge tomorrow.
Spoke with RUTHIE Sanchez she offered a bed after auth .
Will need auth prior to discharge.
Karen irchmond notified of above.
RUTHIE ZAMORANO
report [phone]
fax [phone]
PLAN To [facility] after auth
[2024-09-30 15:15] VITALS: BP 114/81
--- NOTE | 2024-09-30 16:22 | CHAP ---
Emotional and spiritual support provided for Alexandra, who is grieving her and facing a large change in her life. She is grateful for her daughter in law and other children who are helping her navigate a change into senior living care of some kind.
She is worried about what that would look like and how to get from here to there. Will follow.
[2024-09-30] MEDS: LOVENOX 40 MG SC (17:01)
[2024-09-30] MEDS: XANAX 1.25 MG PO (21:43)
[2024-09-30] MEDS: NEURONTIN 100 MG PO (21:46)
[2024-09-30] MEDS: SENOKOT-S 2 TABLET PO (21:47)
[2024-09-30 23:10] VITALS: BP 126/86
[2024-10-01] MEDS: ROXICODONE 5 MG PO ×2 (05:45→14:32)
[2024-10-01 06:00] VITALS: BMI 18.0
[2024-10-01 07:50] VITALS: BP 136/64
[2024-10-01 08:55] VITALS: BP 154/99; PULSE 99; O2SAT 97
[2024-10-01 08:56] VITALS: BP 154/99; PULSE 99; O2SAT 97
[2024-10-01] MEDS: OCUVITE SOFTGEL 1 CAP PO (10:08)
[2024-10-01] MEDS: PROTONIX 40 MG PO (10:08)
[2024-10-01] MEDS: TYLENOL 1000 MG PO (10:08)
[2024-10-01] MEDS: FEOSOL 325 MG PO (10:08)
[2024-10-01] MEDS: MACROBID 100 MG PO (10:08)
[2024-10-01] MEDS: PROZAC 10 MG PO (10:09)
[2024-10-01] MEDS: LIDOCAINE 4% PATCH 1 PATCH TOPICAL (10:09)
[2024-10-01] MEDS: FLEXERIL 5 MG PO (10:09)
[2024-10-01] MEDS: PROZAC 20 MG PO (10:09)
--- NOTE | 2024-10-01 10:28 | W.PN.HOSP.TC ---
Addendum entered and electronically signed by Maggie Callejas MD 10/01/24 15:02:
Addendum
DC plan was discussed with the patient. Pain is better controlled.
Discussed with catalytic case operator, authorization is available
Total discharge time spent to see the patient, examine the patient, review lab results and data, discuss discharge plan with patient, catalytic case operator, nursing staff around 65 minutes
Original Note:
Today's Communication/Plan
-
DC today if authorization available
Assessment / Plan
Assessment / Plan
Physical Exam
General: Well Developed, Well Nourished and No Apparent Distress
HEENT: NormoCephalic, Moist mucous membranes and Atraumatic
Respiratory: Clear
Cardiac: S1/S2 and Regular Rhythm; No Murmur or Rub
GI: Soft, Non Tender, Non Distended and Normal Bowel Sounds; No Organomegaly
Rectal: Deferred by Provider
Musculoskeletal: No Clubbing, No Cyanosis and No Edema
Skin: No Rash
Neuro: AO x 3 and Nonfocal/grossly intact
Psych: Calm
# Ambulatory dysfunction
- PT OT consulted
- Case management consulted for dispo
- Tib-fib x-ray with no evidence of acute fracture or dislocation
- Lumbar spine x-ray with stable appearance of lumbar and lower thoracic spine with no evidence for new compression fracture
- Femur x-ray with no evidence for acute fracture of the right femur
- Oxycodone from home continued
- Flexeril, gabapentin,
Change to Tylenol 1 gm TID
f/w MRI
# History for T11 compression fracture secondary to osteoporosis
New compression deformity of the T12 vertebral body, bilateral sacral ala insufficiency fractures , all seem pathologic fractures due to osteoporosis
- History for vertebroplasty
She reports her pain is better with Tylenol [id number]. Per PT, she seemed stronger and ambulating with 1 assist instead of 2.
I d/w pt, I am not sure at this point treating osteoporosis will reverse the course. She obviously has significant osteoporosis/osteopenia but never been treated. I recommended rheumatology follow-up to discuss options and a repeat bone scan.
This is an outpatient treatment.
# Chronic HFpEF
- Not in acute exacerbation
daily weight
# History of orthostatic hypotension
# Iron deficiency anemia-continue p.o. iron
# Constipation-resolved
# GERD-continue PPI
# History of ulcerative colitis , was on Humira. NOW stopped.
# Overactive bladder with chronic incontinence
# Anxiety
With benzodiazepine and chronic dependency
- Xanax, fluoxetine continued
# DVT prophylaxis-Lovenox
# Underweight and c/w severe protein calorie malnutrition.
# DNR
Total time spent to see the patient, examine the patient, review lab results and data, discuss treatment plan with patient, nursing staff around 55 minutes
Anticipated Discharge: Today
Subjective/Interval History
-
Date of Service: October 01, 2024
Objective Data
-
Vital Signs:
Vital Signs
Temp Pulse Resp BP Pulse Ox
97.6 F 71 18 136/64 97
10/01/24 07:50 10/01/24 07:50 10/01/24 07:50 10/01/24 07:50 10/01/24 07:50
I&O
09/30/24 10/01/24 10/02/24
06:59 06:59 06:59
Intake Total 240 / 240 600 / 600
Balance 240 / 240 600 / 600
--- NOTE | 2024-10-01 11:28 | CM ---
Addendum entered by Kath Pineda RN 10/01/24 13:31:
Auth obtained approved 6 days level 1 from 10/01 to 10/06 auth # [id number] Laura rosen notified.
Dgt requested ambulance. Ambulance auth acute care #[id number]. Medical nec forms completed.
PLAN To [facility] via ambulance .
Original Note:
MD indicated patient ready for discharge today.
Spoke with SHENA Sanchez she offered a bed after auth .
Will need auth prior to discharge.
Karen richmond notified of above.
Pt Kaitlin Rivera to assist with auth
[facility]
report [phone]
fax [phone]
PLAN To [facility] after auth
[2024-10-01] MEDS: XANAX 0.5 MG PO (12:21)
--- NOTE | 2024-10-01 14:40 | W.DCSUMMARY ---
Discharge Summary
Discharge Data
Date of Admission: 09/29/24
Date of Discharge: 10/01/24
-
Pending Results: No
Hospital Course
83 years old female presented with worsening lower back pain radiating to right lower extremity. Patient reported that she ran out of Xanax tablet and that impacted her mobility also. She did not have leukocytosis. She denied chest pain or
abdominal pain. Blood work did not show abnormalities. She had x-ray of right femur that suggested sclerosis from subacute fracture without significant displacement, lumbar x-ray showed stable appearance of lumbar/lower thoracic spine. X-ray of
the right lower extremity did not show evidence of acute fracture or dislocation and right tibia/fibula. MRI of the lumbar area showed findings compatible with bilateral sacral ala insufficiency fractures, new compression deformity of the T12
vertebral body in addition to other chronic changes. She was noted to have significant osteoporosis. Patient denied history of osteoporosis treatment. Patient reported that she was having difficulty following doctors as outpatient. Case
management was involved in discharge planning. Patient was a placed on Tylenol [id number] and that helped to control her pain. She was evaluated by physical therapy recommending nursing home facility placement. Patient remained
hemodynamically stable was discharged to rehab in a stable condition.
Discharge Plan
-
Patient Disposition: Custodial/SNF
Discharge Diagnosis/Procedures: # Ambulatory dysfunction
History for T11 compression fracture secondary to osteoporosis
New compression deformity of the T12 vertebral body, bilateral sacral ala insufficiency fractures , all seem pathologic fractures due to osteoporosis
- History for vertebroplasty
Recommend rheumatology outpatient follow-up to consider treatment for osteoporosis
- Chronic heart failure with preserved ejection fraction
History of orthostatic hypotension
Iron deficiency anemia
Constipation
GERD
Anxiety with benzodiazepine dependency
Underweight/severe protein caloric malnutrition
Diet: As tolerated
Referrals:
Abebe Olmedo MD [Active, Rheumatology] - in one to two weeks
UNKNOWN - PT DOES,NOT KNOW [Family Provider]
Prescriptions:
Continued
cyanocobalamin (vitamin B-12) 1,000 mcg tablet
1,000 mcg PO DAILY
sennosides-docusate sodium [Senna Plus] 8.6-50 mg Tablet
2 tab-cap PO HS
ascorbic acid (vitamin C) [Vitamin C] 500 mg Tablet
500 mg PO DAILY
ferrous sulfate 325 mg (65 mg iron) Tablet
325 mg PO DAILY
Patient Comments:
09/29/2024, pt. ran out; not sure of last dose.
fluoxetine 10 mg Capsule
10 mg PO DAILY
Rx Instructions:
09/29/2024, take w/ 20 mg for a total of 30 mg.
PreserVision AREDS 2,148 mcg-113 mg-45 mg-17.4mg Tablet
1 tab PO DAILY
fluoxetine 20 mg Capsule
20 mg PO DAILY
Rx Instructions:
09/29/2024, take w/ 10 mg for a total of 30 mg.
cyclobenzaprine 5 mg Tablet
5 mg PO DAILY
pantoprazole 40 mg Tablet,Delayed Release (Dr/Ec)
40 mg PO DAILY Qty: 30 0RF
lidocaine 4 % Adhesive Patch,Medicated
1 patch TOPICAL DAILY
Patient Comments:
09/29/2024, pt. ran out.
polyethylene glycol 3350 [Miralax] 17 gram Powder In Packet
17 g PO BIDPRN PRN (Reason: constipation)
oxycodone 5 mg capsule
5 mg PO Q6HPRN PRN (Reason: severe pain)
gabapentin 100 mg Capsule
100 mg PO HS
Patient Comments:
09/29/2024, filled on 09/22/2024 for 7-day supply.
alprazolam 0.5 mg tablet
0.5 mg PO NOON
alprazolam 0.5 mg tablet
1.25 mg PO HS
Changed
acetaminophen [Tylenol Extra Strength] 500 mg tablet
1,000 mg PO TID Qty: 0 0RF
Discontinued
nitrofurantoin monohyd/m-cryst 100 mg Capsule
100 mg PO DAILY
Discharge Orders:
Discharge Patient (As Directed); Ordered 10/01/24
Ordered By: Maggie Callejas
Discharge Date and Time
Print Language: YORUBA
[2024-10-01 15:39] VITALS: BP 150/81
== END 2024-10-01 15:53 | DRG 542 ==
LOC: 4 EAST ACU 06:31
PROVIDERS: Physician Assistant; ADMITTING PHYSICIAN Internal Medicine; ATTENDING PHYSICIAN Internal Medicine; EMERGENCY PHYSICIAN Student in an Organized Health Care Education/Training Program
DX: M80.08XA Age-related osteoporosis with current pathological fracture, vertebra(e), initial encounter for fracture (principal); E43 Unspecified severe protein-calorie malnutrition; F13.20 Sedative, hypnotic or anxiolytic dependence, uncomplicated; I50.32 Chronic diastolic (congestive) heart failure; Z68.1 Body mass index [BMI] 19.9 or less, adult; F11.20 Opioid dependence, uncomplicated; I11.0 Hypertensive heart disease with heart failure; D50.9 Iron deficiency anemia, unspecified; K59.00 Constipation, unspecified; K21.9 Gastro-esophageal reflux disease without esophagitis; F41.9 Anxiety disorder, unspecified; E78.00 Pure hypercholesterolemia, unspecified; M41.9 Scoliosis, unspecified; H35.30 Unspecified macular degeneration; Z91.040 Latex allergy status; F32.A Depression, unspecified; G89.4 Chronic pain syndrome; N32.81 Overactive bladder; Z66 Do not resuscitate
CPT/HCPCS: 72100; 72148; 73552; 73590; 80053; 85025; 96374; 97116; 97535; 99285

== ENCOUNTER → 2024-10-06 09:24 | Outpatient (REF) | payer OTHER, SELFPAY ==
[2024-10-06 11:36] LABS: Hematocrit 40.4 % (37.0-47.0); Hemoglobin 13.0 g/dL (12.0-16.0); Mean Corp Hgb Conc. 32.2 g/dL (33.0-37.0); Mean Corpuscular Volume 92.7 fL (81.0-99.0); Platelet Count 377 10^3/uL (130-400); Red Cell Dist. Width 13.5 % (11.5-14.5)
[2024-10-06 11:57] LABS: Blood Urea Nitrogen 13 mg/dl (7-17); Calcium 9.5 mg/dl (8.4-10.2); Carbon Dioxide 29 mmol/L (22-30); Chloride 102 mmol/L (98-107); Glucose 98 mg/dl (70-99); Potassium 4.6 mmol/L (3.5-5.1); Sodium 136 mmol/L (135-145); eGFR > 60.00
== END ==
LOC: OLABP 09:24
PROVIDERS: ATTENDING PHYSICIAN Family Medicine
DX: M48.54XD Collapsed vertebra, not elsewhere classified, thoracic region, subsequent encounter for fracture with routine healing (principal); R26.2 Difficulty in walking, not elsewhere classified; D50.9 Iron deficiency anemia, unspecified; E43 Unspecified severe protein-calorie malnutrition; F41.9 Anxiety disorder, unspecified; I50.30 Unspecified diastolic (congestive) heart failure; N32.81 Overactive bladder
CPT/HCPCS: 36415; 80048; 85027

== ENCOUNTER 2024-12-08 17:45 | Inpatient (IN) | payer OTHER, SELFPAY ==
[2024-12-08 11:39] VITALS: BP 141/97
--- NOTE | 2024-12-08 14:37 | ED.GENMED ---
History of Present Illness
<Randall Ruiz PA-C - Last Filed: 12/08/24 19:10>
General
Chief Complaint: Fall
Time Seen by Provider: 12/08/24 14:14
History of Present Illness
History of Present Illness:
84-year-old female with history of CHF, hypertension, hyperlipidemia, and chronic low back pain due to insufficiency fractures presents to the emergency department via EMS from home for evaluation of low back and left hip pain after a fall. States
she bent over to feed her cat when she lost her balance. She reports that she is on hospice due to chronic pain and ambulatory dysfunction from the after mentioned low back issues. She is reporting exquisite pain in the left hip. Denies head
strike. She is not on anticoagulants.
Past History
<Randall Ruiz PA-C - Last Filed: 12/08/24 19:10>
Past History
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
ED Past Surgical History: Orthopedic (Lumbar fusion, )
Social History
Tobacco: Non-smoker
Alcohol: Daily (Martini 1 )
Drug: Other (Xanax addiction)
Personal: ( in long term, patient lives alone)
Living: alone
Employment: Retired
Family History
Family History: Other ( Noncontributory)
Review of Systems
<Randall Ruiz PA-C - Last Filed: 12/08/24 19:10>
Review of Systems
Allergies reviewed?: Yes
All Other Systems: ROS reviewed and negative except as documented in HPI and ROS
Phy Exam
<Randall Ruiz PA-C - Last Filed: 12/08/24 19:10>
Physical Exam
Physical Exam:
GEN: Well appearing, NAD, WDWN
HEENT: Oral mucosa moist, no scleral icterus
Cardiac: Regular rate
Lung: No respiratory distress, no tachypnea
MSK: No gross deformity or injuries
Skin: Good color, no pallor or jaundice, no rashes
Neuro: AO x3, moves all extremities freely
Psych: Calm, cooperative
Course
<Randall Ruiz PA-C - Last Filed: 12/08/24 19:10>
Orders/Labs/Results
Orders:
Orders
12/08/24 12:49
Hip, Left 2-3 Views [CR Hip - LT w/wo Pel 2-3 Vw*] Urgent
Comment:
Reason For Exam: pain injury
Include a pelvis x-ray?: Yes
12/08/24 14:27
HYDROmorphone [Dilaudid] 0.5 mg IV NOW STA
12/08/24 15:25
Complete Blood Count/No Diff Urgent
Comprehensive Metabolic Panel Urgent
12/08/24 16:15
Fentanyl Citrate/Pf [Sublimaze] 50 mcg IV NOW STA
12/08/24 16:22
CR Femur - Left Min 2 Vw Urgent
Comment:
Reason For Exam: L hip fx
12/08/24 16:58
Admit/Transfer Patient As Directed
Co-Sign Provider:
Level of Care: Inpatient admission
Assign to:: Medical/Surgical
Physician / Group: Htay
Diagnosis: Hip Fracture
Reason for Hospitalization: Hip fracture
Expected length of stay greater than two midnights?: Yes
ELOS- Estimated Length of Stay in days: 3
I certify the patient meets the requirements for IP care: Yes
HYDROmorphone [Dilaudid] 0.5 mg IV NOW STA
12/08/24 17:02
PRN Pain Medication Management As Directed
May give lesser potent ordered pain med per pt: Yes
preference::
Protocol:: Medication orders for pain may be administered in a
manner that supports deferring to patient preference
when the pt is:
- Requesting an ordered lesser potent pain medication.
Least to most potent pain medications are defined
as: acetaminophen < NSAID < tramadol < opioids
(morphine, oxycodone, hydromorphone).
- Requesting a lesser dose of the same medication IF
ORDERED.
- Requesting a less intrusive route of administration
if both routes are prescribed by the provider (PO <
IV).
12/08/24 17:04
Code Status As Directed
Resuscitation Status: Do not resuscitate
Reached after discussion with pt or family/Healthcare POA: Yes
DNR Bracelet Application ONCE
12/08/24 17:07
CT Head W/o Iv Contrast Urgent
Comment:
Reason For Exam: fall with head injury
Abnormal Lab Results
12/08/24
15:25
WBC 15.9 H 10^3/uL
(4.8-10.8)
Sodium 132 L mmol/L
(135-145)
Creatinine 0.4 L mg/dL
(0.6-1.0)
Glucose 112 H mg/dl
(70-99)
Alkaline Phosphatase 141 H U/L
(38-126)
12/08/24 15:25
12/08/24 15:25
Vital Signs
Initial and Last Documented VS:
Initial Vital Signs
Temp Pulse Resp BP Pulse Ox
97.7 F 99 18 141/97 96
12/08/24 11:39 12/08/24 11:39 12/08/24 11:39 12/08/24 11:39 12/08/24 11:39
Last Documented Vital Signs
Temp Pulse Resp BP Pulse Ox
97.7 F 105 19 144/101 98
12/08/24 11:39 12/08/24 16:30 12/08/24 16:30 12/08/24 18:00 12/08/24 18:17
<Ashish Zhang, DO - Last Filed: 12/08/24 16:56>
Orders/Labs/Results
Orders:
Orders
12/08/24 12:49
Hip, Left 2-3 Views [CR Hip - LT w/wo Pel 2-3 Vw*] Urgent
Comment:
Reason For Exam: pain injury
Include a pelvis x-ray?: Yes
12/08/24 14:27
HYDROmorphone [Dilaudid] 0.5 mg IV NOW STA
12/08/24 15:25
Complete Blood Count/No Diff Urgent
Comprehensive Metabolic Panel Urgent
12/08/24 16:15
Fentanyl Citrate/Pf [Sublimaze] 50 mcg IV NOW STA
12/08/24 16:22
CR Femur - Left Min 2 Vw Urgent
Comment:
Reason For Exam: L hip fx
12/08/24 16:58
Admit/Transfer Patient As Directed
Co-Sign Provider:
Level of Care: Inpatient admission
Assign to:: Medical/Surgical
Physician / Group: Htay
Diagnosis: Hip Fracture
Reason for Hospitalization: Hip fracture
Expected length of stay greater than two midnights?: Yes
ELOS- Estimated Length of Stay in days: 3
I certify the patient meets the requirements for IP care: Yes
HYDROmorphone [Dilaudid] 0.5 mg IV NOW STA
12/08/24 17:02
PRN Pain Medication Management As Directed
May give lesser potent ordered pain med per pt: Yes
preference::
Protocol:: Medication orders for pain may be administered in a
manner that supports deferring to patient preference
when the pt is:
- Requesting an ordered lesser potent pain medication.
Least to most potent pain medications are defined
as: acetaminophen < NSAID < tramadol < opioids
(morphine, oxycodone, hydromorphone).
- Requesting a lesser dose of the same medication IF
ORDERED.
- Requesting a less intrusive route of administration
if both routes are prescribed by the provider (PO <
IV).
12/08/24 17:04
Code Status As Directed
Resuscitation Status: Do not resuscitate
Reached after discussion with pt or family/Healthcare POA: Yes
DNR Bracelet Application ONCE
12/08/24 17:07
CT Head W/o Iv Contrast Urgent
Comment:
Reason For Exam: fall with head injury
Abnormal Lab Results
12/08/24
15:25
WBC 15.9 H 10^3/uL
(4.8-10.8)
Sodium 132 L mmol/L
(135-145)
Creatinine 0.4 L mg/dL
(0.6-1.0)
Glucose 112 H mg/dl
(70-99)
Alkaline Phosphatase 141 H U/L
(38-126)
12/08/24 15:25
12/08/24 15:25
Vital Signs
Initial and Last Documented VS:
Initial Vital Signs
Temp Pulse Resp BP Pulse Ox
97.7 F 99 18 141/97 96
12/08/24 11:39 12/08/24 11:39 12/08/24 11:39 12/08/24 11:39 12/08/24 11:39
Last Documented Vital Signs
Temp Pulse Resp BP Pulse Ox
97.7 F 105 19 144/101 98
12/08/24 11:39 12/08/24 16:30 12/08/24 16:30 12/08/24 18:00 12/08/24 18:17
<FINN Watts Last Filed: 12/08/24 19:10>
MDM/Problems Addressed
MDM/Problems Addressed:
X-rays reveal a comminuted left intertrochanteric fracture that will require operative fixation. Will be admitted to the hospitalist service for further management and orthopedic consultation
<Randall Ruiz PA-C - Last Filed: 12/08/24 19:10>
*Pulse Oximetry
SaO2: 96
Oxygen Mode of Delivery: Room air
Patient hypoxic: no
*Critical Care Note
Total Time (30-74mins, 75-104mins- exclusive of procedures): Not Applicable
<Randall Ruiz PA-C - Last Filed: 12/08/24 19:10>
Update Note
Update Note:
Case was discussed with patient's daughter Karen Campos, patient's power of compliance attorney she be amenable to surgical procedure given patient's degree of pain at this time. Confirms that patient is DNR/DNI.
ED Attending Note
<Randall Ruiz PA-C - Last Filed: 12/08/24 19:10>
-
Portions of this chart may have been created with voice recognition software.� Occasional wrong word or��sound alike� substitutions may have occurred due to the inherent limitations of voice recognition software.
<Ashish Zhang DO - Last Filed: 12/08/24 16:56>
ED Attending Note
Patient seen and examined by attending physician: Yes
I performed the substantive portion of visit, reviewed & personally made and approve the management plan that is documented in note by myself or DEMETRI.: Yes
ED Attending Note:
Seen with PA examined independently 84-year-old female status post fall presents with hip pain, has a hip fracture,
Discharge Plan
Departure
Patient Disposition: Admit
Date of Disposition: 12/08/24
Time of Disposition: 16:20
Admit to: Med/Surg
Presentation/result/management discussed w/ accepting MD/DO: Hospitalist
Discharge Problem:
Closed intertrochanteric fracture of left femur
Interventions
Interventions:
*Risk Screen - Suicide Last Done: 12/08/24 11:39
*General Assessment Last Done: 12/08/24 11:39
*Neglect/Abuse Screening Last Done: 12/08/24 11:39
*ED COVID-19 Vaccine History Last Done: 12/08/24 11:39
*ED Influenza Vaccine History Last Done: 12/08/24 14:17
ED-Musculoskeletal Assessment Last Done: 12/08/24 11:39
ED- Neurological Assessment Last Done: 12/08/24 14:18
ED-Skin Assessment Last Done: 12/08/24 14:18
[2024-12-08] MEDS: DILAUDID 0.5 MG IV ×3 (15:22→21:08)
[2024-12-08 15:37] LABS: Hematocrit 39.1 % (37.0-47.0); Hemoglobin 13.0 g/dL (12.0-16.0); Mean Corp Hgb Conc. 33.2 g/dL (33.0-37.0); Mean Corpuscular Volume 89.9 fL (81.0-99.0); Platelet Count 306 10^3/uL (130-400); Red Cell Dist. Width 14.2 % (11.5-14.5)
[2024-12-08 16:01] LABS: ALT (SGPT) 16 U/L (0-35); AST (SGOT) 22 U/L (14-36); Albumin 4.0 g/dl (3.5-5.0); Alkaline Phosphatase 141 U/L (38-126); Blood Urea Nitrogen 15 mg/dl (7-17); Calcium 9.2 mg/dl (8.4-10.2); Carbon Dioxide 22 mmol/L (22-30); Chloride 103 mmol/L (98-107); Glucose 112 mg/dl (70-99); Potassium 4.1 mmol/L (3.5-5.1); Sodium 132 mmol/L (135-145); Total Protein 7.4 g/dl (6.3-8.2); eGFR > 60.00
[2024-12-08] MEDS: SUBLIMAZE 50 MCG IV (16:20)
[2024-12-08 16:25] VITALS: BP 143/100
--- NOTE | 2024-12-08 16:36 | HPS.HSE ---
Family Physician
-
Family Physician: NOT KNOW UNKNOWN - PT DOES
Chief Complaint
-
Fall with Left Hip Pain
History of Present Illness
Patient is an 84 y/o female past medical history of CHF, HTN, Orthostatic Hypotension, Anxiety / Depression, and Chronic Pain due to prior fractures who presents with left hip pain following a fall. Patient reports she was bending over to feed her
cat when she lost her balance resulting in a fall and landing on her left hip. She is complaining of severe left hip pain, and x-ray in the emergency department revealed a left hip fracture.
Medical History
Past Medical History
Past Medical History: Reports Other
Additional Past Medical History:
Chronic HFpEF
Essential Hypertension
Hyperlipidemia
Orthostatic Hypotension
Iron Deficiency Anemia
Ulcerative Colitis
Anxiety/Depression
Overactive Bladder / Chronic Incontinence
Osteoporosis
Chronic Pain
Past Surgical History: Reports Other
Additional Past Surgical History:
Lumbar Fusion
Social History
Tobacco: Non-smoker
Alcohol: None
Personal: ( in July 2023)
Living: Alone
Family History
Family History: Not pertinent
Allergies / Home Medications
Allergies reflects when Allergies were last updated in [facility].
Home Medications with original date entered in [facility]
Allergy/Medication List:
Allergies
Allergy/AdvReac Type Severity Reaction Status Date / Time
latex Allergy Rash Verified 09/29/24 11:19
prednisone Allergy psychosis Verified 09/29/24 11:19
Home Medications
ferrous sulfate 325 mg (65 mg iron) tablet 325 mg PO DAILY Supplement 06/01/24
fluoxetine 10 mg capsule 30 mg PO DAILY Mental Health/Anxiety 06/01/24
sennosides 8.6 mg-docusate sodium 50 mg tablet (Senna Plus) 2 tab-cap PO HS Constipation 06/01/24
vitamins A,C,B-hwbj-zjamad 2,148 mcg-113 mg-45 mg-17.4 mg tablet (PreserVision AREDS) 1 tab PO DAILY Supplement 06/01/24
cyclobenzaprine 5 mg tablet 5 mg PO DAILYPRN PRN spasms 06/17/24
pantoprazole 40 mg tablet,delayed release 40 mg PO DAILY #30 tabs 06/28/24
alprazolam 0.5 mg tablet 0.5 mg PO NOON Mental Health/Anxiety 09/29/24
alprazolam 0.5 mg tablet 1.25 mg PO HS Mental Health/Anxiety 09/29/24
lidocaine 4 % topical patch 1 patch topical DAILYPRN PRN lower back 09/29/24
acetaminophen 500 mg tablet (Tylenol Extra Strength) 1,000 mg PO TIDPRN PRN mild pain 12/08/24
oxycodone 10 mg tablet 10 mg PO Q6HPRN PRN severe pains 12/08/24
Review of Systems
-
A 12 point ROS was completed and negative except as noted: Yes
Constitutional: Denies Fever
Respiratory: Denies Cough or Trouble Breathing
Cardiac: Denies Chest Pain or Palpitations
Musculoskeletal: Reports See HPI
Physical Exam
Vital Signs
Vital Signs
Temp Pulse Resp BP Pulse Ox
97.7 F 99 18 141/97 96
12/08/24 11:39 12/08/24 11:39 12/08/24 11:39 12/08/24 11:39 12/08/24 14:39
Physical Exam
General: Conversant and Pain
HEENT: NormoCephalic and Anicteric
Respiratory: Clear and Non Labored Respirations
Cardiac: S1/S2, Regular Rhythm and Tachycardia (Slightly)
GI: Soft and Non Tender
Rectal: Deferred by Provider
Musculoskeletal: No Clubbing, No Cyanosis, No Edema and Other (LLE shortened and externally rotated)
Skin: Warm and Dry
Neuro: Awake, Alert, Oriented and Nonfocal/grossly intact
Psych: Calm
Laboratory Results
-
12/08/24 15:25
12/08/24 15:25
Laboratory Results
Total Bilirubin 0.9 mg/dl (0.2-1.3) 12/08/24 15:25
AST 22 U/L (14-36) 12/08/24 15:25
ALT 16 U/L (0-35) 12/08/24 15:25
Alkaline Phosphatase 141 U/L (38-126) H 12/08/24 15:25
Data Reviewed
-
Diagnostic Radiology: Report Reviewed by me
Lab Data: Labs Reviewed by me
Impression/Plan
-
Left Hip Fracture
-Consult Orthopedics
-NPO after midnight for possible OR tomorrow
-Continue Tylenol 1000mg TID
-Continue oxycodone 5mg prn mild pain and 10mg prn moderate pain
-Continue Dilaudid 0.5mg prn severe pain
Hyponatremia, mild
-Recheck labs in AM
Leukocytosis, likely reactive
-Recheck in AM
-Monitor for fevers
Chronic HFpEF
-Monitor Daily Weights
Iron Deficiency Anemia
-Continue ferrous sulfate
-Hgb stable
Ulcerative Colitis
-Patient no longer on treatment
-Continue Senna for constipation
Anxiety/Depression with Benzodiazepine Dependence
-Continue alprazolam as prior to admission
-Continue fluoxetine
Overactive Bladder / Chronic Incontinence
-Monitor bladder scans
Chronic Pain with Opioid Dependence
-Pain control as above
Hx Orthostatic Hypotension
Hx Hyperlipidemia
DVT proph: SCDs
Code Status: DNR
--- NOTE | 2024-12-08 16:36 | W.PN.UPDATE ---
Update Note
Progress Note Update
This note serves as an addendum to the H&P by community resource officer DEMETRI�
Silvia RICKIEK
HPI�
84F HX severe osteoporosis HX Vertebroplasty, HX chr HFpEF, chronic pain syndrome , HX Old T10, L3, L5 compression Fx, , HX pathologic vertebral compression Fx, HTN seen at ER:
- [facility] EMS from home for evaluation of low back and left hip pain after a fall.
- she bent over to feed her cat when she lost her balance. She reports that she is on hospice due to chronic pain and ambulatory dysfunction from the after mentioned low back issues. She is reporting exquisite pain in the left hip. Denies head
strike. She is not on anticoagulants.
PHX; see above
Relevant VS
Temp Pulse Resp BP Pulse Ox
97.7 F 99 18 141/97 96
12/08/24 11:39 12/08/24 11:39 12/08/24 11:39 12/08/24 11:39 12/08/24 14:39
PE
General: Well Developed, Well Nourished and No Apparent Distress
HEENT: Moist mucous membranes and Atraumatic
Respiratory: Clear
Cardiac: S1/S2 and Regular Rhythm; No Murmur or Rub
GI: Soft, Non Tender, Non Distended and Normal Bowel Sounds; No Organomegaly
Rectal: Deferred by Provider
Musculoskeletal: No Clubbing, No Cyanosis and No Edema
Skin: No Rash
Neuro: AO x 3 and Nonfocal/grossly intact
Psych: Calm
Relevant Data
12/08/24
15:25
WBC 15.9 H
Hgb 13.0
Plt Count 306
Sodium 132 L
Potassium 4.1
Creatinine 0.4 L
eGFR > 60.00
L Hip XR
- Positive for displaced/angulated LEFT hip intertrochanteric fracture.
Last hospitalist admission: Date of Admission: 09/29/24 - Date of Discharge: 10/01/24
DC DXS:
Ambulatory dysfunction
HX T11 compression fracture secondary to osteoporosis
New compression deformity of the T12 vertebral body, bilateral sacral ala insufficiency fractures
Pathologic fractures due to osteoporosis
HX vertebroplasty
Chronic heart failure with preserved ejection fraction
HX orthostatic hypotension
Iron deficiency anemia
Constipation
GERD
Anxiety with benzodiazepine dependency
Underweight/severe protein caloric malnutrition
ASSESSMENT & PLAN
Acute displaced/angulated L hip intertrochanteric fracture s/p Fall
- pending full length femur X-ray
- Fx set protocol
- Benefit for for ORIF outweigh risk
- Medically acceptable to proceed for OR in AM
- NPO after MN
- for OR tomorrow if medically stable
Chr Ambulatory dysfunction with Falls HX
HX T11 compression fracture secondary to osteoporosis
HX T12 vertebral body, bilateral sacral ala insufficiency fractures
HX Pathologic fractures due to osteoporosis
HX vertebroplasty
- Falls precaution
Anxiety
- on PRN alprazolam,- [employer] ATTENDANT fluoxetine
Chronic HFpEF HX
- Not in acute exacerbation
- FU daily Wt and IOs
HX orthostatic hypotension
Iron deficiency anemia
- on PO Fe supplement
HX ulcerative colitis - no longer on Humira
Overactive bladder with chronic incontinence on Gemtesa
DVT Px: SCDs
Code: Full code
IP MS
[2024-12-08 17:20] VITALS: BP 132/87
[2024-12-08 18:00] VITALS: BP 144/101
--- NOTE | 2024-12-08 19:10 | PHANOTE ---
med rec note- patient stated she takes her Xanax 0.5mg bid and 3 tablets at night, no mg written on home list, patient has four meds with with different directions. ecw mention patient weaning off Xanax and last admission patient was at 1.25mg qhs
and 0.5mg am, prescription written for max 0.5mg three a day
--- NOTE | 2024-12-08 19:55 | PTCARENOTE ---
pt arrived from ED @195 via stretcher; pt safely moved from stretcher to bed; AOx3; VSS; bed locked in lowest position; call phoenix within reach; care ongoing;
[2024-12-08 20:05] VITALS: BP 151/101
[2024-12-08] MEDS: REMOVE LIDOCAINE PATCH REMOVE (20:25)
[2024-12-08] MEDS: TYLENOL 1000 MG PO (21:11)
[2024-12-08] MEDS: SENOKOT-S 2 TABLET PO (21:12)
[2024-12-08] MEDS: XANAX 1.25 MG PO (21:12)
[2024-12-08 23:21] VITALS: BP 116/70
[2024-12-09] VITALS (9 sets, daily range): BP systolic 93–131; BP diastolic 58–82; BMI 17.6
[2024-12-09] MEDS: DILAUDID 0.5 MG IV ×2 (00:41→06:24)
[2024-12-09 06:11] LABS: Hematocrit 38.5 % (37.0-47.0); Hemoglobin 12.8 g/dL (12.0-16.0); Mean Corp Hgb Conc. 33.2 g/dL (33.0-37.0); Mean Corpuscular Volume 90.4 fL (81.0-99.0); Platelet Count 263 10^3/uL (130-400); Red Cell Dist. Width 14.6 % (11.5-14.5)
[2024-12-09 06:38] LABS: Blood Urea Nitrogen 16 mg/dl (7-17); Calcium 9.2 mg/dl (8.4-10.2); Carbon Dioxide 23 mmol/L (22-30); Chloride 104 mmol/L (98-107); Glucose 97 mg/dl (70-99); Potassium 4.0 mmol/L (3.5-5.1); Sodium 135 mmol/L (135-145); eGFR > 60.00
--- NOTE | 2024-12-09 06:49 | CON.ORTHO ---
Consultation
-
Date/Time Consultation Requested: 12/08/2024 @ 20:01
Date/Time Consultation Performed: 12/09/2024 @ 6:05 AM
Requesting Provider: Rosanna Prince PA-C
Performing Provider: Gm Ferreira PA-C for Dr. Oumar Dodge MD
Reason for Consultation: Left Hip Fracture
Consultation - Orthopedics
History
Orthopedic Surgery Note
CC: Left Hip Pain s/p Mechanical Fall 12/08/2024
HPI: The patient is an 84-year-old female with a PMH significant for CHF, HTN, Orthostatic Hypotension, Anxiety / Depression, Severe osteoporosis, and Chronic pain due to prior vertebral body fractures who presented to [facility] after sustaining a
mechanical fall at home. She reports that she was ambulating with a walker to feed her cat when she unfortunately lost her balance and sustained a mechanical fall onto her left side. She lives at [facility], [place]. She denies
any head strike or LOC. Of significance, she reports that she is on hospice due to chronic pain and ambulatory dysfunction from her low back problems/vertebral body compression fractures; s/p Vertebroplasty earlier this year. She endorses pain
localized to the left hip/groin. She was transported to the Emergency Department for further evaluation, where x-rays revealed a displaced/angulated left proximal femur fracture. She endorses increased pain with any attempted range of motion. She
denies any anticoagulation use. The patient lives alone with her cat. Orthopedic surgery was consulted for further management.
PMH/PSH: CHF, HTN, Orthostatic Hypotension, Anxiety / Depression, Severe osteoporosis, Chronic pain, History of T11 compression fracture secondary to osteoporosis, Compression deformity of the T12 vertebral body, Bilateral sacral agus insufficiency
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
Medications: Reviewed.
Family History: Family history was reviewed. Noncontributory.
Social history: Nonsmoker, no illicit drugs.
Exam
General appearance: Pleasant. No acute distress.
Head: Normocephalic/atraumatic
Nose: No lesions or discharge.
Skin: No obvious rashes or open wounds
Lungs: No audible wheezing, no cough or sputum production
Musculoskeletal:
LLE:
Directed examination of the left lower extremity reveals leg shortened and externally rotated. (+) TTP about the left hip/lateral thigh. Compartments are soft and compressible. (+) Logroll. Calf is soft and nontender to palpation. Able to
actively plantarflex and dorsiflex left ankle. Capillary refill is <2 seconds. Sensation grossly intact to light touch distally.
Imaging:
X-rays:
CR Hip - LT w/wo Pel 2-3 Vw* was obtained at [facility] on 12/08/2024 and was made available for my review today. Findings: There is diffuse osteopenia. There is a displaced, angulated fracture through the left hip compatible with
intertrochanteric fracture. The right hip is unremarkable. No gross soft tissue abnormality. Impression: Positive for displaced/angulated left hip intertrochanteric fracture.
CR Femur - LT Min 2 Vw* was obtained at [facility] on 12/08/2024 and was made available for my review today. Findings/impression: Previously reported fracture of the left hip is noted. The cortical margins and trabecular pattern of the
remainder of the femur appear intact. No other fracture. No osteolytic or blastic lesion.
Assessment: 84-year-old female with a LEFT displaced/angulated intertrochanteric fracture.
Plan: Unfortunately, the patient has sustained a left hip fracture. Treatment options, including both nonoperative and operative approaches were discussed with the patient and her POA (daughter Karen Campos - [phone]) today. She is on hospice
due to chronic pain and ambulatory dysfunction from her low back problems/vertebral body compression fractures; ambulates with assistance of a walker. After thorough discussion, the patient and her daughter Karen would like to proceed with surgical
treatment to improve pain, mobility, quality of life, and caregiving. The risks, benefits, potential complications and expected post-operative course were reviewed. We will plan for LEFT proximal femur ORIF under the direction of Dr. Dodge / [place]
/ [place] today, Sunday12/09/2024. The patient has been medically cleared to proceed to the OR. Surgical and blood consents were obtained and placed on the patient's chart. Ancef on-call to OR. Patient will remain NPO. Remain NWB to LLE until
post-op. She is to remain on bedrest for now. Continue with pain medications as needed. Type and screen requested. Hemoglobin this AM 12.8. Left hip marked as the correct surgical extremity. Orthopedic surgery will continue to follow along.
Allergies / Home Medications
Allergy/AdvReac Type Severity Reaction Status Date / Time
latex Allergy Rash Verified 09/29/24 11:19
prednisone Allergy psychosis Verified 09/29/24 11:19
�Medication �Instructions �Recorded
ferrous sulfate 325 mg (65 mg 325 mg PO DAILY Supplement 06/01/24
iron) tablet
fluoxetine 10 mg capsule 30 mg PO DAILY Mental 06/01/24
Health/Anxiety
sennosides 8.6 mg-docusate sodium 2 tab-cap PO HS Constipation 06/01/24
50 mg tablet (Senna Plus)
vitamins A,C,O-vcpv-higlgz 2,148 1 tab PO DAILY Supplement 06/01/24
mcg-113 mg-45 mg-17.4 mg tablet
(PreserVision AREDS)
cyclobenzaprine 5 mg tablet 5 mg PO DAILYPRN PRN spasms 06/17/24
pantoprazole 40 mg tablet,delayed 40 mg PO DAILY #30 tabs 06/28/24
release
alprazolam 0.5 mg tablet 0.5 mg PO TID Mental Health/Anxiety 09/29/24
lidocaine 4 % topical patch 1 patch topical DAILYPRN PRN lower 09/29/24
back
acetaminophen 500 mg tablet 1,000 mg PO TIDPRN PRN mild pain 12/08/24
(Tylenol Extra Strength)
oxycodone 10 mg tablet 10 mg PO Q6HPRN PRN severe pains 12/08/24
Vital Signs / Lab Results
Temp Pulse Resp BP Pulse Ox
97.6 F 109 16 116/70 96
12/08/24 23:21 12/08/24 23:21 12/08/24 23:21 12/08/24 23:21 12/08/24 23:21
12/09/24 05:55
12/09/24 05:55
[2024-12-09] MEDS: DILAUDID 1 MG IV ×3 (08:19→19:32)
--- NOTE | 2024-12-09 08:22 | W.PN.HOSP.TC ---
Today's Communication/Plan
-
OR by ortho today.
Assessment / Plan
Assessment / Plan
Impression:
Patient is an 84 y/o female past medical history of CHF, HTN, Orthostatic Hypotension, Anxiety / Depression, and Chronic Pain due to prior fractures who presents with left hip pain following a fall. Patient reports she was bending over to feed her
cat when she lost her balance resulting in a fall and landing on her left hip. She is complaining of severe left hip pain, and x-ray in the emergency department revealed a left hip fracture.
Seen by orthopedic and plan for OR today.
Assessment/plan:
Status post fall with left Hip Fracture
-Consulted Orthopedics
-NPO for OR today.
-Continue Tylenol 1000mg TID
-Continue oxycodone 5mg prn mild pain and 10mg prn moderate pain
-Continue Dilaudid 1 mg prn severe pain
Hyponatremia.
-improved
Leukocytosis,
UA negative nitrate, +2 a leukocyte esterase
No fever.
Received antibiotic perioperative.
Pending urine culture
Chronic HFpEF
-Monitor Daily Weights
Iron Deficiency Anemia
-Continue ferrous sulfate
-Hgb stable
Ulcerative Colitis
-Patient no longer on treatment
-Continue Senna for constipation
Anxiety/Depression with Benzodiazepine Dependence
-Continue alprazolam as prior to admission
-Continue fluoxetine
Overactive Bladder / Chronic Incontinence
-Monitor bladder scans
Chronic Pain with Opioid Dependence
-Pain control as above
Hx Orthostatic Hypotension
Hx Hyperlipidemia
CODE STATUS: DNR
DVT prophylaxis: SCDs
Diet: NPO
Disposition: OR by ortho today.
Total time spent on today's encounter was 55 minutes which included time spent in counseling the patient/family regarding diagnosis and treatment plan as listed above, goals of care, and symptom management. Case was discussed with nursing staff,
specialists, and care coordinators/case management. All labs and imaging personally reviewed by me. Remainder the time spent in detailed review of previous records, lab data, imaging, and other medical provider documentation.
Anticipated Discharge: > 48 hours
Subjective/Interval History
-
Date of Service: December 09, 2024
Patient still with severe pain 10/10 on left hip, increase Dilaudid to 1 mg every 3 hours as needed.
for OR today
Objective Data
-
Labs:
Laboratory Results
12/09/24
05:55
WBC 13.5 H
Hgb 12.8
Hct 38.5
Plt Count 263
Sodium 135
Potassium 4.0
Chloride 104
Carbon Dioxide 23
BUN 16
Creatinine 0.5 L
Glucose 97
Calcium 9.2
Vital Signs:
Vital Signs
Temp Pulse Resp BP Pulse Ox
97.6 F 109 16 116/70 96
12/08/24 23:21 12/08/24 23:21 12/08/24 23:21 12/08/24 23:21 12/08/24 23:21
I&O
12/08/24 12/09/24 12/10/24
06:59 06:59 06:59
Intake Total 480 / 480
Balance 480 / 480
Physical Exam
-
General: Appears in Distress, Pain and Cachectic
HEENT: Normocephalic, Atraumatic, Moist Mucous Membranes, No Ptosis, PERRLA and Nose Appears Normal
Respiratory: Rales and Non Labored Respirations
Cardiac: Regular Rhythm and S1/S2
Breast: Deferred by me
GI: Soft, Nontender, Nondistended and Normal Bowel Sounds
Genito-urinary: No Costovertebral Tender
Musculoskeletal: Other (Left hip tenderness, left leg shortening and medially rotated.)
Skin: Warm
Neuro: Awake, Alert, Oriented, AO x 3 and No Motor Deficits
Psych: Other (in distress)
Data Reviewed
-
Diagnostic Radiology: Image personally visualized and interpreted and Report Reviewed by me
CT Scan: Image personally visualized and interpreted and Report Reviewed by me
Ultrasound: Image personally visualized and interpreted and Report Reviewed by me
MRI: Image personally visualized and interpreted and Report Reviewed by me
Medical Tests (Nuc Med, Echo etc): Image personally visualized and interpreted and Report Reviewed by me
Labs: Labs Reviewed by me
Old Records: Reviewed
[2024-12-09] MEDS: TYLENOL 1000 MG PO ×2 (08:24→21:17)
[2024-12-09] MEDS: PROZAC 30 MG PO (08:26)
[2024-12-09] MEDS: LIDOCAINE 4% PATCH 1 PATCH TOPICAL (08:27)
[2024-12-09] MEDS: OCUVITE SOFTGEL PO (08:27)
[2024-12-09] MEDS: PROTONIX 40 MG PO (08:27)
[2024-12-09] MEDS: FEOSOL 325 MG PO (08:27)
--- NOTE | 2024-12-09 11:00 | CM ---
Reviewed the chart notes and spoke with the patient at the [facility] and daughter Karen by telephone. The patient resides alone in a two story home with two steps to enter via garage. The patient has a first floor master bedroom. The patient has a
rolling walker home O2, shower chair, shower rails, and stair glide to second level if needed. Patient confirmed pharmacy of choice is [facility] [address] [place]. The patient has had daughterly companions and has had VN in past and been to
[facility], [facility] and [facility]. Patient was on [facility] prior to hospitalization. 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 Patient's hospice nurse was Adri ([phone]). CM continues to be available to patient/family and is monitoring
medical plan for needs at discharge.
Plan: Discharge plans will most likely be SNF prior to transitioning back to home.
[2024-12-09] MEDS: MYCOSTATIN CREAM 1 APPLIC TOPICAL ×2 (12:05→19:34)
[2024-12-09 12:35] LABS: Urine Character Cloudy (Clear)
[2024-12-09] MEDS: XANAX 0.5 MG PO (13:13)
--- NOTE | 2024-12-09 16:58 | W.IMMPOSTOP ---
Surgical Immed Post Op Note
-
Primary Surgeon: Pinky
Pre-op Diagnosis: Left hip intertrochanteric fracture
Post-op Diagnosis: Same
Procedure Performed: Left hip cephalomedullary nail fixation
Anesthesia Type: General
Specimen / Cultures: None
Estimated Blood Loss: 20cc
Complications: None
Operative Findings: Dictated [id number]
Plan:
- WBAT
- PT/ OT
- ASA 325 for 30 days if there are no contraindications
[2024-12-09] MEDS: TYLENOL PO (17:55)
--- NOTE | 2024-12-09 18:04 | PTCARENOTE ---
Pt returned from OR s/p Left hip ORIF with gamma. 3 primaseal dressings (hip, thigh, and knee) c/d/i. Capillary refill < 2 seconds b/l lower extremities. Pt wiggles toes. IVF infusing at 75mL/hr. Bed locked and in lowest position. Care ongoing.
[2024-12-09] MEDS: NORMOSOL-R/PLASMALYTE-A 1000 IV (18:08)
[2024-12-09] MEDS: COLACE 100 MG PO (19:32)
[2024-12-09] MEDS: REMOVE LIDOCAINE PATCH 1 PATCH REMOVE (19:35)
[2024-12-09] MEDS: XANAX 1.25 MG PO (21:17)
[2024-12-09] MEDS: SENOKOT-S 2 TABLET PO (21:17)
[2024-12-09] MEDS: ANCEF 5 IV (23:52)
[2024-12-10] VITALS (7 sets, daily range): BP systolic 71–137; BP diastolic 44–97; PULSE 108–109; O2SAT 93
[2024-12-10] MEDS: DILAUDID 1 MG IV ×3 (03:32→22:32)
[2024-12-10] MEDS: NORMOSOL-R/PLASMALYTE-A 1000 IV ×2 (06:29→19:54)
[2024-12-10 07:01] LABS: Hematocrit 33.6 % (37.0-47.0); Hemoglobin 10.7 g/dL (12.0-16.0); Mean Corp Hgb Conc. 31.8 g/dL (33.0-37.0); Mean Corpuscular Volume 91.6 fL (81.0-99.0); Platelet Count 209 10^3/uL (130-400); Red Cell Dist. Width 14.6 % (11.5-14.5)
[2024-12-10 07:03] LABS: Calcium 8.6 mg/dl (8.4-10.2); Carbon Dioxide 24 mmol/L (22-30); Chloride 105 mmol/L (98-107); Glucose 91 mg/dl (70-99); Potassium 4.5 mmol/L (3.5-5.1); Sodium 135 mmol/L (135-145); eGFR > 60.00
[2024-12-10 07:13] LABS: Blood Urea Nitrogen 17 mg/dl (7-17)
--- NOTE | 2024-12-10 07:15 | W.PN.ORTHO ---
Today's Communication / Plan
-
84 yo F POD1 left hip cephalomedullary nail under the direction of Dr. Vance
--WBAT to LLE with walker. We appreciate the assistance of PT/OT.
--Recommend ASA 325 mg daily x4 weeks for DVT ppx.
--Pain control prn. ice and elevation for edema control.
--Hgb pending this AM. Continue to monitor.
--Maintain surgical dressing until 7-10 days post-op. Staple removal at 2 weeks post-op.
--Case management consult for dc planning.
--Orthopedics will continue to follow along.
Assessment
.
Distal Motor Intact: Yes
Dressing:
Clean, dry and intact.
Plan
.
Surgery / Date: Left hip gamma nail, KAYDEN, 12/09
DVT Prophylaxis: Aspirin
Activity:
Out of bed.
PT/OT
Subjective
.
.:
Ms. Aguilar is POD1 following her left hip cephalomedullary nail performed by Dr. Vance. She is resting comfortably in bed this morning, but does endorse pain in the hip.
Vital Signs and Labs
.
Vital Signs and Labs:
Lab Results
12/10/24 06:20
12/10/24 06:20
Temp Pulse Resp BP Pulse Ox
98.6 F 102 18 120/71 97
12/10/24 03:16 12/10/24 03:16 12/10/24 03:16 12/10/24 03:16 12/10/24 03:16
Physical Exam
-
Directed exam of the left lower extremity reveals surgical dressings clean, dry and intact. Tenderness to palpation about the hip. Thigh soft and compressible. Calf soft and nontender. Patient able to wiggle toes, plantar and dorsiflex ankle. NVID.
[2024-12-10] MEDS: OCUVITE SOFTGEL 1 CAP PO (08:39)
[2024-12-10] MEDS: TYLENOL 1000 MG PO ×3 (08:39→22:33)
[2024-12-10] MEDS: FEOSOL 325 MG PO (08:39)
[2024-12-10] MEDS: PROTONIX 40 MG PO (08:39)
[2024-12-10] MEDS: PROZAC 30 MG PO (08:39)
[2024-12-10] MEDS: ANCEF 5 IV (08:39)
[2024-12-10] MEDS: COLACE 100 MG PO ×2 (08:40→19:57)
[2024-12-10] MEDS: ASPIRIN 325 MG PO (08:40)
[2024-12-10] MEDS: MYCOSTATIN CREAM 1 APPLIC TOPICAL ×2 (08:42→21:30)
[2024-12-10] MEDS: LIDOCAINE 4% PATCH 1 PATCH TOPICAL (08:42)
--- NOTE | 2024-12-10 11:15 | W.PN.HOSP.TC ---
Today's Communication/Plan
-
Start antibiotic for UTI in form of Augmentin.
Pending physical therapy evaluation.
Assessment / Plan
Assessment / Plan
Impression:
Patient is an 84 y/o female past medical history of CHF, HTN, Orthostatic Hypotension, Anxiety / Depression, and Chronic Pain due to prior fractures who presents with left hip pain following a fall. Patient reports she was bending over to feed her
cat when she lost her balance resulting in a fall and landing on her left hip. She is complaining of severe left hip pain, and x-ray in the emergency department revealed a left hip fracture.
Seen by orthopedic and plan for OR today.
Assessment/plan:
Status post fall with left Hip Fracture S/P left hip cephalomedullary nail
- Appreciate orthopedic input.
- Pain control.
� PT/OT consult.
� Patient will need rehab
Hyponatremia.
- Resolved
Sepsis secondary to UTI
Patient meets sepsis criteria admission form of tachycardia and leukocytosis
Urine culture positive for gram-negative bacilli/Enterococcus.
Patient received IV antibiotic preoperatively in form of Ancef
Will start oral Augmentin to cover both bacteria's pending sensitivity.
Chronic HFpEF
-Monitor Daily Weights
- No sign of acute exacerbation
Iron Deficiency Anemia
-Continue ferrous sulfate
-Hgb stable
Ulcerative Colitis
-Patient no longer on treatment
-Continue Senna for constipation
Anxiety/Depression with Benzodiazepine Dependence
-Continue alprazolam as prior to admission
-Continue fluoxetine
Overactive Bladder / Chronic Incontinence
-Monitor bladder scans
Chronic Pain with Opioid Dependence
-Pain control as above
Hx Orthostatic Hypotension
Hx Hyperlipidemia
CODE STATUS: DNR
DVT prophylaxis: SCDs/ASA
Diet: Regular
Disposition: Pending physical therapy evaluation
Total time spent on today's encounter was 55 minutes which included time spent in counseling the patient/family regarding diagnosis and treatment plan as listed above, goals of care, and symptom management. Case was discussed with nursing staff,
specialists, and care coordinators/case management. All labs and imaging personally reviewed by me. Remainder the time spent in detailed review of previous records, lab data, imaging, and other medical provider documentation.
Anticipated Discharge: 24 - 48 hours
Subjective/Interval History
-
Date of Service: December 10, 2024
Objective Data
-
Labs:
Laboratory Results
12/10/24
06:20
WBC 12.1 H
Hgb 10.7 L
Hct 33.6 L
Plt Count 209 D
Sodium 135
Potassium 4.5
Chloride 105
Carbon Dioxide 24
BUN 17
Creatinine 0.5 L
Glucose 91
Calcium 8.6
Vital Signs:
Vital Signs
Temp Pulse Resp BP Pulse Ox
98.5 F 109 18 137/97 92
12/10/24 07:56 12/10/24 07:56 12/10/24 07:56 12/10/24 07:56 12/10/24 07:56
I&O
12/09/24 12/10/24 12/11/24
06:59 06:59 06:59
Intake Total 480 / 480 1480 / 1480
Balance 480 / 480 1480 / 1480
[2024-12-10] MEDS: XANAX 0.5 MG PO (12:11)
[2024-12-10] MEDS: AUGMENTIN 875 MG/125 MG 1 TABLET PO ×2 (12:11→19:56)
--- NOTE | 2024-12-10 13:43 | PN.CDI ---
CDI
- -
CDI:
Physician Documentation Request
Admit Date: 12/08/24 17:45
Dear Doctor Fco ,
Please review the following and provide your response in the progress notes.
Clinical Indicators:
Pt admitted with Acute displaced/angulated L hip intertrochanteric fracture s/p Fall
Documented per H&P, 'HX Pathologic fractures due to osteoporosis ...'
Hip Xray: ,' There is diffuse osteopenia. There is a displaced, angled fractures through the left hip compatible with intertrochanteric fracture. '
Please provide the suspected etiology of the documented left intertrochanteric hip fracture:
Left hip Fracture due to pathologic osteoporotic fracture
Left Hip Fracture due to low level fall only
Other ( please specify)
Use of terms such as suspected, likely, concern for, or probable (associated with a specific diagnosis that is being evaluated, monitored, or treated as if it exists) are acceptable and can be coded in the inpatient setting, when documented at the
time of discharge.
Thank you,
Clara Silveira RN
CDI Specialist
[place] [facility]
Please use your independent medical judgment in providing your response.
--- NOTE | 2024-12-10 15:42 | CM ---
Reviewed the chart notes. PT/OT recommending SNF. Referrals sent to [facility] and [facility] as discussed with daughter yesterday. CM continues to be available to patient/family and is monitoring medical plan for needs at discharge.
Plan: Discharge to SNF/rehab once bed secured and precert obtained.
[2024-12-10] MEDS: ROXICODONE 10 MG PO (19:54)
[2024-12-10] MEDS: XANAX 1.25 MG PO (21:30)
[2024-12-10] MEDS: REMOVE LIDOCAINE PATCH 1 PATCH REMOVE (22:33)
[2024-12-10] MEDS: SENOKOT-S PO (22:33)
[2024-12-11] VITALS (7 sets, daily range): BP systolic 98–130; BP diastolic 50–82; PULSE 99; O2SAT 99
--- NOTE | 2024-12-11 07:15 | W.PN.ORTHO ---
Today's Communication / Plan
-
PT/OT
Aspirin/mechanical devices/thigh-high YAHAIRA stockings for DVT prophylaxis
Weightbearing as tolerated with walker
Skin clips removal 2 weeks postop
Follow-up orthopedics 1 month postop.
[facility] facility once medically stable
Orthopedics to sign off
Assessment
.
Distal Motor Intact: Yes
Dressing:
Minimal dried blood on Aquacel dressings
Plan
.
Surgery / Date: Left hip gamma nail, KAYDEN, 12/09
DVT Prophylaxis: Aspirin
Activity:
Out of bed.
PT/OT
Discharge Plan: SNF
Subjective
.
.:
Patient resting comfortably.
Vital Signs and Labs
.
Vital Signs and Labs:
Temp Pulse Resp BP Pulse Ox
98.3 F 95 15 104/65 93
12/10/24 23:18 12/10/24 23:18 12/10/24 23:18 12/10/24 23:18 12/10/24 23:18
[2024-12-11 07:45] LABS: Hematocrit 29.2 % (37.0-47.0); Hemoglobin 9.6 g/dL (12.0-16.0); Mean Corp Hgb Conc. 32.9 g/dL (33.0-37.0); Mean Corpuscular Volume 91.8 fL (81.0-99.0); Platelet Count 197 10^3/uL (130-400); Red Cell Dist. Width 14.6 % (11.5-14.5)
[2024-12-11 07:58] LABS: Calcium 8.3 mg/dl (8.4-10.2); Carbon Dioxide 25 mmol/L (22-30); Chloride 105 mmol/L (98-107); Glucose 90 mg/dl (70-99); Potassium 3.8 mmol/L (3.5-5.1); Sodium 133 mmol/L (135-145); eGFR > 60.00
[2024-12-11 08:08] LABS: Blood Urea Nitrogen 17 mg/dl (7-17)
[2024-12-11] MEDS: PROTONIX 40 MG PO (08:43)
[2024-12-11] MEDS: AUGMENTIN 875 MG/125 MG 1 TABLET PO ×2 (08:43→20:10)
[2024-12-11] MEDS: TYLENOL 1000 MG PO ×3 (08:43→21:49)
[2024-12-11] MEDS: PROZAC 30 MG PO (08:43)
[2024-12-11] MEDS: OCUVITE SOFTGEL PO (08:43)
[2024-12-11] MEDS: ASPIRIN 325 MG PO (08:43)
[2024-12-11] MEDS: COLACE 100 MG PO ×2 (08:44→20:10)
[2024-12-11] MEDS: FEOSOL 325 MG PO (08:44)
[2024-12-11] MEDS: MYCOSTATIN CREAM 1 APPLIC TOPICAL ×2 (08:44→20:10)
[2024-12-11] MEDS: LIDOCAINE 4% PATCH 1 PATCH TOPICAL (08:45)
--- NOTE | 2024-12-11 10:51 | CM ---
Reviewed the chart notes and spoke with the patient's daughter Karen via telephone. Informed her that [facility] has no beds and at [facility] there is an account balance due of $205.62. Provided Karen with contact name and number for [facility] to arrange for
payment. CM continues to be available to patient/family and is monitoring medical plan for needs at discharge.
Plan: Discharge to SNF/rehab once bed secured and auth obtained. Family hoping for [facility].
--- NOTE | 2024-12-11 12:15 | W.PN.HOSP.TC ---
Addendum entered and electronically signed by Hebert Eagle MD 12/11/24 15:34:
-� Acute blood loss anemia with baseline chronic anemia iron deficiency
- Left Hip Fracture due to low level fall only
Original Note:
Today's Communication/Plan
-
IV fluid bolus
Discharge to rehab once available
Assessment / Plan
Assessment / Plan
Impression:
Patient is an 84 y/o female past medical history of CHF, HTN, Orthostatic Hypotension, Anxiety / Depression, and Chronic Pain due to prior fractures who presents with left hip pain following a fall. Patient reports she was bending over to feed her
cat when she lost her balance resulting in a fall and landing on her left hip. She is complaining of severe left hip pain, and x-ray in the emergency department revealed a left hip fracture.
Seen by orthopedic S/P left hip cephalomedullary nail.
Seen by physical therapy recommended rehab.
Patient was noted to have UTI and started on Augmentin.
Urine culture showed Klebsiella pneumonia and Enterococcus faecalis sensitive to Augmentin.
Blood pressure dropped and patient received IV fluid bolus
Assessment/plan:
Status post fall with left Hip Fracture S/P left hip cephalomedullary nail
- Appreciate orthopedic input.
- Pain control.
� PT/OT consult.
� Patient will need rehab
Hyponatremia.
- Resolved
Sepsis secondary to UTI
Patient meets sepsis criteria admission form of tachycardia and leukocytosis
Urine culture positive for Klebsiella pneumoniae, Enterococcus faecalis.
Patient received IV antibiotic preoperatively in form of Ancef
Will start oral Augmentin to cover both bacteria's pending sensitivity.
Hypotension.
Episodes of hypotension with ambulation.
Ordered normal
Chronic HFpEF
-Monitor Daily Weights
- No sign of acute exacerbation
Iron Deficiency Anemia
-Continue ferrous sulfate
-Hgb stable
Ulcerative Colitis
-Patient no longer on treatment
-Continue Senna for constipation
Anxiety/Depression with Benzodiazepine Dependence
-Continue alprazolam as prior to admission
-Continue fluoxetine
Overactive Bladder / Chronic Incontinence
-Monitor bladder scans
Chronic Pain with Opioid Dependence
-Pain control as above
Hx Orthostatic Hypotension
Hx Hyperlipidemia
CODE STATUS: DNR
DVT prophylaxis: SCDs/ASA
Diet: Regular
Disposition: Discharge to rehab once available
Total time spent on today's encounter was 55 minutes which included time spent in counseling the patient/family regarding diagnosis and treatment plan as listed above, goals of care, and symptom management. Case was discussed with nursing staff,
specialists, and care coordinators/case management. All labs and imaging personally reviewed by me. Remainder the time spent in detailed review of previous records, lab data, imaging, and other medical provider documentation.
Anticipated Discharge: Within 24 hours
Subjective/Interval History
-
Date of Service: December 11, 2024
Patient seen and examined at bedside, denies any chest pain or shortness of breath, out of bed to chair today.
Patient dropped blood pressure with physical therapy yesterday.
Also dropped again today and received 500 cc of bolus.
Objective Data
-
Labs:
Laboratory Results
12/11/24
06:50
WBC 9.7
Hgb 9.6 L
Hct 29.2 L
Plt Count 197
Sodium 133 L
Potassium 3.8
Chloride 105
Carbon Dioxide 25
BUN 17
Creatinine 0.4 L
Glucose 90
Calcium 8.3 L
Vital Signs:
Vital Signs
Temp Pulse Resp BP Pulse Ox
98.3 F 96 16 118/74 95
12/11/24 08:20 12/11/24 08:20 12/11/24 08:20 12/11/24 08:20 12/11/24 08:20
I&O
12/10/24 12/11/24 12/12/24
06:59 06:59 06:59
Intake Total 1479
Balance 1479
Physical Exam
-
General: Appears in Distress, Pain and Cachectic
HEENT: Normocephalic, Atraumatic, Moist Mucous Membranes, No Ptosis, PERRLA and Nose Appears Normal
Respiratory: Rales and Non Labored Respirations
Cardiac: Regular Rhythm and S1/S2
Breast: Deferred by me
GI: Soft, Nontender, Nondistended and Normal Bowel Sounds
Genito-urinary: No Costovertebral Tender
Musculoskeletal: Other (Left hip surgical site clean.)
Skin: Warm
Neuro: Awake, Alert, Oriented, AO x 3 and No Motor Deficits
Psych: Other (in distress)
[2024-12-11] MEDS: NSS 250 IV (12:16)
--- NOTE | 2024-12-11 12:34 | PN.CDI ---
CDI
- -
CDI:
Physician Documentation Request
Admit Date: 12/08/24 17:45
Dear Doctor Fco,
Please review the following and provide your response in the progress notes.
Clinical Indicators:
Pt admitted with Acute displaced/angulated L hip intertrochanteric fracture s/p Fall
Progress note 12/11 , ' Hypotension. Episodes of hypotension with ambulation....Iron Deficiency Anemia-Continue ferrous sulfate...'
Trended Hemoglobin/Hematocrit below
Laboratory Tests
12/08/24 12/11/24
15:25 06:50
Hgb 13.0 9.6 L
Hct 39.1 29.2 L
Based on the above, could you clarify, in your progress note, which of the following is the most likely type of anemia you are evaluating, monitoring and/or treating?
Acute blood loss anemia with baseline chronic anemia iron deficiency
Chronic iron deficiency anemia only
Other ( please specify)
Use of terms such as suspected, likely, concern for, or probable (associated with a specific diagnosis that is being evaluated, monitored, or treated as if it exists) are acceptable and can be coded in the inpatient setting, when documented at the
time of discharge.
Thank you,
Clara Silveira RN
CDI Specialist
[facility]
Please use your independent medical judgment in providing your response.
--- NOTE | 2024-12-11 13:14 | PTCARENOTE ---
Pt sat in chair for 2 hours. Pt feeling tired. Pt helped back to bed BP 98/64 HR [address] Eagle notified. 250cc bolus ordered. Post bolus BP 121/76 HR 96. Care ongoing.
[2024-12-11] MEDS: XANAX 0.5 MG PO (13:18)
[2024-12-11] MEDS: MIRALAX 17 GRAMS PO (16:15)
[2024-12-11] MEDS: ROXICODONE 5 MG PO (17:59)
[2024-12-11] MEDS: REMOVE LIDOCAINE PATCH 1 PATCH REMOVE (20:11)
[2024-12-11] MEDS: XANAX 1.25 MG PO (21:48)
[2024-12-11] MEDS: SENOKOT-S 2 TABLET PO (21:48)
[2024-12-11] MEDS: DILAUDID 1 MG IV (22:01)
[2024-12-12 06:35] VITALS: BP 148/96
[2024-12-12 08:08] LABS: Hematocrit 33.4 % (37.0-47.0); Hemoglobin 10.6 g/dL (12.0-16.0); Mean Corp Hgb Conc. 31.7 g/dL (33.0-37.0); Mean Corpuscular Volume 93.6 fL (81.0-99.0); Platelet Count 247 10^3/uL (130-400); Red Cell Dist. Width 14.3 % (11.5-14.5)
[2024-12-12 08:27] LABS: Blood Urea Nitrogen 17 mg/dl (7-17); Calcium 8.7 mg/dl (8.4-10.2); Carbon Dioxide 30 mmol/L (22-30); Chloride 104 mmol/L (98-107); Glucose 88 mg/dl (70-99); Potassium 4.2 mmol/L (3.5-5.1); Sodium 136 mmol/L (135-145); eGFR > 60.00
[2024-12-12] MEDS: DILAUDID 1 MG IV ×3 (08:45→22:32)
[2024-12-12] MEDS: PROZAC 30 MG PO (08:52)
[2024-12-12] MEDS: AUGMENTIN 875 MG/125 MG 1 TABLET PO ×2 (08:52→20:43)
[2024-12-12] MEDS: ASPIRIN 325 MG PO (08:52)
[2024-12-12] MEDS: COLACE 100 MG PO ×2 (08:52→20:43)
[2024-12-12] MEDS: FEOSOL 325 MG PO (08:52)
[2024-12-12] MEDS: PROTONIX 40 MG PO (08:52)
[2024-12-12] MEDS: OCUVITE SOFTGEL 1 CAP PO (08:52)
[2024-12-12] MEDS: TYLENOL 1000 MG PO ×3 (08:52→21:52)
[2024-12-12] MEDS: MYCOSTATIN CREAM 1 APPLIC TOPICAL ×2 (08:53→20:43)
[2024-12-12] MEDS: LIDOCAINE 4% PATCH 1 PATCH TOPICAL (08:54)
--- NOTE | 2024-12-12 10:32 | W.PN.HOSP.TC ---
Today's Communication/Plan
-
Discharge to rehab once available
Assessment / Plan
Assessment / Plan
Impression:
Patient is an 84 y/o female past medical history of CHF, HTN, Orthostatic Hypotension, Anxiety / Depression, and Chronic Pain due to prior fractures who presents with left hip pain following a fall. Patient reports she was bending over to feed her
cat when she lost her balance resulting in a fall and landing on her left hip. She is complaining of severe left hip pain, and x-ray in the emergency department revealed a left hip fracture.
Seen by orthopedic S/P left hip cephalomedullary nail.
Seen by physical therapy recommended rehab.
Patient was noted to have UTI and started on Augmentin.
Urine culture showed Klebsiella pneumonia and Enterococcus faecalis sensitive to Augmentin.
Blood pressure dropped and patient received IV fluid bolus
Assessment/plan:
Status post fall with left Hip Fracture S/P left hip cephalomedullary nail
- Appreciate orthopedic input.
- Pain control.
� PT/OT consult.
� Patient will need rehab
- Patient medically cleared for the
Hyponatremia.
- Resolved
Sepsis secondary to UTI
Patient meets sepsis criteria admission form of tachycardia and leukocytosis
Urine culture positive for Klebsiella pneumoniae, Enterococcus faecalis.
Patient received IV antibiotic preoperatively in form of Ancef
Started on oral Augmentin.
Hypotension.
Improved
Chronic HFpEF
-Monitor Daily Weights
- No sign of acute exacerbation
Iron Deficiency Anemia
-Continue ferrous sulfate
-Hgb stable
Ulcerative Colitis
-Patient no longer on treatment
-Continue Senna for constipation
Anxiety/Depression with Benzodiazepine Dependence
-Continue alprazolam as prior to admission
-Continue fluoxetine
Overactive Bladder / Chronic Incontinence
-Monitor bladder scans
Chronic Pain with Opioid Dependence
-Pain control as above
Hx Orthostatic Hypotension
Hx Hyperlipidemia
CODE STATUS: DNR
DVT prophylaxis: SCDs/ASA
Diet: Regular
Disposition: Discharge to rehab once available
Total time spent on today's encounter was 55 minutes which included time spent in counseling the patient/family regarding diagnosis and treatment plan as listed above, goals of care, and symptom management. Case was discussed with nursing staff,
specialists, and care coordinators/case management. All labs and imaging personally reviewed by me. Remainder the time spent in detailed review of previous records, lab data, imaging, and other medical provider documentation.
Anticipated Discharge: Today
Subjective/Interval History
-
Date of Service: December 12, 2024
Patient appears to be in pain, blood pressure improved, leukocytosis improved.
Medically cleared for DC.
Objective Data
-
Labs:
Laboratory Results
12/12/24
07:04
WBC 7.8
Hgb 10.6 L
Hct 33.4 L
Plt Count 247 D
Sodium 136
Potassium 4.2
Chloride 104
Carbon Dioxide 30
BUN 17
Creatinine 0.4 L
Glucose 88
Calcium 8.7
Vital Signs:
Vital Signs
Temp Pulse Resp BP Pulse Ox
97.6 F 87 18 148/96 97
12/12/24 06:35 12/12/24 06:35 12/12/24 06:35 12/12/24 06:35 12/12/24 06:35
I&O
12/11/24 12/12/24 12/13/24
06:59 06:59 06:59
Intake Total 1740 / 1740 970 / 970
Balance 1740 / 1740 970 / 970
Physical Exam
-
General: Appears in Distress, Pain and Cachectic
HEENT: Normocephalic, Atraumatic, Moist Mucous Membranes, No Ptosis, PERRLA and Nose Appears Normal
Respiratory: Rales and Non Labored Respirations
Cardiac: Regular Rhythm and S1/S2
Breast: Deferred by me
GI: Soft, Nontender, Nondistended and Normal Bowel Sounds
Genito-urinary: No Costovertebral Tender
Musculoskeletal: Other (Left hip surgical site clean.)
Skin: Warm
Neuro: Awake, Alert, Oriented, AO x 3 and No Motor Deficits
Psych: Other (in distress)
[2024-12-12] MEDS: XANAX 0.5 MG PO (11:25)
--- NOTE | 2024-12-12 13:19 | CM ---
Addendum entered by Magali Hutchinson RN 12/12/24 14:55:
CM spoke with patient's daughter Karen via telephone. Really wants [facility], but will research other facilities next couple of days and will let CM know outcome.
Original Note:
Reviewed the chart notes and left voice message for the patient's daughter Karen. [facility] and [facility] have no beds. CM continues to be available to patient/family and is monitoring medical plan for needs at discharge.
Plan: Discharge to SNF/rehab once bed secured and auth obtained.
[2024-12-12 14:39] VITALS: BP 106/69; PULSE 91
[2024-12-12 14:42] VITALS: BP 106/69; PULSE 91
[2024-12-12 15:40] VITALS: BP 139/78
[2024-12-12] MEDS: XANAX 1.25 MG PO (20:42)
[2024-12-12] MEDS: SENOKOT-S 2 TABLET PO (20:42)
[2024-12-12] MEDS: REMOVE LIDOCAINE PATCH 1 PATCH REMOVE (20:43)
[2024-12-12 23:33] VITALS: BP 148/74
[2024-12-13] MEDS: ROXICODONE 10 MG PO (06:21)
[2024-12-13 06:27] VITALS: BP 109/55
[2024-12-13] MEDS: DILAUDID 1 MG IV ×2 (07:32→16:14)
[2024-12-13 07:45] VITALS: BP 148/79
[2024-12-13] MEDS: OCUVITE SOFTGEL 1 CAP PO (08:07)
[2024-12-13] MEDS: COLACE 100 MG PO ×3 (08:07→21:19)
[2024-12-13] MEDS: FEOSOL 325 MG PO (08:07)
[2024-12-13] MEDS: TYLENOL 1000 MG PO ×3 (08:07→21:18)
[2024-12-13] MEDS: PROTONIX 40 MG PO (08:07)
[2024-12-13] MEDS: ASPIRIN 325 MG PO (08:07)
[2024-12-13] MEDS: PROZAC 30 MG PO (08:07)
[2024-12-13] MEDS: AUGMENTIN 875 MG/125 MG 1 TABLET PO ×2 (08:07→21:23)
[2024-12-13] MEDS: LIDOCAINE 4% PATCH 1 PATCH TOPICAL (08:08)
[2024-12-13] MEDS: MYCOSTATIN CREAM 1 APPLIC TOPICAL ×2 (08:08→21:22)
[2024-12-13] MEDS: MIRALAX 17 GRAMS PO (08:08)
--- NOTE | 2024-12-13 10:53 | W.PN.HOSP.TC ---
Today's Communication/Plan
-
Discharge to rehab once available
Assessment / Plan
Assessment / Plan
Impression:
Patient is an 84 y/o female past medical history of CHF, HTN, Orthostatic Hypotension, Anxiety / Depression, and Chronic Pain due to prior fractures who presents with left hip pain following a fall. Patient reports she was bending over to feed her
cat when she lost her balance resulting in a fall and landing on her left hip. She is complaining of severe left hip pain, and x-ray in the emergency department revealed a left hip fracture.
Seen by orthopedic S/P left hip cephalomedullary nail.
Seen by physical therapy recommended rehab.
Patient was noted to have UTI and started on Augmentin.
Urine culture showed Klebsiella pneumonia and Enterococcus faecalis sensitive to Augmentin.
Blood pressure dropped and patient received IV fluid bolus
Blood Pressure improved
Assessment/plan:
Status post fall with left Hip Fracture S/P left hip cephalomedullary nail
- Left Hip Fracture due to low level fall.
- Appreciate orthopedic input.
- Pain control.
� PT/OT consult.
� Patient will need rehab
- Patient medically cleared for DC
Hyponatremia.
- Resolved
Sepsis secondary to UTI
Patient meets sepsis criteria admission form of tachycardia and leukocytosis
Urine culture positive for Klebsiella pneumoniae, Enterococcus faecalis.
Patient received IV antibiotic preoperatively in form of Ancef
Started on oral Augmentin.
Hypotension.
Improved
Chronic HFpEF
-Monitor Daily Weights
- No sign of acute exacerbation
Acute blood loss anemia with baseline chronic anemia iron deficiency
-Continue ferrous sulfate
-Hgb stable
Ulcerative Colitis
-Patient no longer on treatment
-Continue Senna for constipation
Anxiety/Depression with Benzodiazepine Dependence
-Continue alprazolam as prior to admission
-Continue fluoxetine
Overactive Bladder / Chronic Incontinence
-Monitor bladder scans
Chronic Pain with Opioid Dependence
-Pain control as above
Hx Orthostatic Hypotension
Hx Hyperlipidemia
CODE STATUS: DNR
DVT prophylaxis: SCDs/ASA
Diet: Regular
Disposition: Discharge to rehab once available
Total time spent on today's encounter was 55 minutes which included time spent in counseling the patient/family regarding diagnosis and treatment plan as listed above, goals of care, and symptom management. Case was discussed with nursing staff,
specialists, and care coordinators/case management. All labs and imaging personally reviewed by me. Remainder the time spent in detailed review of previous records, lab data, imaging, and other medical provider documentation.
Anticipated Discharge: Today
Subjective/Interval History
-
Date of Service: December 13, 2024
Patient seen and examined at bedside, denies any chest pain or shortness of breath, no abdominal pain, no nausea, no vomiting, no diarrhea patient complaining of constipation.
Objective Data
-
Vital Signs:
Vital Signs
Temp Pulse Resp BP Pulse Ox
98.9 F 78 16 148/79 96
12/13/24 07:45 12/13/24 07:45 12/13/24 07:45 12/13/24 07:45 12/13/24 07:45
I&O
12/12/24 12/13/24 12/14/24
06:59 06:59 06:59
Intake Total 970 / 970 240 / 240
Balance 970 / 970 240 / 240
Physical Exam
-
General: Appears in Distress, Pain and Cachectic
HEENT: Normocephalic, Atraumatic, Moist Mucous Membranes, No Ptosis, PERRLA and Nose Appears Normal
Respiratory: Rales and Non Labored Respirations
Cardiac: Regular Rhythm and S1/S2
Breast: Deferred by me
GI: Soft, Nontender, Nondistended and Normal Bowel Sounds
Genito-urinary: No Costovertebral Tender
Musculoskeletal: Other (Left hip surgical site clean.)
Skin: Warm
Neuro: Awake, Alert, Oriented, AO x 3 and No Motor Deficits
Psych: Other (in distress)
[2024-12-13] MEDS: XANAX 0.5 MG PO (12:06)
[2024-12-13 12:42] VITALS: BP 111/65
[2024-12-13] MEDS: CITROMA 300 ML PO (15:07)
--- NOTE | 2024-12-13 15:23 | CM ---
Chart reviewed. Plan is for SNF once SNF bed is located
Spoke w/ patient bedside, asking CM to place referrals to [facility]
SNF list provided as requested
Patient stated her DIL, Karen, made the outstanding payment to [facility] as she prefers that facility. Unfortunately CM is unable to confirm this over the weekend. CM will have to check with [facility] about paid balance on Sunday
Additional referrals sent in [facility]
Plan: SNF, need insurance authorization
[2024-12-13 15:45] VITALS: BP 151/83
[2024-12-13] MEDS: XANAX 1.25 MG PO (21:18)
[2024-12-13] MEDS: ROXICODONE 5 MG PO (21:19)
[2024-12-13] MEDS: SENOKOT-S 2 TABLET PO (21:21)
[2024-12-13] MEDS: REMOVE LIDOCAINE PATCH 1 PATCH REMOVE (21:22)
[2024-12-14] MEDS: DILAUDID 1 MG IV ×3 (00:06→18:35)
[2024-12-14 00:13] VITALS: BP 135/86
[2024-12-14 07:15] VITALS: BP 141/71
[2024-12-14] MEDS: PROZAC 30 MG PO (07:49)
[2024-12-14] MEDS: FEOSOL 325 MG PO (07:50)
[2024-12-14] MEDS: AUGMENTIN 875 MG/125 MG 1 TABLET PO ×2 (07:50→21:48)
[2024-12-14] MEDS: ASPIRIN 325 MG PO (07:50)
[2024-12-14] MEDS: OCUVITE SOFTGEL 1 CAP PO (07:50)
[2024-12-14] MEDS: LIDOCAINE 4% PATCH 1 PATCH TOPICAL (07:50)
[2024-12-14] MEDS: PROTONIX 40 MG PO (07:50)
[2024-12-14] MEDS: MYCOSTATIN CREAM 1 APPLIC TOPICAL ×2 (07:51→21:49)
[2024-12-14] MEDS: TYLENOL 1000 MG PO ×3 (07:51→21:48)
[2024-12-14 08:16] LABS: Blood Urea Nitrogen 17 mg/dl (7-17); Calcium 8.7 mg/dl (8.4-10.2); Carbon Dioxide 27 mmol/L (22-30); Chloride 103 mmol/L (98-107); Glucose 88 mg/dl (70-99); Potassium 4.6 mmol/L (3.5-5.1); Sodium 134 mmol/L (135-145); eGFR > 60.00
--- NOTE | 2024-12-14 08:52 | W.PN.HOSP.TC ---
Today's Communication/Plan
-
Discharge to rehab once available
Assessment / Plan
Assessment / Plan
Impression:
Patient is an 84 y/o female past medical history of CHF, HTN, Orthostatic Hypotension, Anxiety / Depression, and Chronic Pain due to prior fractures who presents with left hip pain following a fall. Patient reports she was bending over to feed her
cat when she lost her balance resulting in a fall and landing on her left hip. She is complaining of severe left hip pain, and x-ray in the emergency department revealed a left hip fracture.
Seen by orthopedic S/P left hip cephalomedullary nail.
Seen by physical therapy recommended rehab.
Patient was noted to have UTI and started on Augmentin.
Urine culture showed Klebsiella pneumonia and Enterococcus faecalis sensitive to Augmentin.
Blood pressure dropped and patient received IV fluid bolus
Blood Pressure improved
Had constipation which resolved.
Social service for discharge plan
Pending placement
Assessment/plan:
Status post fall with left Hip Fracture S/P left hip cephalomedullary nail
- Left Hip Fracture due to low level fall.
- Appreciate orthopedic input.
- Pain control.
� PT/OT consult.
� Patient will need rehab
- Patient medically cleared for DC
Hyponatremia.
- Resolved
Sepsis secondary to UTI
Patient meets sepsis criteria admission form of tachycardia and leukocytosis
Urine culture positive for Klebsiella pneumoniae, Enterococcus faecalis.
Patient received IV antibiotic preoperatively in form of Ancef
Started on oral Augmentin (completed 5 days).
Hypotension.
Improved
Chronic HFpEF
-Monitor Daily Weights
- No sign of acute exacerbation
Acute blood loss anemia with baseline chronic anemia iron deficiency
-Continue ferrous sulfate
-Hgb stable
Ulcerative Colitis
-Patient no longer on treatment
-Continue Senna for constipation
Anxiety/Depression with Benzodiazepine Dependence
-Continue alprazolam as prior to admission
-Continue fluoxetine
Overactive Bladder / Chronic Incontinence
-Monitor bladder scans
Chronic Pain with Opioid Dependence
-Pain control as above
Hx Orthostatic Hypotension
Hx Hyperlipidemia
CODE STATUS: DNR
DVT prophylaxis: SCDs/ASA
Diet: Regular
Disposition: Discharge to rehab once available
Total time spent on today's encounter was 55 minutes which included time spent in counseling the patient/family regarding diagnosis and treatment plan as listed above, goals of care, and symptom management. Case was discussed with nursing staff,
specialists, and care coordinators/case management. All labs and imaging personally reviewed by me. Remainder the time spent in detailed review of previous records, lab data, imaging, and other medical provider documentation.
Anticipated Discharge: Today
Subjective/Interval History
-
Date of Service: December 14, 2024
Patient seen and examined at bedside, denies any chest pain or shortness of breath, no abdominal pain, no nausea, no vomiting, improved constipation.
Complaining of neck pain.
Objective Data
-
Labs:
Laboratory Results
12/14/24
07:22
WBC Pending
Hgb Pending
Hct Pending
Plt Count Pending
Sodium 134 L
Potassium 4.6
Chloride 103
Carbon Dioxide 27
BUN 17
Creatinine 0.4 L
Glucose 88
Calcium 8.7
Vital Signs:
Vital Signs
Temp Pulse Resp BP Pulse Ox
98 F 87 16 141/71 96
12/14/24 07:15 12/14/24 07:15 12/14/24 07:15 12/14/24 07:15 12/14/24 07:15
I&O
12/13/24 12/14/24 12/15/24
06:59 06:59 06:59
Intake Total 240 / 240 600 / 600
Balance 240 / 240 600 / 600
Physical Exam
-
General: Appears in Distress, Pain and Cachectic
HEENT: Normocephalic, Atraumatic, Moist Mucous Membranes, No Ptosis, PERRLA and Nose Appears Normal
Respiratory: Rales and Non Labored Respirations
Cardiac: Regular Rhythm and S1/S2
Breast: Deferred by me
GI: Soft, Nontender, Nondistended and Normal Bowel Sounds
Genito-urinary: No Costovertebral Tender
Musculoskeletal: Other (Left hip surgical site clean.)
Skin: Warm
Neuro: Awake, Alert, Oriented, AO x 3 and No Motor Deficits
Psych: Other (in distress)
[2024-12-14 09:19] LABS: Hematocrit 31.9 % (37.0-47.0); Hemoglobin 10.2 g/dL (12.0-16.0); Mean Corp Hgb Conc. 32.0 g/dL (33.0-37.0); Mean Corpuscular Volume 90.6 fL (81.0-99.0); Platelet Count 304 10^3/uL (130-400); Red Cell Dist. Width 14.3 % (11.5-14.5)
[2024-12-14] MEDS: ROXICODONE 5 MG PO (13:22)
[2024-12-14] MEDS: XANAX 0.5 MG PO (13:22)
[2024-12-14 13:34] VITALS: BP 101/76; PULSE 95; O2SAT 95
[2024-12-14 15:15] VITALS: BP 157/99
--- NOTE | 2024-12-14 19:50 | PTOTSP ---
CONSULT
Received and appreciate [employer]CEMENT SPECIALIST consultation. Spoke with RN who reported pt has been experiencing difficulty with PO intake. RN elaborated that pt has not exhibited any immediate overt s/s of aspiration with PO intake; rather, pt is unable to eat all of
her meals and that after she stops eating her meals, a few minutes later she has been consistently observed to be spitting up/regurgitating mucous/secretions.
Pt is well known to this PARKING ENFORCEMENT SPECIALIST service. Pt was last seen in June of 2024 during which time pt was recommended for regular solids and thin liquids - no skilled PARKING ENFORCEMENT SPECIALIST services were recommended at that time. Pt has a hx of chronic esophageal dysphagia
including but not limited to regurgitation, feeling of globus sensation in sternal retention with solids and liquids that is exacerbated by tendency for rapid ingestion rates and tendency not to drink liquids when eating meals, as well as hx GERD.
Per EGD in January of 2023, pt was dx with a moderate hiatal hernia as well as a moderate tortuous esophagus.
Pt is currently admitted for a fall with subsequent lower back pain and hip pain. Of note, pt was previously on home hospice for chronic pain and ambulatory dysfunction. Pt went to the OR for for a gamma nail fixation of her hip fx. Pt was also
found to have a UTI for which she was started on abx. Pt has been afebrile and on room air since admission. Lab work showed an elevated WBC upon arrival as well as an abnormal UA. No nursing dysphagia screening was ever completed. Pt has been on a
regular solids and thin liquids diet since admission. Eventual plan is to d/c to SNF for rehab.
Given the information listed above, pt's current presentation is consistent with pt's known hx of esophageal dysphagia - a skilled PARK[employer] ENFORCEMENT SPECIALIST evaluation is not warranted at this time. Pt has been educated on multiple previous occasions on what she can do
to help reduce and alleviate her esophageal dysphagia symptoms (listed below). Would reinforce these recommendations and if pt is compliant with these compensatory strategies but is still experience regurgitation and significant sternal
discomfort/distress, would consider a consultation to GI. PARKING ENFORCEMENT SPECIALIST team to sign off.
Esophageal Dysphagia Recommendations/Considerations:
- Can continue with regular foods, but would opt for softer foods when able. Chew all of your foods very well prior to swallowing.
- After every 1-3 bites, take a drink to wash down your foods.
- Sit all the way upright when eating and stay upright for at least an hour after eating.
- Try to avoid eating 3 large meals; instead, eat 5-8 small meals throughout the day (i.e., 'grazing').
- Eat SLOWLY. Take a few pauses between each bite and each sip.
- Do not over-eat. Listen to your body - stop eating when you are full. If you are concerned about calories/nutrition, opt for nutritional shakes/drinks (consult with a dietitian) and prioritize the food/drink items that are most important (e.g.
proteins, vegetables).
- Do not lie flat when sleeping at night - keep your head of bed up at least 30 degrees.
- Take all reflux medications consistently as prescribed.
- Follow-up with outpatient GI doctor as recommended.
[2024-12-14] MEDS: COLACE 100 MG PO (21:48)
[2024-12-14] MEDS: XANAX 1.25 MG PO (21:48)
[2024-12-14] MEDS: SENOKOT-S 2 TABLET PO (21:48)
[2024-12-14] MEDS: REMOVE LIDOCAINE PATCH 1 PATCH REMOVE (21:49)
[2024-12-14 23:00] VITALS: BP 121/75
[2024-12-15] MEDS: ROXICODONE 5 MG PO (01:49)
[2024-12-15 08:00] VITALS: BP 132/78
[2024-12-15 08:00] LABS: Hematocrit 33.6 % (37.0-47.0); Hemoglobin 10.9 g/dL (12.0-16.0); Mean Corp Hgb Conc. 32.4 g/dL (33.0-37.0); Mean Corpuscular Volume 91.1 fL (81.0-99.0); Platelet Count 354 10^3/uL (130-400); Red Cell Dist. Width 14.4 % (11.5-14.5)
[2024-12-15] MEDS: PROZAC 30 MG PO (08:23)
[2024-12-15] MEDS: OCUVITE SOFTGEL PO ×2 (08:23→08:33)
[2024-12-15] MEDS: PROTONIX 40 MG PO (08:23)
[2024-12-15] MEDS: AUGMENTIN 875 MG/125 MG 1 TABLET PO (08:23)
[2024-12-15] MEDS: TYLENOL 1000 MG PO (08:23)
[2024-12-15] MEDS: FEOSOL 325 MG PO (08:24)
[2024-12-15] MEDS: MYCOSTATIN CREAM 1 APPLIC TOPICAL (08:24)
[2024-12-15] MEDS: COLACE 100 MG PO (08:24)
[2024-12-15] MEDS: ASPIRIN 325 MG PO (08:24)
[2024-12-15] MEDS: LIDOCAINE 4% PATCH 1 PATCH TOPICAL (08:24)
[2024-12-15 08:25] LABS: Blood Urea Nitrogen 14 mg/dl (7-17); Calcium 8.8 mg/dl (8.4-10.2); Carbon Dioxide 27 mmol/L (22-30); Chloride 102 mmol/L (98-107); Glucose 91 mg/dl (70-99); Potassium 4.3 mmol/L (3.5-5.1); Sodium 133 mmol/L (135-145); eGFR > 60.00
--- NOTE | 2024-12-15 09:44 | CM ---
Addendum entered by Magali Hutchinson RN 12/15/24 14:54:
Karen patient's [id number] updated on discharge today to [facility].
Addendum entered by Magali Hutchinson RN 12/15/24 12:14:
Patient accepted at [facility]. Patient in agreement with discharge to [facility] NPI#[id number]
Dr. Raines NPI# [id number]
Auth obtained; #[id number]; 5 days; 12/15-12/19; NRD 12/19 to [phone]
Call report to: [phone], ext [phone]
Fax report to: [phone]
Medical necessity and transport forms on chart.
Addendum entered by Magali Hutchinson RN 12/15/24 11:18:
IMM reviewed.
Original Note:
Reviewed the chart notes and spoke with the patient at the bedside. Patient requested a referral be sent to [facility]. Referral sent. CM left for admissions at [facility] for bed availability. CM continues to be available to
patient/family and is monitoring medical plan for needs at discharge.
Plan: Discharge to SNF once bed secured and auth obtained.
--- NOTE | 2024-12-15 10:15 | W.PN.HOSP.TC ---
Today's Communication/Plan
-
Medically cleared for discharge to rehab once available
Assessment / Plan
Assessment / Plan
Impression:
Patient is an 84 y/o female past medical history of CHF, HTN, Orthostatic Hypotension, Anxiety / Depression, and Chronic Pain due to prior fractures who presents with left hip pain following a fall. Patient reports she was bending over to feed her
cat when she lost her balance resulting in a fall and landing on her left hip. She is complaining of severe left hip pain, and x-ray in the emergency department revealed a left hip fracture.
Seen by orthopedic S/P left hip cephalomedullary nail.
Seen by physical therapy recommended rehab.
Patient was noted to have UTI and started on Augmentin.
Urine culture showed Klebsiella pneumonia and Enterococcus faecalis sensitive to Augmentin.
Blood pressure dropped and patient received IV fluid bolus
Blood Pressure improved
Had constipation which resolved.
Social service for discharge plan
Pending placement
Assessment/plan:
Status post fall with left Hip Fracture S/P left hip cephalomedullary nail
- Left Hip Fracture due to low level fall.
- Appreciate orthopedic input.
- Pain control.
� PT/OT consult.
� Patient will need rehab
- Patient medically cleared for DC
Hyponatremia.
- Resolved
Sepsis secondary to UTI
Patient meets sepsis criteria admission form of tachycardia and leukocytosis
Urine culture positive for Klebsiella pneumoniae, Enterococcus faecalis.
Patient received IV antibiotic preoperatively in form of Ancef
Started on oral Augmentin (completed 5 days).
Hypotension.
Improved
Chronic HFpEF
-Monitor Daily Weights
- No sign of acute exacerbation
Acute blood loss anemia with baseline chronic anemia iron deficiency
-Continue ferrous sulfate
-Hgb stable
Ulcerative Colitis
-Patient no longer on treatment
-Continue Senna for constipation
Anxiety/Depression with Benzodiazepine Dependence
-Continue alprazolam as prior to admission
-Continue fluoxetine
Overactive Bladder / Chronic Incontinence
-Monitor bladder scans
Chronic Pain with Opioid Dependence
-Pain control as above
Hx Orthostatic Hypotension
Hx Hyperlipidemia
CODE STATUS: DNR
DVT prophylaxis: SCDs/ASA
Diet: Regular
Disposition: Medically clear for discharge to rehab once available
Total time spent on today's encounter was 55 minutes which included time spent in counseling the patient/family regarding diagnosis and treatment plan as listed above, goals of care, and symptom management. Case was discussed with nursing staff,
specialists, and care coordinators/case management. All labs and imaging personally reviewed by me. Remainder the time spent in detailed review of previous records, lab data, imaging, and other medical provider documentation.
Anticipated Discharge: Today
Subjective/Interval History
-
Date of Service: December 15, 2024
Patient seen and examined at bedside, overall looks tired, denies any chest pain or shortness of breath, no abdominal pain, no nausea, no vomiting, no diarrhea or constipation.
Objective Data
-
Labs:
Laboratory Results
12/15/24
07:34
WBC 10.4
Hgb 10.9 L
Hct 33.6 L
Plt Count 354
Sodium 133 L
Potassium 4.3
Chloride 102
Carbon Dioxide 27
BUN 14
Creatinine 0.5 L
Glucose 91
Calcium 8.8
Vital Signs:
Vital Signs
Temp Pulse Resp BP Pulse Ox
98.1 F 96 16 132/78 94
12/15/24 08:00 12/15/24 08:00 12/15/24 08:00 12/15/24 08:00 12/15/24 08:00
I&O
12/14/24 12/15/24 12/16/24
06:59 06:59 06:59
Intake Total 600 / 600 240 / 240
Balance 600 / 600 240 / 240
Physical Exam
-
General: Appears in Distress, Pain and Cachectic
HEENT: Normocephalic, Atraumatic, Moist Mucous Membranes, No Ptosis, PERRLA and Nose Appears Normal
Respiratory: Rales and Non Labored Respirations
Cardiac: Regular Rhythm and S1/S2
Breast: Deferred by me
GI: Soft, Nontender, Nondistended and Normal Bowel Sounds
Genito-urinary: No Costovertebral Tender
Musculoskeletal: Other (Left hip surgical site clean.)
Skin: Warm
Neuro: Awake, Alert, Oriented, AO x 3 and No Motor Deficits
Psych: Other (in distress)
[2024-12-15 11:25] VITALS: PULSE 104; O2SAT 97
[2024-12-15] MEDS: XANAX 0.5 MG PO (11:48)
--- NOTE | 2024-12-15 12:08 | W.DCSUMMARY ---
Discharge Summary
Discharge Data
Date of Admission: 12/08/24
Date of Discharge: 12/15/24
Total time spent discharging patient (in min): 40
-
Pending Results: No
Hospital Course
Hospital course
Patient is an 84 y/o female past medical history of CHF, HTN, Orthostatic Hypotension, Anxiety / Depression, and Chronic Pain due to prior fractures who presents with left hip pain following a fall. Patient reports she was bending over to feed her
cat when she lost her balance resulting in a fall and landing on her left hip. She is complaining of severe left hip pain, and x-ray in the emergency department revealed a left hip fracture.
Seen by orthopedic S/P left hip cephalomedullary nail.
Seen by physical therapy recommended rehab.
Patient was noted to have UTI and started on Augmentin.
Urine culture showed Klebsiella pneumonia and Enterococcus faecalis sensitive to Augmentin.
Blood pressure dropped and patient received IV fluid bolus
Blood Pressure improved
Had constipation which resolved.
Social service for discharge plan
Pending placement
During hospitalization patient was treated from the following
Status post fall with left Hip Fracture S/P left hip cephalomedullary nail
- Left Hip Fracture due to low level fall.
- Appreciate orthopedic input.
- Pain control.
� PT/OT consult.
� Patient will need rehab
- Patient medically cleared for DC
Hyponatremia.
- Resolved
Sepsis secondary to UTI
Patient meets sepsis criteria admission form of tachycardia and leukocytosis
Urine culture positive for Klebsiella pneumoniae, Enterococcus faecalis.
Patient received IV antibiotic preoperatively in form of Ancef
Started on oral Augmentin (completed 5 days).
Hypotension.
Improved
Chronic HFpEF
-Monitor Daily Weights
- No sign of acute exacerbation
Acute blood loss anemia with baseline chronic anemia iron deficiency
-Continue ferrous sulfate
-Hgb stable
Ulcerative Colitis
-Patient no longer on treatment
-Continue Senna for constipation
Anxiety/Depression with Benzodiazepine Dependence
-Continue alprazolam as prior to admission
-Continue fluoxetine
Overactive Bladder / Chronic Incontinence
-Monitor bladder scans
Chronic Pain with Opioid Dependence
-Pain control as above
Hx Orthostatic Hypotension
Hx Hyperlipidemia
CODE STATUS: DNR
DVT prophylaxis: SCDs/ASA
Diet: Regular
Disposition: Medically clear for discharge to rehab once available
Total time spent on today's encounter was 40 minutes which included time spent in counseling the patient/family regarding diagnosis and treatment plan as listed above, goals of care, and symptom management. Case was discussed with nursing staff,
specialists, and care coordinators/case management. All labs and imaging personally reviewed by me. Remainder the time spent in detailed review of previous records, lab data, imaging, and other medical provider documentation.
Anticipated Discharge: Today
Discharge Plan
-
Patient Disposition: Snf/SNF
Discharge Diagnosis/Procedures: Status post fall with left Hip Fracture S/P left hip cephalomedullary nail
Hyponatremia
Sepsis secondary to UTI
Diet: As tolerated and Regular
Activity: With assistance and As tolerated
Referrals:
PCP [Other] - in less than 1 week
Willian Dodge MD [Active, Orthopedics] - in one to two weeks
Prescriptions:
New
aspirin 325 mg Tablet
325 mg PO DAILY Qty: 0 0RF
Continued
sennosides-docusate sodium [Senna Plus] 8.6-50 mg Tablet
2 tab-cap PO HS
ferrous sulfate 325 mg (65 mg iron) Tablet
325 mg PO DAILY
fluoxetine 10 mg Capsule
30 mg PO DAILY
PreserVision AREDS 2,148 mcg-113 mg-45 mg-17.4mg Tablet
1 tab PO DAILY
cyclobenzaprine 5 mg Tablet
5 mg PO DAILYPRN PRN (Reason: spasms)
pantoprazole 40 mg Tablet,Delayed Release (Dr/Ec)
40 mg PO DAILY Qty: 30 0RF
lidocaine 4 % Adhesive Patch,Medicated
1 patch TOPICAL DAILYPRN PRN (Reason: lower back)
acetaminophen [Tylenol Extra Strength] 500 mg tablet
1,000 mg PO TIDPRN PRN (Reason: mild pain)
oxycodone 10 mg Tablet
10 mg PO Q6HPRN PRN (Reason: severe pains) Qty: 4 0RF
Changed
alprazolam 0.5 mg tablet
0.5 mg PO BIDPRN PRN (Reason: anxiety) Qty: 4 0RF
Discharge Orders:
Discharge Patient (As Directed); Ordered 12/15/24
Ordered By: Hebert Eagle
Discharge Date and Time
Print Language: ICELANDIC
[2024-12-15 14:25] VITALS: BP 110/72
== END 2024-12-15 14:58 | DRG 853 ==
LOC: 2 SOUTH 17:45
PROVIDERS: Orthopaedic Surgery; Physician Assistant; Physician Assistant Medical; ADMITTING PHYSICIAN Internal Medicine; ATTENDING PHYSICIAN General Practice; CONSULT PHYSICIAN Orthopaedic Surgery; EMERGENCY PHYSICIAN Emergency Medicine
PROC: 0QH706Z Insertion of Intramedullary Internal Fixation Device into Left Upper Femur, Open Approach (ICD-10-PCS; 2024-12-09)
DX: A41.9 Sepsis, unspecified organism (principal); S72.142A Displaced intertrochanteric fracture of left femur, initial encounter for closed fracture; E87.1 Hypo-osmolality and hyponatremia; I50.32 Chronic diastolic (congestive) heart failure; F11.20 Opioid dependence, uncomplicated; K51.90 Ulcerative colitis, unspecified, without complications; F13.20 Sedative, hypnotic or anxiolytic dependence, uncomplicated; N39.0 Urinary tract infection, site not specified; D62 Acute posthemorrhagic anemia; R64 Cachexia; Z68.1 Body mass index [BMI] 19.9 or less, adult; I11.0 Hypertensive heart disease with heart failure; D50.9 Iron deficiency anemia, unspecified; F41.9 Anxiety disorder, unspecified; F32.A Depression, unspecified; N32.81 Overactive bladder; G89.4 Chronic pain syndrome; Z66 Do not resuscitate; K59.00 Constipation, unspecified; W19.XXXA Unspecified fall, initial encounter; Z51.5 Encounter for palliative care
CPT/HCPCS: 70450; 73502; 73552; 76000; 80048; 80053; 81003; 81015; 85027; 86850; 86900; 86901; 87077; 87086; 87186; 96374; 96375; 97116; 97163; 97167; 97530; 97535; 99285; C1713; C1769

== ENCOUNTER 2025-02-10 12:25 | Emergency (ER) | payer OTHER, SELFPAY ==
[2025-02-10] VITALS (7 sets, daily range): BP systolic 113–164; BP diastolic 76–103; BMI 17.6
--- NOTE | 2025-02-10 14:04 | ED.GENMED ---
History of Present Illness
General
Chief Complaint: Fall
Source: patient and skin care consultant
Exam Limitations: none
Time Seen by Provider: 02/10/25 12:39
Nursing documentation reviewed up to this point in time: agreed with
History of Present Illness
History of Present Illness:
84-year-old female on Hospice, with a medical history of L hip replacement 6 weeks ago, ulcerative colitis, and chronic back pain, presenting with pain after a fall. The patient reports falling at 3:30 AM and remaining on the ground until she
pushed her alert button and home health aide Teresita at bedside states she saw her around around 9:45 AM when EMS arrived. Pt stood and needed assistance to walk. She did not immediately experience significant pain but reports a gradual increase in
discomfort, predominantly in her legs and back, with some abdominal pain. The patient states that she 'has pain all over,' which she associates with her recent fall; however, she had no particular symptoms immediately after the fall and refused to
be brought to the hospital when EMS arrived. The pain in her legs is described as cramping, which is not entirely new but has worsened since the fall. The pain level was reported as severe prior to coming here, aide stating she was screaming out in
pain and she gave her her Oxycodone 10 mg as well as her Xanax.
Aide states pt has been complaining of being dizzy, pt states 'when I stand I get dizzy.'
Teresita states she seems more calm and less crying out with pain since pain medicine given.
According to Teresita, there have been multiple previous falls with minor injuries, but this episode was different in severity.
Last Hospice visit was yesterday and daughter states pt was doing well, ambulating with walker as usual. Healing well after her hip surgery.
Past History
Past History
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
ED Past Surgical History: Orthopedic (Lumbar fusion, )
Social History
Tobacco: Non-smoker
Alcohol: Daily (Sathyai 1 )
Drug: Other (Xanax addiction)
Personal: ( in residential, patient lives alone)
Living: alone
Employment: Retired
Family History
Family History: Other ( Noncontributory)
Review of Systems
Review of Systems
Allergies reviewed?: Yes
All Other Systems: ROS reviewed and negative except as documented in HPI and ROS
Phy Exam
Physical Exam
Physical Exam:
GENERAL: No acute distress. A&Ox3.
CONSTITUTIONAL: Afebrile.
EYES: clear, conjunctivae normal
ENMT: dry mucus membranes, Pharynx nl
RESPIRATORY: Regular respirations, nonlabored, lungs clear.
CARDIOVASCULAR: Regular rate and rhythm, + murmur, no rubs.
GI: Soft, nontender, normal BS
MUSCULOSKELETAL: No spinal bony tenderness. pt repeats she has back pain, pain and cramps in her legs, then long periods of quiet. When pt distracted, deep palpation of all bones of legs, arms, pelvis, spine, ribs with no complaint of pain. Well
perfused. OOB at bedside with walker, very tremulous, can bear weight but unable to walk due to general weakness. Denies hip or leg pain while standing.
SKIN: Warm, dry, pink
PSYCH: Normal mood and affect. Well kept, interactive and appropriate
NEUROLOGIC: Awake, alert and oriented. No focal neurological deficits
Course
Orders/Labs/Results
Orders:
Orders
02/10/25 14:09
Acetaminophen [Tylenol] 1,000 mg PO NOW STA
02/10/25 14:17
Case Management Consult ONCE
Case Management Consult: Discharge Planning
Comment: Pt on Hospice , no reason to admit after fall, can you find a place for her? Family and she want to
stay on Hospice. They are working on [facility] 02/10 coverage as now she only has 10a-7p coveragy
and is not safe to go home due to fall risk unless she gets the 24/7 care. Daughter is calling [facility] trying to arrange the 24/7. I can't wait hours and hours so if she doesn't call
back in an hour, is there a chance pt can go to a facility until can get 24/7 care?
02/10/25 15:47
Oxycodone [Roxicodone] 10 mg PO NOW STA
02/10/25 16:24
Urinalysis Reflex To Culture Urgent
Date Specimen was Collected: 02/10/25
Time Specimen was Collected: 16:12
Urine Microscopic Reflex Cult Urgent
Urine Culture Urgent
EARL Source: U
Specimen Description:
Date Specimen was Collected: 02/10/25
Time Specimen was Collected: 16:12
02/10/25 16:43
Cephalexin Monohydrate [Keflex] 500 mg PO NOW STA
Abnormal Lab Results
02/10/25
16:24
Urine Ketones 2+ A
(Negative)
Ur Occult Blood Reflex 2+ A
(Negative)
Urine Nitrite (Reflex) Positive A
(Negative)
Leukocyte Esterase Rfl 3+ A
(Negative)
Urine RBC 3-6 A /HPF
(0-2)
Urine WBC (Reflex) >100 A /HPF
(0-5)
Urine Bacteria (Reflex) Many A
(Negative)
Urine Albumin (Reflex) 3+ A
(Neg - Trace)
Vital Signs
Initial and Last Documented VS:
Initial Vital Signs
Pulse Resp BP Pulse Ox
108 28 158/103 95
02/10/25 12:29 02/10/25 12:29 02/10/25 12:29 02/10/25 12:29
Last Documented Vital Signs
Pulse Resp BP Pulse Ox
99 21 113/76 95
02/10/25 18:15 02/10/25 18:15 02/10/25 16:00 02/10/25 14:05
MDM/Problems Addressed
MDM/Problems Addressed:
84-year-old female on Hospice, with a medical history of L hip replacement 6 weeks ago, ulcerative colitis, and chronic back pain, presenting with pain after a fall. The patient reports falling at 3:30 AM and remaining on the ground until she pushed
her alert button and home health aide Teresita at bedside states she saw her around around 9:45 AM when EMS arrived. Pt stood and needed assistance to walk. She did not immediately experience significant pain but reports a gradual increase in
discomfort, predominantly in her legs and back, with some abdominal pain. The patient states that she 'has pain all over,' which she associates with her recent fall; however, she had no particular symptoms immediately after the fall and refused to
be brought to the hospital when EMS arrived. The pain in her legs is described as cramping, which is not entirely new but has worsened since the fall. The pain level was reported as severe prior to coming here, aide stating she was screaming out in
pain and she gave her her Oxycodone 10 mg as well as her Xanax.
Aide states pt has been complaining of being dizzy, pt states 'when I stand I get dizzy.'
Teresita states she seems more calm and less crying out with pain since pain medicine given.
According to Teresita, there have been multiple previous falls with minor injuries, but this episode was different in severity.
Last Hospice visit was yesterday and daughter states pt was doing well, ambulating with walker as usual. Healing well after her hip surgery.
Afebrile, intermittently calling out in pain in her back, legs.
Holding off doing medical workup, head CT due to pt wants to remain on Hospice and does not want to come off Hospice for workup and possible admission. Spoke with daughter Karen who spoke with pt and all agree, no admission, get back home if
possible.
Pt not safe to go home with only 12 hours a day care, needs 24/7 caregiver.
Daughter states Hospice will treat for UTI
[facility] notified
Per daughter who called '[facility] caregiving company and they have arranged for 02/10 care.
Daughter states Hospice does treat for UTI but agrees no blood work or CT scan. Do not suspect and fractures from the fall. With distraction and pain meds pt has no bony tenderness of extremities, palpation and stands with no significant hip, leg
pain, no spinal bony tenderness, no imaging indicated.
U/A: showing infection. Started on Keflex and rx sent to her pharmacy
Stable for discharge.
*Pulse Oximetry
SaO2: 95
Oxygen Mode of Delivery: Room air
Patient hypoxic: no
*Critical Care Note
Total Time (30-74mins, 75-104mins- exclusive of procedures): Not Applicable
ED Attending Note
-
Portions of this chart may have been created with voice recognition software.� Occasional wrong word or��sound alike� substitutions may have occurred due to the inherent limitations of voice recognition software.
Discharge Plan
Departure
Patient Disposition: Home (Routine Discharge)
Date of Disposition: 02/10/25
Time of Disposition: 16:47
Patient with high blood pressure during this ER visit?: No
Condition: Fair
Discharge Problem:
UTI (urinary tract infection), Ambulatory dysfunction
Instructions: Preventing falls in adults, Urinary tract infection in adults - ED (DC)
Prescriptions:
New
cephalexin 250 mg capsule
250 mg PO TID 7 Days Qty: 21 0RF
No Action
sennosides-docusate sodium [Senna Plus] 8.6-50 mg Tablet
2 tab-cap PO HS
ferrous sulfate 325 mg (65 mg iron) Tablet
325 mg PO DAILY
fluoxetine 10 mg Capsule
30 mg PO DAILY
PreserVision AREDS 2,148 mcg-113 mg-45 mg-17.4mg Tablet
1 tab PO DAILY
cyclobenzaprine 5 mg Tablet
5 mg PO DAILYPRN PRN (Reason: spasms)
pantoprazole 40 mg Tablet,Delayed Release (Dr/Ec)
40 mg PO DAILY Qty: 30 0RF
lidocaine 4 % Adhesive Patch,Medicated
1 patch TOPICAL DAILYPRN PRN (Reason: lower back)
acetaminophen [Tylenol Extra Strength] 500 mg tablet
1,000 mg PO TIDPRN PRN (Reason: mild pain)
aspirin 325 mg Tablet
325 mg PO DAILY Qty: 0 0RF
alprazolam 0.5 mg tablet
0.5 mg PO BIDPRN PRN (Reason: anxiety) Qty: 4 0RF
oxycodone 10 mg Tablet
10 mg PO Q6HPRN PRN (Reason: severe pains) Qty: 4 0RF
Referrals:
Leighton Dietz MD [Family Provider, Family Practice] - As needed
Activity Restrictions/Additional Instructions:
As we discussed, you have a urinary tract infection. You were given a dose of Keflex tonight. A prescription for Keflex to 50 mg to take 3 times a day for 7 days was sent to your pharmacy to start tomorrow. Continue 02/10 care until you are steady
on your feet. Contact your Hospice nurse tomorrow and inform of today's visit.
Interventions
Interventions:
*Risk Screen - Suicide Last Done: 02/10/25 12:33
*General Assessment Last Done: 02/10/25 12:33
*Neglect/Abuse Screening Last Done: 02/10/25 12:33
*ED COVID-19 Vaccine History Last Done: 02/10/25 12:44
*ED Influenza Vaccine History Last Done: 02/10/25 12:44
[facility] Risk Assessment Tool Last Done: 02/10/25 12:43
*Nursing Disposition Last Done: 02/10/25 19:11
ED-Musculoskeletal Assessment Last Done: 02/10/25 12:48
ED- Neurological Assessment Last Done: 02/10/25 12:47
ED-Skin Assessment Last Done: 02/10/25 13:03
Discharge Date and Time
Discharge Date/Time: 02/10/25 19:13
Print Language: BULGARIAN
[2025-02-10] MEDS: TYLENOL 1000 MG PO (14:16)
--- NOTE | 2025-02-10 14:46 | EDCM ---
Addendum entered by Bhavna Ascencio 02/10/25 15:57:
Per Daylin PARRA, [facility] was able to secure overnight STUDENT ACTIVITIES DIRECTOR for pt. Pt will be transported home at 1800 by [facility].
Original Note:
Received consult, met with pt bedside in ED. Pt lives in [address] , [address] from [facility], has first floor setup.
Pt is currently on [facility], has STUDENT ACTIVITIES DIRECTOR 7 days a week from 10a to 7p from [facility]. Aide is here with pt.
Pt has RW, O2, shower chair, shower rails and stair glide.
I spoke to her DIL Karen on the phone, she is POA. Pt is not safe to be home alone. Karen is trying to increase STUDENT ACTIVITIES DIRECTOR to 24 hours a day, per pt she had 24 hour aides when she first went on hospice and it was very expensive. She does understand it is
not safe for her to be home alone. Discussed going to SNF which would also be private pay but pt adamantly refuses. I asked Karen if there were any family members who could come and stay with pt, she will look in to that.
Discussed with STUDENT ACTIVITIES DIRECTOR at bedside, she said [facility] sent out a blast email looking for assistance and they are waiting for a response. [facility] sent pt to ED and will assist with transportation home when pt is ready to leave.
Updated Daylin PARRA. CM will continue to follow.
[2025-02-10] MEDS: ROXICODONE 10 MG PO (16:18)
[2025-02-10 16:33] LABS: Urine Character Clear (Clear)
[2025-02-10 16:43] LABS: Urine Squamous Cell 0-2 /LPF (Few)
[2025-02-10 16:44] LABS: Urine White Cell >100 /HPF (0-5)
[2025-02-10] MEDS: KEFLEX 500 MG PO (17:40)
== END 2025-02-10 19:13 | disposition home or self-care (01) ==
LOC: EMR 12:25
PROVIDERS: Registered Nurse; EMERGENCY PHYSICIAN Emergency Medicine; FAMILY PHYSICIAN Family Medicine
DX: N39.0 Urinary tract infection, site not specified (principal); R26.2 Difficulty in walking, not elsewhere classified; E78.00 Pure hypercholesterolemia, unspecified; I11.0 Hypertensive heart disease with heart failure; I50.9 Heart failure, unspecified; Z98.1 Arthrodesis status
CPT/HCPCS: 99283; 81003; 81015; 87077; 87086; 87186